=== PATIENT | male | born 1945 | race Caucasian/White ===

== ENCOUNTER 2016-12-24 11:00 | Outpatient (CLI) | payer MEDICARE, OTHER ==
[~2016-12-24] VITALS: Ht 175.3 cm; Wt 117.9 kg
[~2016-12-24 11:00] MED LIST: ALLO100T PO; AMLO10TA82 PO; AMLO5TAB2 PO; ASP81TEC PO; ATOR80TA PO; CARV20CP PO; CHOL2000 PO; CLOP75TA PO; CYAN100053 IJ; FLUT1DIS26 IH; FURO40TA4 PO; GLIM2TAB PO; HCT25T; LISI40TA; PIOG1TAB PO; PIOG1TAB2 PO; SIMV40TA4; SITA100T PO; VITAMIN 12; [UNRECOGNIZED DRUG - OTHER]
== END 2016-12-24 13:10 ==
LOC: PREOP 11:00
PROVIDERS: ATTEND Internal Medicine
DX: Z01.818 Encounter for other preprocedural examination (principal); Z12.11 Encounter for screening for malignant neoplasm of colon

== ENCOUNTER 2016-12-25 10:00 | Outpatient (RCR) | payer MEDICARE, OTHER | END 2017-01-04 | disposition home or self-care (01) | LOC: PULM 10:00 | PROVIDERS: ATTEND Internal Medicine Critical Care Medicine | DX: G47.33 Obstructive sleep apnea (adult) (pediatric) (principal) | CPT/HCPCS: 99211 ==

== ENCOUNTER 2016-12-26 08:33 | Day surgery (SDC) | payer MEDICARE, OTHER ==
--- NOTE | 2016-12-23 20:28 | HISTORY AND PHYSICAL ---
DATE OF SERVICE: HISTORY OF PRESENT ILLNESS: The patient is a 71-year-old white male referred for screening colonoscopy by Dr. Bauer. He had undergone his first colonoscopy in 2004. It revealed mild diverticular disease, but no evidence for neoplasia. He is not aware of any family history for colon cancer or colon polyps. He denies any bowel habit change and has noted no bright red blood per rectum, melena and denies abdominal pain. He reports that he has been feeling well. He underwent aortic valve replacement in 2008 with a bovine valve. He had an echocardiogram in 2016 that revealed normal valvular function and ejection fraction of 60% and mild LVH. Pulmonary artery pressure was not elevated and no other significant abnormalities were noted. PAST MEDICAL HISTORY: Significant for hypertension and hyperlipidemia. PAST SURGICAL HISTORY: Also, significant for surgery X2 for detached retina in September and December of last year. SOCIAL HISTORY: He is retired with no past smoking history and no significant drinking history. FAMILY HISTORY: As noted in HPI. PHYSICAL EXAMINATION: GENERAL: Reveals white male who appears to be in no acute distress, looking a little younger than his stated age. VITAL SIGNS: Blood pressure 134/50. HEENT: Unremarkable. A Mallampati class 2 oropharyngeal configuration. NECK: Revealed no JVD, adenopathy or bruits. CARDIOVASCULAR: S1 revealed a regular rate and rhythm without significant murmur, S3 or S4. ABDOMEN: Soft, supple without mass, organomegaly or tenderness. Bowel sounds noted in all 4 quadrants. No bruits are appreciated. EXTREMITIES: Reveal no cyanosis, clubbing or edema. MEDICATIONS: Include Januvia 100 mg daily, aspirin 81 mg daily, Coreg CR 20 mg daily, furosemide 40 mg daily, atorvastatin 80 mg daily, glimepiride 2 mg daily, vitamin D3 2000 units daily, Advair one inhalation b.i.d., Actos plus met 15/500 b.i.d., amlodipine 5 mg daily and clopidogrel 75 mg daily. He has had no history of stent placements, but does have known single vessel coronary disease. ASSESSMENT: The patient was set up for screening colonoscopy on 12/27/2016. Prep instructions with split dose Colyte were given. The patient's evaluation and review of her electronic medical record, 45 minutes of care time was spent. I thank you for the referral of this pleasant gentleman. Job ID: [id number] DocumentID: [id number] Dictated Date: 12/23/2016 20:00:28 It Risk Analyst Date: 12/23/2016 20:28:02 Dictated By: NATALY MARTINEZ MD MTDD
[~2016-12-26] VITALS: Ht 175.3 cm; Wt 117.9 kg
--- NOTE | 2016-12-26 08:33 | Pre-Op Note & Conscious Sedat ---
Pre-Operative Progress Note H&P Reviewed The H&P was reviewed, patient examined and no changes noted. Date H&P Reviewed: Dec 26, 2016 Time H&P Reviewed: 07:50 Conscious Sedation Pre-Proced ASA Class: 2 Airway Mallampati Classification: ([place] appropriate class) I. II. III, IV Lungs Heart ASA score ASA 1: a normal healthy patient ASA 2: a patient with a mild systemic disease (mid diabetes, controlled hypertension, obesity ASA 3: a patient with a severe systemic disease that limits activity (angina , COPD, prior Myocardial infarction) ASA 4: a patient with an incapacitating disease that is a constant threat to life (CHF, renal failure) ASA 5: a moribund patient not expected to survive 24 hrs. (ruptured aneurysm) ASA 6: a declared brain patient whose organs are being harvested. For emergent operations, add the letter E after the classification Grade 2 Sedation Plan: Analgesia, Amnesia, Plan communicated to team members, Discussed options with patient/fam, Discussed risks with patient/fam Note The patient is an appropriate candidate to undergo the planned procedure, sedation, and anesthesia. The patient immediately re-assessed prior to indication. NATALY MARTINEZ MD Dec 26, 2016 08:33
[2016-12-26] MEDS ORDERED: 1/2 NS IV SOLUTION 1,000 ML IV PRN (09:10)
[2016-12-26] MEDS ORDERED: MIDAZOLAM 2 MG/2 ML (VERSED) VIAL IVP PRN (09:10)
[2016-12-26] MEDS ORDERED: LIDOCAINE JELLY 2% (XYLOCAINE) 5 ML TUBE MM PRN (09:15)
[2016-12-26] MEDS ORDERED: FLUMAZENIL (ROMAZICON) 0.1 MG/ML 5 ML VIAL INJ PRN (09:15)
[2016-12-26] MEDS ORDERED: NALOXONE 0.4 MG/ML 1 ML (NARCAN) VIAL IVP PRN (09:15)
[2016-12-26] MEDS ORDERED: fentaNYL INJECTION 100 MCG/2 ML AMP ONE (09:33)
[2016-12-26] MEDS ORDERED: LIDOCAINE JELLY 2% (XYLOCAINE) 5 ML TUBE ONE (09:33)
[2016-12-26] MEDS ORDERED: MIDAZOLAM 2 MG/2 ML (VERSED) VIAL ONE (09:33)
[2016-12-26 09:40] VITALS: BP 154/60
[2016-12-26] MEDS: fentaNYL INJECTION 100 MCG/2 ML AMP IVP PRN ×2 (09:57→10:10)
[2016-12-26 10:35] VITALS: BP 122/45
[2016-12-26 11:00] VITALS: BP 133/50
[2016-12-26 11:11] VITALS: BP 133/50
--- NOTE | 2016-12-26 12:27 | OPERATIVE REPORT ---
DATE OF SERVICE: COLONOSCOPY SUMMARY INDICATION FOR THE PROCEDURE: Screening colonoscopy. HISTORY OF PRESENT ILLNESS: The patient was placed in the left lateral decubitus position. Prior to undergoing colonoscopy, digital rectal evaluation was performed. Anal sphincter tone was normal and the perianal reflex was intact. Prostate was mildly enlarged, nontender and anodular on digital inspection. No abnormalities were noted on additional inspection of the distal rectal vault. The colonoscope was then inserted into the rectum and under direct visualization, advanced to the cecum. The cecum was identified by identification of the ileocecal valve and the cecal strap. Photographic documentation was obtained. Careful inspection was made as the colonoscope was withdrawn. FINDINGS: There is no evidence for internal or external hemorrhoids. The rectum was unremarkable. Several small sigmoid diverticulum were present without evidence for diverticulitis. No other sigmoid colonic abnormalities were appreciated. The descending colon, transverse colon and ascending colon were unremarkable. On the colonic wall across from the ileocecal valve was a 3 x 5 mm blush area compatible with an area of angiodysplasia. No blood was noted in the colon. There was no evidence for hematocystic spots or findings to suggest increase bleeding risk. The remainder of the cecum was unremarkable. ASSESSMENTS: 1. No neoplasia was identified on today's procedure. Considering this patient's age and medical comorbidities, would not recommend future screening colonoscopy, as this is his second of 2 colonoscopies with no evidence for neoplasia. 2. Mild diverticular disease confined to the sigmoid colon. 3. Small diverticulum being noted today without evidence for diverticulitis. 4. One small angiodysplastic appearing lesion on the opposite colonic wall in the cecum from the ileocecal valve measuring 3.5 mm without bleeding or stigmata to suggest increased bleeding risk was noted on the wall opposite the ileocecal valve and the cecum. I discussed the small possibility of gastrointestinal bleed that would likely manifest as dark red blood, but I advised the patient resume aspirin and Plavix today. I thank you for the referral of this pleasant gentleman. Job ID: [id number] DocumentID: [id number] Dictated Date: 12/26/2016 11:42:55 Construction Safety Consultant Date: 12/26/2016 12:26:57 Dictated By: NATALY MARTINEZ MD
--- OUTSIDE RECORDS SUMMARY | 2016-12-31 12:15 | XMS REPORT | Continuity of Care Document ---
Author Author [facility] Organization [facility] Address Unknown Phone Unavailable Allergies Active Description Code Type Severity Reaction Onset Reported/Identified Relationship to Patient Clinical Status Yes No Known Drug Allergies [id number] Drug Allergy Mild N/A 07/11/2009 Medications Problems Date Dx Coded Attending Type Code Diagnosis Diagnosed By 01/31/2009 Ot V43.3 01/31/2009 Ot V45.81 01/31/2009 Ot V57.89 10/17/2009 Ot 250.00 10/17/2009 Ot 401.9 10/17/2009 Ot 719.41 10/17/2009 Ot V43.3 10/17/2009 Ot V57.1 10/17/2009 Ot V58.49 11/23/2009 Ot 250.00 11/23/2009 Ot 401.9 11/23/2009 Ot 719.41 11/23/2009 Ot V43.3 11/23/2009 Ot V57.1 11/23/2009 Ot V58.49 05/23/2014 MARIELOS MERRITT FACC, DIEGO FACP CCDS Ot 250.00 DIAB CORONA WO COMPL, TYPE II OR UNSPEC TY 05/23/2014 MARIELOS MERRITT FACC, DIEGO FACP CCDS Ot 272.4 HYPERLIPIDEMIA NEC/NOS 05/23/2014 MARIELOS MERRITT FACC, DIEGO FACP CCDS Ot 401.9 HYPERTENSION NOS 05/23/2014 DIEGO ARCEO MD, FACC FACP CCDS Ot 414.01 CORONARY ATHEROSCLEROSIS OF [place] CORON 05/23/2014 DIEGO ARCEO MD, FACC FACP CCDS Ot 433.10 CAROTID ARTERY OCCLUSION W O CEREBRAL IN 05/23/2014 DIEGO ARCEO MD, FACC FACP CCDS Ot 786.09 RESPIRATORY ABNORM NEC 05/23/2014 DIEGO ARCEO MD, FACC FACP CCDS Ot V15.82 HISTORY OF TOBACCO USE 05/23/2014 MARIELOS MERRITT FACC, DIEGO FACP CCDS Ot V43.3 HEART VALVE REPLAC NEC 05/23/2014 DIEGO ARCEO MD, FACC FACP CCDS Ot V45.81 AORTOCORONARY BYPASS 05/23/2014 MARIELOS MERRITT FACC, ALI FACP CCDS Ot V58.69 OT MED,LT,CURRENT USE 10/09/2014 Ot 727.61 10/09/2014 Ot V72.83 10/09/2014 Ot V74.8 10/09/2014 Ot 789.09 10/09/2014 Ot 726.0 10/09/2014 Ot V72.63 10/09/2014 Ot V74.8 10/09/2014 Ot 414.01 10/09/2014 Ot 786.59 10/09/2014 Ot V43.3 10/09/2014 Ot 786.59 10/09/2014 Ot 414.01 10/09/2014 Ot 425.4 10/09/2014 Ot 397.0 10/09/2014 Ot 414.00 10/09/2014 Ot 424.0 10/09/2014 Ot 429.3 10/09/2014 Ot V43.3 10/09/2014 Ot 780.4 10/09/2014 Ot 429.3 10/09/2014 Ot V43.3 10/09/2014 Ot V67.00 10/09/2014 BAIMA, GERARDO L REEL MAN Ot 414.01 10/09/2014 BAIMA GERARDO L REEL MAN Ot 447.9 10/09/2014 BAIMA, GERARDO L REEL MAN Ot V43.3 04/17/2015 Ot 414.01 04/17/2015 Ot 786.59 04/17/2015 Ot V43.3 04/17/2015 Ot 786.59 04/17/2015 Ot 414.01 04/17/2015 Ot 425.4 04/17/2015 Ot 397.0 04/17/2015 Ot 414.00 04/17/2015 Ot 424.0 04/17/2015 Ot 429.3 04/17/2015 Ot V43.3 04/17/2015 Ot 780.4 04/17/2015 Ot 429.3 04/17/2015 Ot V43.3 04/17/2015 Ot V67.00 04/17/2015 BAIMA, GERARDO L REEL MAN Ot 414.01 04/17/2015 BAIMA, GERARDO L REEL MAN Ot 447.9 04/17/2015 BAIMA, GERARDO L REEL MAN Ot V43.3 05/23/2015 BAIMA, GERARDO L REEL MAN Ot I25.10 05/23/2015 BAIMA, GERARDO L REEL MAN Ot R07.89 06/14/2015 BAIMA, GERARDO L REEL MAN Ot I25.10 06/14/2015 BAIMA, GERARDO L REEL MAN Ot R07.89 01/06/2016 AUGUSTA MERRITT, NATALY Gan Ot H53.8 OTHER VISUAL DISTURBANCES 01/07/2016 NATALY DERAS MD Ot H53.8 OTHER VISUAL DISTURBANCES 02/20/2016 Ot 397.0 TRICUSPID VALVE DISEASE 02/20/2016 Ot 414.00 CORON ATHEROSCLER NOS TYPE VESSEL, NATIV 02/20/2016 Ot 424.0 MITRAL VALVE DISORDER 02/20/2016 Ot 429.3 CARDIOMEGALY 02/20/2016 Ot V43.3 HEART VALVE REPLAC NEC 02/20/2016 Ot 780.4 DIZZINESS AND GIDDINESS 02/20/2016 Ot 429.3 CARDIOMEGALY 02/20/2016 Ot V43.3 HEART VALVE REPLAC NEC 02/20/2016 Ot V67.00 UNSPEC SURGERY FOLLOW-UP EXAM 02/20/2016 MILES GERARDO L REEL MAN Ot 414.01 CORONARY ATHEROSCLEROSIS OF [place] CORON 02/20/2016 BAIMA, GERARDO L REEL MAN Ot 447.9 ARTERIAL DISEASE NOS 02/20/2016 BAIMA, GERARDO L REEL MAN Ot V43.3 HEART VALVE REPLAC NEC 02/20/2016 BAIMA, GERARDO L REEL MAN Ot I25.10 ATHSCL HEART DISEASE OF [place] CORONARY 02/20/2016 BAIMA, GERARDO L REEL MAN Ot R07.89 OTHER CHEST PAIN 04/22/2016 Ot 397.0 TRICUSPID VALVE DISEASE 04/22/2016 Ot 414.00 CORON ATHEROSCLER NOS TYPE VESSEL, NATIV 04/22/2016 Ot 424.0 MITRAL VALVE DISORDER 04/22/2016 Ot 429.3 CARDIOMEGALY 04/22/2016 Ot V43.3 HEART VALVE REPLAC NEC 04/22/2016 Ot 780.4 DIZZINESS AND GIDDINESS 04/22/2016 Ot 429.3 CARDIOMEGALY 04/22/2016 Ot V43.3 HEART VALVE REPLAC NEC 04/22/2016 Ot V67.00 UNSPEC SURGERY FOLLOW-UP EXAM 04/22/2016 MILES GERARDO L REEL MAN Ot 414.01 CORONARY ATHEROSCLEROSIS OF [place] CORON 04/22/2016 BAIMA, GERARDO L REEL MAN Ot 447.9 ARTERIAL DISEASE NOS 04/22/2016 BAIMA GERARDO L REEL MAN Ot V43.3 HEART VALVE REPLAC NEC 04/22/2016 BAIMA, GERARDO L REEL MAN Ot I25.10 ATHSCL HEART DISEASE OF [place] CORONARY 04/22/2016 BAIMA GERARDO L REEL MAN Ot R07.89 OTHER CHEST PAIN 04/23/2016 BAIMA, GERARDO L REEL MAN Ot E78.4 OTHER HYPERLIPIDEMIA 04/23/2016 BAIMA, GERARDO L REEL MAN Ot I25.10 ATHSCL HEART DISEASE OF [place] CORONARY 04/23/2016 BAIMA, GERARDO L REEL MAN Ot I65.23 OCCLUSION AND STENOSIS OF BILATERAL BOUCHER 04/23/2016 BAIMA, GERARDO L REEL MAN Ot I97.3 POSTPROCEDURAL HYPERTENSION 04/23/2016 BAIMA, GERARDO L REEL MAN Ot R06.09 OTHER FORMS OF DYSPNEA 04/23/2016 BAIMA, GERARDO L REEL MAN Ot 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 04/23/2016 BAIMA, GERARDO L REEL MAN Ot E78.4 OTHER HYPERLIPIDEMIA 04/23/2016 BAIMA, GERARDO L REEL MAN Ot I25.10 ATHSCL HEART DISEASE OF [place] CORONARY 04/23/2016 BAIMA, GERARDO L REEL MAN Ot I65.23 OCCLUSION AND STENOSIS OF BILATERAL [place]OUCHER 04/23/2016 BAIMA, GERARDO L REEL MAN Ot I97.3 POSTPROCEDURAL HYPERTENSION 04/23/2016 BAIMA, GERARDO L REEL MAN Ot R06.09 OTHER FORMS OF DYSPNEA 04/23/2016 BAIMA, GERARDO L REEL MAN Ot 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 04/24/2016 BAIMA, GERARDO L REEL MAN Ot E78.4 OTHER HYPERLIPIDEMIA 04/24/2016 BAIMA, GERARDO L REEL MAN Ot I25.10 ATHSCL HEART DISEASE OF [place] CORONARY 04/24/2016 BAIMA, GERARDO L REEL MAN Ot I65.23 OCCLUSION AND STENOSIS OF BILATERAL [place]CHER 04/24/2016 BAIMA, GERARDO L REEL MAN Ot I97.3 POSTPROCEDURAL HYPERTENSION 04/24/2016 BAIMA, GERARDO L REEL MAN Ot R06.09 OTHER FORMS OF DYSPNEA 04/24/2016 BAIMA, GERARDO L REEL MAN Ot 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 05/13/2016 GERARDO AQUINO REEL MAN Ot E78.4 OTHER HYPERLIPIDEMIA 05/13/2016 GERARDO AQUINO REEL MAN Ot I25.10 ATHSCL HEART DISEASE OF [place] CORONARY 05/13/2016 GERARDO AQUINO REEL MAN Ot I65.23 OCCLUSION AND STENOSIS OF BILATERAL [place]CHER 05/13/2016 GERARDO AQUINO REEL MAN Ot I97.3 POSTPROCEDURAL HYPERTENSION 05/13/2016 GERARDO AQUINO REEL MAN Ot R06.09 OTHER FORMS OF DYSPNEA 05/13/2016 GERARDO AQUINO REEL MAN Ot 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 05/22/2016 JIMI LEIGH DO Ot I65.23 OCCLUSION AND STENOSIS OF BILATERAL [place]CHER 05/22/2016 JIMI LEIGH DO Ot R06.02 SHORTNESS OF BREATH 05/22/2016 JIIM LEIGH DO Ot R79.89 OTHER SPECIFIED ABNORMAL FINDINGS OF BLO 05/22/2016 JIMI LEIGH DO Ot 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 05/26/2016 JIMI LEIGH DO Ot G47.33 OBSTRUCTIVE SLEEP APNEA (ADULT) (PEDIATR 05/26/2016 JIMI LEIGH DO Ot G47.33 OBSTRUCTIVE SLEEP APNEA (ADULT) (PEDIATR 05/27/2016 Ot 397.0 TRICUSPID VALVE DISEASE 05/27/2016 Ot 414.00 CORON ATHEROSCLER NOS TYPE VESSEL, NATIV 05/27/2016 Ot 424.0 MITRAL VALVE DISORDER 05/27/2016 Ot 429.3 CARDIOMEGALY 05/27/2016 Ot V43.3 HEART VALVE REPLAC NEC 05/27/2016 Ot 780.4 DIZZINESS AND GIDDINESS 05/27/2016 Ot 429.3 CARDIOMEGALY 05/27/2016 Ot V43.3 HEART VALVE REPLAC NEC 05/27/2016 Ot V67.00 UNSPEC SURGERY FOLLOW-UP EXAM 05/27/2016 GERARDO AQUINO REEL MAN Ot 414.01 CORONARY ATHEROSCLEROSIS OF [place] CORON 05/27/2016 GERARDO AQUINO REEL MAN Ot 447.9 ARTERIAL DISEASE NOS 05/27/2016 GERARDO AQUINO REEL MAN Ot V43.3 HEART VALVE REPLAC NEC 05/27/2016 GERARDO AQUINO REEL MAN Ot I25.10 ATHSCL HEART DISEASE OF [place] CORONARY 05/27/2016 KIMBERLYN AQUINOHER L REEL MAN Ot R07.89 OTHER CHEST PAIN 05/27/2016 BAIMA, GERARDO L REEL MAN Ot E78.4 OTHER HYPERLIPIDEMIA 05/27/2016 BAIMA, GERARDO L REEL MAN Ot I25.10 ATHSCL HEART DISEASE OF [place] CORONARY 05/27/2016 BAIMA GERARDO L REEL MAN Ot I65.23 OCCLUSION AND STENOSIS OF B[place]ATER[place] 05/27/2016 BAIMA, GERARDO L REEL MAN Ot I97.3 POSTPROCEDURAL HYPERTENSION 05/27/2016 BAIMA, GERARDO L REEL MAN Ot R06.09 OTHER FORMS OF DYSPNEA 05/27/2016 BAIMA, GERARDO L REEL MAN Ot 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 05/27/2016 JIMI LEIGH DO Ot I65.23 OCCLUSION AND STENOSIS OF [place]ATER[place] 05/27/2016 JIMI LEIGH DO Ot R06.02 SHORTNESS OF BREATH 05/27/2016 JIMI LEIGH DO Ot R79.89 OTHER SPECIFIED ABNORMAL FINDINGS OF BLO 05/27/2016 JIMI LEIGH DO Ot 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 05/27/2016 BAIMAKIMBERLYNGERARDO L REEL MAN Ot E78.4 OTHER HYPERLIPIDEMIA 05/27/2016 BAIMA, GERARDO L REEL MAN Ot I25.10 ATHSCL HEART DISEASE OF [place] CORONARY 05/27/2016 BAIMAKIMBERLYNGERARDO L REEL MAN Ot I65.23 OCCLUSION AND STENOSIS OF BILATERAL [place] 05/27/2016 BAIMAKIMBERLYNGERARDO L REEL MAN Ot I97.3 POSTPROCEDURAL HYPERTENSION 05/27/2016 SHEBAMA GERARDO L REEL MAN Ot R06.09 OTHER FORMS OF DYSPNEA 05/27/2016 MILES GERARDO L REEL MAN Ot 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 05/27/2016 JIMI LEIGH DO Ot G47.33 OBSTRUCTIVE SLEEP APNEA (ADULT) (PEDIATR 05/29/2016 JIMI LEIGH DO Ot E29.1 TESTICULAR HYPOFUNCTION 05/29/2016 JIMI LEIGH DO Ot I65.23 OCCLUSION AND STENOSIS OF BILATERAL [place] 05/29/2016 JIMI LEIGH DO Ot R06.02 SHORTNESS OF BREATH 05/29/2016 JIMI LEIGH DO Ot 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 06/12/2016 LU DUGGAN JIMI Goff Ot I65.23 OCCLUSION AND STENOSIS OF BILATERAL [place] 06/12/2016 LU DUGGAN JIMI M Ot R06.02 SHORTNESS OF BREATH 06/12/2016 LU DUGGAN JIMI M Ot R79.89 OTHER SPECIFIED ABNORMAL FINDINGS OF BLO 06/12/2016 LU DUGGAN JIMI M Ot 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 06/18/2016 JIMI LEIGH DO Ot E29.1 TESTICULAR HYPOFUNCTION 06/18/2016 LU DUGGAN JIMI M Ot I65.23 OCCLUSION AND STENOSIS OF [place] 06/18/2016 JIMI LEIGH DO Ot R06.02 SHORTNESS OF BREATH 06/18/2016 JIMI LEIGH DO Ot 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 07/08/2016 JIMI LEIGH DO Ot I65.23 OCCLUSION AND STENOSIS OF [place] 07/08/2016 JIMI LEIGH DO Ot R06.02 SHORTNESS OF BREATH 07/08/2016 JIMI LEIGH DO Ot R79.89 OTHER SPECIFIED ABNORMAL FINDINGS OF BLO 07/08/2016 JIMI LEIGH DO Ot 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 07/08/2016 JIMI LEIGH DO Ot E29.1 TESTICULAR HYPOFUNCTION 07/08/2016 LU DUGGAN JIMI M Ot I65.23 OCCLUSION AND STENOSIS OF [place] 07/08/2016 JIMI LEIGH DO Ot R06.02 SHORTNESS OF BREATH 07/08/2016 JIMI LEIGH DO Ot 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 10/06/2016 Ot 780.4 DIZZINESS AND GIDDINESS 10/06/2016 Ot 429.3 CARDIOMEGALY 10/06/2016 Ot V43.3 HEART VALVE REPLAC NEC 10/06/2016 Ot V67.00 UNSPEC SURGERY FOLLOW-UP EXAM 10/06/2016 GERARDO AQUINO Ot 414.01 CORONARY ATHEROSCLEROSIS OF [place] CORON 10/06/2016 GERARDO AQUINO REEL MAN Ot 447.9 ARTERIAL DISEASE NOS 10/06/2016 GERARDO AQUINO Ot V43.3 HEART VALVE REPLAC NEC 10/06/2016 BAIMA, GERARDO L REEL MAN Ot I25.10 ATHSCL HEART DISEASE OF [place] CORONARY 10/06/2016 GERARDO AQUINO REEL MAN Ot R07.89 OTHER CHEST PAIN 10/06/2016 GERARDO AQUINO REEL MAN Ot E78.4 OTHER HYPERLIPIDEMIA 10/06/2016 GERARDO AQUINO REEL MAN Ot I25.10 ATHSCL HEART DISEASE OF [place] CORONARY 10/06/2016 GERARDO AQUINO REEL MAN Ot I65.23 OCCLUSION AND STENOSIS OF BILATERAL [place] 10/06/2016 SHEBAKAY GERARDO Burns REEL MAN Ot I97.3 POSTPROCEDURAL HYPERTENSION 10/06/2016 GERARDO AQUINO REEL MAN Ot R06.09 OTHER FORMS OF DYSPNEA 10/06/2016 MILES GERARDO Burns REEL MAN Ot 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 10/06/2016 JIMI LEIGH DO Ot I65.23 OCCLUSION AND STENOSIS OF BILATERAL [place] 10/06/2016 JIMI LEIGH DO Ot R06.02 SHORTNESS OF BREATH 10/06/2016 JIMI LEIGH DO Ot R79.89 OTHER SPECIFIED ABNORMAL FINDINGS OF BLO 10/06/2016 JIMI LEIGH DO Ot 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 10/06/2016 JIMI LEIGH DO Ot E29.1 TESTICULAR HYPOFUNCTION 10/06/2016 JIMI LEIGH DO Ot I65.23 OCCLUSION AND STENOSIS OF BILATERAL [place] 10/06/2016 JIMI LEIGH DO Ot R06.02 SHORTNESS OF BREATH 10/06/2016 JIMI LEIGH DO Ot 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 10/07/2016 JIMI LEIGH DO Ot G47.33 OBSTRUCTIVE SLEEP APNEA (ADULT) (PEDIATR 11/03/2016 JIMI LEIGH DO Ot G47.33 OBSTRUCTIVE SLEEP APNEA (ADULT) (PEDIATR 12/16/2016 JIMI LEIGH DO Ot G47.33 OBSTRUCTIVE SLEEP APNEA (ADULT) (PEDIATR Procedures Results Test Result Range Capillary blood glucose measurement by glucometer (mass/volume) - 12/26/16 09: 39 Capillary blood glucose measurement by glucometer (mass/volume) 120 mg/dL 70-110 Encounters ACCT No. Visit Date/Time Discharge Status Pt. Type Provider Facility Loc./Unit Complaint [id number] 12/26/2016 08:33:00 2016 11:12:00 DIS Outpatient NATALY MARTINEZ MD [facility] ENDO SCREENING [id number] 12/24/2016 11:00:00 2016 13:10:00 DIS Outpatient NATALY MARTINEZ MD [facility] PREOP SCREENING [id number] 05/26/2016 09:57:00 2015 10:15:00 DIS Outpatient JIMI LEIGH DO [facility] SLEEP OBSERVED APNEA, SNORING, eds [id number] 01/06/2016 09:08:00 2015 10:35:00 DIS Emergency NATALY DERAS MD [facility] ER R EYE CLOUDY VISION [id number] 04/17/2015 07:59:00 2014 23:59:59 CLS Outpatient GERARDO AQUINO L REEL MAN [facility] CARD CAD, CHEST PRESSURE [id number] 05/23/2014 06:57:00 2013 13:46:00 DIS Outpatient MARIELOS MERRITT FACC, DIEGO FACP CCDS [facility] CATH CAD,FATIGUE,SOB [id number] 04/14/2014 07:48:00 2013 23:59:59 CLS Outpatient GERARDO AQUINO L REEL MAN [facility] CARD AORTIC VALVE REPLACEMENT [id number] 04/14/2013 08:11:00 2012 23:59:59 CLS Outpatient KIMBERLYN AQUINOHER L REEL MAN [facility] RAD CAD [id number] 12/25/2016 10:00:00 ACT Outpatient JIMI LEIGH DO [facility] PULM MICHELLE [id number] 05/28/2016 18:19:00 ACT Outpatient JIMI LEIGH DO [facility] RT SHORTNESS OF BREATH,CAROTID ARTERIA DISEASE [id number] 05/22/2016 15:05:00 ACT Outpatient JIMI LEIGH DO [facility] RAD SOB,CAD,LOW TESTOSTERONE [id number] 04/22/2016 07:35:00 ACT Outpatient GERARDO AQUINO [facility] CARD SUÁREZ,CAD,S/P AVR,HTN,HLP [id number] 10/09/2014 15:30:00 Document Registration [id number] 10/09/2014 15:30:00 Document Registration [id number] 10/09/2014 15:30:00 Document Registration [id number] 10/09/2014 15:30:00 Document Registration [id number] 10/09/2014 15:30:00 Document Registration [id number] 10/09/2014 15:30:00 Document Registration [id number] 04/23/2012 07:32:00 Document Registration [id number] 10/23/2011 08:41:00 Document Registration [id number] 04/22/2010 11:18:00 Document Registration [id number] 01/31/2010 09:18:00 Document Registration [id number] 01/10/2010 08:13:00 Document Registration [id number] 11/23/2009 07:53:00 Document Registration [id number] 07/11/2009 09:00:00 Document Registration [id number] 01/31/2009 10:00:00 Document Registration
== END 2016-12-26 11:12 | disposition home or self-care (01) ==
LOC: ENDO 08:33
PROVIDERS: ATTEND Internal Medicine
DX: Z12.11 Encounter for screening for malignant neoplasm of colon (principal); K57.30 Diverticulosis of large intestine without perforation or abscess without bleeding; K55.20 Angiodysplasia of colon without hemorrhage; I10 Essential (primary) hypertension; E78.5 Hyperlipidemia, unspecified; Z95.2 Presence of prosthetic heart valve
CPT/HCPCS: 82962

== ENCOUNTER → 2017-01-21 | Outpatient (CLI) | payer MEDICARE, OTHER ==
[~2017-01-21] MED LIST changes: +CATHETER FLUSH 10 ML SYR IV PRN; +IOHEXOL 350 MG/ML 150 ML (OMNIPAQUE 350) VIAL IV ONE; +NS 100 ML (IVPB) BAG IV ONE
--- NOTE | 2017-01-21 13:39 | Diagnostic Imaging Report ---
CT angiogram of the abdomen, pelvis and bilateral lower extremity runoff. INDICATION: Peripheral vascular disease. Coronal reconstructions with MIP algorithm is performed in addition to the thin section axial images. 150 mL of Omnipaque 350 is administered intravenously. FINDINGS: Soft tissue findings include no significant abnormality in the lung bases. The liver, the gallbladder, the spleen, the adrenals, and the pancreas appear grossly unremarkable. The kidneys have symmetric enhancement and excretion. There is a 2.9 cm exophytic upper pole right kidney low-attenuation lesion, probably a cyst. Other smaller cyst in the mid left kidney is seen. There is no fluid collection or free fluid in the abdomen or pelvis. There is a tiny fat-containing umbilical hernia. The abdominal aorta is normal in caliber. There is significant atherosclerotic plaque seen in the aortoiliac segments and their main branches. The SMA and the celiac trunk demonstrate no significant stenosis. The renal arteries demonstrate calcified plaque with blooming artifacts preventing accurate assessment of underlying degree of stenosis with probable moderate stenosis within the proximal right renal artery. The LAURENT origin is not well evaluated due to adjacent dense calcification with most of this vessel length appears to be patent. There is ectasia of the distal abdominal aorta with no significant aneurysmal dilatation and no high-grade stenosis. There is a dissection flap suggested within the proximal left common iliac artery which is probably chronic. In the mid right common iliac artery, there is also a chronic dissection or ulcerated plaque with luminal stenosis of about 60%. The right external iliac artery demonstrates prominent calcified plaque with no high-grade stenosis. The right internal iliac artery is patent. The left internal iliac artery demonstrates prominent calcified plaque. The vessel is patent, however. The left external iliac artery is patent. Right lower extremity runoff: The DETACHER demonstrates mild disease. The profunda femoris is patent. The SFA demonstrates multifocal mild disease in the proximal and mid distal and moderate foci of stenosis distally. The popliteal artery demonstrates no significant disease. The anterior tibial artery is patent to the foot. The tibioperoneal trunk demonstrates a distal calcified plaque with no significant stenosis. This plaque, however, extends to the ostium of the posterior tibial artery and appears to result in moderate ostial stenosis. The rest of the posterior tibial artery is patent to the foot. The peroneal artery is patent to the distal leg. Left lower extremity runoff: There is mild disease in the DETACHER. The profunda femoris is patent. The SFA demonstrates multifocal moderate disease. The popliteal artery is patent. The anterior tibial artery demonstrates mild plaque proximally, but otherwise appears to be patent to the foot. The tibioperoneal trunk demonstrates mild disease. The posterior tibial artery is patent to the foot and the peroneal artery is patent to the distal leg. IMPRESSION: 1. There is moderate focal stenosis in the mid right common iliac artery. 2. 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 Degree of potential flow limitation by this flap would be difficult to estimate based on CT scan and would be better assessed with an angiogram. The distal artery is well opacified. 3. There is moderate disease in the SFA bilaterally, worse on the left side. 4. Relatively mild disease in the infrapopliteal segments. Dictated by: Dictated on workstation # [id number]
== END ==
LOC: RAD 10:50
PROVIDERS: ATTEND Internal Medicine
DX: I77.1 Stricture of artery (principal)
CPT/HCPCS: 75635

== ENCOUNTER 2017-02-17 06:50 | Day surgery (SDC) | payer MEDICARE, OTHER ==
[~2017-02-17] VITALS: Ht 175.3 cm; Wt 117.9 kg
[2017-02-17] VITALS (11 sets, daily range): BP systolic 120–163; BP diastolic 55–66
[~2017-02-17 06:50] MED LIST changes: -CATHETER FLUSH 10 ML SYR IV PRN; -IOHEXOL 350 MG/ML 150 ML (OMNIPAQUE 350) VIAL IV ONE; -NS 100 ML (IVPB) BAG IV ONE
[2017-02-17] MEDS ORDERED: HEParin (CATH LAB) 2,000 ML IV ONE (06:51)
[2017-02-17] MEDS ORDERED: NS IV 1000 ML 1,000 ML ONE (06:51)
[2017-02-17 07:27] LABS: MEAN PLATELET VOLUME 10.3 FL (7.4-10.4); RED BLOOD COUNT 4.08 10^6/uL (4.35-5.85); RED CELL DISTRIBUTION WIDTH 14.9 % (10.0-14.5); WHITE BLOOD COUNT 8.1 10^3/uL (4.3-11.0)
[2017-02-17 07:40] LABS: INR 1.1 (0.8-1.4); PROTHROMBIN TIME PATIENT 13.4 SEC (12.2-14.7)
[2017-02-17] MEDS ORDERED: diphenhydrAMINE 50 MG/ML INJ (BENADRYL) ONE (07:42)
[2017-02-17] MEDS ORDERED: fentaNYL INJECTION 100 MCG/2 ML AMP ONE (07:42)
[2017-02-17] MEDS ORDERED: MIDAZOLAM 5 MG/5 ML (VERSED) VIAL ONE (07:42)
[2017-02-17] MEDS ORDERED: NS IV 1000 ML 1,000 ML IV SCH ×3 (07:45→12:27)
[2017-02-17 07:48] LABS: ALBUMIN 3.9 GM/DL (3.2-4.5); BILIRUBIN,TOTAL 0.8 MG/DL (0.1-1.0); CALCIUM 9.3 MG/DL (8.5-10.1); CREATININE SERUM 1.22 MG/DL (0.60-1.30); POTASSIUM 3.6 MMOL/L (3.6-5.0); TOTAL PROTEIN 6.9 GM/DL (6.4-8.2)
--- NOTE | 2017-02-17 08:46 | Cardiac Procedure Note-CS/ASA ---
Pre-Procedure Note Pre-Op Procedure Note H&P Reviewed The H&P was reviewed, patient examined and no changes noted. Date H&P Reviewed: Feb 17, 2017 Time H&P Reviewed: 08:45 Conscious Sedation Pre-Proced Time Reviewed: 08:45 ASA Class: 2 Airway Mallampati Classification: (new [place] appropriate class) I. II. III, IV Lungs Heart ASA score ASA 1: a normal healthy patient ASA 2: a patient with a mild systemic disease (mid diabetes, controlled hypertension, obesity ASA 3: a patient with a severe systemic disease that limits activity (angina , COPD, prior Myocardial infarction) ASA 4: a patient with an incapacitating disease that is a constant threat to life (CHF, renal failure) ASA 5: a moribund patient not expected to survive 24 hrs. (ruptured aneurysm) ASA 6: a declared brain patient whose organs are being harvested. For emergent operations, add the letter E after the classification Grade 2 Sedation Plan: Analgesia, Amnesia, Plan communicated to team members, Discussed options with patient/fam, Discussed risks with patient/fam Note The patient is an appropriate candidate to undergo the planned procedure, sedation, and anesthesia. The patient immediately re-assessed prior to indication. DIEGO ARCEO MD FACP [facility] Feb 17, 2017 08:46
--- NOTE | 2017-02-17 09:43 | Discharge Inst-Post CATH ---
Discharge Inst-CATH Post Cardiac Cath D/C Inst Follow Up/Plan F/u with Dr Valderrama in 2-3 weeks CARDIAC CATH DISCHARGE INSTRUCTIONS *Hold Metformin for 48 hours post heart cath. ACTIVITY * Go Home directly and rest. * Limit activity of the leg (or wrist if it was used) for 7 days including aerobics, swimming, jogging, bicycling, etc. * Restrict stair-climbing for 7 days if possible, if not, climb up with your non -cath leg, then bring together on the same step. * Avoid lifting, pushing, pulling or excessive movement of the affected extremity for 7 days. * Customary sexual activity may be resumed after 2 days-use caution not to use a position that strains or causes pain to the affected extremity. * No driving for 24 hours. * NO SMOKING. * Avoid straining for bowel movements for 7 days. * Gentle walking on level ground is allowed. * Returning to work will depend on the type of procedure and the results. Your doctor will discuss this with you. CALL YOUR DOCTOR FOR ANY OF THE FOLLOWING: *If bleeding from the puncture site occurs- Apply gentle pressure to site with clean cloth and call your doctor or EMS. * If a knot or lump forms under the skin, increases in size, or causes pain. * If bruising appears to be worsening or moving further down your leg instead of disappearing. * Temperature above 101 F. CARE OF YOUR GROIN INCISION; * Bruising or purple discoloration of the skin near the puncture site is common. * You may shower only, no bathtub bathing for 5 days. Be careful to avoid slipping as your leg may feel stiff. * If a closure device was used on your femoral artery, please see the attached guide regarding care of the device and your leg. * REMOVE the dressing from your groin the next day after your procedure in the shower. CARE OF YOUR WRIST INCISION; * Bruising or purple discoloration of the skin near the puncture site is common. * You may shower. * DO NOT submerge wrist. * Remove dressing in 24 hours. DIEGO VALDERRAMA MD [facility]S Feb 17, 2017 09:43
--- NOTE | 2017-02-17 09:44 | Discharge Inst-Cardiology ---
Discharge Inst-Cardiac Discharge Medications Continued Medications: Allopurinol (Allopurinol) 100 Mg Tablet 100 MG PO DAILY, TAB Amlodipine Besylate (Amlodipine Besylate) 5 Mg Tablet 5 MG PO DAILY Aspirin (Aspirin Ec 81 Mg) 81 Mg Tabec 81 MG PO DAILY Atorvastatin Calcium (Lipitor 80MG) 80 Mg Tablet 80 MG PO HS Carvedilol Phosphate (Coreg Cr) 20 Mg Cpmp.24hr 20 MG PO DAILY Cholecalciferol (Vitamin D) 2,000 Unit Capsule 2000 UNIT PO DAILY Clopidogrel Bisulfate (Plavix 75 Mg) 75 Mg Tablet 75 MG PO Q48H every other day Cyanocobalamin (Cyanocobalamin) 1,000 Mcg/Ml Vial 1000 MCG IJ 1ST TUE EACH MONTH Fluticasone/Salmeterol (Advair 250-50 Diskus) 1 Each Blst.w.dev 1 EACH IH BID Furosemide (Furosemide) 40 Mg Tablet 40 MG PO DAILY Glimepiride (Glimepiride) 2 Mg Tablet 2 MG PO HS Pioglitazone HCl/Metformin HCl (Pioglitazone-Metformin 15-500) 1 Each Tablet 1 EACH PO BID, TAB Sitagliptin Phosphate (Januvia) 100 Mg Tablet 100 MG PO DAILY Patient Instructions Patient Instructions: HOLD pioglitazone-metformin until the eveinign of 02/19/17, then resume previous home dose DIEGO ARCEO MD FACP [facility]S Feb 17, 2017 09:44
[2017-02-17] MEDS ORDERED: PATIENT MAY USE OWN MEDS, ALL PO SCH ×2 (09:45→12:30)
--- NOTE | 2017-02-17 09:52 | CARDIAC CATHETERIZATION ---
DATE OF SERVICE: 02/17/2017 PERIPHERAL ANGIOGRAPHY Ryan Dsouza is a 71-year-old gentleman who has a history of peripheral arterial disease and has, in the past, had nonhealing wounds. A CT angiogram of the abdominal aorta with a runoff on 01/21/2017 was abnormal and a noted moderate focal stenosis in the mid right common iliac and chronic appearing dissection flap in the proximal left common iliac and the radiologist was not to conclude whether the flap in the left common iliac was flow limiting or not. Peripheral angiography was carried out today after having obtained an informed consent. DESCRIPTION OF PROCEDURE: He was brought to the cardiac catheterization laboratory in a fasting state. Right groin was prepared and draped in the usual sterile fashion. One percent lidocaine for local anesthesia. Modified Seldinger technique was used to advance a 5-Yakut sheath into the right femoral artery. We used a 5-Yakut pigtail catheter to carry out abdominal aortic angiography. The pigtail catheter was then pulled back to just above the level of the aortoiliac bifurcation and bilateral angiography was performed with a runoff down to the level of the ankles. We then proceeded with selective angiography of the left common iliac artery. For this purpose, we used a 5-Yakut crossover catheter which was placed at the ostium of the left common iliac artery and then, a runoff was performed down to the level of the foot. This catheter was removed and replaced with a straight catheter, the tip of which was placed at the ostium of the right common iliac artery and a runoff was performed. Thus, we also performed selective angiography of the right common iliac artery. The catheter was removed. Angiography of the right femoral artery was carried out through the sheath. The site of sheath deployment did not appear suitable for device closure. He was transferred to the holding area for main wound sheath removal. He tolerated the procedure well. ABDOMINAL AORTIC ANGIOGRAPHY: Abdominal aortic angiography did not indicate any significant abdominal aortic aneurysm or dissection. Renal arteries are identified and do not exhibit significant disease. On this view, inferior mesenteric is seen which appears intact. Superior mesenteric and the celiac axis are not visualized on this study. The aortoiliac junction appears intact. There does appear to be some calcification and atherosclerosis at the aortoiliac junction. SELECTIVE ANGIOGRAPHY OF THE LEFT COMMON ILIAC ARTERY: Selective angiography of the left common iliac artery indicates a chronic dissection flap in the mid portion of the left common iliac artery. This is a non-flow limiting flap. Flow throughout the vessel is normal and brisk. The internal and external iliac arteries are identified. They have mild to moderate disease. The external iliac artery continues as the common femoral and is patent. The superficial and deep femoral arteries are patent and exhibit only mild plaque and atherosclerosis. The popliteal artery and its trifurcation is intact and there is 3-vessel runoff down to the level of the foot. SELECTIVE ANGIOGRAPHY OF THE RIGHT COMMON ILIAC ARTERY: Selective angiography of the right common iliac artery indicates approximately 40% proximal to mid-vessel stenosis of the right common iliac artery. The right external and internal iliac arteries are patent and exhibit mild plaque. We also visualized the distal arterial system of the right leg at the time of injection to the pigtail catheter in the distal abdominal aorta. The right common femoral, right superficial femoral, right deep femoral and right popliteal arteries are intact and exhibit mild plaques. The right popliteal artery has an intact trifurcation and there is a three vessel runoff in the leg. CONCLUSIONS: Peripheral arterial disease, mild to moderate. On the right side, there is approximately 40% proximal to mid-vessel stenosis of the right common iliac. On the left side, there is a non-flow limiting chronic dissection flap in the mid left iliac artery which constitutes a stenosis of approximately 40%. The distal peripheral circulation is intact and exhibits only mild atherosclerotic disease. CONCLUSIONS: Based on the results of this study, it appears appropriate to continue a conservative approach and risk factor modification. Job ID: [id number] DocumentID: [id number] Dictated Date: 02/17/2017 09:24:04 Medical Care Evaluation Specialist Date: 02/17/2017 09:51:34 Dictated By: DIEGO ARCEO MD, MA, FACP, FACC,
== END 2017-02-17 14:15 | disposition home or self-care (01) ==
LOC: CATH 06:50 → SURG 10:04 → ENPENDDIS 13:00 → CATH 14:15
PROVIDERS: ATTEND Internal Medicine Cardiovascular Disease
DX: I70.203 Unspecified atherosclerosis of native arteries of extremities, bilateral legs (principal); I25.10 Atherosclerotic heart disease of native coronary artery without angina pectoris; E11.9 Type 2 diabetes mellitus without complications; E78.5 Hyperlipidemia, unspecified; G47.30 Sleep apnea, unspecified; J43.9 Emphysema, unspecified; Z95.2 Presence of prosthetic heart valve; M10.9 Gout, unspecified; Z79.84 Long term (current) use of oral hypoglycemic drugs; Z87.891 Personal history of nicotine dependence; Z79.899 Other long term (current) drug therapy; Z95.1 Presence of aortocoronary bypass graft
CPT/HCPCS: 36245; 36415; 75625; 75716; 75774; 80053; 80061; 85027; 85610; 85730; 87081; 93005

== ENCOUNTER → 2018-09-01 | Outpatient (CLI) | payer MEDICARE, OTHER ==
[~2018-09-01] MED LIST changes: +RT-ALBUTEROL SULF 2.5 MG/3 ML PRE-MIX VIAL INH ONE
== END ==
LOC: RT 13:52
PROVIDERS: ATTEND Nurse Practitioner Family
DX: J44.9 Chronic obstructive pulmonary disease, unspecified (principal); J30.9 Allergic rhinitis, unspecified; G47.33 Obstructive sleep apnea (adult) (pediatric)
CPT/HCPCS: 94060; 94726; 94729

== ENCOUNTER 2019-07-14 05:29 | Outpatient (CLI) | payer MEDICARE, OTHER ==
[~2019-07-14] VITALS: Ht 177.8 cm; Wt 122.7 kg
[~2019-07-14 05:29] MED LIST changes: -PIOG1TAB PO; +PIOG1TAB29 PO; -RT-ALBUTEROL SULF 2.5 MG/3 ML PRE-MIX VIAL INH ONE
[2019-07-14] MEDS ORDERED: CNC1KV IM (10:25)
[2019-07-14] MEDS ORDERED: CETI10TA20 PO (10:25)
[2019-07-14] MEDS ORDERED: LISI10TA2 PO (10:25)
[2019-07-14] MEDS ORDERED: SITA100T12 PO (10:25)
[2019-07-14] MEDS ORDERED: FURO40TA4 PO (10:25)
[2019-07-14] MEDS ORDERED: ATOR80TA76 PO (10:25)
[2019-07-14] MEDS ORDERED: CHOL200059 PO (10:25)
[2019-07-14] MEDS ORDERED: CLOP75TA28 PO (10:25)
[2019-07-14] MEDS ORDERED: ASPI-983 PO (10:25)
[2019-07-14] MEDS ORDERED: CARV20CP PO (10:25)
[2019-07-14] MEDS ORDERED: GLIM2TAB PO (10:25)
== END 2019-07-14 11:08 | disposition home or self-care (01) ==
LOC: PREOP 05:29
PROVIDERS: ATTEND Surgery
DX: Z01.818 Encounter for other preprocedural examination (principal)

== ENCOUNTER 2019-07-30 23:28 | Emergency (ER) | payer MEDICARE, OTHER ==
[~2019-07-30] VITALS: Ht 177 cm; Wt 122.7 kg
[~2019-07-30 23:28] MED LIST changes: +ACHD5005 PO; +ASPI-983 PO; +ATOR80TA76 PO; +CETI10TA20 PO; +CHOL200059 PO; +CLOP75TA28 PO; +CNC1KV IM; +GLIM2TAB2 PO; +LISI10TA2 PO; +SITA100T12 PO
--- NOTE | 2019-07-31 00:13 | NUR ---
DR. CABRERA REMOVED OLD DRESSING AND CLEANSED WOUND SITE THEN APPLIED NEW DRESSING TO CONTROLL BLEEDING. PT TOLERATED PROCEDURE WELL, BLEEDING IS CONTROLLED.
--- NOTE | 2019-07-31 00:28 | ED General ---
General Chief Complaint: Post OP Complications/Pain Stated Complaint: LOWER BACK BLEED-POST OP Nursing Triage Note: PT PRESENTS TO THE ED AMBULATORY C/O BLEEDING FROM A SURGICAL SITE ON HIS LOWER BACK, PT STATES THAT HE HAD A CASE OF SHINGLES AND MALIGNANT MELANOMA WAS FOUND AND SURGICALLY EXCISED. PT UNABLE TO CONTROL BLEEDING AT HOME, CAME TO THE ED. Nursing Sepsis Screen: No Definite Risk Source of Information: Patient Exam Limitations: No Limitations History of Present Illness Date Seen by Provider: Jul 31, 2019 Time Seen by Provider: 00:02 Initial Comments Here with report of bleeding from the surgical site from his back after he had melanoma excised. Had sutures removed a few days ago and wound has subsequently opened up and he has bleeding. He is on Plavix and aspirin. They did cover it with a dressing but wound continued to ooze. Here for evaluation. No report of fever, foul-smelling drainage or other infection. Timing/Duration: 12 Hours Severity: Moderate Associated Systoms: No Fever/Chills Allergies and Home Medications Allergies Coded Allergies: No Known Drug Allergies (Unverified , 07/11/09) Home Medications Allopurinol 100 Mg Tablet, 100 MG PO DAILY, (Reported) Atorvastatin Calcium 80 Mg Tablet, 80 MG PO HS, (Reported) Carvedilol Phosphate 20 Mg Cpmp.24hr, 20 MG PO DAILY, (Reported) Cetirizine HCl 10 Mg Tablet, 10 MG PO DAILY, (Reported) Cholecalciferol (Vitamin D3) 2,000 Unit Tablet, 2,000 UNIT PO DAILY, (Reported) Cyanocobalamin 1,000 Mcg/Ml Inj, 1,000 MCG IM monthly, (Reported) Fluticasone/Salmeterol 1 Each Blst.w.dev, 1 EACH IH BID, (Reported) Furosemide 40 Mg Tablet, 40 MG PO DAILY, (Reported) Glimepiride 2 Mg Tablet, 2 MG PO HS, (Reported) Hydrocodone Bit/Acetaminophen 1 Tab Tab, 1 TAB PO Q6H PRN for PAIN-MODERATE Prescribed by: MILIND LEMON on 07/20/19 1226 Lisinopril 10 Mg Tablet, 10 MG PO DAILY, (Reported) Pioglitazone HCl/Metformin HCl 1 Each Tablet, 1 EACH PO BID, (Reported) Sitagliptin Phosphate 100 Mg Tablet, 100 MG PO DAILY, (Reported) Patient Home Medication List Home Medication List Reviewed: Yes Review of Systems Review of Systems Constitutional: see HPI; No chills, No fever Respiratory: no symptoms reported Cardiovascular: no symptoms reported Skin: see HPI; No change in color; lesions Past Copkodv-Prbytx-Tswghn Hx Past Med/Social Hx: Reviewed Nursing Past Med/Soc Hx Patient Social History Alcohol Use: Denies Use Recreational Drug Use: No Smoking Status: Former Smoker Type Used: Cigarettes Former Smoker, Quit: Dec 25, 1992 Recent Foreign Travel: No Contact w/Someone Who Travel: No Recent Infectious Disease Expo: No Recent Hopitalizations: No Immunizations Up To Date Date of Pneumonia Vaccine: Feb 17, 2015 Date of Influenza Vaccine: May 16, 2019 Seasonal Allergies Seasonal Allergies: Yes Past Medical History Surgeries: Yes (detached retina in bilat eye, clavicle fx, bilat shoulder sx, ) Cardiac, CABG, Tonsillectomy, Valve Replacement Respiratory: Yes Sleep Apnea, Emphysema Currently Using CPAP: Yes Cardiac: Yes (CABG, aortic valve replaced) Coronary Artery Disease, High Cholesterol, Hypertension, Valvular Heart Disease Neurological: No Reproductive Disorders: No Sexually Transmitted Disease: No Genitourinary: Yes Kidney Stones Gastrointestinal: No Musculoskeletal: Yes Arthritis Endocrine: Yes Diabetes, Non-Insulin dep HEENT: Yes (detached retina sx) Cancer: Yes Skin What Type of Treatment Did You: Surgical Intervention Psychosocial: No Integumentary: Yes Blood Disorders: No Family Medical History Reviewed Nursing Family Hx Physical Exam Vital Signs Vital Signs - First Documented 07/31/19 00:02 Temp 36.4 Pulse 77 Resp 20 B/P (MAP) 186/65 (105) Pulse Ox 95 O2 Delivery Room Air Capillary Refill : Less Than 3 Seconds Height, Weight, BMI Height: 5'9.00" Weight: 260lbs. 0.0oz. 117.428165ma; 39.00 BMI Method:Stated General Appearance: No Apparent Distress, WD/WN Respiratory: Lungs Clear, Normal Breath Sounds Cardiovascular: Regular Rate, Rhythm, No Murmur Skin: Warm/Dry, Other (surgical wound to the upper back left of midline has dehisced. Blood clots noted in the wound but not active significant bleeding.) Progress/Results/Core Measures Suspected Sepsis Recent Fever Within 48 Hours: No Infection Criteria Present: None New/Unexplained Altered Menta: No Sepsis Screen: No Definite Risk SIRS Temperature: Pulse: 77 Respiratory Rate: 20 Blood Pressure 186 /65 Mean: 105 Results/Orders Vital Signs/I&O 07/31/19 00:02 Temp 36.4 Pulse 77 Resp 20 B/P (MAP) 186/65 (105) Pulse Ox 95 O2 Delivery Room Air Capillary Refill : Less Than 3 Seconds Blood Pressure Mean: 105 Progress Note : Progress Note Seen and evaluated. Dressing taken down. Wound evaluated. Blood clots noted in wound. These were cleaned with sterile gauze and sterile saline. Wound was packed with wet-to-dry dressing with sterile saline and gauze and secured with bulky gauze over the top and tape. No active bleeding noted after dressing change. I did discuss with the patient and family regarding daily dressing changes. He has follow-up with Dr. Lemon on Thursday. We will continue wet-to-dry dressing changes daily until follow-up. Discharged home with return precautions. Patient and family verbalize understanding of instructions and agreement with plan. Departure Impression Primary Impression: Surgical wound dehiscence Qualified Codes: T81.31XA - Disruption of external operation (surgical) wo und, not elsewhere classified, initial encounter Disposition: HOME, SELF-CARE Condition: Improved Departure-Patient Inst. Decision time for Depature: 00:28 Referrals: MILIND LEMON WILLIAM J DO (PCP/Family) Primary Care Physician Patient Instructions: Wound Dehiscence (DC) Add. Discharge Instructions: Perform daily dressing changes and gentle wound cleaning with fresh water and mild soap. You may repack the wound with the sterile saline and gauze and then cover with bulky gauze dressing and secured with tape daily. Follow-up with Dr. Lemon as scheduled on Thursday. Return if you have any problems or concerns with the wound, for fever, foul-smelling drainage, increasing redness or other concerns as needed. Copy Copies To 1: MILIND LEMON TIMOTHY D MD Jul 31, 2019 00:28
[2019-07-31 00:35] VITALS: BP 150/50
== END 2019-07-31 00:36 | disposition home or self-care (01) ==
LOC: EDUNIT# 23:28 → ER 23:29
DX: T81.31XA Disruption of external operation (surgical) wound, not elsewhere classified, initial encounter (principal); J43.9 Emphysema, unspecified; I25.10 Atherosclerotic heart disease of native coronary artery without angina pectoris; E78.00 Pure hypercholesterolemia, unspecified; I10 Essential (primary) hypertension; E11.9 Type 2 diabetes mellitus without complications; Z87.442 Personal history of urinary calculi; Z79.51 Long term (current) use of inhaled steroids; Z79.84 Long term (current) use of oral hypoglycemic drugs; Z87.891 Personal history of nicotine dependence; Z90.89 Acquired absence of other organs; Z85.828 Personal history of other malignant neoplasm of skin; Z95.1 Presence of aortocoronary bypass graft
CPT/HCPCS: 99282

== ENCOUNTER 2019-08-01 22:41 | Emergency (ER) | payer MEDICARE, OTHER ==
[~2019-08-01] VITALS: Ht 182 cm; Wt 122.7 kg
--- NOTE | 2019-08-01 22:55 | ED Integumentary General ---
General Chief Complaint: Post OP Complications/Pain Stated Complaint: INCISION OPENED/BLEEDING Source: patient, spouse Exam Limitations: no limitations History of Present Illness Date Seen by Provider: Aug 01, 2019 Time Seen by Provider: 22:44 Initial Comments Patient resents to ER by private conveyance from home with his spouse and chief complaint that he is having some more bleeding from his back. He was here yesterday for bleeding from site of recent melanoma excision that opened up after the sutures were removed. The initial melanoma resection was done by Dr. Lemon on 07/20/19. Change the dressing 3 times today and it continues to ooze. He's been using wet-to-dry dressings per instructions. He's not had any fevers or chills. 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 He denies chest pain, shortness of breath, feeling near syncopal or lightheaded. Allergies and Home Medications Allergies Coded Allergies: No Known Drug Allergies (Unverified , 07/11/09) Home Medications Allopurinol 100 Mg Tablet, 100 MG PO DAILY, (Reported) Atorvastatin Calcium 80 Mg Tablet, 80 MG PO HS, (Reported) Carvedilol Phosphate 20 Mg Cpmp.24hr, 20 MG PO DAILY, (Reported) Cetirizine HCl 10 Mg Tablet, 10 MG PO DAILY, (Reported) Cholecalciferol (Vitamin D3) 2,000 Unit Tablet, 2,000 UNIT PO DAILY, (Reported) Cyanocobalamin 1,000 Mcg/Ml Inj, 1,000 MCG IM monthly, (Reported) Fluticasone/Salmeterol 1 Each Blst.w.dev, 1 EACH IH BID, (Reported) Furosemide 40 Mg Tablet, 40 MG PO DAILY, (Reported) Glimepiride 2 Mg Tablet, 2 MG PO HS, (Reported) Hydrocodone Bit/Acetaminophen 1 Tab Tab, 1 TAB PO Q6H PRN for PAIN-MODERATE Prescribed by: MILIND LEMON on 07/20/19 1226 Lisinopril 10 Mg Tablet, 10 MG PO DAILY, (Reported) Pioglitazone HCl/Metformin HCl 1 Each Tablet, 1 EACH PO BID, (Reported) Sitagliptin Phosphate 100 Mg Tablet, 100 MG PO DAILY, (Reported) Patient Home Medication List Home Medication List Reviewed: Yes Review of Systems Review of Systems Constitutional: No chills, No diaphoresis EENTM: No ear discharge, No ear pain Respiratory: No cough, No short of breath Cardiovascular: No chest pain, No edema Gastrointestinal: No abdominal pain, No nausea Genitourinary: No discharge, No dysuria Skin: see HPI Psychiatric/Neurological: Denies Anxiety, Denies Depressed Past Slpowxr-Oqwghl-Xgoldx Hx Patient Social History Alcohol Use: Denies Use Recreational Drug Use: No Smoking Status: Former Smoker Type Used: Cigarettes Former Smoker, Quit: Dec 25, 1992 Recent Foreign Travel: No Contact w/Someone Who Travel: No Recent Hopitalizations: No Immunizations Up To Date Date of Pneumonia Vaccine: Feb 17, 2015 Date of Influenza Vaccine: May 16, 2019 Seasonal Allergies Seasonal Allergies: Yes Past Medical History Surgeries: Yes (detached retina in bilat eye, clavicle fx, bilat shoulder sx, ) Cardiac, CABG, Tonsillectomy, Valve Replacement Respiratory: Yes Sleep Apnea, Emphysema Currently Using CPAP: Yes Cardiac: Yes (CABG, aortic valve replaced) Coronary Artery Disease, High Cholesterol, Hypertension, Valvular Heart Disease Neurological: No Reproductive Disorders: No Sexually Transmitted Disease: No Genitourinary: Yes Kidney Stones Gastrointestinal: No Musculoskeletal: Yes Arthritis Endocrine: Yes Diabetes, Non-Insulin dep HEENT: Yes (detached retina sx) Cancer: Yes Skin What Type of Treatment Did You: Surgical Intervention Psychosocial: No Integumentary: Yes Blood Disorders: No Physical Exam Vital Signs Capillary Refill : General Appearance: WD/WN, no apparent distress HEENT: PERRL/EOMI, normal ENT inspection, pharynx normal Neck: full range of motion, normal inspection Cardiovascular: normal peripheral pulses, regular rate, rhythm Respiratory: no respiratory distress, no accessory muscle use Gastrointestinal: non tender, soft Neurologic/Psychiatric: alert, normal mood/affect, oriented x 3 Skin: other (take 10 cm surgical wound on his left posterior thorax that is shallow, open and has one area of slow venous oozing at approximately the 5:00 position. Good beefy red appearance without purulence, erythema or induration surrounding it.) Procedures/Interventions Wound Location: Trunk Other Wound Location Left posterior trunk surgical wound Wound Length (cm): 8 Wound Explored: clean Irrigated w/ Saline (ccs): 200 Anesthesia: Lidocaine w/ Epi Volume Anesthetic (ccs): 3 Wound Debrided: minimal Sterile Dressing Applied?: Yes Progress Patient's wound was gently cleansed with sterile saline. We then applied 3 cc of 2% lidocaine with epinephrine in the general location of the venous bleed. This slowed his bleeding down about 90%. Then we used a chemical cautery sticks, silver nitrate and completely stop the bleeding. Reapplied Xeroform and an abdominal pad. Patient tolerated procedure well. Progress/Results/Core Measures Results/Orders Lab Results Laboratory Tests Test 08/01/19 23:16 Range/Units Hemoglobin 10.8 L 13.3-17.7 G/DL Hematocrit 34 L 40-54 % My Orders Orders - ANDREW MCCARTNEY Lidocaine/Epi 2% 1:100,000 (Xylocaine/Ep (08/01/19 23:00) Hemoglobin And Hematocrit (08/01/19 22:48) Medications Given in ED Current Medications Medications Dose Ordered Sig/Gautam Route Start Time Stop Time Status Last Admin Dose Admin Lidocaine/ Epinephrine 20 ml ONCE ONCE INJ 08/01/19 23:00 08/01/19 23:01 DC 08/01/19 23:05 20 ML Progress Progress Note : Time: 22:56 Progress Note Surgeon doesn't mind what we used to stop the bleeding. Plan to start with some lidocaine with epinephrine and either cautery or suture ligature. Clean the site with sterile saline. Because of the patient's history of anemia we'll check an H&H. Consults : Consulting Physician: MILIND LEMON DO Consults Notes Discussed case with Dr. Lemon and if he would mind we would use Xeroform instead of wet to dry and he is okay with either ligature, cautery or whatever it takes to stop the bleeding. Departure Impression Primary Impression: Delayed surgical wound healing Qualified Codes: T81.89XD - Other complications of procedures, not elsewhere classified, subsequent encounter Additional Impression: Hemorrhage from open wound of left chest wall Qualified Codes: S21.102D - Unspecified open wound of left front wall of thorax without penetration into thoracic cavity, subsequent encounter Disposition: 01 HOME, SELF-CARE Condition: Improved Departure-Patient Inst. Decision time for Depature: 23:30 Referrals: MARIELY ESPAÑA DO (PCP/Family) Primary Care Physician Patient Instructions: Bleeding After Surgery Add. Discharge Instructions: Your hemoglobin is okay at this time. If you soaked through the abdominal pad and then just replace it with another Xeroform gauze and abdominal pad and tape. Sitting up and applying pressure over the wound may also help slow the bleeding. Keep your scheduled appointment in the morning with Dr. Lemon. ANDREW MCCARTNEY Aug 01, 2019 22:55
[2019-08-01] MEDS ORDERED: LIDOCAINE/EPI 2% 1:100,00 (XYLOCAINE) 20 ML VIAL INJ ONE (23:00)
[2019-08-01 23:23] LABS: HEMOGLOBIN 10.8 G/DL (13.3-17.7)
[2019-08-01 23:34] VITALS: BP 161/70
== END 2019-08-01 23:35 | disposition home or self-care (01) ==
LOC: EDUNIT# 22:41 → ER 22:41
DX: T81.89XD Other complications of procedures, not elsewhere classified, subsequent encounter (principal); S21.102D Unspecified open wound of left front wall of thorax without penetration into thoracic cavity, subsequent encounter; D64.9 Anemia, unspecified; J43.9 Emphysema, unspecified; I10 Essential (primary) hypertension; E11.9 Type 2 diabetes mellitus without complications; E78.00 Pure hypercholesterolemia, unspecified; I25.10 Atherosclerotic heart disease of native coronary artery without angina pectoris; G47.30 Sleep apnea, unspecified; Z85.828 Personal history of other malignant neoplasm of skin; Z99.89 Dependence on other enabling machines and devices; Z87.442 Personal history of urinary calculi; Z79.51 Long term (current) use of inhaled steroids; Z79.84 Long term (current) use of oral hypoglycemic drugs; Z87.891 Personal history of nicotine dependence; Z95.1 Presence of aortocoronary bypass graft; Z90.89 Acquired absence of other organs
CPT/HCPCS: 36415; 85014; 85018; 99284

== ENCOUNTER 2019-08-04 05:39 | Outpatient (CLI) | payer MEDICARE, OTHER ==
[~2019-08-04] VITALS: Ht 177 cm; Wt 122.7 kg
== END 2019-08-04 12:25 | disposition home or self-care (01) ==
LOC: PREOP 05:39
PROVIDERS: ATTEND Surgery
DX: Z01.818 Encounter for other preprocedural examination (principal)

== ENCOUNTER → 2019-08-16 | Outpatient (CLI) | payer MEDICARE, OTHER ==
[~2019-08-16] VITALS: Ht 180 cm; Wt 127.0 kg
[~2019-08-16] MED LIST changes: +CLOP75TA69 PO; +GABA-488 PO; +REGADENOSON 0.4 MG/5 ML SYR (LEXISCAN) IV ONE
[2019-08-16] MEDS: CATHETER FLUSH 10 ML SYR IV PRN ×2 (08:02→09:17)
[2019-08-16 09:16] VITALS: BP 170/61
--- NOTE | 2019-08-16 12:44 | STRESS TEST ---
DATE OF SERVICE: 08/16/2019 RESTING AND POST REGADENOSON TECHNETIUM-99M TETROFOSMIN SPECT CT IMAGING ORDERING PHYSICIAN: Dr. Valderrama. PRIMARY PHYSICIAN: Dr. Bauer. CLINICAL DIAGNOSES: Coronary artery disease. Baseline images were carried out after injection of 10.83 mCi of technetium-99m Tetrofosmin. This was followed by 0.4 mg regadenoson and 29.8 mCi of technetium-99m Tetrofosmin for stress imaging. The electrocardiogram showed sinus rhythm with occasional isolated premature atrial contractions. The patient tolerated the procedure well. The electrocardiogram did not change significantly with regadenoson infusion. Review of images at rest and following stress does not indicate any significant perfusion defects consistent with myocardial ischemia or infarction. Gated images show normal global left ventricular systolic function with ejection fraction of 58%. TID is absent (1.05). Left ventricular end diastolic volume is 120 mL. CONCLUSIONS: 1. No evidence of significant myocardial ischemia or infarction on this study. 2. Normal regional wall motion. 3. Normal global left ventricular systolic function with a calculated ejection fraction of 58%. 4. Mild cardiomegaly. Job ID: [id number] DocumentID: [id number] Dictated Date: 08/16/2019 12:32:56 Textile Colorist [place] Date: 08/16/2019 12:44:00 Dictated By: DIEGO VALDERRAMA MD, MA, FACP, FACC,
== END ==
LOC: CARD 07:47
PROVIDERS: ATTEND Internal Medicine Cardiovascular Disease
DX: I25.10 Atherosclerotic heart disease of native coronary artery without angina pectoris (principal); I77.89 Other specified disorders of arteries and arterioles; E11.9 Type 2 diabetes mellitus without complications; E78.5 Hyperlipidemia, unspecified; I11.9 Hypertensive heart disease without heart failure; R06.02 Shortness of breath; Z95.4 Presence of other heart-valve replacement
CPT/HCPCS: 78452; 93017

== ENCOUNTER → 2019-08-18 | Outpatient (CLI) | payer MEDICARE, OTHER ==
[~2019-08-18] MED LIST changes: -REGADENOSON 0.4 MG/5 ML SYR (LEXISCAN) IV ONE
== END ==
LOC: CARD 08:41
PROVIDERS: ATTEND Internal Medicine Cardiovascular Disease
DX: I25.10 Atherosclerotic heart disease of native coronary artery without angina pectoris (principal); I77.89 Other specified disorders of arteries and arterioles; E11.9 Type 2 diabetes mellitus without complications; E78.5 Hyperlipidemia, unspecified; I10 Essential (primary) hypertension; R06.02 Shortness of breath; Z95.4 Presence of other heart-valve replacement; I08.1 Rheumatic disorders of both mitral and tricuspid valves
CPT/HCPCS: 93306

== ENCOUNTER → 2019-08-30 | Outpatient (CLI) | payer MEDICARE, OTHER ==
--- NOTE | 2019-09-01 10:39 | Diagnostic Imaging Report ---
PET/CT. INDICATION: Malignant melanoma. EXAMINATION: After intravenous administration of 13.58 mCi of F18-FDG injected into the right antecubital fossa, a series of overlapping emission and transmission PET images was obtained. In the coronal, transaxial and sagittal planes, the area imaged extended from the skull base through the upper thighs. His height is 5' 11", weight 276 pounds, his blood glucose level was 107. All CT scans use one or more of the following dose optimizing techniques: automated exposure control, MA and/or KvP adjustment based on patient size and exam type or iterative reconstruction. COMPARISON: There are no prior PET/CT exams or recent cross-sectional imaging studies available for comparison. FINDINGS: By history, the patient has a diagnosis of melanoma and has had a resection along the midportion of the back. There is a linear area of slightly hypermetabolic activity in this region. This is best visualized on the sagittal reconstructed images (image 71 of 128). The maximum SUV in this area is along the inferior margin of the resection site. The SUV value in this area is 4.6. I suspect that this is related to the patient's prior resection and not to neoplasm. Even so, clinical follow-up is recommended. There is an area of increased density in the medial aspect of the left lung base measuring approximately 2.5 x 2.7 cm. This has a maximum SUV of 3.6. This finding was not present on the prior CTA aorta exam of 01/21/2017. I suspect this is more likely due to chronic atelectasis/scar formation than to neoplasm. Even so, a short-term (3 month) follow-up CT chest exam should be obtained. There is no other hypermetabolic activity to suggest the presence of malignancy. The lower extremities are also unremarkable for any evidence for neoplastic disease. There is physiologic activity in the kidneys, bowel and bladder. The CT images failed to show any sign of an acute abnormality. There is cardiomegaly and coronary artery disease. IMPRESSION: 1. The linear area of slightly increased hypermetabolic activity in the area of the patient's surgical resection is most likely related to the prior surgery and not to neoplasm. Clinical follow-up is recommended however. 2. The density in the medial aspect of the left lower lobe is more likely secondary to chronic atelectasis/infiltrate than to neoplasm. Recommendations as above. 3. There is no other hypermetabolic activity to suggest presence of neoplasm. 4. These results were discussed with Dr. Larkin. Dictated on workstation # [id number]
== END ==
LOC: RAD 08:28
PROVIDERS: ATTEND Internal Medicine Hematology & Oncology
DX: C43.59 Malignant melanoma of other part of trunk (principal)

== ENCOUNTER 2019-09-01 09:49 | Outpatient (RCR) | payer MEDICARE, OTHER ==
[2019-08-11 15:17] LABS: BASOPHILS # (AUTO) 0.1 10^3/uL (0.0-0.1); BASOPHILS % (AUTO) 1 % (0-10); EOSINOPHILS # (AUTO) 0.3 10^3/uL (0.0-0.3); EOSINOPHILS % (AUTO) 3 % (0-10); HEMATOCRIT 30 % (40-54); HEMOGLOBIN 9.5 G/DL (13.3-17.7); LYMPHOCYTES # (AUTO) 1.1 X 10^3 (1.0-4.0); LYMPHOCYTES % (AUTO) 15 % (12-44); MEAN CORPUSCULAR HEMOGLOBIN 31 PG (25-34); MEAN CORPUSCULAR HGB CONC 31 G/DL (32-36); MEAN CORPUSCULAR VOLUME 100 FL (80-99); MONOCYTES # (AUTO) 1.2 X 10^3 (0.0-1.0); MONOCYTES % (AUTO) 16 % (0-12); NEUTROPHILS # (AUTO) 4.8 X 10^3 (1.8-7.8); NEUTROPHILS % (AUTO) 65 % (42-75); PLATELET COUNT 227 10^3/uL (130-400); RED CELL DISTRIBUTION WIDTH 16.4 % (10.0-14.5); WHITE BLOOD COUNT 7.4 10^3/uL (4.3-11.0)
[2019-08-11 15:40] LABS: ALBUMIN 3.6 GM/DL (3.2-4.5); BILIRUBIN,TOTAL 0.8 MG/DL (0.1-1.0); CALCIUM 8.6 MG/DL (8.5-10.1); CREATININE SERUM 2.14 MG/DL (0.60-1.30); POTASSIUM 5.5 MMOL/L (3.6-5.0); TOTAL PROTEIN 6.7 GM/DL (6.4-8.2)
[2019-08-11 16:04] LABS: ABSOLUTE RETIC # 68 10e9/L (24-90); RETICULOCYTE % 2.18 % (0.50-2.40)
[~2019-09-01 09:49] MED LIST changes: -CETI10TA20 PO; +CETI10TA21 PO; -GLIM2TAB2 PO; +GLIM2TAB4 PO
== END 2019-11-09 | disposition home or self-care (01) ==
LOC: ONC 09:49
PROVIDERS: ATTEND Internal Medicine Hematology & Oncology
DX: C43.9 Malignant melanoma of skin, unspecified (principal)
CPT/HCPCS: 80053; 81210; 83615; 85025; 85045; 99213; 99214

== ENCOUNTER → 2019-11-29 | Outpatient (CLI) | payer MEDICARE, OTHER ==
[~2019-11-29] MED LIST changes: +CATHETER FLUSH 10 ML SYR IV PRN; +HOLD METFORMIN - RECEIVED CONTRAST 20 ML VIAL IV SCH; +IOHEXOL 350 MG/ML 100 ML (OMNIPAQUE 350) VIAL IV ONE; +NS 100 ML (IVPB) BAG IV ONE
--- NOTE | 2019-11-29 12:24 | Diagnostic Imaging Report ---
EXAMINATION: CT Chest with intravenous contrast. TECHNIQUE: Multiple contiguous axial images were obtained through the chest after the uneventful administration of intravenous contrast. All CT scans use one or more of the following dose optimizing techniques: automated exposure control, MA and/or KvP adjustment based on a patient size and exam type, or iterative reconstruction. INDICATION: Melanoma, abnormal lung findings on PET/CT. COMPARISON: PET/CT dated 08/30/2019 FINDINGS: There are small bilateral pleural effusions. No pneumothorax. The abnormality in the medial superior segment of the left lower lobe has resolved and was likely an area of atelectasis or infection. A new nodule is present in the posterior basilar segment of left lower lobe measuring 10 mm (series 3, image 114). There is a new vague area of groundglass in the left upper lobe measuring 8 mm (series 3, image 49). Heart size is normal. There are moderate coronary artery calcifications. No pericardial effusion. There has been an aortic valve replacement. The ascending aorta is normal in caliber. There is no axillary or supraclavicular lymphadenopathy. There is no mediastinal lymphadenopathy. Limited views of the upper abdomen show simple cyst in the right kidney. Simple cyst is also seen in the left kidney. There are no suspicious osseus lesions. IMPRESSION: 1. The left lower lobe abnormality on prior CT has resolved. 2. There is a new left lower lobe nodule measuring 10 mm with a new area of groundglass in the left upper lobe. These are favored to be inflammatory or infectious, but given history of melanoma short-term follow-up is recommended (e.g. three months). 3. Small bilateral pleural effusions. Dictated by: Dictated on workstation # [id number]
== END ==
LOC: RAD 10:41
PROVIDERS: ATTEND Internal Medicine Hematology & Oncology
DX: C43.59 Malignant melanoma of other part of trunk (principal); J90 Pleural effusion, not elsewhere classified; R91.1 Solitary pulmonary nodule; R94.2 Abnormal results of pulmonary function studies
CPT/HCPCS: 71260

== ENCOUNTER 2020-01-21 20:35 | Observation (INO) | payer MEDICARE, OTHER ==
[~2020-01-21] VITALS: Ht 177.8 cm; Wt 127.0 kg
[~2020-01-21 20:35] MED LIST changes: -CATHETER FLUSH 10 ML SYR IV PRN; -HOLD METFORMIN - RECEIVED CONTRAST 20 ML VIAL IV SCH; -IOHEXOL 350 MG/ML 100 ML (OMNIPAQUE 350) VIAL IV ONE; -NS 100 ML (IVPB) BAG IV ONE
[2020-01-21 21:01] LABS: BILIRUBIN,URINE NEGATIVE (NEGATIVE); CLARITY,URINE SL CLOUDY; COLOR,URINE YELLOW; GLUCOSE, URINE (UA) NEGATIVE (NEGATIVE); KETONES,URINE NEGATIVE (NEGATIVE); LEUKOCYTE ESTERASE ,URINE NEGATIVE (NEGATIVE); NITRITE,URINE NEGATIVE (NEGATIVE); PH,URINE 5.5 (5-9); PROTEIN,URINE NEGATIVE (NEGATIVE)
[2020-01-21] MEDS ORDERED: NS IV 1000 ML 1,000 ML IV SCH (21:02)
[2020-01-21 21:10] LABS: BASOPHILS % (AUTO) 0 % (0-10); EOSINOPHILS # (AUTO) 0.1 10^3/uL (0.0-0.3); EOSINOPHILS % (AUTO) 1 % (0-10); HEMATOCRIT 30 % (40-54); HEMOGLOBIN 9.7 G/DL (13.3-17.7); LYMPHOCYTES # (AUTO) 0.8 X 10^3 (1.0-4.0); LYMPHOCYTES % (AUTO) 10 % (12-44); MEAN CORPUSCULAR HEMOGLOBIN 32 PG (25-34); MEAN CORPUSCULAR HGB CONC 32 G/DL (32-36); MEAN CORPUSCULAR VOLUME 100 FL (80-99); MEAN PLATELET VOLUME 11.4 FL (7.4-10.4); MONOCYTES % (AUTO) 13 % (0-12); NEUTROPHILS # (AUTO) 5.5 X 10^3 (1.8-7.8); NEUTROPHILS % (AUTO) 75 % (42-75); PLATELET COUNT 173 10^3/uL (130-400); RED CELL DISTRIBUTION WIDTH 16.1 % (10.0-14.5); WHITE BLOOD COUNT 7.3 10^3/uL (4.3-11.0)
[2020-01-21 21:12] LABS: ALBUMIN 3.9 GM/DL (3.2-4.5); POTASSIUM 4.5 MMOL/L (3.6-5.0)
[2020-01-21 21:15] LABS: TOTAL PROTEIN 7.2 GM/DL (6.4-8.2)
[2020-01-21 21:15] LABS: AMORPHOUS SEDIMENT,UR RARE AMOR URATES /LPF; BACTERIA,URINE TRACE /HPF
[2020-01-21 21:16] LABS: BILIRUBIN,TOTAL 0.6 MG/DL (0.1-1.0)
[2020-01-21 21:18] LABS: CREATININE SERUM 2.85 MG/DL (0.60-1.30)
--- NOTE | 2020-01-21 21:21 | ED Back Pain ---
General Chief Complaint: Back Problems Stated Complaint: GROIN PAIN/KIDNEY PAIN Nursing Triage Note: Pt ambulates to room #5 with c/o R sided flank discomfort radiating to R groin. Pt reports hematuria began on 01/18/20 followed by flank discomfort. Pt reports constipation with LBM 01/14/20. Pt reports hx kidney stones. A&OX4. Nursing Sepsis Screen: No Definite Risk Source of Information: Patient Exam Limitations: No Limitations History of Present Illness Date Seen by Provider: Jan 21, 2020 Time Seen by Provider: 20:38 Initial Comments This 74-year-old gentleman presents to the emergency room with right sided flank and groin pain that was first noticed about 4 days ago along with hematuria. He has noted some constipation as well. He has history of numerous ureteral stones and has required lithotripsy in the past. He passed what he calls a "scab" in his urine yesterday. He is on Plavix but denies use of any anticoagulants. He has had some associated nausea but no fever. He reports being "stage II kidney failure" according to his primary care provider Dr. Bauer. He has had some mild transient nausea. Allergies and Home Medications Allergies Coded Allergies: No Known Drug Allergies (Unverified , 07/11/09) Home Medications Allopurinol 100 Mg Tablet, 100 MG PO DAILY, (Reported) Aspirin 81 Mg Tab.chew, 81 MG PO DAILY, (Reported) Atorvastatin Calcium 80 Mg Tablet, 80 MG PO HS, (Reported) Carvedilol Phosphate 20 Mg Cpmp.24hr, 20 MG PO DAILY, (Reported) Cetirizine HCl 10 Mg Tablet, 10 MG PO DAILY, (Reported) Cholecalciferol (Vitamin D3) 2,000 Unit Tablet, 2,000 UNIT PO DAILY, (Reported) Clopidogrel Bisulfate 75 Mg Tablet, 75 MG PO UD, (Reported) Cyanocobalamin 1,000 Mcg/Ml Inj, 1,000 MCG IM monthly, (Reported) Fluticasone/Salmeterol 1 Each Blst.w.dev, 1 EACH IH BID, (Reported) Furosemide 40 Mg Tablet, 40 MG PO DAILY, (Reported) Gabapentin 300 Mg Capsule, 300 MG PO DAILY, (Reported) Glimepiride 2 Mg Tablet, 2 MG PO HS, (Reported) Hydrocodone Bit/Acetaminophen 1 Tab Tab, 1 TAB PO Q6H PRN for PAIN-MODERATE Prescribed by: MILIND FOX on 08/10/19 1257 Lisinopril 10 Mg Tablet, 10 MG PO DAILY, (Reported) Montelukast Sodium 10 Mg Tablet, 10 MG PO HS, (Reported) Pioglitazone HCl/Metformin HCl 1 Each Tablet, 1 EACH PO BID, (Reported) Sitagliptin Phosphate 100 Mg Tablet, 100 MG PO DAILY, (Reported) Patient Home Medication List Home Medication List Reviewed: Yes Review of Systems Constitutional: no symptoms reported EENTM: no symptoms reported Respiratory: no symptoms reported Cardiovascular: no symptoms reported Gastrointestinal: see HPI Genitourinary: see HPI Musculoskeletal: no symptoms reported Skin: no symptoms reported Psychiatric/Neurological: No Symptoms Reported Past Jtjyzui-Zaeeca-Fdiwis Hx Past Med/Social Hx: Reviewed and Corrections made Patient Social History Alcohol Use: Denies Use Recreational Drug Use: No Smoking Status: Former Smoker Type Used: Cigarettes Former Smoker, Quit: Dec 25, 1992 2nd Hand Smoke Exposure: No Recent Foreign Travel: No Contact w/Someone Who Travel: No Recent Infectious Disease Expo: No Recent Hopitalizations: No Immunizations Up To Date Date of Pneumonia Vaccine: Feb 17, 2015 Date of Influenza Vaccine: May 16, 2019 Seasonal Allergies Seasonal Allergies: Yes Past Medical History Surgeries: Yes (detached retina in bilat eye, clavicle fx, bilat shoulder sx, ) Cardiac, CABG, Renal (lithotripsy), Tonsillectomy, Valve Replacement Respiratory: Yes Sleep Apnea, COPD, Emphysema Currently Using CPAP: Yes Cardiac: Yes (CABG, aortic valve replaced) Coronary Artery Disease, High Cholesterol, Hypertension, Valvular Heart Disease Neurological: No Reproductive Disorders: No Sexually Transmitted Disease: No Genitourinary: Yes Kidney Stones Gastrointestinal: No Musculoskeletal: Yes Arthritis Endocrine: Yes Diabetes, Non-Insulin dep HEENT: Yes (detached retina sx) Cancer: Yes Skin What Type of Treatment Did You: Surgical Intervention Psychosocial: No Integumentary: Yes Blood Disorders: No Physical Exam Vital Signs Vital Signs - First Documented 01/21/20 20:37 Temp 36.7 Pulse 77 Resp 20 B/P (MAP) 137/57 (83) Pulse Ox 96 O2 Delivery Room Air Capillary Refill : Less Than 3 Seconds Height, Weight, BMI Height: 5'9.00" Weight: 260lbs. 0.0oz. 117.056025wx; 38.00 BMI Method:Stated General Appearance: No Apparent Distress, WD/WN, Obese HEENT: Normal ENT Inspection Cardiovascular: Regular Rate, Rhythm, No Edema, No Murmur Respiratory: Lungs Clear, Normal Breath Sounds, No Accessory Muscle Use, No Respiratory Distress, Other (slight increased work of breathing with forced expiration) Gastrointestinal: Normal Bowel Sounds, Soft, Tenderness (minimal on the right side) Extremity: Normal Inspection, No Pedal Edema Neurologic/Psychiatric: Alert, Oriented x3, No Motor/Sensory Deficits, Normal Mood/Affect, legal services professional II-XII Norm as Tested Skin: Normal Color, Warm/Dry Progress/Results/Core Measures Results/Orders Lab Results Laboratory Tests Test 01/21/20 20:48 01/21/20 20:56 Range/Units White Blood Count 7.3 4.3-11.0 10^3/uL Red Blood Count 3.00 L 4.35-5.85 10^6/uL Hemoglobin 9.7 L 13.3-17.7 G/DL Hematocrit 30 L 40-54 % Mean Corpuscular Volume 100 H 80-99 FL Mean Corpuscular Hemoglobin 32 25-34 PG Mean Corpuscular Hemoglobin Concent 32 32-36 G/DL Red Cell Distribution Width 16.1 H 10.0-14.5 % Platelet Count 173 130-400 10^3/uL Mean Platelet Volume 11.4 H 7.4-10.4 FL Neutrophils (%) (Auto) 75 42-75 % Lymphocytes (%) (Auto) 10 L 12-44 % Monocytes (%) (Auto) 13 H 0-12 % Eosinophils (%) (Auto) 1 0-10 % Basophils (%) (Auto) 0 0-10 % Neutrophils # (Auto) 5.5 1.8-7.8 X 10^3 Lymphocytes # (Auto) 0.8 L 1.0-4.0 X 10^3 Monocytes # (Auto) 1.0 0.0-1.0 X 10^3 Eosinophils # (Auto) 0.1 0.0-0.3 10^3/uL Basophils # (Auto) 0.0 0.0-0.1 10^3/uL Sodium Level 140 135-145 MMOL/L Potassium Level 4.5 3.6-5.0 MMOL/L Chloride Level 109 H 98-107 MMOL/L Carbon Dioxide Level 16 L 21-32 MMOL/L Anion Gap 15 H 5-14 MMOL/L Blood Urea Nitrogen 60 H 7-18 MG/DL Creatinine 2.85 H 0.60-1.30 MG/DL Estimat Glomerular Filtration Rate 22 BUN/Creatinine Ratio 21 Glucose Level 173 H 70-105 MG/DL Calcium Level 9.0 8.5-10.1 MG/DL Corrected Calcium 9.1 8.5-10.1 MG/DL Total Bilirubin 0.6 0.1-1.0 MG/DL Aspartate Amino Transf (AST/SGOT) 23 5-34 U/L Alanine Aminotransferase (ALT/SGPT) 16 0-55 U/L Alkaline Phosphatase 457 H 40-136 U/L Total Protein 7.2 6.4-8.2 GM/DL Albumin 3.9 3.2-4.5 GM/DL Urine Color YELLOW Urine Clarity SL CLOUDY Urine pH 5.5 5-9 Urine Specific [place] 1.020 1.016-1.022 Urine Protein NEGATIVE NEGATIVE Urine Glucose (UA) NEGATIVE NEGATIVE Urine Ketones NEGATIVE NEGATIVE Urine Nitrite NEGATIVE NEGATIVE Urine Bilirubin NEGATIVE NEGATIVE Urine Urobilinogen 0.2 < = 1.0 MG/DL Urine Leukocyte Esterase NEGATIVE NEGATIVE Urine RBC (Auto) 3+ H NEGATIVE Urine RBC 10-25 H /HPF Urine WBC 2-5 /HPF Urine Crystals PRESENT H /LPF Urine Amorphous Sediment RARE PA URATES H /LPF Urine Bacteria TRACE /HPF Urine Casts NONE /LPF Urine Mucus NEGATIVE /LPF Urine Culture Indicated NO My Orders Orders - LAZARO CHAN MD Ua Culture If Indicated (01/21/20 20:38) Cbc With Automated Diff (01/21/20 21:02) Comprehensive Metabolic Panel (01/21/20 21:02) Ed Iv/Invasive Line Start (01/21/20 21:02) Ns Iv 1000 Ml (Sodium Chloride 0.9%) (01/21/20 21:02) Fentanyl Injection (Sublimaze Injection (01/21/20 21:30) Ct Abd/Pelvis Wo(Kidney Stone) (01/21/20 21:20) Ns Iv 1000 Ml (Sodium Chloride 0.9%) (01/21/20 21:44) Medications Given in ED Current Medications Medications Dose Ordered Sig/Gautam Route Start Time Stop Time Status Last Admin Dose Admin Fentanyl Citrate 50 mcg ONCE ONCE IVP 01/21/20 21:30 01/21/20 21:32 DC 01/21/20 21:26 50 MCG Sodium Chloride 1,000 ml @ 0 mls/hr Q0M ONCE IV 01/21/20 21:44 01/21/20 21:45 DC 01/21/20 22:30 0 MLS/HR Vital Signs/I&O 01/21/20 20:37 Temp 36.7 Pulse 77 Resp 20 B/P (MAP) 137/57 (83) Pulse Ox 96 O2 Delivery Room Air 01/22/20 00:00 Intake Total 1000 ml Balance 1000 ml Blood Pressure Mean: 83 Progress Progress Note #1: Time: 22:05 Progress Note Patient received fentanyl for pain. Blood was noted in the urine and CT scan offered. CT was obtained. They hyperdense fluid was noted in the right renal collecting system. There is ureteral dilatation but no obstructing stone noted. Patient currently has no established urologist. He is seeing a [facility] primary care clinic. I placed a call to [place] for phone consultation with a urologist. Creatinine has worsened since his last hospital visit. He is receiving a 2 L normal saline bolus. Progress Note #2: Progress Note Case was discussed with Dr. Morillo, neurologist on-call for [facility]. He did not believe urgent consultation with a urologist requiring transfer was necessary. He did however recommended patient be seen by a urologist as soon as possible and that labs be repeated on Thursday. He also suggested the patient be admitted for observation and continued IV hydration versus aggressive hydration in the ER followed by aggressive oral hydration at home. I discussed options with the patient. He feels much more comfortable with admission and see is not confident he can keep up with sufficient hydration orally at home and is concerned about his kidney function. Patient will continue his own home medications. Dr. Morillo did not believe cessation of Plavix was necessary at this time his hemoglobin was stable and there was no gross hematuria in the ER. Diagnostic Imaging Diagonstic Imaging: CT Plain Films/CT/US/NM/MRI: abdomen, pelvis Comments CT abdomen and pelvis viewed by me and report reviewed. See report below: NAME: MARTINA CASTRO MED REC#: [id number] PT STATUS: REG ER : 1945 PHYSICIAN: LAZARO CHAN MD ADMIT DATE: 01/21/20/ER Draft Date of Exam:01/21/20 CT ABD/PELVIS WO(KIDNEY STONE) PROCEDURE: CT urinary tract, rule out kidney stone. TECHNIQUE: Multiple contiguous axial images were obtained through the abdomen and pelvis without the use of intravenous contrast. Auto Exposure Controls were utilized during the CT exam to meet ALARA standards for radiation dose reduction. INDICATION: Right flank pain. FINDINGS: There is cardiomegaly. There is a 1 cm nodule in the left lung base. This was present on the prior examination from November and on the prior PET scan. The liver is normal in size and without focal lesions. Gallbladder is unremarkable. There is no biliary ductal dilatation. Spleen is normal. The pancreas and adrenal glands are unremarkable. There is a cyst in the superior aspect of the right kidney. There is some hyperdense fluid within the right renal collecting system. There also appears to be mild right hydronephrosis and hydroureter although no definite stone is seen within the ureter. This may reflect blood or possibly purulent material. The left kidney is unremarkable. There is atherosclerotic calcification of the aorta which is nonaneurysmal. Bowel gas pattern is nonspecific. There is no free air. There is no ascites. There is no pelvic mass or adenopathy. There are degenerative changes in the spine. IMPRESSION: 1. Mild right hydronephrosis and hydroureter without obstructing stone. There is hyperdense fluid within the collecting system suggesting either blood or possibly pus. Recommend clinical correlation. 2. No other acute abnormality in the abdomen or pelvis. 3. Cardiomegaly. 4. Unchanged 1 cm nodule in the left lung base which has been previously reported as not hypermetabolic on PET scan. Dictated on workstation # [id number] Dict: 01/21/202139 Trans: 01/21/202149 [facility] [id number] Interpreted by: DANIEL ROSENBERG MD Departure Communication (Admissions) Time/Spoke to Admitting Phy: 23:00 Dr. Murillo Impression Primary Impression: Acute renal failure Qualified Codes: N17.9 - Acute kidney failure, unspecified Additional Impressions: Hydroureter, right Hematuria Qualified Codes: R31.9 - Hematuria, unspecified Disposition: ADMITTED INPATIENT Condition: Stable Admissions Decision to Admit Reason: Admit from ER (General) Decision to Admit/Date: Jan 21, 2020 Time/Decision to Admit Time: 22:55 Departure-Patient Inst. Referrals: MARIELY BAUER DO (PCP/Family) Primary Care Physician LAZARO CHAN MD Jan 21, 2020 21:21
[2020-01-21] MEDS ORDERED: fentaNYL INJECTION 100 MCG/2 ML AMP IVP ONE (21:30)
[2020-01-21] MEDS ORDERED: NS IV 1000 ML 1,000 ML IV ONE (21:44)
--- NOTE | 2020-01-21 21:51 | Diagnostic Imaging Report ---
PROCEDURE: CT urinary tract, rule out kidney stone. TECHNIQUE: Multiple contiguous axial images were obtained through the abdomen and pelvis without the use of intravenous contrast. Auto Exposure Controls were utilized during the CT exam to meet ALARA standards for radiation dose reduction. INDICATION: Right flank pain. FINDINGS: There is cardiomegaly. There is a 1 cm nodule in the left lung base. This was present on the prior examination from November and on the prior PET scan. The liver is normal in size and without focal lesions. Gallbladder is unremarkable. There is no biliary ductal dilatation. Spleen is normal. The pancreas and adrenal glands are unremarkable. There is a cyst in the superior aspect of the right kidney. There is some hyperdense fluid within the right renal collecting system. There also appears to be mild right hydronephrosis and hydroureter although no definite stone is seen within the ureter. This may reflect blood or possibly purulent material. The left kidney is unremarkable. There is atherosclerotic calcification of the aorta which is nonaneurysmal. Bowel gas pattern is nonspecific. There is no free air. There is no ascites. There is no pelvic mass or adenopathy. There are degenerative changes in the spine. IMPRESSION: 1. Mild right hydronephrosis and hydroureter without obstructing stone. There is hyperdense fluid within the collecting system suggesting either blood or possibly pus. Recommend clinical correlation. 2. No other acute abnormality in the abdomen or pelvis. 3. Cardiomegaly. 4. Unchanged 1 cm nodule in the left lung base which has been previously reported as not hypermetabolic on PET scan. Dictated by: Dictated on workstation # [id number]
[2020-01-21 23:55] VITALS: BP 184/81
[2020-01-22] VITALS: BP 184/81
[2020-01-22] MEDS ORDERED: NS IV 1000 ML 1,000 ML ONE (00:20)
[2020-01-22] MEDS: NS IV 1000 ML 1,000 ML IV SCH ×4 (00:25→21:39)
--- OUTSIDE RECORDS SUMMARY | 2020-01-22 00:42 | XMS REPORT | Summary of Care ---
Author Author [facility] Organization [facility] Address Unknown Phone Unavailable Care Team Providers Care Red Lead Burner Name Role Phone MARIELY ESPAÑA DO PCP Encounter [facility] FIORELLA Mitchell [id number] Date(s): 03/25/17 - 03/25/[address] [address] Discharge Disposition: Home - 01 Attending Physician: DAVID WILKES MD Admitting Physician: DAVID WILKES MD Referring Physician: DAVID WILKES MD Vital Signs Most recent to 1 oldest [Reference Range]: Vital Signs Pre Procedure Status/Type (03/25/17 2:30 PM) Temperature 97.4 DegF [96.8-99.7 DegF] (03/25/17 2:30 PM) Temp Method Temporal (03/25/17 2:30 PM) Heart Rate 64 bpm (03/25/17 2:30 PM) Respiratory Rate 14 br/min [14-20 br/min] (03/25/17 2:30 PM) Blood Pressure 156/58 mmHg [90-180/50-90 mmHg] (03/25/17 2:30 PM) NIBP MAP Calc 91 (03/25/17 2:30 PM) BP Location Arm, left (03/25/17 2:30 PM) BP Cuff Size Large (03/25/17 2:30 PM) Problem List No data available for this section Allergies, Adverse Reactions, Alerts No Known Allergies Medications Advair Diskus 250 mcg-50 mcg inhalation powder 1 Puff, Inhalation, BID (2 times a day), 0 Refill(s) Start Date: 03/25/17 Status: Ordered allopurinol 100 mg oral tablet 1 TAB, PO, Daily, # 30 TAB, 0 Refill(s) Start Date: 03/25/17 Status: Ordered amLODIPine PO, Daily, 0 Refill(s) Start Date: 03/25/17 Status: Ordered aspirin 81 mg, PO, Daily, 0 Refill(s) Start Date: 03/25/17 Status: Ordered atorvastatin 80 mg oral tablet 1 TAB, PO, Daily, 0 Refill(s) Start Date: 03/25/17 Status: Ordered Coreg CR 20 mg oral capsule, extended release = 1 CAP, PO, QAM (Every morning), # 30 CAP, 0 Refill(s) Start Date: 03/25/17 Status: Ordered Flonase 50 mcg/inh nasal spray 1 [place], Both Nares, QAM (Every morning), 0 Refill(s) Start Date: 03/25/17 Status: Ordered furosemide 40 mg oral tablet 1 TAB, PO, Daily, 0 Refill(s) Start Date: 03/25/17 Status: Ordered glimepiride 2 mg oral tablet 1 TAB, PO, Daily, 0 Refill(s) Start Date: 03/25/17 Status: Ordered Januvia 100 mg oral tablet 1 TAB, PO, Daily, 0 Refill(s) Start Date: 03/25/17 Status: Ordered metformin-pioglitazone 500 mg-15 mg oral tablet 1 TAB, PO, BID (2 times a day), # 30 TAB, 0 Refill(s) Start Date: 03/25/17 Status: Ordered Plavix 75 mg oral tablet 1 TAB, PO, Every other day, 0 Refill(s) Start Date: 03/25/17 Status: Ordered Vitamin B12 Methylcobalamin Sublingual, Daily, 0 Refill(s) Start Date: 03/25/17 Status: Ordered Vitamin D3 2000 intl units oral capsule = 1 CAP, PO, Daily, 0 Refill(s) Start Date: 03/25/17 Status: Ordered ZyrTEC Daily, 0 Refill(s) Start Date: 03/25/17 Status: Ordered Results HEMATOLOGY Most recent to 1 oldest [Reference Range]: Hemoglobin POC 11.9 g/dL 1 [13.5-18.0 g/dL] *LOW* (03/25/17 3:18 PM) Hematocrit POC 35 % [40-52 %] *LOW* (03/25/17 3:18 PM) 1Result Comment: Meter ID: [id number] Spring Assembler Supervisor: [id number] MELINDA HUMPHREYS CHEMISTRY Most recent to 1 oldest [Reference Range]: Sodium POC [137-147 141 mmol/L mmol/L] (03/25/17 3:18 PM) Potassium POC 4.6 mmol/L [3.8-5.2 mmol/L] (03/25/17 3:18 PM) Glucose Level (POC) 115 mg/dL [70-100 mg/dL] *HI* (03/25/17 3:18 PM) Immunizations No data available for this section Procedures Procedure Date Related Diagnosis Body Site Eye Vitrectomy Mini (Left)1 03/25/17 1auto-populated from documented surgical case Social History No data available for this section Functional Status No data available for this section Assessment and Plan No data available for this section Hospital Discharge Instructions No data available for this section
--- OUTSIDE RECORDS SUMMARY | 2020-01-22 00:42 | XMS REPORT | Summary of Care ---
Author Author [facility] Organization [facility] Address Unknown Phone Unavailable Care Team Providers Care Patternmaker Sample Name Role Phone MARIELY ESPAÑA DO PCP Encounter [facility] FIORELLA Mitchell [id number] Date(s): 03/25/17 - 03/25/[address] [address] Final: Retinal detachment with single break, left eye Final: Essential (primary) hypertension Final: Atherosclerotic heart disease of [place] coronary artery without angina pe ctoris Final: Presence of aortocoronary bypass graft Final: Type 2 diabetes mellitus without complications Final: longterm (current) use of oral hypoglycemic drugs Final: Obstructive sleep apnea (adult) (pediatric) Final: Presence of prosthetic heart valve Discharge Disposition: Home - 01 Attending Physician: [...] Ordered Flonase 50 mcg/inh nasal spray 1 [place], Both Nares, QAM (Every morning), 0 Refill(s) [...] (03/25/17 3:18 PM) 1Result Comment: Meter ID: [id number] Tiler'S Assistant: [id number] MELINDA HUMPHREYS CHEMISTRY Most recent to 1 [...]
--- OUTSIDE RECORDS SUMMARY | 2020-01-22 00:43 | XMS REPORT | Continuity of Care Document ---
Author Author [employer] Organization [facility] Address Unknown Phone Unavailable Care Team Providers Care Comb Winder Name Role Phone [facility] Unavailable Unavailable Problems Problem Status Onset Date Classification Date Reported Comments Source RETINAL DETACHMENT WITH SINGLE BREAK, LE Active 03/25/2017 [facility] [place] ESSENTIAL (PRIMARY) HYPERTENSION Active 03/25/2017 [facility] [place] ATHEROSCLEROTIC HEART DISEASE OF [place] Active 03/25/2017 [facility] [place] PRESENCE OF AORTOCORONARY BYPASS GRAFT Active 03/25/2017 [facility] TYPE 2 DIABETES MELLITUS WITHOUT COMPLIC Active 03/25/2017 [facility] INTERMEDIATE (CURRENT) USE OF ORAL HYPOGLYC Active 03/25/2017 [facility] OBSTRUCTIVE SLEEP APNEA (ADULT) (PEDIATR Active 03/25/2017 [facility] PRESENCE OF PROSTHETIC HEART VALVE Active 03/25/2017 [facility] Retinal detachment with single break, left eye Final 04/04 [facility] Essential (primary) hypertension Final 04/04 [facility] Atherosclerotic heart disease of [place] coronary artery without angina pectoris Final 04/04/2017 [facility] Presence of aortocoronary bypass graft Final 04/04 [facility] Type 2 diabetes mellitus without complications Final 04/04 [facility] 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 Final 04/04/2017 [facility] Obstructive sleep apnea (adult) (pediatric) Final 04/04 [facility] Presence of prosthetic heart valve Final 04/04 [facility] Medications Medication Details Route Status Patient Instructions Ordering Provider Order Date Source Fluticasone propionate 0.05 MG/ACTUAT Me tered Dose Nasal [place] [Flonase] 1 [place], Both Nares, QAM (Every morning) , 0 Refill(s) Active 03/25/2017 [facility] Aspirin 81 mg, PO, Daily, 0 Re fill(s) Active 03/25/2017 [facility] Advair Diskus 250 mcg-50 mcg inhalation powder 1 Puff, Inhalation, BID (2 times a day), 0 Refill(s) Active 03/25/2017 [facility] allopurinol 100 mg oral tablet 1 TAB, PO, Daily, # 30 TAB, 0 Refill(s) Active 03/25/2017 [facility] atorvastatin 80 mg oral tablet 1 TAB, PO, Daily, 0 Refill(s) Active 03/25/2017 [facility] Vitamin B12 Methylcobalamin [place] blingual, Daily, 0 Refill(s) Active 03/25/2017 [facility] Vitamin D3 2000 intl units oral capsule = 1 CAP, PO, Daily, 0 Refill(s) Active 03/25/2017 [facility] glimepiride 2 mg oral tablet 1 TAB, PO, Daily, 0 Refill(s) Active 03/25/2017 [facility] furosemide 40 mg oral tablet 1 TAB, PO, Daily, 0 Refill(s) Active 03/25/2017 [facility] 24 HR carvedilol phosphate 20 MG Extende d Release Capsule [Coreg] = 1 CAP, PO, QAM (Every morning), # 30 C AP, 0 Refill(s) Active 03/25/2017 [facility] sitagliptin 100 MG Oral Tablet [Januvia] 1 TAB, PO, Daily, 0 Refill(s) Active 03/25/2017 [facility] Amlodipine PO, Daily, 0 Refill (s) Active 03/25/2017 [facility] clopidogrel 75 MG Oral Tablet [Plavix] 1 TAB, PO, Every other day, 0 Refill(s) Active 03/25/2017 [facility] Metformin hydrochloride 500 MG / pioglit azone 15 MG Oral Tablet 1 TAB, PO, BID (2 times a day), # 30 TAB , 0 Refill(s) Active 03/25/2017 [facility] Zyrtec Daily, 0 Refill(s) Active 03/25/2017 [facility] Allergies, Adverse Reactions, Alerts No Known Medication Allergies Immunizations No Data Provided for This Section Results Order Name Results Value Reference Range Date Interpretation Comments Source CHEMISTRY Glucose Level (POC) 115 mg /dL 70 - 100 03/25/2017 [facility] CHEMISTRY Hemoglobin POC 11.9 g /dL 13.5 - 18.0 03/25/2017 Result Comment: Meter ID: [id number]
Ope rator: [id number] MELINDA HUMPHREYS [facility] CHEMISTRY Hematocrit POC 35 % 40 - 52 03/25/2017 [facility] CHEMISTRY Potassium POC 4.6 mm ol/L 3.8 - 5.2 03/25/2017 [facility] CHEMISTRY Sodium POC 141 mm ol/L 137 - 147 03/25/2017 [facility] ISTAT SMM Glucose Level (POC) 115 mg /dL 70 - 100 03/25/2017 H [facility] IST SMM Sodium POC 141 mm ol/L 137 - 147 03/25/2017 N [facility] IST SMM Potassium POC 4.6 mm ol/L 3.8 - 5.2 03/25/2017 N [facility] IST SMM Hematocrit POC 35 % 40 - 52 03/25/2017 L [facility] S[facility] Hemoglobin POC 11.9 g /dL 13.5 - 18.0 03/25/2017 L Meter ID: [id number]
[employer] Principal: [id number] MELINDA HUMPHREYS
[facility] Pathology Reports No Data Provided for This Section Diagnostic Reports No Data Provided for This Section Consultation Notes Results Value Date Source Operative Report SURGEON: DAVID WILKES MD PREOPERATIVE DIAGNOSIS: Inferotemporal retinal detachment, left eye. POSTOPERATIVE DIAGNOSIS: Inferotemporal retinal detachment, left eye. PROCEDURE PERFORMED: 1. 25-gauge transconjunctival pars vi trectomy. 2. Diode green endophotocoagulation w ith 135 spots. 3. Air fluid gas exchange with 18% C3 F8. All were stent to the left eye. ANESTHESIA: MAC. UNANTICIPATED EVENTS/COMPLICATIONS: None. DESCRIPTION OF PROCEDURE: The patient was taken to the operating room, placed on table in the supine position. Appropriate monitors and IVs were started. The patient received IV sedation. Under sedation, retrobulbar injection consisting of 50:50 mixture of lidocaine 2%, Marcaine 0.75% was given to the retrobulbar space of the left eye. After anesthesia had developed, patient's left eye was prepped and draped in usual standard fashion. A wire lid speculum placed in the left eye. 25-gauge transconjunctival trocars were placed 3.5 mm posterior to the limbus at the 2, 4:30, and 10 o'clock position. Infusion cannula was placed into the inferotemporal cannula. The light pipe was placed into the superotemporal cannula. The BIOM was swung into position and focused. A total and complete pars plana vitrectomy was done. There was a retinal tear seen inferotemporally. The retinotomy site was made in the superotemporal posterior pole. Air-fluid exchange was done and subretinal fluid was drained through the retinotomy site. Diode green endophotocoagulation was applied around the retinotomy site and around the retinal tear inferotemporally placing 135 spots using 300 milliwatts of power at 0.6 seconds pulse duration. 55 mL of 18% C3F8 was lavaged into the infusion cannula out through the supranasal cannula. All 3 cannulas were removed and felt to be self sealing. Lid speculum was removed and TobraDex ointment was injected into the superior fornix. The eye was tight patched. The patient was taken to the recovery room in stable condition. There were no perioperative complications to the surgery. SONG/[id number] /[id number] 03/25/2017 [facility] Discharge Summaries No Data Provided for This Section History and Physicals No Data Provided for This Section Vital Signs Vital Sign Value Date Comments Source NIBP MAP Calc 91 03/25/2017 [facility] Vital Signs Status/Type Pre Pr ocedure (03/25/17 2:30 PM) 03/25/2017 [facility] Inet NIBP Systolic 156 mm[Hg] 03/25/2017 [facility] Inet NIBP Diastolic 58 mm[Hg] 03/25/2017 [facility] Respiratory Rate 14 br/min 03/25/2017 [facility] Heart Rate 64 bpm 03/25/2017 [facility] Temp Method Temporal (03/25/17 2:30 PM) 03/25/2017 [facility] Temperature 97.4 [degF] 03/25/2017 [facility] BP Location Arm, left (03/25/17 2:30 PM) 03/25/2017 [facility] BP Cuff Size Large (03/25/17 2: 30 PM) 03/25/2017 [facility] Encounters Location Location Details Encounter Type Encounter Number Reason For Visit Attending Provider ADM Date DC Date Status Source [facility] Outpatient Day Surgery [id number] DAVID WILKES MD 03/25/2017 03/25/2017 [facility] Procedures Procedure Code Date Perfomer Comments Source Eye Vitrectomy Mini (Left)<sup>1</sup> 03/25/2017 auto- populated from documented surgical case [facility] Plan of Care No Data Provided for This Section Social History No Data Provided for This Section Assessment and Plan No Data Provided for This Section Family History No Data Provided for This Section Advance Directives No Data Provided for This Section Functional Status No Data Provided for This Section
--- OUTSIDE RECORDS SUMMARY | 2020-01-22 00:43 | XMS REPORT | Summary of Care ---
Author Author [facility] Organization [facility] Address Unknown Phone Unavailable Care Team Providers Care Tax Staff Accountant Name Role Phone MARIELY ESPAÑA DO PCP Encounter [facility] FIORELLA Mitchell [id number] Date(s): 03/25/17 - 03/25/[address] [address] Final: Retinal detachment with single break, left eye Final: Essential (primary) hypertension Final: Atherosclerotic heart disease of [place] coronary artery without angina pe ctoris Final: Presence of aortocoronary bypass graft Final: Type 2 diabetes mellitus without complications Final: [facility] (current) use of oral hypoglycemic drugs Final: [...] Ordered Flonase 50 mcg/inh nasal spray 1 [place], Both Nares, QAM (Every morning), 0 Refill(s) [...] (03/25/17 3:18 PM) 1Result Comment: Meter ID: [id number] Roll Setter: [id number] MELINDA HUMPHREYS CHEMISTRY Most recent to 1 [...]
--- OUTSIDE RECORDS SUMMARY | 2020-01-22 00:43 | XMS REPORT | Summary of Care ---
Author Author [facility] Organization [facility] Address Unknown Phone Unavailable Care Team Providers Care Semiconductor Assembler Name Role Phone MARIELY ESPAÑA DO PCP Encounter [facility] FIORELLA Mitchell [id number] Date(s): 03/25/17 - 03/25/[address] [address] Final: Retinal detachment with single break, left eye Final: Essential (primary) hypertension Final: Atherosclerotic heart disease of [place] coronary artery without angina pe ctoris Final: Presence of aortocoronary bypass graft Final: Type 2 diabetes mellitus without complications Final: [facility] (current) use of oral hypoglycemic drugs Final: [...] Ordered Flonase 50 mcg/inh nasal spray 1 [place], Both Nares, QAM (Every morning), 0 Refill(s) [...] (03/25/17 3:18 PM) 1Result Comment: Meter ID: [id number] Scaffolder: [id number] MELINDA HUMPHREYS CHEMISTRY Most recent to 1 [...]
--- OUTSIDE RECORDS SUMMARY | 2020-01-22 00:43 | XMS REPORT | Summary of Care ---
Author Author [facility] Organization [facility] Address Unknown Phone Unavailable Care Team Providers Care Diesel Pile Driver Operator Name Role Phone MARIELY ESPAÑA DO PCP Encounter [facility] FIORELLA Mitchell [id number] Date(s): 03/25/17 - 03/25/[address] [address] Final: Retinal detachment with single break, left eye Final: Essential (primary) hypertension Final: Atherosclerotic heart disease of [place] coronary artery without angina pe ctoris Final: [...] Ordered Flonase 50 mcg/inh nasal spray 1 [place], Both Nares, QAM (Every morning), 0 Refill(s) [...] (03/25/17 3:18 PM) 1Result Comment: Meter ID: [id number] Singer Back Tender: [id number] MELINDA HUMPHREYS CHEMISTRY Most recent to 1 [...]
--- OUTSIDE RECORDS SUMMARY | 2020-01-22 00:43 | XMS REPORT | Summary of Care ---
Author Author [facility] Organization [facility] Address Unknown Phone Unavailable Care Team Providers Care Qa Test Analyst Name Role Phone MARIELY ESPAÑA DO PCP Encounter [facility] FIORELLA Mitchell [id number] Date(s): 03/25/17 - 03/25/[address] [address] Final: Retinal detachment with single break, left eye Final: Essential (primary) hypertension Final: Atherosclerotic heart disease of [place] coronary artery without angina pe ctoris Final: Presence of aortocoronary bypass graft Final: Type 2 diabetes mellitus without complications Final: assisted (current) use of oral hypoglycemic drugs Final: [...] Ordered Flonase 50 mcg/inh nasal spray 1 [place], Both Nares, QAM (Every morning), 0 Refill(s) [...] (03/25/17 3:18 PM) 1Result Comment: Meter ID: [id number] Rehabilitation Team Lead: [id number] MELINDA HUMPHREYS CHEMISTRY Most recent to 1 [...]
--- OUTSIDE RECORDS SUMMARY | 2020-01-22 00:43 | XMS REPORT | Summary of Care ---
Author Author [facility] er Organization [facility] er Address Unknown Phone Unavailable Care Team Providers Care Director Multimedia Name Role Phone MARIELY ESPAÑA DO PCP Encounter [facility] FIORELLA Mitchell [id number] Date(s): 03/25/17 - 03/25/[address] [address] Final: Retinal detachment with single break, left eye Final: Essential (primary) hypertension Final: Atherosclerotic heart disease of [place] coronary artery without angina pe ctoris Final: Presence of aortocoronary bypass graft Final: Type 2 diabetes mellitus without complications Final: prison (current) use of oral hypoglycemic drugs Final: [...] Ordered Flonase 50 mcg/inh nasal spray 1 [place], Both Nares, QAM (Every morning), 0 Refill(s) [...] (03/25/17 3:18 PM) 1Result Comment: Meter ID: [id number] Engine Oiler: [id number] MELINDA HUMPHREYS CHEMISTRY Most recent to 1 [...]
--- OUTSIDE RECORDS SUMMARY | 2020-01-22 00:43 | XMS REPORT | Summary of Care ---
Author Author [facility] er Organization [facility] er Address Unknown Phone Unavailable Care Team Providers Care Vegetable Tester Name Role Phone MARIELY ESPAÑA DO PCP Encounter [facility] FIORELLA Mitchell [id number] Date(s): 03/25/17 - 03/25/[address] [address] Final: Retinal detachment with single break, left eye Final: Essential (primary) hypertension Final: Atherosclerotic heart disease of [place] coronary artery without angina pe ctoris Final: Presence of aortocoronary bypass graft Final: Type 2 diabetes mellitus without complications 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
--- OUTSIDE RECORDS SUMMARY | 2020-01-22 00:43 | XMS REPORT | Summary of Care ---
Author Author [facility] er Organization [facility] er Address Unknown Phone Unavailable Care Team Providers Care Unloader Operator Name Role Phone MARIELY ESPAÑA DO PCP Encounter [facility] FIORELLA Mitchell [id number] Date(s): 03/25/17 - 03/25/[address] [address] Final: Retinal detachment with single break, left eye Final: Essential (primary) hypertension Final: Atherosclerotic heart disease of [place] coronary artery without angina pe ctoris Final: Presence of aortocoronary bypass graft Final: Type 2 diabetes mellitus without complications Final: correction (current) use of oral hypoglycemic drugs Final: [...] Ordered Flonase 50 mcg/inh nasal spray 1 [place], Both Nares, QAM (Every morning), 0 Refill(s) [...] (03/25/17 3:18 PM) 1Result Comment: Meter ID: [id number] Ammunition Specialist: [id number] MELINDA HUMPHREYS CHEMISTRY Most recent to 1 [...]
--- OUTSIDE RECORDS SUMMARY | 2020-01-22 00:43 | XMS REPORT | Summary of Care ---
Author Author [facility] er Organization [facility] er Address Unknown Phone Unavailable Care Team Providers Care Retail And Restaurant Associate Name Role Phone MARIELY ESPAÑA DO PCP Encounter [facility] FIORELLA Mitchell [id number] Date(s): 03/25/17 - 03/25/[address] [address] Final: Retinal detachment with single break, left eye Final: Essential (primary) hypertension Final: Atherosclerotic heart disease of [place] coronary artery without angina pe ctoris Final: Presence of aortocoronary bypass graft Final: Type 2 diabetes mellitus without complications Final: retirement (current) use of oral hypoglycemic drugs Final: [...] Ordered Flonase 50 mcg/inh nasal spray 1 [place], Both Nares, QAM (Every morning), 0 Refill(s) [...] (03/25/17 3:18 PM) 1Result Comment: Meter ID: [id number] Piano Regulator: [id number] MELINDA HUMPHREYS CHEMISTRY Most recent to 1 [...]
--- OUTSIDE RECORDS SUMMARY | 2020-01-22 00:43 | XMS REPORT | Summary of Care ---
Author Author [facility] er Organization [facility] er Address Unknown Phone Unavailable Care Team Providers Care Fur Operator Name Role Phone MARIELY ESPAÑA DO PCP Encounter [facility] FIORELLA Mitchell [phone] Date(s): 03/25/17 - 03/25/[address] [address] Final: Retinal detachment with single break, left eye Final: Essential (primary) hypertension Final: Atherosclerotic heart disease of [place] coronary artery without angina pe ctoris Final: Presence of aortocoronary bypass graft Final: Type 2 diabetes mellitus without complications Final: intermediate (current) use of oral hypoglycemic drugs Final: [...] Ordered Flonase 50 mcg/inh nasal spray 1 [place], Both Nares, QAM (Every morning), 0 Refill(s) [...] (03/25/17 3:18 PM) 1Result Comment: Meter ID: [id number] Diamond Merchant: [id number] MELINDA HUMPHREYS CHEMISTRY Most recent to 1 [...]
--- OUTSIDE RECORDS SUMMARY | 2020-01-22 00:44 | XMS REPORT | Continuity of Care Document ---
Author Organization Unknown Address Unknown Phone Unavailable Allergies Active Description Code Type Severity Reaction Onset Reported/Identified Relationship to Patient Clinical Status Yes No Known Drug Allergies [id number] Drug Allergy Mild N/A 07/11/2009 Medications There is no data. 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 05/23/2014 DIEGO ARCEO MD, FACC FACP CCDS Ot V45.81 AORTOCORONARY BYPASS 05/23/2014 MARIELOS MERRITT FACC, DIEGO FACP CCDS Ot V58.69 OT MED,LT,CURRENT USE [...] 10/09/2014 Ot V67.00 10/09/2014 BAIMA, GERARDO L VIDEO JOURNALIST Ot 414.01 10/09/2014 BAIMA, GERARDO L VIDEO JOURNALIST Ot 447.9 10/09/2014 BAIMA, GERARDO L VIDEO JOURNALIST Ot V43.3 04/17/2015 Ot 414.01 04/17/2015 Ot 786.59 04/17/2015 Ot V43.3 04/17/2015 Ot 786.59 04/17/2015 Ot 414.01 04/17/2015 Ot 425.4 04/17/2015 Ot 397.0 04/17/2015 Ot 414.00 04/17/2015 Ot 424.0 04/17/2015 Ot 429.3 04/17/2015 Ot V43.3 04/17/2015 Ot 780.4 04/17/2015 Ot 429.3 04/17/2015 Ot V43.3 04/17/2015 Ot V67.00 04/17/2015 BAIMA, GERARDO L VIDEO JOURNALIST Ot 414.01 04/17/2015 BAIMA, GERARDO L VIDEO JOURNALIST Ot 447.9 04/17/2015 BAIMA, GERARDO L VIDEO JOURNALIST Ot V43.3 05/23/2015 BAIMA, GEARRDO L VIDEO JOURNALIST Ot I25.10 05/23/2015 SHEBAKIMBERLYN VILLANUEVAHER L VIDEO JOURNALIST Ot R07.89 06/14/2015 SHEBAKIMBERLYN VILLANUEVAHER L VIDEO JOURNALIST Ot I25.10 06/14/2015 SHEBAKAY GERARDO L VIDEO JOURNALIST Ot R07.89 01/06/2016 AUGUSTA MERRITT, NATALY Gan Ot H53. 8 OTHER VISUAL DISTURBANCES 01/07/2016 AUGUSTA MERRITT, NATALY Gan Ot H53. 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 02/20/2016 Ot V67.00 UNS PEC SURGERY FOLLOW-UP EXAM 02/20/2016 SHEBAGERARDO VILLANUEVA L VIDEO JOURNALIST Ot 414.01 CORONARY ATHEROSCLEROSIS OF [place] CORON 02/20/2016 SHEBAGERARDO VILLANUEVA L VIDEO JOURNALIST Ot 447.9 ARTERIAL DISEASE NOS 02/20/2016 SHEBAKAY GERARDO L VIDEO JOURNALIST Ot 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 VALVE REPLAC NEC 02/20/2016 GERARDO AQUINO L VIDEO JOURNALIST Ot I25.10 ATHSCL HEART DISEASE OF [place] CORONARY 02/20/2016 GERARDO AQUINO L VIDEO JOURNALIST Ot R07.89 OTHER CHEST PAIN 04/22/2016 Ot 397.0 TRIC USPID VALVE DISEASE 04/22/2016 Ot 414.00 COR ON ATHEROSCLER NOS TYPE VESSEL, NATIV 04/22/2016 Ot 424.0 MITR AL VALVE DISORDER 04/22/2016 Ot 429.3 CARD IOMEGALY 04/22/2016 Ot 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 04/22/2016 Ot 780.4 DIZZ INESS AND GIDDINESS 04/22/2016 Ot 429.3 CARD IOMEGALY 04/22/2016 Ot 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 04/22/2016 Ot V67.00 UNS PEC SURGERY FOLLOW-UP EXAM 04/22/2016 KIMBERLYN AQUINOHER L VIDEO JOURNALIST Ot 414.01 CORONARY ATHEROSCLEROSIS OF [place] CORON 04/22/2016 SHEBAKAY GERARDO L VIDEO JOURNALIST Ot 447.9 ARTERIAL DISEASE NOS 04/22/2016 BAIMA, GERARDO L VIDEO JOURNALIST Ot 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 VALVE REPLAC NEC 04/22/2016 BAIMA, GERARDO L VIDEO JOURNALIST Ot I25.10 ATHSCL HEART DISEASE OF [place] CORONARY 04/22/2016 BAIMA, GERARDO L VIDEO JOURNALIST Ot R07.89 OTHER CHEST PAIN 04/23/2016 BAIMA, GERARDO L VIDEO JOURNALIST Ot E78.4 OTHER HYPERLIPIDEMIA 04/23/2016 BAIMA, GERARDO L VIDEO JOURNALIST Ot I25.10 ATHSCL HEART DISEASE OF [place] CORONARY 04/23/2016 BAIMA, GERARDO L VIDEO JOURNALIST Ot I65.23 OCCLUSION AND STENOSIS OF [place]ATER[place] 04/23/2016 BAIMA, GERARDO L VIDEO JOURNALIST Ot I97.3 POSTPROCEDURAL HYPERTENSION 04/23/2016 BAIMA, GERARDO L VIDEO JOURNALIST Ot R06.09 OTHER FORMS OF DYSPNEA 04/23/2016 BAIMA, GERARDO L VIDEO JOURNALIST Ot 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 04/23/2016 BAIMA, GERARDO L VIDEO JOURNALIST Ot E78.4 OTHER HYPERLIPIDEMIA 04/23/2016 BAIMA, GERARDO L VIDEO JOURNALIST Ot I25.10 ATHSCL HEART DISEASE OF [place] CORONARY 04/23/2016 BAIMA, GERARDO L VIDEO JOURNALIST Ot I65.23 OCCLUSION AND STENOSIS OF [place] 04/23/2016 BAIMA, GERARDO L VIDEO JOURNALIST Ot I97.3 POSTPROCEDURAL HYPERTENSION 04/23/2016 BAIMA, GERARDO L VIDEO JOURNALIST Ot R06.09 OTHER FORMS OF DYSPNEA 04/23/2016 BAIMA, GERARDO L VIDEO JOURNALIST Ot 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 04/24/2016 BAIMA, GERARDO L VIDEO JOURNALIST Ot E78.4 OTHER HYPERLIPIDEMIA 04/24/2016 BAIMA, GERARDO L VIDEO JOURNALIST Ot I25.10 ATHSCL HEART DISEASE OF [place] CORONARY 04/24/2016 BAIMA, GERARDO L VIDEO JOURNALIST Ot I65.23 OCCLUSION AND STENOSIS OF [place] 04/24/2016 BAIMA, GERARDO L VIDEO JOURNALIST Ot I97.3 POSTPROCEDURAL HYPERTENSION 04/24/2016 BAIMA, GERARDO L VIDEO JOURNALIST Ot R06.09 OTHER FORMS OF DYSPNEA 04/24/2016 BAIMA, GERARDO L VIDEO JOURNALIST Ot 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 05/13/2016 GERARDO AQUINOP Ot E78.4 OTHER HYPERLIPIDEMIA 05/13/2016 GERARDO AQUINO VIDEO JOURNALIST Ot I25.10 ATHSCL HEART DISEASE OF [place] CORONARY 05/13/2016 GERARDO AQUINO VIDEO JOURNALIST Ot I65.23 OCCLUSION AND STENOSIS OF [place] 05/13/2016 GERARDO AQUINOP Ot I97.3 POSTPROCEDURAL HYPERTENSION 05/13/2016 GERARDO AQUINOP Ot R06.09 OTHER FORMS OF DYSPNEA 05/13/2016 GERARDO AQUINOP Ot 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 05/22/2016 JIMI LEIGH DO Ot I65. 23 OCCLUSION AND STENOSIS OF [place] 05/22/2016 JIMI LEIGH DO Ot R06. 02 SHORTNESS OF BREATH 05/22/2016 JIMI LEIGH DO Ot R79. 89 OTHER SPECIFIED ABNORMAL FINDINGS OF BLO 05/22/2016 JIMI LEIGH DO Ot Z95. 4 PRESENCE OF OTHER HEART-VALVE REPLACEMEN 05/26/2016 JIMI LEIGH DO Ot G47. 33 OBSTRUCTIVE SLEEP APNEA (ADULT) (PEDIATR 05/26/2016 JIMI LEIGH DO Ot G47. 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 05/27/2016 Ot V67.00 UNS PEC SURGERY FOLLOW-UP EXAM 05/27/2016 GEARRDO AQUINOP Ot 414.01 CORONARY ATHEROSCLEROSIS OF [place] CORON 05/27/2016 GERARDO AQUINO VIDEO JOURNALIST Ot 447.9 ARTERIAL DISEASE NOS 05/27/2016 GERARDO AQUINOP Ot V43.3 HEART VALVE REPLAC NEC 05/27/2016 BAIGERARDO VILLANUEVA L VIDEO JOURNALIST Ot I25.10 ATHSCL HEART DISEASE OF [place] CORONARY 05/27/2016 BAIMA GERARDO L VIDEO JOURNALIST Ot R07.89 OTHER CHEST PAIN 05/27/2016 SHEBAMA GERARDO L VIDEO JOURNALIST Ot E78.4 OTHER HYPERLIPIDEMIA 05/27/2016 BAIMA GERARDO L VIDEO JOURNALIST Ot I25.10 ATHSCL HEART DISEASE OF [place] CORONARY 05/27/2016 MILES GERARDO L VIDEO JOURNALIST Ot I65.23 OCCLUSION AND STENOSIS OF [place] 05/27/2016 SHEBAMA GERARDO L VIDEO JOURNALIST Ot I97.3 POSTPROCEDURAL HYPERTENSION 05/27/2016 BAIMA GERARDO L VIDEO JOURNALIST Ot R06.09 OTHER FORMS OF DYSPNEA 05/27/2016 MILES GERARDO L VIDEO JOURNALIST Ot 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 05/27/2016 JIMI LEIGH DO Ot I65. 23 OCCLUSION AND STENOSIS OF [place] 05/27/2016 JIMI LEIGH DO Ot R06. 02 SHORTNESS OF BREATH 05/27/2016 JIMI LEIGH DO Ot R79. 89 OTHER SPECIFIED ABNORMAL FINDINGS OF BLO 05/27/2016 JIMI LEIGH DO Ot Z95. 4 PRESENCE OF OTHER HEART-VALVE REPLACEMEN 05/27/2016 MILES GERARDO L VIDEO JOURNALIST Ot E78.4 OTHER HYPERLIPIDEMIA 05/27/2016 SHEBAKAY GERARDO L VIDEO JOURNALIST Ot I25.10 ATHSCL HEART DISEASE OF [place] CORONARY 05/27/2016 KIMBERLYN AQUINOHER L VIDEO JOURNALIST Ot I65.23 OCCLUSION AND STENOSIS OF [place] 05/27/2016 GERARDO AQUINO L VIDEO JOURNALIST Ot I97.3 POSTPROCEDURAL HYPERTENSION 05/27/2016 MILES GERARDO L VIDEO JOURNALIST Ot R06.09 OTHER FORMS OF DYSPNEA 05/27/2016 MILES GERARDO L VIDEO JOURNALIST Ot 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 05/27/2016 JIMI LEIGH DO Ot G47. 33 OBSTRUCTIVE SLEEP APNEA (ADULT) (PEDIATR 05/29/2016 JIMI LEIGH DO Ot E29. 1 TESTICULAR HYPOFUNCTION 05/29/2016 JIMI LEIGH DO Ot I65. 23 OCCLUSION AND STENOSIS OF [place] 05/29/2016 JIMI LEIGH DO Ot R06. 02 SHORTNESS OF BREATH 05/29/2016 JIMI LEIGH DO M Ot Z95. 4 PRESENCE OF OTHER HEART-VALVE REPLACEMEN 06/12/2016 JIMI LEIGH DO Ot I65. 23 OCCLUSION AND STENOSIS OF [place] 06/12/2016 JIMI LEIGH DO Ot R06. 02 SHORTNESS OF BREATH 06/12/2016 LU DUGGAN JIMI [place] Ot R79. 89 OTHER SPECIFIED ABNORMAL FINDINGS OF BLO 06/12/2016 JIMI LEIGH DO M Ot Z95. 4 PRESENCE OF OTHER HEART-VALVE REPLACEMEN 06/18/2016 JIMI LEIGH DO Ot E29. 1 TESTICULAR HYPOFUNCTION 06/18/2016 JIMI LEIGH DO Ot I65. 23 OCCLUSION AND STENOSIS OF [place] 06/18/2016 JIMI LEIGH DO Ot R06. 02 SHORTNESS OF BREATH 06/18/2016 JIMI LEIGH DO M Ot Z95. 4 PRESENCE OF OTHER HEART-VALVE REPLACEMEN 07/08/2016 JIMI LEIGH DO Ot I65. 23 OCCLUSION AND STENOSIS OF [place] 07/08/2016 JIMI LEIGH DO Ot R06. 02 SHORTNESS OF BREATH 07/08/2016 LU DUGGAN JIMI M Ot R79. 89 OTHER SPECIFIED ABNORMAL FINDINGS OF BLO 07/08/2016 JIMI LEIGH DO M Ot Z95. 4 PRESENCE OF OTHER HEART-VALVE REPLACEMEN 07/08/2016 JIMI LEIGH DO M Ot E29. 1 TESTICULAR HYPOFUNCTION 07/08/2016 JIMI LEIGH DO Ot I65. 23 OCCLUSION AND STENOSIS OF [place] 07/08/2016 JIMI LEIGH DO Ot R06. 02 SHORTNESS OF BREATH 07/08/2016 JIMI LEIGH DO Ot Z95. 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 VALVE REPLAC NEC 10/06/2016 SHEBAGERARDO VILLANUEVA VIDEO JOURNALIST Ot I25.10 ATHSCL HEART DISEASE OF [place] CORONARY 10/06/2016 MILES GERARDO Burns VIDEO JOURNALIST Ot R07.89 OTHER CHEST PAIN 10/06/2016 SHEBAKAY GERARDO Burns VIDEO JOURNALIST Ot E78.4 OTHER HYPERLIPIDEMIA 10/06/2016 SHEBAGERARDO VILLANUEVA L VIDEO JOURNALIST Ot I25.10 ATHSCL HEART DISEASE OF [place] CORONARY 10/06/2016 MILES GERARDO Katy VIDEO JOURNALIST Ot I65.23 OCCLUSION AND STENOSIS OF [place] 10/06/2016 MILES GERARDO Burns VIDEO JOURNALIST Ot I97.3 POSTPROCEDURAL HYPERTENSION 10/06/2016 MILES GERARDO Katy VIDEO JOURNALIST Ot R06.09 OTHER FORMS OF DYSPNEA 10/06/2016 GERARDO AQUINO VIDEO JOURNALIST Ot 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 10/06/2016 JIMI LEIGH DO Ot I65. 23 OCCLUSION AND STENOSIS OF [place] 10/06/2016 JIMI LEIGH DO Ot R06. 02 SHORTNESS OF BREATH 10/06/2016 JIMI LEIGH DO Ot R79. 89 OTHER SPECIFIED ABNORMAL FINDINGS OF BLO 10/06/2016 JIMI LEIGH DO Ot Z95. 4 PRESENCE OF OTHER HEART-VALVE REPLACEMEN 10/06/2016 JIMI LEIGH DO Ot E29. 1 TESTICULAR HYPOFUNCTION 10/06/2016 JIMI LEIGH DO Ot I65. 23 OCCLUSION AND STENOSIS OF [place] 10/06/2016 JIMI LEIGH DO Ot R06. 02 SHORTNESS OF BREATH 10/06/2016 JIMI LEIGH DO Ot Z95. 4 PRESENCE OF OTHER HEART-VALVE REPLACEMEN 10/07/2016 JIMI LEIGH DO Ot G47. 33 OBSTRUCTIVE SLEEP APNEA (ADULT) (PEDIATR 11/03/2016 JIMI LEIGH DO Ot G47. 33 OBSTRUCTIVE SLEEP APNEA (ADULT) (PEDIATR 12/16/2016 JIMI LEIGH DO Ot G47. 33 OBSTRUCTIVE SLEEP APNEA (ADULT) (PEDIATR 12/24/2016 NATALY MARTINEZ MD Ot Z01.818 ENCOUNTER FOR OTHER PREPROCEDURAL EXAMIN 12/24/2016 NATALY MARTINEZ MD, Ot Z12. 11 ENCOUNTER FOR SCREENING FOR MALIGNANT NE 12/26/2016 NATALY MARTINEZ MD Ot E78. 5 HYPERLIPIDEMIA, UNSPECIFIED 12/26/2016 NATALY MARTINEZ MD Ot I10 ESSENTIAL (PRIMARY) HYPERTENSION 12/26/2016 NATALY MARTINEZ MD Ot K55. 20 ANGIODYSPLASIA OF COLON WITHOUT HEMORRHA 12/26/2016 NATALY MARTINEZ MD, Ot K57. 30 DVRTCLOS OF LG INT W/O PERFORATION OR AB 12/26/2016 NATALY MARTINEZ MD Ot Z12. 11 ENCOUNTER FOR SCREENING FOR MALIGNANT NE 12/26/2016 NATALY MARTINEZ MD Ot Z95. 2 PRESENCE OF PROSTHETIC HEART VALVE 01/04/2017 JIMI LEIGH DO Ot G47. 33 OBSTRUCTIVE SLEEP APNEA (ADULT) (PEDIATR 01/05/2017 JIMI LEIGH DO, Ot G47. 33 OBSTRUCTIVE SLEEP APNEA (ADULT) (PEDIATR 01/22/2017 ESPAÑAMARIELY BARON DO Ot I77.1 STRICTURE OF ARTERY 02/02/2017 MARIELY ESPAÑA DO Ot I77.1 STRICTURE OF ARTERY 02/02/2017 MARIELY ESPAÑA DO Ot I77.1 STRICTURE OF ARTERY 02/02/2017 MARIELY ESPAÑA DO Ot I77.1 STRICTURE OF ARTERY 02/04/2017 MARIELY ESPAÑA DO Ot I77.1 STRICTURE OF ARTERY 02/04/2017 MARIELY ESPAÑA DO Ot I77.1 STRICTURE OF ARTERY 02/11/2017 MARIELY ESPAÑA DO Ot I77.1 STRICTURE OF ARTERY 02/17/2017 MARIELOS MERRITT FACC, DIEGO EUBANKSP CCDS Ot E11.9 TYPE 2 DIABETES MELLITUS WITHOUT COMPLIC 02/17/2017 MARIELOS MERRITT FACC, DIEGO EUBANKSP CCDS Ot E78.5 HYPERLIPIDEMIA, UNSPECIFIED 02/17/2017 MARIELOS MERRITT FACC, DIEGO EUBANKSP CCDS Ot G47.30 SLEEP APNEA, UNSPECIFIED 02/17/2017 DIEGO ARCEO MD, FACCP CCDS Ot I25.10 ATHSCL HEART DISEASE OF [place] CORONARY 02/17/2017 DIEGO ARCEO MD, FACCP CCDS Ot I70.203 UNSP ATHSCL [place] ARTERIES OF EXTREMITI 02/17/2017 MARIELOS MERRITT FACC, DIEGO EUBANKSP CCDS Ot J43.9 EMPHYSEMA, UNSPECIFIED 02/17/2017 MARIELOS MERRITT FACC, ALI FACP CCDS Ot M10.9 GOUT, UNSPECIFIED 02/17/2017 MARIELOS MERRITT FACC, ALI FACP CCDS Ot 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 02/17/2017 MARIELOS MERRITT FACC, ALI FACP CCDS Ot Z79.899 OTHER SNF (CURRENT) DRUG THERAPY 02/17/2017 MARIELOS MERRITT FACC, ALI FACP CCDS Ot Z87.891 PERSONAL HISTORY OF NICOTINE DEPENDENCE 02/17/2017 MARIELOS MERRITT FACC, ALI FACP CCDS Ot Z95.1 PRESENCE OF AORTOCORONARY BYPASS GRAFT 02/17/2017 MARIELOS MERRITT FACC, ALI FACP CCDS Ot Z95.2 PRESENCE OF PROSTHETIC HEART VALVE 02/24/2017 MARIELOS MERRITT FACC, ALI FACP CCDS Ot E11.9 TYPE 2 DIABETES MELLITUS WITHOUT COMPLIC 02/24/2017 MARIELOS MERRITT FACC, ALI FACP CCDS Ot E78.5 HYPERLIPIDEMIA, UNSPECIFIED 02/24/2017 MARIELOS MERRITT FACC, ALI FACP CCDS Ot G47.30 SLEEP APNEA, UNSPECIFIED 02/24/2017 MARIELOS MERRITT FACC, ALI FACP CCDS Ot I25.10 ATHSCL HEART DISEASE OF [place] CORONARY 02/24/2017 MARIELOS MERRITT FACC, ALI FACP CCDS Ot I70.203 UNSP ATHSCL [place] ARTERIES OF EXTREMITI 02/24/2017 MARIELOS MERRITT FACC, ALI FACP CCDS Ot J43.9 EMPHYSEMA, UNSPECIFIED 02/24/2017 MARIELOS MERRITT FACC, ALI FACP CCDS Ot M10.9 GOUT, UNSPECIFIED 02/24/2017 MARIELOS MERRITT FACC, ALI FACP CCDS Ot Z79.84 SNF (CURRENT) USE OF ORAL HYPOGLYC 02/24/2017 MARIELOS MERRITT FACC, ALI FACP CCDS Ot Z79.899 OTHER SNF (CURRENT) DRUG THERAPY 02/24/2017 MARIELOS MERRITT FACC, ALI FACP CCDS Ot Z87.891 PERSONAL HISTORY OF NICOTINE DEPENDENCE 02/24/2017 MARIELOS MERRITT FACC, ALI FACP CCDS Ot Z95.1 PRESENCE OF AORTOCORONARY BYPASS GRAFT 02/24/2017 MARIELOS MERRITT FACC, ALI FACP CCDS Ot Z95.2 PRESENCE OF PROSTHETIC HEART VALVE 02/26/2017 MARIELOS MERRITT FACC, ALI FACP CCDS Ot E11.9 TYPE 2 DIABETES MELLITUS WITHOUT COMPLIC 02/26/2017 MARIELOS MERRITT FACC, ALI FACP CCDS Ot E78.5 HYPERLIPIDEMIA, UNSPECIFIED 02/26/2017 MARIELOS MERRITT FACC, ALI FACP CCDS Ot G47.30 SLEEP APNEA, UNSPECIFIED 02/26/2017 MARIELOS MERRITT FACC, ALI FACP CCDS Ot I25.10 ATHSCL HEART DISEASE OF [place] CORONARY 02/26/2017 MARIELOS MERRITT FACC, ALI FACP CCDS Ot I70.203 UNSP ATHSCL [place] ARTERIES OF EXTREMITI 02/26/2017 MARIELOS MERRITT FACC, ALI FACP CCDS Ot J43.9 EMPHYSEMA, UNSPECIFIED 02/26/2017 MARIELOS MERRITT FACC, ALI FACP CCDS Ot M10.9 GOUT, UNSPECIFIED 02/26/2017 MARIELOS MERRITT FACC, ALI FACP CCDS Ot 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 02/26/2017 MARIELOS MERRITT FACC, ALI FACP CCDS Ot Z79.899 OTHER PROJECT TECHNICIAN (CURRENT) DRUG THERAPY 02/26/2017 MARIELOS MERRITT FACC, ALI FACP CCDS Ot Z87.891 PERSONAL HISTORY OF NICOTINE DEPENDENCE 02/26/2017 MARIELOS MERRITT FACC, ALI FACP CCDS Ot Z95.1 PRESENCE OF AORTOCORONARY BYPASS GRAFT 02/26/2017 MARIELOS MERRITT FACC, ALI FACP CCDS Ot Z95.2 PRESENCE OF PROSTHETIC HEART VALVE 03/09/2017 MARIELY ESPAÑA DO Ot I77.1 STRICTURE OF ARTERY 07/20/2017 Ot 429.3 CARD IOMEGALY 07/20/2017 Ot 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 07/20/2017 Ot V67.00 UNS PEC SURGERY FOLLOW-UP EXAM 07/20/2017 GERARDO AQUINO VIDEO JOURNALIST Ot 414.01 CORONARY ATHEROSCLEROSIS OF [place] CORON 07/20/2017 GERARDO AQUINO VIDEO JOURNALIST Ot 447.9 ARTERIAL DISEASE NOS 07/20/2017 GERARDO AQUINO VIDEO JOURNALIST Ot V43.3 HEART VALVE REPLAC NEC 07/20/2017 GERARDO AQUINO VIDEO JOURNALIST Ot I25.10 ATHSCL HEART DISEASE OF [place] CORONARY 07/20/2017 GERARDO AQUINO VIDEO JOURNALIST Ot R07.89 OTHER CHEST PAIN 07/20/2017 GERARDO AQUINO L VIDEO JOURNALIST Ot E78.4 OTHER HYPERLIPIDEMIA 07/20/2017 GERARDO AQUINO L VIDEO JOURNALIST Ot I25.10 ATHSCL HEART DISEASE OF [place] CORONARY 07/20/2017 GERARDO AQUINO L VIDEO JOURNALIST Ot I65.23 OCCLUSION AND STENOSIS OF BILATERAL [place]CH[place] 07/20/2017 GERARDO AQUINO VIDEO JOURNALIST Ot I97.3 POSTPROCEDURAL HYPERTENSION 07/20/2017 GERARDO AQUINO L VIDEO JOURNALIST Ot R06.09 OTHER FORMS OF DYSPNEA 07/20/2017 GERARDO AQUINO L VIDEO JOURNALIST Ot 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 07/20/2017 JIMI LEIGH DO Ot I65. 23 OCCLUSION AND STENOSIS OF BILATERAL [place] 07/20/2017 JIMI LEIGH DO Ot R06. 02 SHORTNESS OF BREATH 07/20/2017 JIMI LEIGH DO Ot R79. 89 OTHER SPECIFIED ABNORMAL FINDINGS OF BLO 07/20/2017 JIMI LEIGH DO Ot Z95. 4 PRESENCE OF OTHER HEART-VALVE REPLACEMEN 07/20/2017 JIMI LEIGH DO Ot E29. 1 TESTICULAR HYPOFUNCTION 07/20/2017 JIMI LEIGH DO Ot I65. 23 OCCLUSION AND STENOSIS OF [place] 07/20/2017 JIMI LEIGH DO Ot R06. 02 SHORTNESS OF BREATH 07/20/2017 JIMI LEIGH DO Ot Z95. 4 PRESENCE OF OTHER HEART-VALVE REPLACEMEN 07/20/2017 JIMI LEIGH DO Ot G47. 33 OBSTRUCTIVE SLEEP APNEA (ADULT) (PEDIATR 07/20/2017 ESPAÑAMARIELY RENE DO Ot I77.1 STRICTURE OF ARTERY 09/01/2018 GERARDO AQUINO VIDEO JOURNALIST Ot 414.01 CORONARY ATHEROSCLEROSIS OF [place] CORON 09/01/2018 GERARDO AQUINO VIDEO JOURNALIST Ot 447.9 ARTERIAL DISEASE NOS 09/01/2018 GERARDO AQUINO VIDEO JOURNALIST Ot V43.3 HEART VALVE REPLAC NEC 09/01/2018 GERARDO AQUINO L VIDEO JOURNALIST Ot I25.10 ATHSCL HEART DISEASE OF [place] CORONARY 09/01/2018 GERARDO AQUINO VIDEO JOURNALIST Ot R07.89 OTHER CHEST PAIN 09/01/2018 GERARDO AQUINO VIDEO JOURNALIST Ot E78.4 OTHER HYPERLIPIDEMIA 09/01/2018 GERARDO AQUINO VIDEO JOURNALIST Ot I25.10 ATHSCL HEART DISEASE OF [place] CORONARY 09/01/2018 GERARDO AQUINO VIDEO JOURNALIST Ot I65.23 OCCLUSION AND STENOSIS OF BILATERAL [place]CH[place] 09/01/2018 GERARDO AQUINO VIDEO JOURNALIST Ot I97.3 POSTPROCEDURAL HYPERTENSION 09/01/2018 GERARDO AQUINO VIDEO JOURNALIST Ot R06.09 OTHER FORMS OF DYSPNEA 09/01/2018 MILESGERARDO VIDEO JOURNALIST Ot 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 09/01/2018 JIMI LEIGH DO Ot I65. 23 OCCLUSION AND STENOSIS OF BILATERAL [place]CH[place] 09/01/2018 JIMI LEIGH DO Ot R06. 02 SHORTNESS OF BREATH 09/01/2018 JIMI LEIGH DO Ot R79. 89 OTHER SPECIFIED ABNORMAL FINDINGS OF BLO 09/01/2018 JIMI LEIGH DO Ot Z95. 4 PRESENCE OF OTHER HEART-VALVE REPLACEMEN 09/01/2018 JIMI LEIGH DO Ot E29. 1 TESTICULAR HYPOFUNCTION 09/01/2018 JIMI LEIGH DO Ot I65. 23 OCCLUSION AND STENOSIS OF BILATERAL [place]CH[place] 09/01/2018 JIMI LEIGH DO Ot R06. 02 SHORTNESS OF BREATH 09/01/2018 JIMI LEIGH DO Ot Z95. 4 PRESENCE OF OTHER HEART-VALVE REPLACEMEN 09/01/2018 JIMI LEIGH DO Ot G47. 33 OBSTRUCTIVE SLEEP APNEA (ADULT) (PEDIATR 09/01/2018 MARIELY ESPAÑA DO Ot I77.1 STRICTURE OF ARTERY 09/02/2018 LISA ROGER APRN Ot G47.33 OBSTRUCTIVE SLEEP APNEA (ADULT) (PEDIATR 09/02/2018 LISA ROGER APRN Ot J30.9 ALLERGIC RHINITIS, UNSPECIFIED 09/02/2018 LISA ROGER APRN Ot J44.9 CHRONIC OBSTRUCTIVE PULMONARY DISEASE, U 09/24/2018 LISA ROGER APRN Ot G47.33 OBSTRUCTIVE SLEEP APNEA (ADULT) (PEDIATR 09/24/2018 LISA ROGER APRN Ot J30.9 ALLERGIC RHINITIS, UNSPECIFIED 09/24/2018 LISA ROGER APRN Ot J44.9 CHRONIC OBSTRUCTIVE PULMONARY DISEASE, U 10/06/2018 LISA ROGER APRN Ot G47.33 OBSTRUCTIVE SLEEP APNEA (ADULT) (PEDIATR 10/06/2018 LISA ROGER APRN Ot J30.9 ALLERGIC RHINITIS, UNSPECIFIED 10/06/2018 LISA ROGER APRN Ot J44.9 CHRONIC OBSTRUCTIVE PULMONARY DISEASE, U 07/14/2019 RUDDY DO, MILIND B Ot Z01.8 18 ENCOUNTER FOR OTHER PREPROCEDURAL EXAMIN 07/15/2019 MORAIMAKATHE DO, MILIND B Ot Z01.8 18 ENCOUNTER FOR OTHER PREPROCEDURAL EXAMIN 07/29/2019 RUDDY DO, MILIND B Ot C43.5 9 MALIGNANT MELANOMA OF OTHER PART OF TRUN 07/29/2019 RUDDY DUGGAN, MILIND B Ot E11.9 TYPE 2 DIABETES MELLITUS WITHOUT COMPLIC 07/29/2019 MORAIMAKATHE DO, MILIND B Ot E66.9 OBESITY, UNSPECIFIED 07/29/2019 MORAIMAKATHE DO, MILIND B Ot E78.5 HYPERLIPIDEMIA, UNSPECIFIED 07/29/2019 MORAIMAKATHE DO, MILIND B Ot G47.3 3 OBSTRUCTIVE SLEEP APNEA (ADULT) (PEDIATR 07/29/2019 RUDDY DO, MILIND B Ot I10 ESSENTIAL (PRIMARY) HYPERTENSION 07/29/2019 MORAIMAKATHE , MILIND B Ot I25.1 0 ATHSCL HEART DISEASE OF [place] CORONARY 07/29/2019 MORAIMAKATHE , MILIND B Ot I65.2 9 OCCLUSION AND STENOSIS OF UNSPECIFIED CA 07/29/2019 MORAIMAKATHE , MILIND B Ot J30.9 ALLERGIC RHINITIS, UNSPECIFIED 07/29/2019 MORAIMAKATHE , MILIND B Ot J44.9 CHRONIC OBSTRUCTIVE PULMONARY DISEASE, U 07/29/2019 MORAIMAKATHE DO, MILIND B Ot Z68.3 8 BODY MASS INDEX (BMI) 38.0-38.9, ADULT 07/29/2019 MORAIMAKATHE , MILIND B Ot Z79.0 2 PROJECT TECHNICIAN (CURRENT) USE OF ANTITHROMBOTI 07/29/2019 MORAIMAKATHE , MILIND B Ot Z79.5 1 SNF (CURRENT) USE OF INHALED STERO 07/29/2019 MORAIMAKATHE , MILIND B Ot Z79.8 2 PROJECT TECHNICIAN (CURRENT) USE OF ASPIRIN 07/29/2019 RUDDY DUGGAN, MILIND B Ot Z79.8 4 PROJECT TECHNICIAN (CURRENT) USE OF ORAL HYPOGLYC 07/29/2019 RUDDY DUGGANJOSEIC B Ot Z79.8 99 OTHER PROJECT TECHNICIAN (CURRENT) DRUG THERAPY 07/29/2019 RUDDY DUGGANJOSEIC B Ot Z80.4 1 FAMILY HISTORY OF MALIGNANT NEOPLASM OF 07/29/2019 RUDDY DUGGANMILIND B Ot Z82.4 9 FAMILY HX OF ISCHEM HEART DIS AND OTH DI 07/29/2019 RUDDY DUGGANMILIND Ot Z87.8 91 PERSONAL HISTORY OF NICOTINE DEPENDENCE 07/29/2019 RUDDY DUGGANMILIND Ot Z95.1 PRESENCE OF AORTOCORONARY BYPASS GRAFT 07/29/2019 RUDDY DUGGANMILIND Ot Z95.2 PRESENCE OF PROSTHETIC HEART VALVE 07/31/2019 BOY CABRERA MD Ot E11.9 TYPE 2 DIABETES MELLITUS WITHOUT COMPLIC 07/31/2019 BOY CABRERA MD Ot E78.00 PURE HYPERCHOLESTEROLEMIA, UNSPECIFIED 07/31/2019 BOY CABRERA MD Ot I10 ESSENTIAL (PRIMARY) HYPERTENSION 07/31/2019 BOY CABRERA MD Ot I25.10 ATHSCL HEART DISEASE OF [place] CORONARY 07/31/2019 BOY CABRERA MD Ot J43.9 EMPHYSEMA, UNSPECIFIED 07/31/2019 BOY CABRERA MD Ot T81.31XA DISRUPTION OF EXTERNAL OPERATION (SURGIC 07/31/2019 BOY CABRERA MD Ot Z79.51 PROJECT TECHNICIAN (CURRENT) USE OF INHALED STERO 07/31/2019 BOY CABRERA MD Ot Z79.84 SNF (CURRENT) USE OF ORAL HYPOGLYC 07/31/2019 BOY CABRERA MD Ot Z85.828 PERSONAL HISTORY OF OTHER MALIGNANT NEOP 07/31/2019 BOY CABRERA MD Ot Z87.442 PERSONAL HISTORY OF URINARY CALCULI 07/31/2019 BOY CABRERA MD Ot Z87.891 PERSONAL HISTORY OF NICOTINE DEPENDENCE 07/31/2019 BOY CABRERA MD Ot Z90.89 ACQUIRED ABSENCE OF OTHER ORGANS 07/31/2019 BOY CABRERA MD Ot Z95.1 PRESENCE OF AORTOCORONARY BYPASS GRAFT 08/01/2019 GERARDO AQUINO Ot 447.9 ARTERIAL DISEASE NOS 08/01/2019 KIMBERLYN AQUINOHER L VIDEO JOURNALIST Ot V43.3 HEART VALVE REPLAC NEC 08/01/2019 BAIMA, GERARDO Burns VIDEO JOURNALIST Ot I25.10 ATHSCL HEART DISEASE OF [place] CORONARY 08/01/2019 BAIMA, GERARDO Burns VIDEO JOURNALIST Ot R07.89 OTHER CHEST PAIN 08/01/2019 BAIKAY, GERARDO Burns VIDEO JOURNALIST Ot E78.4 OTHER HYPERLIPIDEMIA 08/01/2019 BAIMA, GERARDO L VIDEO JOURNALIST Ot I25.10 ATHSCL HEART DISEASE OF [place] CORONARY 08/01/2019 BAIMA, GERARDO L VIDEO JOURNALIST Ot I65.23 OCCLUSION AND STENOSIS OF BILATERAL [place] 08/01/2019 BAIMA, GERARDO Burns VIDEO JOURNALIST Ot I97.3 POSTPROCEDURAL HYPERTENSION 08/01/2019 BAIMA, GERARDO Burns VIDEO JOURNALIST Ot R06.09 OTHER FORMS OF DYSPNEA 08/01/2019 MILES GERARDO L VIDEO JOURNALIST Ot 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 08/01/2019 LU DOJIMI Ot I65. 23 OCCLUSION AND STENOSIS OF BILATERAL [place] 08/01/2019 LU DO, JIMI Goff Ot R06. 02 SHORTNESS OF BREATH 08/01/2019 LU DO, JIMI Goff Ot R79. 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 1 TESTICULAR HYPOFUNCTION 08/01/2019 LU DOJIMI Ot I65. 23 OCCLUSION AND STENOSIS OF BILATERAL [place] 08/01/2019 LU DOJIMI Ot R06. 02 SHORTNESS OF BREATH 08/01/2019 LU DOJIMI Ot Z95. 4 PRESENCE OF OTHER HEART-VALVE REPLACEMEN 08/01/2019 LU DOJIMI Ot G47. 33 OBSTRUCTIVE SLEEP APNEA (ADULT) (PEDIATR 08/01/2019 MARIELY [place] DO Ot I77.1 STRICTURE OF ARTERY 08/01/2019 LISA ROGER APRN Ot G47.33 OBSTRUCTIVE SLEEP APNEA (ADULT) (PEDIATR 08/01/2019 LISA ROGER APRN Ot J30.9 ALLERGIC RHINITIS, UNSPECIFIED 08/01/2019 LISA ROGER APRN Ot J44.9 CHRONIC OBSTRUCTIVE PULMONARY DISEASE, U 08/01/2019 RUDDY DUGGAN MILIND B Ot C43.5 9 MALIGNANT MELANOMA OF OTHER PART OF TRUN 08/01/2019 RUDDY DUGGAN MILIND B Ot E11.9 TYPE 2 DIABETES MELLITUS WITHOUT COMPLIC 08/01/2019 RUDDY DUGGAN MILIND B Ot E66.9 OBESITY, UNSPECIFIED 08/01/2019 RUDDY DUGGAN MILIND B Ot E78.5 HYPERLIPIDEMIA, UNSPECIFIED 08/01/2019 RUDDY DUGGAN MILIND B Ot G47.3 3 OBSTRUCTIVE SLEEP APNEA (ADULT) (PEDIATR 08/01/2019 RUDDY DUGGAN MILIND B Ot I10 ESSENTIAL (PRIMARY) HYPERTENSION 08/01/2019 RUDDY DUGGAN MILIND B Ot I25.1 0 ATHSCL HEART DISEASE OF [place] CORONARY 08/01/2019 RUDDY DUGGAN MILIND B Ot I65.2 9 OCCLUSION AND STENOSIS OF UNSPECIFIED CA 08/01/2019 RUDDY DUGGAN MILIND B Ot J30.9 ALLERGIC RHINITIS, UNSPECIFIED 08/01/2019 RUDDY DUGGAN MILIND B Ot J44.9 CHRONIC OBSTRUCTIVE PULMONARY DISEASE, U 08/01/2019 RUDDY DUGGAN MILIND B Ot Z68.3 8 BODY MASS INDEX (BMI) 38.0-38.9, ADULT 08/01/2019 RUDDY DUGGAN MILIND B Ot Z79.0 2 SNF (CURRENT) USE OF ANTITHROMBOTI 08/01/2019 RUDDY DUGGAN MILIND B Ot Z79.5 1 PROJECT TECHNICIAN (CURRENT) USE OF INHALED STERO 08/01/2019 RUDDY DUGGANJOSEIC B Ot Z79.8 2 PROJECT TECHNICIAN (CURRENT) USE OF ASPIRIN 08/01/2019 RUDDY DUGGANJOSEIC B Ot Z79.8 4 SNF (CURRENT) USE OF ORAL HYPOGLYC 08/01/2019 RUDDY DUGGAN MILIND B Ot Z79.8 99 OTHER PROJECT TECHNICIAN (CURRENT) DRUG THERAPY 08/01/2019 RUDDY DUGGANJOSEIC B Ot Z80.4 1 FAMILY HISTORY OF MALIGNANT NEOPLASM OF 08/01/2019 RUDDY DUGGANJOSEIC B Ot Z82.4 9 FAMILY HX OF ISCHEM HEART DIS AND OTH DI 08/01/2019 RUDDY DUGGAN MILIND B Ot Z87.8 91 PERSONAL HISTORY OF NICOTINE DEPENDENCE 08/01/2019 RUDDY DUGGAN MILIND B Ot Z95.1 PRESENCE OF AORTOCORONARY BYPASS GRAFT 08/01/2019 MILIND FOX DO B Ot Z95.2 PRESENCE OF PROSTHETIC HEART VALVE 08/01/2019 ANDREW MCCARTNEY MD, Ot D64. 9 ANEMIA, UNSPECIFIED 08/01/2019 ANDREW MCCARTNEY MD Ot E11. 9 TYPE 2 DIABETES MELLITUS WITHOUT COMPLIC 08/01/2019 ANDREW MCCARTNEY MD Ot E78. 00 PURE HYPERCHOLESTEROLEMIA, UNSPECIFIED 08/01/2019 ANDREW MCCARTNEY MD Ot G47. 30 SLEEP APNEA, UNSPECIFIED 08/01/2019 ANDREW MCCARTNEY MD Ot I10 ESSENTIAL (PRIMARY) HYPERTENSION 08/01/2019 ANDREW MCCARTNEY MD, Ot I25. 10 ATHSCL HEART DISEASE OF [place] CORONARY 08/01/2019 ANDREW MCCARTNEY MD, Ot J43. 9 EMPHYSEMA, UNSPECIFIED 08/01/2019 ANDREW MCCARTNEY MD, Ot S21.102D UNSP OPN WND L FRNT WL OF [place]ORAX W/O PEN 08/01/2019 ANDREW MCCARTNEY MD, Ot T81.89XD OTH COMPLICATIONS OF PROCEDURES, NEC, DELAROSA 08/01/2019 ANDREW MCCARTNEY MD, Ot Z79. 51 PROJECT TECHNICIAN (CURRENT) USE OF INHALED STERO 08/01/2019 ANDREW MCCARTNEY MD, Ot Z79. 84 SNF (CURRENT) USE OF ORAL HYPOGLYC 08/01/2019 ANDREW MCCARTNEY MD, Ot Z85.828 PERSONAL HISTORY OF OTHER MALIGNANT NEOP 08/01/2019 ANDREW MCCARTNEY MD, Ot Z87.442 PERSONAL HISTORY OF URINARY CALCULI 08/01/2019 ANDREW MCCARTNEY MD, Ot Z87.891 PERSONAL HISTORY OF NICOTINE DEPENDENCE 08/01/2019 ANDREW MCCARTNEY MD Ot Z90. 89 ACQUIRED ABSENCE OF OTHER ORGANS 08/01/2019 ANDREW MCCARTNEY MD, Ot Z95. 1 PRESENCE OF AORTOCORONARY BYPASS GRAFT 08/01/2019 ANDREW MCCARTNEY MD, Ot Z99. 89 DEPENDENCE ON OTHER ENABLING MACHINES AN 08/03/2019 BOY CABRERA MD Ot E11.9 TYPE 2 DIABETES MELLITUS WITHOUT COMPLIC 08/03/2019 BOY CABRERA MD Ot E78.00 PURE HYPERCHOLESTEROLEMIA, UNSPECIFIED 08/03/2019 BOY CABRERA MD Ot I10 ESSENTIAL (PRIMARY) HYPERTENSION 08/03/2019 BOY CABRERA MD, Ot I25.10 ATHSCL HEART DISEASE OF [place] CORONARY 08/03/2019 BOY CABRERA MD, Ot J43.9 EMPHYSEMA, UNSPECIFIED 08/03/2019 BOY CABRERA MD, Ot T81.31XA DISRUPTION OF EXTERNAL OPERATION (SURGIC 08/03/2019 BOY CABRERA MD, Ot Z79.51 PROJECT TECHNICIAN (CURRENT) USE OF INHALED STERO 08/03/2019 BOY CABRERA MD, Ot 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 08/03/2019 BOY CABRERA MD, Ot Z85.828 PERSONAL HISTORY OF OTHER MALIGNANT NEOP 08/03/2019 BOY CABRERA MD, Ot Z87.442 PERSONAL HISTORY OF URINARY CALCULI 08/03/2019 BOY CABRERA MD, Ot Z87.891 PERSONAL HISTORY OF NICOTINE DEPENDENCE 08/03/2019 BOY CABRERA MD, Ot Z90.89 ACQUIRED ABSENCE OF OTHER ORGANS 08/03/2019 BOY CABRERA MD, Ot Z95.1 PRESENCE OF AORTOCORONARY BYPASS GRAFT 08/04/2019 ANDREW MCCARTNEY MD Ot D64. 9 ANEMIA, UNSPECIFIED 08/04/2019 ANDREW MCCARTNEY MD Ot E11. 9 TYPE 2 DIABETES MELLITUS WITHOUT COMPLIC 08/04/2019 ANDREW MCCARTNEY MD Ot E78. 00 PURE HYPERCHOLESTEROLEMIA, UNSPECIFIED 08/04/2019 ANDREW MCCARTNEY MD Ot G47. 30 SLEEP APNEA, UNSPECIFIED 08/04/2019 ANDREW MCCARTNEY MD Ot I10 ESSENTIAL (PRIMARY) HYPERTENSION 08/04/2019 ANDREW MCCARTNEY MD Ot I25. 10 ATHSCL HEART DISEASE OF [place] CORONARY 08/04/2019 ANDREW MCCARTNEY MD, Ot J43. 9 EMPHYSEMA, UNSPECIFIED 08/04/2019 ANDREW MCCARTNEY MD Ot S21.102D UNSP OPN WND L FRNT WL OF [place] W/O PEN 08/04/2019 ANDREW MCCARTNEY MD Ot T81.89XD OTH COMPLICATIONS OF PROCEDURES, NEC, DELAROSA 08/04/2019 ANDREW MCCARTNEY MD Ot Z79. 51 SNF (CURRENT) USE OF INHALED STERO 08/04/2019 ANDREW MCCARTNEY MD Ot Z79. 84 SNF (CURRENT) USE OF ORAL HYPOGLYC 08/04/2019 ANDREW MCCARTNEY MD Ot Z85.828 PERSONAL HISTORY OF OTHER MALIGNANT NEOP 08/04/2019 ANDREW MCCARTNEY MD Ot Z87.442 PERSONAL HISTORY OF URINARY CALCULI 08/04/2019 ANDREW MCCARTNEY MD Ot Z87.891 PERSONAL HISTORY OF NICOTINE DEPENDENCE 08/04/2019 ANDREW MCCARTNEY MD Ot Z90. 89 ACQUIRED ABSENCE OF OTHER ORGANS 08/04/2019 ANDREW MCCARTNEY MD Ot Z95. 1 PRESENCE OF AORTOCORONARY BYPASS GRAFT 08/04/2019 ANDREW MCCARTNEY MD Ot Z99. 89 DEPENDENCE ON OTHER ENABLING MACHINES AN 08/04/2019 MILIND FOX DO B Ot Z01.8 18 ENCOUNTER FOR OTHER PREPROCEDURAL EXAMIN 08/05/2019 MILIND FOX DO Ot Z01.8 18 ENCOUNTER FOR OTHER PREPROCEDURAL EXAMIN 08/07/2019 ANDREW MCCARTNEY MD Ot D64. 9 ANEMIA, UNSPECIFIED 08/07/2019 ANDREW MCCARTNEY MD Ot E11. 9 TYPE 2 DIABETES MELLITUS WITHOUT COMPLIC 08/07/2019 ANDREW MCCARTNEY MD Ot E78. 00 PURE HYPERCHOLESTEROLEMIA, UNSPECIFIED 08/07/2019 ANDREW MCACRTNEY MD Ot G47. 30 SLEEP APNEA, UNSPECIFIED 08/07/2019 ANDREW MCCARTNEY MD Ot I10 ESSENTIAL (PRIMARY) HYPERTENSION 08/07/2019 ANDREW MCCARTNEY MD Ot I25. 10 ATHSCL HEART DISEASE OF [place] CORONARY 08/07/2019 ANDREW MCCARTNEY MD, Ot J43. 9 EMPHYSEMA, UNSPECIFIED 08/07/2019 ANDREW MCCARTNEY MD Ot S21.102D UNSP OPN WND L FRNT WL OF [place] W/O PEN 08/07/2019 ANDREW MCCARTNEY MD Ot T81.89XD OTH COMPLICATIONS OF PROCEDURES, NEC, DELAROSA 08/07/2019 ANDREW MCCARTNEY MD Ot Z79. 51 SNF (CURRENT) USE OF INHALED STERO 08/07/2019 ANDREW MCCARTNEY MD, Ot Z79. 84 SNF (CURRENT) USE OF ORAL HYPOGLYC 08/07/2019 ANDREW MCCARTNEY MD Ot Z85.828 PERSONAL HISTORY OF OTHER MALIGNANT NEOP 08/07/2019 ANDREW MCCARTNEY MD Ot Z87.442 PERSONAL HISTORY OF URINARY CALCULI 08/07/2019 ANDREW MCCARTNEY MD Ot Z87.891 PERSONAL HISTORY OF NICOTINE DEPENDENCE 08/07/2019 ANDREW MCCARTNEY MD Ot Z90. 89 ACQUIRED ABSENCE OF OTHER ORGANS 08/07/2019 ANDREW MCCARTNEY MD Ot Z95. 1 PRESENCE OF AORTOCORONARY BYPASS GRAFT 08/07/2019 ANDREW MCCARTNEY MD Ot Z99. 89 DEPENDENCE ON OTHER ENABLING MACHINES AN 08/10/2019 JOSE FOX DOIC B Ot C43.5 9 MALIGNANT MELANOMA OF OTHER PART OF TRUN 08/10/2019 JOSE FOX DOIC B Ot E11.9 TYPE 2 DIABETES MELLITUS WITHOUT COMPLIC 08/10/2019 RUDDY DUGGAN MILIND B Ot E66.9 OBESITY, UNSPECIFIED 08/10/2019 RUDDY DUGGAN MILIND B Ot E78.5 HYPERLIPIDEMIA, UNSPECIFIED 08/10/2019 RUDDY DUGGAN MILIND B Ot G47.3 3 OBSTRUCTIVE SLEEP APNEA (ADULT) (PEDIATR 08/10/2019 RUDDY DUGGAN MILIND B Ot I10 ESSENTIAL (PRIMARY) HYPERTENSION 08/10/2019 RUDDY DUGGAN MILIND B Ot I25.1 0 ATHSCL HEART DISEASE OF [place] CORONARY 08/10/2019 RUDDY DUGGAN MILIND B Ot I35.0 NONRHEUMATIC AORTIC (VALVE) STENOSIS 08/10/2019 JOSE FOX DOIC B Ot J44.9 CHRONIC OBSTRUCTIVE PULMONARY DISEASE, U 08/10/2019 JOSE FOX DOIC B Ot R59.9 ENLARGED LYMPH NODES, UNSPECIFIED 08/10/2019 RUDDY DUGGAN MILIND B Ot Z68.3 9 BODY MASS INDEX (BMI) 39.0-39.9, ADULT 08/10/2019 JOSE FOX DOIC B Ot Z79.0 2 PROJECT TECHNICIAN (CURRENT) USE OF ANTITHROMBOTI 08/10/2019 JOSE FOX DOIC B Ot Z79.8 4 SNF (CURRENT) USE OF ORAL HYPOGLYC 08/10/2019 JOSE FOX DOIC B Ot Z79.8 99 OTHER PROJECT TECHNICIAN (CURRENT) DRUG THERAPY 08/10/2019 DELMAN DO, MILIND B Ot Z80.4 1 FAMILY HISTORY OF MALIGNANT NEOPLASM OF 08/10/2019 RUDDY DUGGAN MILIND B Ot Z87.8 91 PERSONAL HISTORY OF NICOTINE DEPENDENCE 08/10/2019 RUDDY DUGGAN MILIND B Ot Z95.1 PRESENCE OF AORTOCORONARY BYPASS GRAFT 08/10/2019 RUDDY DUGGAN MILIND B Ot Z99.8 9 DEPENDENCE ON OTHER ENABLING MACHINES AN 08/12/2019 RUDDY DUGGANJOSEIC B Ot C43.5 9 MALIGNANT MELANOMA OF OTHER PART OF TRUN 08/12/2019 RUDDY DUGGAN MILIND B Ot E11.9 TYPE 2 DIABETES MELLITUS WITHOUT COMPLIC 08/12/2019 RUDDY DUGGAN MILIND B Ot E66.9 OBESITY, UNSPECIFIED 08/12/2019 RUDDY UDGGAN MILIND B Ot E78.5 HYPERLIPIDEMIA, UNSPECIFIED 08/12/2019 RUDDY DUGGAN MILIND B Ot G47.3 3 OBSTRUCTIVE SLEEP APNEA (ADULT) (PEDIATR 08/12/2019 MORAIMAKATHE DUGGAN MILIND B Ot I10 ESSENTIAL (PRIMARY) HYPERTENSION 08/12/2019 RUDDY DUGGAN MILIND B Ot I25.1 0 ATHSCL HEART DISEASE OF [place] CORONARY 08/12/2019 RUDDY DUGGAN MILIND B Ot I65.2 9 OCCLUSION AND STENOSIS OF UNSPECIFIED CA 08/12/2019 RUDDY DUGGAN MILIND B Ot J30.9 ALLERGIC RHINITIS, UNSPECIFIED 08/12/2019 RUDDY DUGGAN MILIND B Ot J44.9 CHRONIC OBSTRUCTIVE PULMONARY DISEASE, U 08/12/2019 RUDDY DUGGAN MILIND B Ot Z68.3 8 BODY MASS INDEX (BMI) 38.0-38.9, ADULT 08/12/2019 RUDDY DUGGANJOSEIC B Ot Z79.0 2 PROJECT TECHNICIAN (CURRENT) USE OF ANTITHROMBOTI 08/12/2019 RUDDY DUGGANJOSEIC B Ot Z79.5 1 PROJECT TECHNICIAN (CURRENT) USE OF INHALED STERO 08/12/2019 MORAIMAKATHE DUGGANJOSEIC B Ot Z79.8 2 SNF (CURRENT) USE OF ASPIRIN 08/12/2019 MORAIMAKATHE DUGGAN MILIND B Ot Z79.8 4 PROJECT TECHNICIAN (CURRENT) USE OF ORAL HYPOGLYC 08/12/2019 MORAIMAKATHE DUGGANJOSEIC B Ot Z79.8 99 OTHER PROJECT TECHNICIAN (CURRENT) DRUG THERAPY 08/12/2019 RUDDY DUGGAN, MILIND B Ot Z80.4 1 FAMILY HISTORY OF MALIGNANT NEOPLASM OF 08/12/2019 RUDDY DUGGANJOSEIC B Ot Z82.4 9 FAMILY HX OF ISCHEM HEART DIS AND OTH DI 08/12/2019 MORAIMAKATHE DUGGANJOSEIC B Ot Z87.8 91 PERSONAL HISTORY OF NICOTINE DEPENDENCE 08/12/2019 RUDDY DUGGAN MILIND B Ot Z95.1 PRESENCE OF AORTOCORONARY BYPASS GRAFT 08/12/2019 MORAIMAKATHE DUGGANJOSEIC B Ot Z95.2 PRESENCE OF PROSTHETIC HEART VALVE 08/16/2019 MORAIMAKATHE DUGGAN MILIND B Ot C43.9 MALIGNANT MELANOMA OF SKIN, UNSPECIFIED 08/17/2019 MORAIMAKATHE DUGGAN MILIND B Ot C43.9 MALIGNANT MELANOMA OF SKIN, UNSPECIFIED 08/17/2019 MARIELOS MERRITT FACC, ALI FACP CCDS Ot E11.9 TYPE 2 DIABETES MELLITUS WITHOUT COMPLIC 08/17/2019 MARIELOS MERRITT FACC, ALI FACP CCDS Ot E78.5 HYPERLIPIDEMIA, UNSPECIFIED 08/17/2019 MARIELOS MERRITT FACC, ALI FACP CCDS Ot I11.9 HYPERTENSIVE HEART DISEASE WITHOUT HEART 08/17/2019 MARIELOS MERRITT FACC, ALI FACP CCDS Ot I25.10 ATHSCL HEART DISEASE OF [place] CORONARY 08/17/2019 MARIELOS MERRITT FACC, ALI FACP CCDS Ot I77.89 OTHER SPECIFIED DISORDERS OF ARTERIES AN 08/17/2019 MARIELOS MERRITT FACC, ALI FACP CCDS Ot R06.02 SHORTNESS OF BREATH 08/17/2019 MARIELOS MERRITT FACC, ALI FACP CCDS Ot 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 08/19/2019 MORAIMAKATHE JOSE DUGGANIC B Ot C43.5 9 MALIGNANT MELANOMA OF OTHER PART OF TRUN 08/19/2019 MORAIMAKATHE DUGGANJOSEIC B Ot E11.9 TYPE 2 DIABETES MELLITUS WITHOUT COMPLIC 08/19/2019 MORAIMAKATHE DUGGANJOSEIC B Ot E66.9 OBESITY, UNSPECIFIED 08/19/2019 MORAIMAKATHE DUGGANJOSEIC B Ot E78.5 HYPERLIPIDEMIA, UNSPECIFIED 08/19/2019 MORAIMAKATHE DUGGAN MILIND B Ot G47.3 3 OBSTRUCTIVE SLEEP APNEA (ADULT) (PEDIATR 08/19/2019 MORAIMAKATHE DO MILIND B Ot I10 ESSENTIAL (PRIMARY) HYPERTENSION 08/19/2019 MORAIMAKATHE DUGGAN MILIND B Ot I25.1 0 ATHSCL HEART DISEASE OF [place] CORONARY 08/19/2019 RUDDY DUGGAN, MILIND B Ot I35.0 NONRHEUMATIC AORTIC (VALVE) STENOSIS 08/19/2019 RUDDY DUGGAN MILIND B Ot J44.9 CHRONIC OBSTRUCTIVE PULMONARY DISEASE, U 08/19/2019 RUDDY DUGGAN MILIND B Ot R59.9 ENLARGED LYMPH NODES, UNSPECIFIED 08/19/2019 RUDDY DUGGAN MILIND B Ot Z68.3 9 BODY MASS INDEX (BMI) 39.0-39.9, ADULT 08/19/2019 RUDDY DUGGAN MILIND B Ot Z79.0 2 PROJECT TECHNICIAN (CURRENT) USE OF ANTITHROMBOTI 08/19/2019 [place]AIMAHOT [place] MILIND B Ot Z79.8 4 SNF (CURRENT) USE OF ORAL HYPOGLYC 08/19/2019 [place]AIMAHOT [place] MILIND B Ot Z79.8 99 OTHER SNF (CURRENT) DRUG THERAPY 08/19/2019 [place]AIMAHOT [place] MILIND B Ot Z80.4 1 FAMILY HISTORY OF MALIGNANT NEOPLASM OF 08/19/2019 RUDDY DUGGAN MILIND B Ot Z87.8 91 PERSONAL HISTORY OF NICOTINE DEPENDENCE 08/19/2019 [place]AIMAHOT [place] MILIND B Ot Z95.1 PRESENCE OF AORTOCORONARY BYPASS GRAFT 08/19/2019 RUDDY DUGGAN MILIND B Ot Z99.8 9 DEPENDENCE ON OTHER ENABLING MACHINES AN 08/19/2019 MARIELOS MERRITT FACC, DIEGO FACP CCDS Ot E11.9 TYPE 2 DIABETES MELLITUS WITHOUT COMPLIC 08/19/2019 MARIELOS MERRITT FACC, ALI FACP CCDS Ot E78.5 HYPERLIPIDEMIA, UNSPECIFIED 08/19/2019 MARIELOS MERRITT FACC, ALI FACP CCDS Ot I08.1 RHEUMATIC DISORDERS OF BOTH MITRAL AND T 08/19/2019 MARIELOS MERRITT FACC, ALI FACP CCDS Ot I10 ESSENTIAL (PRIMARY) HYPERTENSION 08/19/2019 MARIELOS MERRITT FACC, ALI FACP CCDS Ot I25.10 ATHSCL HEART DISEASE OF [place] CORONARY 08/19/2019 MARIELOS MERRITT FACC, ALI FACP CCDS Ot I77.89 OTHER SPECIFIED DISORDERS OF ARTERIES AN 08/19/2019 MARIELOS MERRITT FACC, ALI FACP CCDS Ot R06.02 SHORTNESS OF BREATH 08/19/2019 MARIELOS MERRITT FACC, ALI FACP CCDS Ot 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 08/31/2019 JACKELYN BRAMBILA Ot 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 09/05/2019 MILIND FOX DO Ot C43.9 MALIGNANT MELANOMA OF SKIN, UNSPECIFIED 09/06/2019 JACKELYN BRAMBILA Ot C43.9 MALIGNANT MELANOMA OF SKIN, UNSPECIFIED 09/06/2019 MARIELOS MD FACC, ALI FACP CCDS Ot E11.9 TYPE 2 DIABETES MELLITUS WITHOUT COMPLIC 09/06/2019 MARIELOS FACC, ALI FACP CCDS Ot E78.5 HYPERLIPIDEMIA, UNSPECIFIED 09/06/2019 MARIELOS FACC, ALI FACP CCDS Ot I11.9 HYPERTENSIVE HEART DISEASE WITHOUT HEART 09/06/2019 MARIELOS FACC, ALI FACP CCDS Ot I25.10 ATHSCL HEART DISEASE OF [place] CORONARY 09/06/2019 MARIELOS MERRITT FACC, ALI FACP CCDS Ot I77.89 OTHER SPECIFIED DISORDERS OF ARTERIES AN 09/06/2019 MARIELOS MERRITT FACC, ALI FACP CCDS Ot R06.02 SHORTNESS OF BREATH 09/06/2019 MARIELOS MD FACC, ALI FACP CCDS Ot 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 09/21/2019 JACKELYN BRAMBILA Ot 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 09/28/2019 BAIMA, GERARDO L VIDEO JOURNALIST Ot 447.9 ARTERIAL DISEASE NOS 09/28/2019 BAIMA, GERARDO L VIDEO JOURNALIST Ot V43.3 HEART VALVE REPLAC NEC 09/28/2019 BAIMA, GERARDO L VIDEO JOURNALIST Ot I25.10 ATHSCL HEART DISEASE OF [place] CORONARY 09/28/2019 BAIMA, GERARDO L VIDEO JOURNALIST Ot R07.89 OTHER CHEST PAIN 09/28/2019 BAIMA, GERARDO L VIDEO JOURNALIST Ot E78.4 OTHER HYPERLIPIDEMIA 09/28/2019 BAIMA, GERARDO L VIDEO JOURNALIST Ot I25.10 ATHSCL HEART DISEASE OF [place] CORONARY 09/28/2019 BAIMA, GERARDO L VIDEO JOURNALIST Ot I65.23 OCCLUSION AND STENOSIS OF BILATERAL BOUCHER 09/28/2019 BAIMA, GERARDO L VIDEO JOURNALIST Ot I97.3 POSTPROCEDURAL HYPERTENSION 09/28/2019 BAIMA, GERARDO L VIDEO JOURNALIST Ot R06.09 OTHER FORMS OF DYSPNEA 09/28/2019 BAIMA, GERARDO Burns PAMELLA Ot 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 09/28/2019 LU DO, JIMI Goff Ot I65. 23 OCCLUSION AND STENOSIS OF BILATERAL BOUCHER 09/28/2019 LU DO, JIMI Goff Ot R06. 02 SHORTNESS OF BREATH 09/28/2019 LU DO, JIMI Goff Ot R79. 89 OTHER SPECIFIED ABNORMAL FINDINGS OF BLO 09/28/2019 LU DO, JIMI Goff Ot Z95. 4 PRESENCE OF OTHER HEART-VALVE REPLACEMEN 09/28/2019 LU DO, JIMI Goff Ot E29. 1 TESTICULAR HYPOFUNCTION 09/28/2019 LU DO, JIMI Goff Ot I65. 23 OCCLUSION AND STENOSIS OF BILATERAL BOUCHER 09/28/2019 LU DO, JIMI Goff Ot R06. 02 SHORTNESS OF BREATH 09/28/2019 LU DO, JIMI Goff Ot Z95. 4 PRESENCE OF OTHER HEART-VALVE REPLACEMEN 09/28/2019 LU DO, JIMI Goff Ot G47. 33 OBSTRUCTIVE SLEEP APNEA (ADULT) (PEDIATR 09/28/2019 MARIELY [place] DO Ot I77.1 STRICTURE OF ARTERY 09/28/2019 LISA ROGER APRN Ot G47.33 OBSTRUCTIVE SLEEP APNEA (ADULT) (PEDIATR 09/28/2019 LSIA ORGER APRN Ot J30.9 ALLERGIC RHINITIS, UNSPECIFIED 09/28/2019 LISA ROGER APRN Ot J44.9 CHRONIC OBSTRUCTIVE PULMONARY DISEASE, U 09/28/2019 JOSE FOX DOIC B Ot C43.5 9 MALIGNANT MELANOMA OF OTHER PART OF TRUN 09/28/2019 JOSE FOX DOIC B Ot E11.9 TYPE 2 DIABETES MELLITUS WITHOUT COMPLIC 09/28/2019 JOSE FOX DOIC B Ot E66.9 OBESITY, UNSPECIFIED 09/28/2019 JOSE FOX DOIC B Ot E78.5 HYPERLIPIDEMIA, UNSPECIFIED 09/28/2019 JOSE FOX DOIC B Ot G47.3 3 OBSTRUCTIVE SLEEP APNEA (ADULT) (PEDIATR 09/28/2019 JOSE FOX DOIC B Ot I10 ESSENTIAL (PRIMARY) HYPERTENSION 09/28/2019 JOSE FOX DOIC B Ot I25.1 0 ATHSCL HEART DISEASE OF [place] CORONARY 09/28/2019 JOSE FOX DOIC B Ot I65.2 9 OCCLUSION AND STENOSIS OF UNSPECIFIED CA 09/28/2019 RUDDY DUGGANJOSEIC B Ot J30.9 ALLERGIC RHINITIS, UNSPECIFIED 09/28/2019 RUDDY DUGGANJOSEIC B Ot J44.9 CHRONIC OBSTRUCTIVE PULMONARY DISEASE, U 09/28/2019 RUDDY DUGGAN MILIND B Ot Z68.3 8 BODY MASS INDEX (BMI) 38.0-38.9, ADULT 09/28/2019 RUDDY DUGGANJOSEIC B Ot Z79.0 2 PROJECT TECHNICIAN (CURRENT) USE OF ANTITHROMBOTI 09/28/2019 RUDDY DUGGANJOSEIC B Ot Z79.5 1 SNF (CURRENT) USE OF INHALED STERO 09/28/2019 RUDDY DUGGANMILIND B Ot Z79.8 2 PROJECT TECHNICIAN (CURRENT) USE OF ASPIRIN 09/28/2019 RUDDY DUGGANJOSEIC B Ot Z79.8 4 PROJECT TECHNICIAN (CURRENT) USE OF ORAL HYPOGLYC 09/28/2019 RUDDY DUGGANJOSEIC B Ot Z79.8 99 OTHER SNF (CURRENT) DRUG THERAPY 09/28/2019 RUDDY DUGGANMILIND B Ot Z80.4 1 FAMILY HISTORY OF MALIGNANT NEOPLASM OF 09/28/2019 RUDDY DUGGANJOSEIC B Ot Z82.4 9 FAMILY HX OF ISCHEM HEART DIS AND OTH DI 09/28/2019 RUDDY DUGGANMILIND B Ot Z87.8 91 PERSONAL HISTORY OF NICOTINE DEPENDENCE 09/28/2019 RUDDY DUGGANJOSEIC B Ot Z95.1 PRESENCE OF AORTOCORONARY BYPASS GRAFT 09/28/2019 RUDDY DUGGANJOSEIC B Ot Z95.2 PRESENCE OF PROSTHETIC HEART VALVE 09/28/2019 MARIELOS MERRITT FACC, ALI FACP CCDS Ot E11.9 TYPE 2 DIABETES MELLITUS WITHOUT COMPLIC 09/28/2019 MARIELOS MERRITT FACC, ALI FACP CCDS Ot E78.5 HYPERLIPIDEMIA, UNSPECIFIED 09/28/2019 MARIELOS MERRITT FACC, ALI FACP CCDS Ot I08.1 RHEUMATIC DISORDERS OF BOTH MITRAL AND T 09/28/2019 MARIELOS MERRITT FACC, ALI FACP CCDS Ot I10 ESSENTIAL (PRIMARY) HYPERTENSION 09/28/2019 MARIELOS MERRITT FACC, ALI FACP CCDS Ot I25.10 ATHSCL HEART DISEASE OF [place] CORONARY 09/28/2019 MARIELOS MERRITT FACC, ALI FACP CCDS Ot I77.89 OTHER SPECIFIED DISORDERS OF ARTERIES AN 09/28/2019 MARIELOS MERRITT FAC, ALI FACP CCDS Ot R06.02 SHORTNESS OF BREATH 09/28/2019 MARIELOS MD FAC, ALI FACP CCDS Ot 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 09/28/2019 DELMAN DO, MILIND B Ot C43.9 MALIGNANT MELANOMA OF SKIN, UNSPECIFIED 09/28/2019 JACKELYN BRAMBILA Ot C43.9 MALIGNANT MELANOMA OF SKIN, UNSPECIFIED 09/28/2019 JACKELYN BRAMBILA Ot 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 09/28/2019 MARIELOS MD FACC, ALI FACP CCDS Ot E11.9 TYPE 2 DIABETES MELLITUS WITHOUT COMPLIC 09/28/2019 MARIELOS MD FACC, ALI FACP CCDS Ot E78.5 HYPERLIPIDEMIA, UNSPECIFIED 09/28/2019 MARIELOS MD FACC, ALI FACP CCDS Ot I11.9 HYPERTENSIVE HEART DISEASE WITHOUT HEART 09/28/2019 MARIELOS MD FACC, ALI FACP CCDS Ot I25.10 ATHSCL HEART DISEASE OF [place] CORONARY 09/28/2019 MARIELOS MERRITT [facility], ALI FACP CCDS Ot I77.89 OTHER SPECIFIED DISORDERS OF ARTERIES AN 09/28/2019 MARIELOS MERRITT [facility], ALI FACP CCDS Ot R06.02 SHORTNESS OF BREATH 09/28/2019 MARIELOS MERRITT [facility], ALI FACP CCDS Ot 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 10/06/2019 DELMAN DO, MILIDN B Ot C43.9 MALIGNANT MELANOMA OF SKIN, UNSPECIFIED 10/06/2019 DELMAN DO, MILIND B Ot C43.9 MALIGNANT MELANOMA OF SKIN, UNSPECIFIED 11/09/2019 JACKELYN BRAMBILA N Ot C43.9 MALIGNANT MELANOMA OF SKIN, UNSPECIFIED 11/11/2019 JACKELYN BRAMBILA N Ot C43.9 MALIGNANT MELANOMA OF SKIN, UNSPECIFIED 11/15/2019 JACKELYN BRAMBILA N Ot C43.9 MALIGNANT MELANOMA OF SKIN, UNSPECIFIED 12/01/2019 JACKELYN BRAMBILA N Ot 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 12/01/2019 JACKELYN BRAMBILA Ot J90 PLEURAL EFFUSION, NOT ELSEWHERE CLASSIFI 12/01/2019 JACKELYN BRAMBILA Ot R91.1 SOLITARY PULMONARY NODULE 12/01/2019 PATTY, MALATHIAN N Ot R94.2 ABNORMAL RESULTS OF PULMONARY FUNCTION S 12/01/2019 PATTY, MALATHIAN N Ot 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 12/01/2019 PATTY, BOBAN N Ot E11.9 TYPE 2 DIABETES MELLITUS WITHOUT COMPLIC 12/01/2019 PATTY, BOBAN N Ot E78.5 HYPERLIPIDEMIA, UNSPECIFIED 12/01/2019 PATTY, BOBAN N Ot I10 ESSENTIAL (PRIMARY) HYPERTENSION 12/01/2019 PATTY, BOBAN N Ot I25.10 ATHSCL HEART DISEASE OF [place] CORONARY 12/01/2019 PATTY, BOBAN N Ot J44.9 CHRONIC OBSTRUCTIVE PULMONARY DISEASE, U 12/01/2019 PATTY, BOBAN N Ot Z51.11 ENCOUNTER FOR ANTINEOPLASTIC CHEMOTHERAP 12/08/2019 PATTY, BOBAN N Ot 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 12/08/2019 PATTY, BOBAN N Ot E11.9 TYPE 2 DIABETES MELLITUS WITHOUT COMPLIC 12/08/2019 PATTY BOBAN N Ot E78.5 HYPERLIPIDEMIA, UNSPECIFIED 12/08/2019 PATTY, BOBAN N Ot I10 ESSENTIAL (PRIMARY) HYPERTENSION 12/08/2019 PATTY, BOBAN N Ot I25.10 ATHSCL HEART DISEASE OF [place] CORONARY 12/08/2019 PATTY, MALATHIAN N Ot J44.9 CHRONIC OBSTRUCTIVE PULMONARY DISEASE, U 12/08/2019 PATTY, BOBAN N Ot Z51.11 ENCOUNTER FOR ANTINEOPLASTIC CHEMOTHERAP 12/23/2019 PATTYMALATHIAN N Ot 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 12/23/2019 PATTY BOBAN N Ot J90 PLEURAL EFFUSION, NOT ELSEWHERE CLASSIFI 12/23/2019 PATTY BOBAN N Ot R91.1 SOLITARY PULMONARY NODULE 12/23/2019 PATTYMALATHIAN N Ot R94.2 ABNORMAL RESULTS OF PULMONARY FUNCTION S 01/06/2020 PATTY BOBAN N Ot 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 Results Test Result Range Capillary blood glucose measurement by g lucometer (mass/volume) - 12/26/16 09:39 Capillary blood glucose measurement by glucometer (mas s/volume) 120 mg/dL 70-110 Automated blood complete blood count (he mogram) panel - 02/17/17 07:18 Blood leukocytes automated count (number/volume) 8.1 10*3/uL 4.3-11.0 Blood erythrocytes automated count (number/volume) 4.08 10*6/uL 4.35-5.85 Venous blood hemoglobin measurement (mass/volume) 12.3 g/dL 13.3-17.7 Blood hematocrit (volume fraction) 38 % 40-54 Automated erythrocyte mean corpuscular volume 93 [ foz_us] 80-99 Automated erythrocyte mean corpuscular h emoglobin (mass per erythrocyte) 30 pg 25-34 Automated erythrocyte mean corpuscular h emoglobin concentration measurement (mass/volume) 32 g/dL 32-36 Automated erythrocyte distribution width ratio 14. 9 % 10.0- 14.5 Automated blood platelet count (count/volume) 226 10*3/uL 130-400 Automated blood platelet mean volume measurement 10.3 [foz_us] 7.4-10.4 PT panel in platelet poor plasma by coag ulation assay - 02/17/17 07:18 Prothrombin time (PT) in platelet poor plasma by coagu lation assay 13.4 s 12.2-14.7 INR in platelet poor plasma or blood by coagulation as say 1.1 0.8-1.4 Activated partial thromboplastin time (a PTT) in platelet poor plasma bycoagulation assay - 02/17/17 07:18 Activated partial thromboplastin time (a PTT) in platelet poor plasma bycoagulation assay 32 s 24-35 Comprehensive metabolic panel - 02/17/17 07:18 Serum or plasma sodium measurement (moles/volume) 141 mmol/L 135-145 Serum or plasma potassium measurement (moles/volume) 3.6 mmol/L 3.6-5.0 Serum or plasma chloride measurement (moles/volume) 107 mmol/L 98-107 Carbon dioxide 22 mmol/L 21-32 Serum or plasma anion gap determination (moles/volume) 12 mmol/L 5-14 Serum or plasma urea nitrogen measurement (mass/volume ) 28 mg/dL 7-18 Serum or plasma creatinine measurement (mass/volume) 1.22 mg/dL 0.60-1.30 Serum or plasma urea nitrogen/creatinine mass ratio 23 NRG Serum or plasma creatinine measurement w ith calculation of estimated glomerular filtration rate 59 NRG Serum or plasma glucose measurement (mass/volume) 126 mg/dL 70-105 Serum or plasma calcium measurement (mass/volume) 9.3 mg/dL 8.5-10.1 Serum or plasma total bilirubin measurement (mass/volu me) 0.8 mg/dL 0.1-1.0 Serum or plasma alkaline phosphatase shavon surement (enzymatic activity/volume) 176 U/L 40-136 Serum or plasma aspartate aminotransfera se measurement (enzymatic activity/volume) 16 U/L 5-34 Serum or plasma alanine aminotransferase measurement (enzymatic activity/volume) 13 U/L 0-55 Serum or plasma protein measurement (mass/volume) 6.9 g/dL 6.4-8.2 Serum or plasma albumin measurement (mass/volume) 3.9 g/dL 3.2-4.5 Lipid 1996 panel - 02/17/17 07:18 Serum or plasma triglyceride measurement (mass/volume) 88 mg/dL <150 Serum or plasma cholesterol measurement (mass/volume) 134 mg/dL < 200 Serum or plasma cholesterol in HDL measurement (mass/v olume) 45 mg/dL 40-60 Cholesterol in LDL [mass/volume] in serum or plasma by direct assay 69 mg/dL 1-129 Serum or plasma cholesterol in VLDL measurement (mass/ volume) 18 mg/dL 5-40 Methicillin resistant Staphylococcus aur eus (MRSA) screening culture - 07/20/19 09:52 Methicillin resistant Staphylococcus aureus (MRSA) scr eening culture NEG NRG Capillary blood glucose measurement by g lucometer (mass/volume) - 07/20/19 10:05 Capillary blood glucose measurement by glucometer (mas s/volume) 124 mg/dL 70-110 Capillary blood glucose measurement by g lucometer (mass/volume) - 07/20/19 12:36 Capillary blood glucose measurement by glucometer (mas s/volume) 117 mg/dL 70-110 Whole blood hemoglobin and hematocrit pa verito - 08/01/19 23:16 Venous blood hemoglobin measurement (mass/volume) 10.8 g/dL 13.3-17.7 Blood hematocrit (volume fraction) 34 % 40-54 Methicillin resistant Staphylococcus aur eus (MRSA) screening culture - 08/10/19 06:20 Methicillin resistant Staphylococcus aureus (MRSA) scr eening culture NEG NRG Capillary blood glucose measurement by g lucometer (mass/volume) - 08/10/19 06:28 Capillary blood glucose measurement by glucometer (mas s/volume) 124 mg/dL 70-110 Comprehensive metabolic panel - 01/21/20 20:48 Serum or plasma sodium measurement (moles/volume) 140 mmol/L 135-145 Serum or plasma potassium measurement (moles/volume) 4.5 mmol/L 3.6-5.0 Serum or plasma chloride measurement (moles/volume) 109 mmol/L 98-107 Carbon dioxide 16 mmol/L 21-32 Serum or plasma anion gap determination (moles/volume) 15 mmol/L 5-14 Serum or plasma urea nitrogen measurement (mass/volume ) 60 mg/dL 7-18 Serum or plasma creatinine measurement (mass/volume) 2.85 mg/dL 0.60-1.30 Serum or plasma urea nitrogen/creatinine mass ratio 21 NRG Serum or plasma creatinine measurement w ith calculation of estimated glomerular filtration rate 22 NRG Serum or plasma glucose measurement (mass/volume) 173 mg/dL 70-105 Serum or plasma calcium measurement (mass/volume) 9.0 mg/dL 8.5-10.1 Serum or plasma total bilirubin measurement (mass/volu me) 0.6 mg/dL 0.1-1.0 Serum or plasma alkaline phosphatase shavon surement (enzymatic activity/volume) 457 U/L 40-136 Serum or plasma aspartate aminotransfera se measurement (enzymatic activity/volume) 23 U/L 5-34 Serum or plasma alanine aminotransferase measurement (enzymatic activity/volume) 16 U/L 0-55 Serum or plasma protein measurement (mass/volume) 7.2 g/dL 6.4-8.2 Serum or plasma albumin measurement (mass/volume) 3.9 g/dL 3.2-4.5 CALCIUM CORRECTED 9.1 mg/dL 8.5-10.1 Complete blood count (CBC) with automate d white blood cell (WBC) differential - 01/21/20 20:48 Blood leukocytes automated count (number/volume) 7.3 10*3/uL 4.3-11.0 Blood erythrocytes automated count (number/volume) 3.00 10*6/uL 4.35-5.85 Venous blood hemoglobin measurement (mass/volume) 9.7 g/dL 13.3-17.7 Blood hematocrit (volume fraction) 30 % 40-54 Automated erythrocyte mean corpuscular volume 100 [foz_us] 80-99 Automated erythrocyte mean corpuscular h emoglobin (mass per erythrocyte) 32 pg 25-34 Automated erythrocyte mean corpuscular h emoglobin concentration measurement (mass/volume) 32 g/dL 32-36 Automated erythrocyte distribution width ratio 16. 1 % 10.0- 14.5 Automated blood platelet count (count/volume) 173 10*3/uL 130-400 Automated blood platelet mean volume measurement 11.4 [foz_us] 7.4-10.4 Automated blood neutrophils/100 leukocytes 75 % 42-75 Automated blood lymphocytes/100 leukocytes 10 % 12-44 Blood monocytes/100 leukocytes 13 % 0-12 Automated blood eosinophils/100 leukocytes 1 % 0-10 Automated blood basophils/100 leukocytes 0 % 0-10 Blood neutrophils automated count (number/volume) 5.5 10*3 1.8-7.8 Blood lymphocytes automated count (number/volume) 0.8 10*3 1.0-4.0 Blood monocytes automated count (number/volume) 1. 0 10*3 0.0-1.0 Automated eosinophil count 0.1 10*3/uL 0 .0-0.3 Automated blood basophil count (count/volume) 0.0 10*3/uL 0.0-0.1 Complete urinalysis with reflex to cultu re - 01/21/20 20:56 Urine color determination YELLOW NRG Urine clarity determination SL CLOUDY N RG Urine pH measurement by test strip 5.5 5-9 Specific gravity of urine by test strip 1.020 1.016-1.022 Urine protein assay by test strip, semi-quantitative NEGATIVE NEGATIVE Urine glucose detection by automated test strip NE GATIVE NEGATIVE Erythrocytes detection in urine sediment by light micr oscopy 3+ NEGATIVE Urine ketones detection by automated test strip NE GATIVE NEGATIVE Urine nitrite detection by test strip NEGATIVE NEGATIVE Urine total bilirubin detection by test strip NEGA TIVE NEGATIVE Urine urobilinogen measurement by automated test strip (mass/volume) 0.2 mg/dL < = 1.0 Urine leukocyte esterase detection by dipstick NEG ATIVE NEGATIVE Automated urine sediment erythrocyte cou nt by microscopy (number/high power field) [HPF] NRG Automated urine sediment leukocyte count by microscopy (number/high power field) [HPF] NRG Bacteria detection in urine sediment by light microsco py TRACE NRG Crystals detection in urine sediment by light microsco py PRESENT NRG Casts detection in urine sediment by light microscopy NONE NRG Mucus detection in urine sediment by light microscopy NEGATIVE NRG Complete urinalysis with reflex to culture NO NRG Amorphous sediment detection in urine sediment by ligh t microscopy RARE PA URATES NRG Encounters ACCT No. Visit Date/Time Discharge Status Pt. Type Provider Facility Loc./Unit Complaint [id number] 12/01/2019 10:23:00 23:59:59 CLS Outpatient JACKELYN BRAMBILA V [facility] ONC [id number] 11/29/2019 10:41:00 23:59:59 CLS Outpatient JACKELYN BRAMBILA V [facility] RAD ABNORMAL PET SCAN,LUNG [id number] 09/01/2019 09:49:00 00:01:00 DIS Outpatient JACKELYN BRAMBILA [facility] ONC [id number] 08/30/2019 08:28:00 23:59:59 CLS Outpatient JACKELYN BRAMBILA V [facility] RAD MALIGNANT MELANOMA OF O THER PART OF TRUNK [id number] 08/18/2019 08:41:00 23:59:59 CLS Outpatient MARIELOS MERRITT FACC, DIEGO ROMANO CC DS [facility] CARD CAD [id number] 08/16/2019 07:47:00 23:59:59 CLS Outpatient DIEGO ARCEO MD, FACC, FACP CC DS [facility] CARD CAD [id number] 08/10/2019 05:49:00 23:59:59 C[facility] [id number] 08/10/2019 05:51:00 15:00:00 DIS Outpatient [facility]UD[facility] [id number] 08/04/2019 05:39:00 12:25:00 DIS Outpatient RUDDY DO MILIND B [facility] PREOP MELANOMA BACK [id number] 08/03/2019 07:30:00 23:59:59 CLS Preadmit MARIELOS MERRITT FACC, DIEGO ROMANO CCDS [facility] CARD HTN [id number] 08/01/2019 22:41:00 23:35:00 DIS Emergency BIB MERRITT, ANDREW J [facility] ER INCISION OPENED/BLEEDIN G [id number] 07/30/2019 23:29:00 00:36:00 DIS Emergency DEBORAH MERRTIT, BOY Banks [facility] ER LOWER BACK BLEE D-POST OP [id number] 07/20/2019 09:23:00 23:59:59 CLS Outpatient RUDDY DO MILIND B [facility] SDC LESION ON BACK [id number] 07/14/2019 05:29:00 11:08:00 DIS Outpatient RUDDY DO MILIND B [facility] PREOP LESION ON BACK [id number] 09/01/2018 13:52:00 019 23:59:59 CLS Outpatient LISA ROGER APRN [facility] RT MICHELLE, ALLERGIC R HINITIS, COPD [id number] 02/17/2017 06:50:00 017 14:15:00 DIS Outpatient MARIELOS MERRITT FACKarin, DIEGO ROMANO CC DS [facility] CATH LEG DISCOMFORT,CLAUDICATION [id number] 01/21/2017 10:50:00 07/12/2 017 23:59:59 CLS Outpatient TACO MARIELY [facility] RAD PERIPHERAL VASC ULAR DISEASE [id number] 01/05/2017 10:15:00 23:59:59 CLS Preadmit JIMI LEIGH DO [facility] PULM MICHELLE [id number] 12/25/2016 10:00:00 00:01:00 DIS Outpatient JIMI LEIGH DO [facility] PULM MICHELLE [id number] 12/26/2016 08:33:00 11:12:00 DIS Outpatient NATALY MARTINEZ MD [facility] ENDO SCREENING [id number] 12/24/2016 11:00:00 13:10:00 DIS Outpatient NATALY MARTINEZ MD [facility] PREOP SCREENING [id number] 05/28/2016 18:19:00 23:59:59 CLS Outpatient JIMI LEIGH DO [facility] RT SHORTNESS OF BREATH,CAR OTID ARTERIA DISEASE [id number] 05/26/2016 09:57:00 10:15:00 DIS Outpatient JIMI LEIGH DO [facility] SLEEP OBSERVED APNEA, SNORING , eds [id number] 05/22/2016 15:05:00 23:59:59 CLS Outpatient JIMI LEIGH DO [facility] RAD SOB,CAD,LOW TESTOSTERON E [id number] 04/22/2016 07:35:00 23:59:59 CLS Outpatient GERARDO AQUINO [facility] CARD SUÁREZ,CAD,S/P AVR ,HTN,HLP [id number] 01/06/2016 09:08:00 10:35:00 DIS Emergency NATALY DERAS MD [facility] ER R EYE CLOUDY VISION [id number] 04/17/2015 07:59:00 10/06/2 015 23:59:59 CLS Outpatient BAIMA GERARDO L VIDEO J[employer]LIST [facility] CARD CAD, CHEST PRES SURE [id number] 05/23/2014 06:57:00 014 13:46:00 DIS Outpatient MARIELOS MERRITT FACC, DIEGO ROMANO CC DS [facility] CAD,FATIGUE ,SOB [id number] 04/14/2014 07:48:00 014 23:59:59 CLS Outpatient BAIGERARDO VILLANUEVA [employer] [facility] CARD AORTIC VALVE RE PLACEMENT [id number] 04/14/2013 08:11:00 013 23:59:59 CLS Outpatient BAIMAGERARDO L [employer]IDEO J[employer]LIST [facility] RAD CAD [id number] 02/27/2020 11:00:00 P EN Preadmit JACKELYN BRAMBILA N [facility] MALIGNANT MELANOMA [id number] 01/21/2020 21:12:00 Document Registration [id number] 10/09/2014 15:30:00 Document Registration [id number] 10/09/2014 15:30:00 Document Registration [id number] 10/09/2014 15:30:00 Document Registration [id number] 10/09/2014 15:30:00 Document Registration [id number] 10/09/2014 15:30:00 Document Registration [id number] 10/09/2014 15:30:00 Document Registration [id number] 04/23/2012 07:32:00 Document Registration [id number] 10/23/2011 08:41:00 Document Registration [id number] 04/22/2010 11:18:00 Document Registration [id number] 01/31/2010 09:18:00 Document Registration [id number] 01/10/2010 08:13:00 Document Registration [id number] 11/23/2009 07:53:00 Document Registration [id number] 07/11/2009 09:00:00 Document Registration [id number] 01/31/2009 10:00:00 Document Registration
--- OUTSIDE RECORDS SUMMARY | 2020-01-22 00:44 | XMS REPORT ---
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 (Calculated Grams) 783002.017 gm Weight (Calculated Kilograms) 117.93 4017 kilograms Calculated BMI 37.30 Vital Response Date/Time Height (Feet) 5 feet 10:36am Height (Inches) 9.00 inches 12/24/2016 10:36am Height (Calculated Centimeters) 175. 793990 cm 12/24/2016 10:36am Weight (Pounds) 260 pounds 12/24/2016 10:36am Weight (Ounces) 0.0 oz 0 12/24/2016 10:36am Weight (Calculated Grams) 907343.02 gm 12/24/2016 10:36am Weight (Calculated Kilograms) 117.93 4017 kilograms 12/24/2016 10:36am Calculated BMI 38.4 12/11 10:36am Vital Response Date/Time Temperature (Fahrenheit) 97.0 degree s F (97.6 - 99.5) 12/26/2016 11:11am Temperature (Calculated Celsius) 36. 60934 degrees C (36.4 - 37.5) 12/26/2016 11:11am Temperature Source Tympanic 12/26/2016 11:11am Pulse Rate (adult) 59 bpm (60 - 90) 12/26/2016 11:11am Respiratory Rate 18 bpm (12 - 24) 12/26/2016 11:11am O2 Sat by Pulse Oximetry 95 % (88 - 100) 12/26/2016 11:11am Blood Pressure 133/50 mm Hg 12/26/2016 11:11am Blood Pressure Mean 91 mm Hg 12/26/2016 9:40am Pain Numeric Pain Scale 0-No Pain 12/26/2016 11:11am Pain Intensity 0 2016 11:00am Height (Feet) 5 feet 8:35am Height (Inches) 9.00 inches 12/26/2016 8:35am Height (Calculated Centimeters) 175. 163425 cm 12/26/2016 8:35am Weight (Pounds) 260 pounds 12/26/2016 8:35am Weight (Ounces) 0.0 oz 0 12/26/2016 8:35am Weight (Calculated Grams) 240061.02 gm 12/26/2016 8:35am Weight (Calculated Kilograms) 117.93 4017 kilograms 12/26/2016 8:35am Calculated BMI 38.4 12/11 8:35am Vital Response Date/Time Temperature (Fahrenheit) 97.0 degree s F (97.6 - 99.5) 02/17/2017 2:15pm Temperature (Calculated Celsius) 36. 99416 degrees C (36.4 - 37.5) 02/17/2017 2:00pm Temperature Source Temporal 02/17/2017 2:15pm Pulse Rate (adult) 63 bpm (60 - 90) 02/17/2017 2:15pm Respiratory Rate 18 bpm (12 - 24) 02/17/2017 2:15pm O2 Sat by Pulse Oximetry 96 % (88 - 100) 02/17/2017 2:15pm Blood Pressure 134/65 mm Hg 02/17/2017 2:15pm Blood Pressure Mean 88 mm Hg 02/17/2017 2:00pm Pain Numeric Pain Scale 0-No Pain 02/17/2017 2:15pm Height (Feet) 5 feet 02/2017 7:05am Height (Inches) 9.00 inches 02/17/2017 7:05am Height (Calculated Centimeters) 175. 049034 cm 02/17/2017 7:05am Weight (Pounds) 260 pounds 02/17/2017 7:05am Weight (Ounces) 0.0 oz 0 02/17/2017 7:05am Weight (Calculated Grams) 341665.02 gm 02/17/2017 7:05am Weight (Calculated Kilograms) 117.93 4017 kilograms 02/17/2017 7:05am Calculated BMI 38.4 02/2017 7:05am Capillary Refill Capillary Refill Less Than 3 Seconds 02/17/2017 2:00pm Vital Response Date/Time Temperature (Fahrenheit) 97.0 degree s F (97.6 - 99.5) 02/17/2017 2:15pm Temperature (Calculated Celsius) 36. 51056 degrees C (36.4 - 37.5) 02/17/2017 2:00pm Temperature Source Temporal 02/17/2017 2:15pm Pulse Rate (adult) 63 bpm (60 - 90) 02/17/2017 2:15pm Respiratory Rate 18 bpm (12 - 24) 02/17/2017 2:15pm O2 Sat by Pulse Oximetry 96 % (88 - 100) 02/17/2017 2:15pm Blood Pressure 134/65 mm Hg 02/17/2017 2:15pm Blood Pressure Mean 88 mm Hg 02/17/2017 2:00pm Pain Numeric Pain Scale 0-No Pain 02/17/2017 2:15pm Height (Feet) 5 feet 02/2017 7:05am Height (Inches) 9.00 inches 02/17/2017 7:05am Height (Calculated Centimeters) 175. 661539 cm 02/17/2017 7:05am Weight (Pounds) 260 pounds 02/17/2017 7:05am Weight (Ounces) 0.0 oz 0 02/17/2017 7:05am Weight (Calculated Grams) 264639.02 gm 02/17/2017 7:05am Weight (Calculated Kilograms) 117.93 4017 kilograms 02/17/2017 7:05am Calculated BMI 38.4 02/2017 7:05am Capillary Refill Capillary Refill Less Than 3 Seconds 02/17/2017 2:00pm Functional Status The data below is from unstructured sources Query Response Date William rded Patient Orientation Person Place Time Situation May 23, 2014 2:51pm No functional status information available. Mental Status No Information Advance Directives Directive Response Recor ded Date/Time Advance Directives Yes 0 01/06/16 9:30am Health Care Power of Anthropometrist No 01/06/16 9:30am Organ Donor No 01/06/16 9:30am Directive Response Recor ded Date/Time Advance Directives Yes 0 01/06/16 9:30am Health Care Power of Anthropometrist No 01/06/16 9:30am Organ Donor No 01/06/16 9:30am Resuscitation Status Full Code 01/06/16 9:30am Directive Response Recor ded Date/Time Advance Directives Yes 1 07/23/13 7:13am Health Care Power of Anthropometrist No 05/23/14 7:13am Organ Donor No 05/23/14 7:13am Resuscitation Status Full Code 05/23/14 7:13am Directive Response Recor ded Date/Time Advance Directives Yes 0 01/06/16 9:30am Health Care Power of Anthropometrist No 01/06/16 9:30am Organ Donor No 01/06/16 9:30am Resuscitation Status Full Code 12/24/16 10:36am Directive Response Recor ded Date/Time Advance Directives No 9:45am Health Care Power of Anthropometrist No 12/26/16 9:45am Organ Donor No 12/26/16 9:45am Resuscitation Status Full Code 12/26/16 9:45am Directive Response Recor ded Date/Time Advance Directives No 7:06am Health Care Power of Anthropometrist No 02/17/17 7:06am Organ Donor No 02/17/17 7:06am Resuscitation Status Full Code 02/17/17 7:06am Discharge Instructions No hospital discharge instructions.No hospital discharge instructions.No hospital discharge instructions.No hospital discharge instruction information available.No hospital discharge instruction information available. Patient Instructions Physician Instructions Follow Up/Plan F/u with Dr Valderrama in 2-3 weeks CARDIAC CATH DISCHARGE INSTRUCTIONS *Hold Metformin for 48 hours post heart cath. ACTIVITY * Go Home directly and rest. * Limit activity of the leg (or wrist if it was used) for 7 days including aerobics, swimming, jogging, bicycling, etc. * Restrict stair-climbing for 7 days if possible, if not, climb up with your non-cath leg, then bring together on the same step. * Avoid lifting, pushing, pulling or excessive movement of the affected extremity for 7 days. * Customary sexual activity may be resumed after 2 days-use caution not to use a position that strains or causes pain to the affected extremity. * No driving for 24 hours. * NO SMOKING. * Avoid straining for bowel movements for 7 days. * Gentle walking on level ground is allowed. * Returning to work will depend on the type of procedure and the results. Your doctor will discuss this with you. CALL YOUR DOCTOR FOR ANY OF THE FOLLOWING: *If bleeding from the puncture site occurs- Apply gentle pressure to site with clean cloth and call your doctor or EMS. * If a knot or lump forms under the skin, increases in size, or causes pain. * If bruising appears to be worsening or moving further down your leg instead of disappearing. * Temperature above 101 F. CARE OF YOUR GROIN INCISION; * Bruising or purple discoloration of the skin near the puncture site is common. * You may shower only, no bathtub bathing for 5 days. Be careful to avoid slipping as your leg may feel stiff. * If a closure device was used on your femoral artery, please see the attached guide regarding care of the device and your leg. * REMOVE the dressing from your groin the next day after your procedure in the shower. CARE OF YOUR WRIST INCISION; * Bruising or purple discoloration of the skin near the puncture site is common. * You may shower. * DO NOT submerge wrist. * Remove dressing in 24 hours. Patient Instructions: HOLD pioglitazone-metformin until the eveinign of 02/19/17, then resume previous home dose Care Plan Patient Instructions:: HOLD pioglitazone-metformin until the eveinign of 02/19/17, then resumeprevious home dose Additional Source Comments This clinical document has been generated using [employer] software that has been certified by the Office of the National Coordinator for Health Information Technology (ONC 15.99.04.3023.Diam.31.00.0.427594) and the National Committee for Heel Gummer (NCQA, as an eMeasure certified technology). FOR RECORDS PERTAINING TO PATIENTS WHO ARE OR HAVE BEEN ENROLLED IN A CHEMICAL D EPENDENCY/SUBSTANCE ABUSE PROGRAM, SOME INFORMATION MAY BE OMITTED. This clinica l summary was aggregated from multiple sources. Caution should be exercised in using it in the provision of clinical care. This summary normalizes information from multiple sources, and as a consequence, information in this document may ma terially change the coding, format and clinical context of patient data. In elsy tion, data may be omitted in some cases. CLINICAL DECISIONS SHOULD BE BASED ON T HE PRIMARY CLINICAL RECORDS. [employer] [facility]. provides no warranty or guara ntee of the accuracy or completeness of information in this document.The followi information is based on time limited clinical information
[2020-01-22] MEDS ORDERED: ONDANSETRON 4 MG/2 ML (SDV) Z0FRAN IV PRN (00:45)
[2020-01-22] MEDS ORDERED: MONT10TA26 PO (02:22)
[2020-01-22] MEDS ORDERED: ASPI-999 PO (02:22)
[2020-01-22 04:00] VITALS: BP 138/56
[2020-01-22 07:04] LABS: BASOPHILS % (AUTO) 0 % (0-10); EOSINOPHILS # (AUTO) 0.1 10^3/uL (0.0-0.3); EOSINOPHILS % (AUTO) 1 % (0-10); HEMATOCRIT 28 % (40-54); HEMOGLOBIN 8.7 G/DL (13.3-17.7); LYMPHOCYTES # (AUTO) 0.6 X 10^3 (1.0-4.0); LYMPHOCYTES % (AUTO) 9 % (12-44); MEAN CORPUSCULAR HEMOGLOBIN 31 PG (25-34); MEAN CORPUSCULAR HGB CONC 31 G/DL (32-36); MEAN CORPUSCULAR VOLUME 100 FL (80-99); MEAN PLATELET VOLUME 11.4 FL (7.4-10.4); MONOCYTES # (AUTO) 1.1 X 10^3 (0.0-1.0); MONOCYTES % (AUTO) 16 % (0-12); NEUTROPHILS # (AUTO) 4.9 X 10^3 (1.8-7.8); NEUTROPHILS % (AUTO) 73 % (42-75); PLATELET COUNT 151 10^3/uL (130-400); RED CELL DISTRIBUTION WIDTH 15.9 % (10.0-14.5); WHITE BLOOD COUNT 6.8 10^3/uL (4.3-11.0)
[2020-01-22 07:19] LABS: POTASSIUM 4.4 MMOL/L (3.6-5.0)
[2020-01-22 07:20] LABS: CALCIUM 8.3 MG/DL (8.5-10.1)
[2020-01-22 07:25] LABS: CREATININE SERUM 2.54 MG/DL (0.60-1.30)
[2020-01-22 07:40] VITALS: BP 171/51
[2020-01-22] MEDS ORDERED: PATIENT MAY USE OWN MEDS, ALL MC SCH (08:15)
[2020-01-22] MEDS: CARVEDILOL 20 MG PO SCH (08:36)
[2020-01-22] MEDS: fentaNYL INJECTION 100 MCG/2 ML AMP IV PRN ×2 (08:46→23:19)
[2020-01-22] MEDS ORDERED: CARVEDILOL 6.25 MG (COREG) TAB PO SCH (09:00)
[2020-01-22] MEDS ORDERED: lisINopril 10 MG (PRINIVIL) TABLET PO SCH (09:00)
[2020-01-22] MEDS ORDERED: CARVEDILOL PHOSPHATE 20 MG PO SCH (09:00)
[2020-01-22 11:36] VITALS: BP 151/62
--- NOTE | 2020-01-22 12:03 | History & Physical-Hospitalist ---
History of Present Illness HPI/Chief Complaint Ryan Dsouza is a 74-year-old male with past medical history of hypertension, hyperlipidemia, diabetes, coronary artery disease, peripheral artery disease, CKD, who presented with flank pain. He reports that the pain has been present for a few days and started on Thursday. He had gross hematuria at that time. He has continued to have hematuria. He reports having bloody urine this morning. He thought it was a kidney stone as he has had these many times prior. The flank pain wraps around his abdomen and into his groin on the right. He reports having nausea and dry heaves on Thursday. He denies any fevers or chills. He denies any dysuria. He denies any shortness of breath or cough. He denies any chest pain. He denies any diarrhea. He has been constipated. Source: patient Exam Limitations: no limitations Date Seen 01/22/20 Time Seen by a Provider: 09:25 Attending Physician Jorden Najera MD PCP Natanael Bauer DO Referring Physician Date of Admission Jan 21, 2020 at 23:04 Home Medications & Allergies Home Medications Reviewed patient Home Medication Reconciliation performed by pharmacy medication reconciliations thin film technician and/or nursing. Patients Allergies have been reviewed. Allergies Allergies Coded Allergies No Known Drug Allergies ([id number]/09) Past Lebpyiu-Xbckch-Kilojd Hx Past Med/Social Hx: Reviewed Nursing Past Med/Soc Hx Patient Social History Alcohol Use: Denies Use Recreational Drug Use: No Smoking Status: Former Smoker Former Smoker, Quit: Dec 25, 1992 Type Used: Cigarettes 2nd Hand Smoke Exposure: No Recent Foreign Travel: No Contact w/other who traveled: No Recent Hopitalizations: No Recent Infectious Disease Expo: No Immunizations Up To Date Date of Pneumonia Vaccine: December 08, 2019 Date of Influenza Vaccine: May 16, 2019 Seasonal Allergies Seasonal Allergies: Yes Past Medical History Surgeries: Cardiac, CABG, Renal (lithotripsy), Tonsillectomy, Valve Replacement Currently Using CPAP: Yes Cardiac: Coronary Artery Disease, High Cholesterol, Hypertension, Valvular Heart Disease Reproductive: No Sexually Transmitted Disease: No Genitourinary: Kidney Stones Musculoskeletal: Arthritis Endocrine: Diabetes, Non-Insulin dep Cancer: Skin What Type of Treatment Did You: Surgical Intervention History of Blood Disorders: No Review of Systems Constitutional: no symptoms reported EENTM: no symptoms reported Respiratory: no symptoms reported Cardiovascular: no symptoms reported Gastrointestinal: abdominal pain, constipation, nausea Genitourinary: hematuria Musculoskeletal: back pain Skin: no symptoms reported Psychiatric/Neurological: No Symptoms Reported Physical Exam Physical Exam Vital Signs Vital Signs - First Documented 01/21/20 20:37 Temp 36.7 Pulse 77 Resp 20 B/P (MAP) 137/57 (83) Pulse Ox 96 O2 Delivery Room Air Capillary Refill : Less Than 3 Seconds Height, Weight, BMI Height: 5'9.00" Weight: 260lbs. 0.0oz. 117.066238px; 38.33 BMI Method:Stated General Appearance: No Apparent Distress, Obese HEENT: PERRL/EOMI, Pharynx Normal Neck: Normal Inspection, Supple Respiratory: Lungs Clear, Normal Breath Sounds, No Respiratory Distress Cardiovascular: Regular Rate, Rhythm, No Murmur Gastrointestinal: Normal Bowel Sounds, Non Tender, Soft Extremity: Normal Inspection, Non Tender, Pedal Edema Neurologic/Psychiatric: Alert, Oriented x3, No Motor/Sensory Deficits, Normal Mood/Affect Skin: Normal Color, Warm/Dry Lymphatic: No Adenopathy Results Results/Procedures Labs Laboratory Tests 01/21/20 20:48 01/22/20 05:35 Patient resulted labs reviewed. Imaging: Reviewed Imaging Report Assessment/Plan Admission Diagnosis Acute kidney injury superimposed on chronic kidney disease Admission Status: Observation Assessment and Plan Acute kidney injury superimposed on chronic kidney disease Gross hematuria Hydronephrosis Hydroureter UA with 10-25 RBC, 2-5 WBC Hemoglobin 8.7, down slightly from prior Creatinine 2.85 on arrival, baseline appears to be around 1.6 Consult urology, appreciate assistance Continue IV fluids Hold aspirin and Plavix Anemia Hemoglobin 8.7, trending down slowly over recent months Obtain iron studies, B12, folate DVT prophylaxis: Held due to major active bleeding Diagnosis/Problems Diagnosis/Problems (1) Acute kidney injury superimposed on chronic kidney disease Status: Acute (2) Hydroureter, right Status: Acute (3) Hydronephrosis Status: Acute (4) Hematuria Status: Acute Qualifiers: Hematuria type: unspecified type Qualified Codes: R31.9 - Hematuria, unspecified Clinical Quality Measures DVT/VTE Risk/Contraindication: Risk Factor Score Per Nursin RFS Level Per Nursing on Admit: 4+=Very High JORDEN NAJERA MD Jan 22, 2020 12:03
[2020-01-22 16:00] VITALS: BP 146/54
[2020-01-22] MEDS: polyethylene glycoL POWDER 17 GM (MIRALAX) PACK PO SCH ×2 (16:10→21:00)
[2020-01-22] MEDS ORDERED: cefTRIAXone FOR IV USE 1,000 MG in WATER (STERILE) FOR INJECTION 10 ML IV SCH (17:45)
[2020-01-22 20:42] VITALS: BP 144/64
[2020-01-23] VITALS: BP 163/71
[2020-01-23] MEDS: fentaNYL INJECTION 100 MCG/2 ML AMP IV PRN (02:28)
[2020-01-23 04:00] VITALS: BP 166/79
[2020-01-23] MEDS: NS IV 1000 ML 1,000 ML IV SCH (04:40)
[2020-01-23 05:42] LABS: BASOPHILS % (AUTO) 0 % (0-10); EOSINOPHILS # (AUTO) 0.1 10^3/uL (0.0-0.3); EOSINOPHILS % (AUTO) 1 % (0-10); HEMATOCRIT 27 % (40-54); HEMOGLOBIN 8.5 G/DL (13.3-17.7); LYMPHOCYTES # (AUTO) 0.6 X 10^3 (1.0-4.0); LYMPHOCYTES % (AUTO) 8 % (12-44); MEAN CORPUSCULAR HEMOGLOBIN 31 PG (25-34); MEAN CORPUSCULAR HGB CONC 31 G/DL (32-36); MEAN CORPUSCULAR VOLUME 101 FL (80-99); MEAN PLATELET VOLUME 11.1 FL (7.4-10.4); MONOCYTES % (AUTO) 13 % (0-12); NEUTROPHILS # (AUTO) 6.2 X 10^3 (1.8-7.8); NEUTROPHILS % (AUTO) 78 % (42-75); PLATELET COUNT 161 10^3/uL (130-400); RED CELL DISTRIBUTION WIDTH 16.3 % (10.0-14.5); WHITE BLOOD COUNT 7.9 10^3/uL (4.3-11.0)
[2020-01-23 06:00] LABS: CALCIUM 8.4 MG/DL (8.5-10.1)
[2020-01-23] MEDS ORDERED: inSUlin ASPART (NovoLOG) 1 UNIT/0.01 ML (CHARGE PER UNIT) SC SCH (06:00)
[2020-01-23 06:01] LABS: INR 1.2 (0.8-1.4); PROTHROMBIN TIME PATIENT 15.5 SEC (12.2-14.7)
[2020-01-23 06:04] LABS: CREATININE SERUM 2.33 MG/DL (0.60-1.30)
--- NOTE | 2020-01-23 06:42 | Progress Note - Urology ---
Progress Note-Urology Progress Notes/Assess & Plan Progress/Assessment & Plan VOIDING WELL, URINE CLEARING WELL. DISCUSSED PLAN WITH PATIENT 1. OK TO DISCHARGE [facility] ON SOME IRON SUPPLEMENT AND ABX 2. KEEP OFF ASA AND PLAVIX 3. SEE ME IN OFFICE THURSDAY FOR PROSTATE EVALUATION AND CYSTOSCOPY TO COMPLETE BOOTHE ALL FULLY EXPLAINED TO PATIENT Final Diagnosis GROSS HEMATURIA POSSIBLE STONE (PASSED) WITH ACUTE RENAL FAILURE VIKKI SIFUENTES MD Jan 23, 2020 06:42
[2020-01-23] MEDS: polyethylene glycoL POWDER 17 GM (MIRALAX) PACK PO SCH (08:06)
[2020-01-23] MEDS: CARVEDILOL 20 MG PO SCH (08:06)
[2020-01-23 08:42] VITALS: BP 157/65
--- NOTE | 2020-01-23 09:54 | NUR ---
FOLLOW UP APPOINTMENT MADE WITH DR SIFUENTES ON THURSDAY @ 3:00PM
[2020-01-23] MEDS ORDERED: FERR325T18 PO (09:57)
[2020-01-23] MEDS ORDERED: CEPH-507 PO (09:57)
--- NOTE | 2020-01-23 10:04 | Discharge Inst-Simple/Standard ---
Discharge Inst-Standard Patient Instructions/Follow Up Plan of Care/Instructions/FU: Please continue to take your medications as written. Please follow up with your primary care doctor within the next week to follow up this hospital stay and with Dr Underwood on as scheduled. Activity as Tolerated: Yes Discharge Diet: No Restrictions Return to The Hospital For: Decreased urine output, worsening pain, fever, inability to urinate, if you feel you are getting worse. MUNIR TRAN MD Jan 23, 2020 10:04
--- NOTE | 2020-01-23 10:05 | Discharge Summary ---
Diagnosis/Chief Complaint Date of Admission Jan 21, 2020 at 23:04 Date of Discharge Discharge Date: Jan 23, 2020 Admission Diagnosis Acute kidney injury superimposed on chronic kidney disease Primary Care Natanael Bauer DO Discharge Diagnosis (1) Acute kidney injury superimposed on chronic kidney disease Status: Acute (2) Hydroureter, right Status: Acute (3) Hydronephrosis Status: Acute (4) Hematuria Status: Acute Discharge Summary Discharge Physical Exam Allergies: Coded Allergies: No Known Drug Allergies (Unverified , 07/11/09) Vitals & I&Os Vital Signs Date Time Temp Pulse Resp B/P (MAP) Pulse Ox O2 Delivery O2 Flow Rate FiO2 01/23/20 08:42 37.1 82 20 157/65 (95) 91 Room Air Hospital Course Labs (last 24 hrs) Laboratory Tests 01/23/20 05:25: White Blood Count 7.9, Red Blood Count 2.72L, Hemoglobin 8.5L, Hematocrit 27L, Mean Corpuscular Volume 101H, Mean Corpuscular Hemoglobin 31, Mean Corpuscular Hemoglobin Concent 31L, Red Cell Distribution Width 16.3H, Platelet Count 161, Mean Platelet Volume 11.1H, Neutrophils (%) (Auto) 78H, Lymphocytes (%) (Auto) 8L, Monocytes (%) (Auto) 13H, Eosinophils (%) (Auto) 1, Basophils (%) (Auto) 0, Neutrophils # (Auto) 6.2, Lymphocytes # (Auto) 0.6L, Monocytes # (Auto) 1.0, Eosinophils # (Auto) 0.1, Basophils # (Auto) 0.0, Prothrombin Time 15.5H, INR Comment 1.2, Sodium Level 143, Potassium Level 5.0, Chloride Level 118H, Carbon Dioxide Level 14L, Anion Gap 11, Blood Urea Nitrogen 49H, Creatinine 2.33H, Estimat Glomerular Filtration Rate 28, BUN/Creatinine Ratio 21, Glucose Level 101, Calcium Level 8.4L Patient resulted labs reviewed. Pending Labs Laboratory Tests 01/23/20 05:25: White Blood Count 7.9, Red Blood Count 2.72, Hemoglobin 8.5, Hematocrit 27, Mean Corpuscular Volume 101, Mean Corpuscular Hemoglobin 31, Mean Corpuscular Hemoglobin Concent 31, Red Cell Distribution Width 16.3, Platelet Count 161, Mean Platelet Volume 11.1, Neutrophils (%) (Auto) 78, Lymphocytes (%) (Auto) 8, Monocytes (%) (Auto) 13, Eosinophils (%) (Auto) 1, Basophils (%) (Auto) 0, Neutrophils # (Auto) 6.2, Lymphocytes # (Auto) 0.6, Monocytes # (Auto) 1.0, Eosinophils # (Auto) 0.1, Basophils # (Auto) 0.0, Prothrombin Time 15.5, INR Comment 1.2, Sodium Level 143, Potassium Level 5.0, Chloride Level 118, Carbon Dioxide Level 14, Anion Gap 11, Blood Urea Nitrogen 49, Creatinine 2.33, Estimat Glomerular Filtration Rate 28, BUN/Creatinine Ratio 21, Glucose Level 101, Calcium Level 8.4 Imaging: Reviewed Imaging Report Discharge Home Medications: Active Scripts Active Ferrous Sulfate 325 Mg Tablet 325 Mg PO DAILY Keflex (Cephalexin) 500 Mg Capsule 500 Mg PO BID Lortab 5 Mg Tablet (Acetaminophen/Hydrocodone Bitart) 1 Tab Tab 1 Tab PO Q6H PRN MDD 10 Reported Aspirin 81 Mg Tab.chew 81 Mg PO DAILY Montelukast Sodium 10 Mg Tablet 10 Mg PO HS Gabapentin 300 Mg Capsule 300 Mg PO DAILY Plavix (Clopidogrel Bisulfate) 75 Mg Tablet 75 Mg PO UD Zyrtec (Cetirizine HCl) 10 Mg Tablet 10 Mg PO DAILY Lisinopril 10 Mg Tablet 10 Mg PO DAILY Cyanocobalamin Injection (Cyanocobalamin) 1,000 Mcg/Ml Inj 1,000 Mcg IM MONTHLY Atorvastatin Calcium 80 Mg Tablet 80 Mg PO HS Furosemide 40 Mg Tablet 40 Mg PO DAILY Vitamin D-3 (Cholecalciferol (Vitamin D3)) 2,000 Unit Tablet 2,000 Unit PO DAILY Glimepiride 2 Mg Tablet 2 Mg PO HS Coreg Cr (Carvedilol Phosphate) 20 Mg Cpmp.24hr 20 Mg PO DAILY Januvia (Sitagliptin Phosphate) 100 Mg Tablet 100 Mg PO DAILY Advair 250-50 Diskus (Fluticasone/Salmeterol) 1 Each Blst.w.dev 1 Each IH BID Allopurinol 100 Mg Tablet 100 Mg PO DAILY Pioglitazone-Metformin 15-500 (Pioglitazone HCl/Metformin HCl) 1 Each Tablet 1 Each PO BID Instructions to patient/family Please see electronic discharge instructions given to patient. Clinical Quality Measures DVT/VTE Risk/Contraindication: Risk Factor Score Per Nursin RFS Level Per Nursing on Admit: 4+=Very High Problem Qualifiers (1) Hematuria: Hematuria type: unspecified type Qualified Codes: R31.9 - Hematuria, unspecified MUNIR TRAN MD Jan 23, 2020 10:05
[2020-01-23 10:35] VITALS: BP 157/65
--- NOTE | 2020-01-24 16:08 | CONSULTATION REPORT ---
DATE OF SERVICE: 01/22/2020 ATTENDING PHYSICIAN: Dr. Murillo. SUMMARY: After reviewing the patient's record, x-ray, interviewing him and examining him, this is a 74-year-old white man with history of urolithiasis, who about 3 days ago started having some flank pain with nausea and dry heaves, little dysuria and gross hematuria. He felt like he is going to be passing a stone and pain led up yesterday and the hematuria is less red more of an old type blood. He said he passed something that he thought there was a stone, but it was wrapped and some blood clot, so it was hard for him to make sure that that was a stone. A noncontrast CT scan revealed mild right hydronephrosis, hydroureter without evidence of any stone and some blood in the collecting system. The patient is on aspirin and Plavix that was held on his admission. As of the prostate, he has not had any prostate check or PSA for many years. ALLERGIES: He has no known drug allergies. SOCIAL HISTORY: No smoking, no alcohol, no drugs. Some seasonal allergies. MEDICAL PROBLEMS: Coronary artery disease, hypercholesterolemia, hypertension; valvular heart disease, aortic; osteoarthritis, non-insulin dependent diabetes and history of stones. SURGERY MCQUEEN: He had CABG, lithotripsy on the right side, tonsillectomy, aortic valve replacement and he is on CPAP for obstructive sleep apnea. REVIEW OF SYSTEMS: Otherwise, negative. PHYSICAL EXAMINATION: GENERAL: Well-nourished, well-developed, in no acute distress at the time of my examination. HEAD: Normocephalic. ENT: Unremarkable. NECK: Supple, no bruits. CHEST: Clear, nontender. HEART: Regular rate and rhythm, no murmur. ABDOMEN: Soft, no CVA tenderness. EXTREMITIES: Lower extremity, no edema or cyanosis. NEUROLOGIC: Grossly intact. Oriented x3. SKIN: Warm and dry. EXTERNAL GENITALIA: Deferred at this point. RECTAL: Deferred at this point. MEDICATION MCQUEEN: Coreg 6.25 b.i.d., lisinopril 10 mg daily, aspirin and Plavix that are held, allopurinol 100 mg daily, Zyrtec 10 mg daily, Lasix 40 mg daily, Neurontin 300 mg daily, glimepiride 2 mg at bedtime, montelukast 10 mg daily, pioglitazone and metformin combination 100 mg daily and supplemental vitamins. LABORATORY DATA: H and H today is 8.7 and 28. His white count is 6.8. His creatinine is 2.54 down from 2.85 yesterday. BUN is down to 56 from 60 yesterday. IMPRESSION: 1. Right flank pain with gross hematuria, possible passed stone with history of urolithiasis, on anticoagulant. 2. Medical illnesses per history. PLAN: 1. We are going to observe at this point. Continue hydration, IV antibiotics. Later on, he will need a rectal exam and a PSA. Keep holding the aspirin and the Plavix until hematuria clears up and ____ no need for any surgical intervention. 2. SCDs. Job ID: [id number] DocumentID: [id number] Dictated Date: 01/22/2020 17:41:54 Passenger Brakeman Date: 01/23/2020 01:01:15 Dictated By: VIKKI SIFUENTES MD
[2020-01-24] MEDS ORDERED: diphenhydrAMINE 50 MG/ML INJ (BENADRYL) ONE (21:32)
== END 2020-01-23 11:03 | disposition home or self-care (01) ==
LOC: EDUNIT# 20:35 → ER 20:36 → 4TH 23:04
PROVIDERS: ADMIT Internal Medicine; ATTEND Internal Medicine
DX: N17.9 Acute kidney failure, unspecified (principal); R31.9 Hematuria, unspecified; N13.30 Unspecified hydronephrosis; N13.4 Hydroureter; I12.9 Hypertensive chronic kidney disease with stage 1 through stage 4 chronic kidney disease, or unspecified chronic kidney disease; E11.22 Type 2 diabetes mellitus with diabetic chronic kidney disease; N18.2 Chronic kidney disease, stage 2 (mild); J43.9 Emphysema, unspecified; I25.10 Atherosclerotic heart disease of native coronary artery without angina pectoris; E78.00 Pure hypercholesterolemia, unspecified; I38 Endocarditis, valve unspecified; E78.5 Hyperlipidemia, unspecified; E11.51 Type 2 diabetes mellitus with diabetic peripheral angiopathy without gangrene; M19.90 Unspecified osteoarthritis, unspecified site; Z79.84 Long term (current) use of oral hypoglycemic drugs; Z79.51 Long term (current) use of inhaled steroids; Z79.82 Long term (current) use of aspirin; Z79.899 Other long term (current) drug therapy; Z87.442 Personal history of urinary calculi; Z85.828 Personal history of other malignant neoplasm of skin; Z87.891 Personal history of nicotine dependence
CPT/HCPCS: 74176; 80048 ×2; 80053; 81000; 82607; 82728; 82746; 83540; 85025 ×3; 85610; 93005; 96361; 96374; 99284; G0378; 36415

== ENCOUNTER 2020-01-27 05:39 | Outpatient (RCR) | payer MEDICARE, OTHER ==
[~2020-01-27] VITALS: Ht 177.8 cm; Wt 127.0 kg
[~2020-01-27 05:39] MED LIST changes: +ASPI-999 PO; +CEPH-507 PO; +FERR325T18 PO; +MONT10TA26 PO
[2020-01-27] MEDS ORDERED: GABA300C PO (09:59)
[2020-01-27] MEDS ORDERED: CHOL200014 PO (09:59)
[2020-02-01] MEDS ORDERED: HYOS0.1281 PO (10:43)
== END 2020-01-27 10:10 | disposition home or self-care (01) ==
LOC: PREOP 05:39
PROVIDERS: ATTEND Urology
DX: Z01.818 Encounter for other preprocedural examination (principal)

== ENCOUNTER 2020-01-31 07:24 | Day surgery (SDC) | payer MEDICARE, OTHER ==
[2020-01-31] VITALS (10 sets, daily range): BP systolic 101–175; BP diastolic 47–64
[~2020-01-31] VITALS: Ht 177.8 cm; Wt 127.0 kg
[~2020-01-31 07:24] MED LIST changes: +CHOL200014 PO; +GABA300C PO
[2020-01-31] MEDS ORDERED: LACTATED RINGERS 1,000 ML IV PRN (07:32)
[2020-01-31] MEDS ORDERED: cefTRIAXone FOR IV USE 1,000 MG in WATER (STERILE) FOR INJECTION 10 ML IV ONE (07:45)
--- NOTE | 2020-01-31 07:57 | Progress Note-Pre Operative ---
Pre-Operative Progress Note H&P Reviewed The H&P was reviewed, patient examined and no changes noted. Date Seen by Provider: Jan 31, 2020 Time Seen by Provider: 07:57 Date H&P Reviewed: Jan 31, 2020 Time H&P Reviewed: 07:57 Pre-Operative Diagnosis: BLADDER TUMOR VIKKI SIFUENTES MD Jan 31, 2020 07:57
[2020-01-31] MEDS ORDERED: proPOfol 200 MG/20 ML (DIPRIVAN) VIAL IV ONE (08:16)
[2020-01-31] MEDS ORDERED: fentaNYL INJECTION 100 MCG/2 ML AMP ONE (08:16)
[2020-01-31] MEDS ORDERED: LIDOCAINE PF 2% 5 ML (XYLOCAINE) VIAL ONE ×2 (08:16→09:21)
[2020-01-31] MEDS ORDERED: ROCURONIUM 10 MG/ML 5 ML SYRINGE IV ONE ×2 (08:16→10:06)
[2020-01-31] MEDS ORDERED: SEVOFLURANE (ULTANE) 15 ML INHAL SOLN ONE ×2 (08:16→09:21)
[2020-01-31] MEDS ORDERED: ONDANSETRON 4 MG/2 ML (SDV) Z0FRAN ONE ×2 (08:16→10:05)
[2020-01-31] MEDS ORDERED: ASPI-999 PO (08:20)
[2020-01-31] MEDS ORDERED: RT-ALBUINH INH (08:20)
[2020-01-31] MEDS ORDERED: CLOP75TA69 PO (08:20)
[2020-01-31] MEDS ORDERED: PROPOFOL INJECTION 50 ML IV ONE (09:21)
[2020-01-31] MEDS ORDERED: SULF1TAB35 PO ×2 (09:23→10:23)
[2020-01-31] MEDS ORDERED: HYOS0.1281 PO (09:23)
[2020-01-31] MEDS ORDERED: PHEN-640 PO (09:23)
--- NOTE | 2020-01-31 09:29 | Progress Note-Post Operative ---
Post-Operative Progess Note Surgeon (s)/Supervisor [employer]ension Warehouse (s) Surgeon VIKKI SIFUENTES MD Supervisor [employer]ension Warehouse: NONE Pre-Operative Diagnosis BLADDER TUMOR (MEDIUM) Post-Operative Diagnosis SAME Procedure & Operative Findings Date of Procedure 01/31/20 Procedure Performed/Findings TURBT Anesthesia Type GENERAL Estimated Blood Loss Estimated blood loss (mL): NEGLIGIBLE Specimens/Packing Specimens Removed BLADDER TUMOR AND BASE Packing: NONE VIKKI SIFUENTES MD Jan 31, 2020 09:29
--- NOTE | 2020-01-31 09:30 | Discharge Inst-Urology ---
Discharge Inst-Urology Reconcile Patient Problems Problems Reviewed?: Yes Final Diagnosis BLADDER TUMOR Patient Instructions/Follow Up Plan/Assessment/Instructions Please make appointment to been seen in office in 2 weeks. In 48 hours, if no bleeding, may resume ASA and Plavix Keep bowels soft and moving Increase oral fluids for 48 hours and then as needed. Diet and Activity as tolerated. If questions or concerns contact your physician Or seek help at emergency department. VIKKI SIFUENTES MD Jan 31, 2020 09:30
[2020-01-31] MEDS ORDERED: GLYCOPYRROLATE 0.2 MG/ML (ROBINUL) 2 ML VIAL ONE (10:05)
[2020-01-31] MEDS ORDERED: NEOSTIGMINE 3 MG/3 ML VIAL ONE (10:05)
[2020-01-31] MEDS ORDERED: morphine INJ 10 MG/ML 1ML (SYR OR VIAL) IVP ONE (10:15)
[2020-01-31] MEDS ORDERED: morphine INJ 10 MG/ML 1ML (SYR OR VIAL) ONE (10:27)
--- NOTE | 2020-01-31 10:38 | Anesthesia-General Post-Op ---
General Patient Condition Mental Status/LOC: Same as Preop Cardiovascular: Satisfactory Nausea/Vomiting: Absent Respiratory: Satisfactory Pain: Controlled Complications: Absent Post Op Complications Complications None Follow Up Care/Instructions Patient Instructions None needed. Anesthesia/Patient Condition Patient Condition Patient is doing well, no complaints, stable vital signs, no apparent adverse anesthesia problems. SHAWN DAO DO Jan 31, 2020 10:38
[2020-01-31] MEDS: ONDANSETRON 4 MG/2 ML (SDV) Z0FRAN IVP PRN ×2 (11:00→12:31)
--- NOTE | 2020-01-31 11:00 | NUR ---
TO AMB SURG FROM PAR PER CART. ALERT, RATES PELVIC/MEATAL DISCOMFORT 2. NO BLEEDING FROM MEATUS. PO FLUIDS PROVIDED.
--- NOTE | 2020-01-31 11:30 | NUR ---
SAO2 89-90% ON ROOM AIR. O2 STARTED AT 2L PER NC.
--- NOTE | 2020-01-31 12:50 | NUR ---
NO CHANGE IN PAIN/SITE ASSESSMENTS. TAKING PO FLUIDS WITHOUT PROBLEM. DENIES BLADDER PRESSURE OR PAIN. DESCRIBES "MORE LIKE A LITTLE BURNING KIND OF DISCOMFORT". ALERT, STATES HE IS READY FOR DISMISSAL. PRESCRIPTIONS CALLED TO [facility], [place], [place], PER PT REQUEST.
--- NOTE | 2020-01-31 12:59 | OPERATIVE REPORT ---
DATE OF SERVICE: 01/31/2020 PREOPERATIVE DIAGNOSIS: Bladder tumor "medium". POSTOPERATIVE DIAGNOSIS: Bladder tumor "medium". OPERATION PERFORMED: Transurethral resection of bladder tumor. SURGEON: Vikki Sifuentes MD. ANESTHESIA: General. COMPLICATIONS: None. DESCRIPTION OF PROCEDURE: Under satisfactory general anesthesia and the patient in lithotomy position, genitalia were prepped and draped in the usual sterile fashion. Urethra was dilated with Blessing sound to accommodate 28-Portuguese Marroquin resectoscope. I visualized again the medium sized bladder tumor superficially looking in the left upper lateral wall. No other tumors were visualized. There was also a high riding median bar. I went ahead and resected the tumor and cauterized all the abnormal or suspicious areas. Hemostasis was complete. There was no reason for catheter. Bladder was evacuated. The bladder tumor and the bases were sent separately. The patient tolerated the procedure and anesthesia well and was sent to the recovery room in a stable condition. ESTIMATED BLOOD LOSS: Negligible. Job ID: [id number] DocumentID: [id number] Dictated Date: 01/31/2020 10:10:35 Culinary Intern Date: 01/31/2020 12:58:08 Dictated By: VIKKI SIFUENTES MD
[2020-02-01] MEDS ORDERED: HYOS0.1281 PO (10:43)
== END 2020-01-31 12:50 | disposition home or self-care (01) ==
LOC: SDC 07:24
PROVIDERS: ATTEND Urology
DX: C67.2 Malignant neoplasm of lateral wall of bladder (principal); Z11.2 Encounter for screening for other bacterial diseases; N40.0 Benign prostatic hyperplasia without lower urinary tract symptoms; R31.9 Hematuria, unspecified; I25.10 Atherosclerotic heart disease of native coronary artery without angina pectoris; E78.00 Pure hypercholesterolemia, unspecified; I10 Essential (primary) hypertension; E11.9 Type 2 diabetes mellitus without complications; E78.5 Hyperlipidemia, unspecified; J43.9 Emphysema, unspecified; M19.90 Unspecified osteoarthritis, unspecified site; M06.9 Rheumatoid arthritis, unspecified; G47.33 Obstructive sleep apnea (adult) (pediatric); Z95.1 Presence of aortocoronary bypass graft; Z95.4 Presence of other heart-valve replacement; Z87.442 Personal history of urinary calculi; Z79.82 Long term (current) use of aspirin; Z79.899 Other long term (current) drug therapy; Z79.02 Long term (current) use of antithrombotics/antiplatelets; Z79.84 Long term (current) use of oral hypoglycemic drugs; Z85.828 Personal history of other malignant neoplasm of skin; Z87.891 Personal history of nicotine dependence; Z20.828 Contact with and (suspected) exposure to other viral communicable diseases
CPT/HCPCS: 52235; 82962; 87081; U0002; 87635

== ENCOUNTER → 2020-02-27 | Outpatient (CLI) | payer MEDICARE, OTHER ==
[~2020-02-27] MED LIST changes: +HOLD METFORMIN - RECEIVED CONTRAST 20 ML VIAL IV SCH; +HYOS0.1281 PO; +IOHEXOL 350 MG/ML 100 ML (OMNIPAQUE 350) VIAL IV ONE; +NS 100 ML (IVPB) BAG IV ONE; +PHEN-640 PO; +RT-ALBUINH INH; +SULF1TAB35 PO
[2020-02-27] MEDS: CATHETER FLUSH 10 ML SYR IV PRN ×2 (10:50→11:02)
--- NOTE | 2020-02-27 13:11 | Diagnostic Imaging Report ---
PROCEDURE: CT chest with contrast, CT abdomen with and without contrast. TECHNIQUE: Precontrast acquisitions were acquired through the abdomen. Multiple contiguous axial images were obtained through the chest and abdomen after administration of intravenous contrast. Auto Exposure Controls were utilized during the CT exam to meet ALARA standards for radiation dose reduction. INDICATION: Malignant melanoma. COMPARISON: CT chest from 11/29/[address] abdomen from 01/21/2020. FINDINGS: CT CHEST: No axillary lymphadenopathy is detected. No mediastinal or hilar lymphadenopathy is detected. There are changes of median sternotomy and CABG. No pericardial or pleural fluid is detected. A groundglass nodule in the left upper lobe is again noted and appears stable at 9 mm. A left lower lobe nodule is stable at 11 mm. No new mass is detected. IMPRESSION: Stable left upper and left lower lobe pulmonary nodules when compared to the exam from 11/29/2019. Continued followup with repeat study in approximately [address] ABDOMEN: No discrete liver mass is detected. The gallbladder is unremarkable. No biliary ductal dilatation is seen. The pancreas and spleen are unremarkable. No adrenal mass is identified. A cystic lesion in the upper pole of the right kidney is stable. The aorta is calcified but nonaneurysmal. No central retroperitoneal or mesenteric lymphadenopathy is detected. The small and large bowel loops are of normal caliber. There is no ascites. The bony structures are nonacute. IMPRESSION: Stable CT abdomen since the exam from 01/21/2020. Dictated by: Dictated on workstation # [id number]
--- NOTE | 2020-02-27 15:34 | Diagnostic Imaging Report ---
INDICATION: Malignant melanoma. TECHNIQUE: The patient was administered 26.1 mCi of technetium 99m MDP intravenously and whole-body imaging was performed after a 3 hour delay. COMPARISON: No prior bone scans are available for comparison. FINDINGS: There is normal uptake of activity by the axial and appendicular skeleton. There is uptake by the kidneys with excretion into the urinary bladder. No suspicious foci of tracer accumulation is seen to suggest osseous metastatic disease. IMPRESSION: No scintigraphic evidence of osseous metastatic disease. Dictated by: Dictated on workstation # [id number]
== END ==
LOC: CARD 10:07
PROVIDERS: ATTEND Internal Medicine Hematology & Oncology
DX: C43.59 Malignant melanoma of other part of trunk (principal); R93.89 Abnormal findings on diagnostic imaging of other specified body structures; Z20.828 Contact with and (suspected) exposure to other viral communicable diseases
CPT/HCPCS: 71260; 74170; 78306; A9503

== ENCOUNTER 2020-03-05 14:47 | Outpatient (RCR) | payer MEDICARE, OTHER ==
[~2020-03-05 14:47] MED LIST changes: +ASPI-1238 PO; -ASPI-983 PO; -CETI10TA21 PO; +CETI10TA49 PO; -HOLD METFORMIN - RECEIVED CONTRAST 20 ML VIAL IV SCH; -IOHEXOL 350 MG/ML 100 ML (OMNIPAQUE 350) VIAL IV ONE; -NS 100 ML (IVPB) BAG IV ONE
== END 2020-06-03 | disposition home or self-care (01) ==
LOC: ONC 14:47
PROVIDERS: ATTEND Internal Medicine Hematology & Oncology
DX: C43.59 Malignant melanoma of other part of trunk (principal); C67.9 Malignant neoplasm of bladder, unspecified; I25.10 Atherosclerotic heart disease of native coronary artery without angina pectoris; J44.9 Chronic obstructive pulmonary disease, unspecified; E11.9 Type 2 diabetes mellitus without complications; I10 Essential (primary) hypertension; E78.5 Hyperlipidemia, unspecified; R91.1 Solitary pulmonary nodule; Z98.890 Other specified postprocedural states; Z90.79 Acquired absence of other genital organ(s)
CPT/HCPCS: 99213

== ENCOUNTER → 2020-03-29 | Outpatient (CLI) | payer MEDICARE, OTHER | LOC: CARD 12:00 | PROVIDERS: ATTEND Nurse Practitioner Family | DX: I48.91 Unspecified atrial fibrillation (principal); I25.10 Atherosclerotic heart disease of native coronary artery without angina pectoris; I65.29 Occlusion and stenosis of unspecified carotid artery; E78.5 Hyperlipidemia, unspecified; I10 Essential (primary) hypertension; Z20.828 Contact with and (suspected) exposure to other viral communicable diseases | CPT/HCPCS: 93225; 93226 ==

== ENCOUNTER 2020-06-22 12:58 | Outpatient (RCR) | payer MEDICARE, OTHER ==
[~2020-06-22 12:58] MED LIST changes: -LISI10TA2 PO; +LISI10TA25 PO; -MONT10TA26 PO; +MONT10TA32 PO
[2020-06-22 13:16] LABS: BASOPHILS # (AUTO) 0.1 10^3/uL (0.0-0.1); BASOPHILS % (AUTO) 1 % (0-10); EOSINOPHILS # (AUTO) 0.1 10^3/uL (0.0-0.3); EOSINOPHILS % (AUTO) 1 % (0-10); HEMATOCRIT 35 % (40-54); HEMOGLOBIN 11.1 g/dL (13.3-17.7); LYMPHOCYTES # (AUTO) 1.3 10^3/uL (1.0-4.0); LYMPHOCYTES % (AUTO) 13 % (12-44); MEAN CORPUSCULAR HEMOGLOBIN 30 pg (25-34); MEAN CORPUSCULAR HGB CONC 32 g/dL (32-36); MEAN CORPUSCULAR VOLUME 94 fL (80-99); MEAN PLATELET VOLUME 10.7 fL (9.0-12.2); MONOCYTES % (AUTO) 10 % (0-12); NEUTROPHILS % (AUTO) 74 % (42-75); PLATELET COUNT 241 10^3/uL (130-400); WHITE BLOOD COUNT 9.5 10^3/uL (4.3-11.0)
[2020-06-22 13:23] LABS: ALBUMIN 3.8 GM/DL (3.2-4.5); BILIRUBIN,TOTAL 0.8 MG/DL (0.1-1.0); CALCIUM 8.9 MG/DL (8.5-10.1); CREATININE SERUM 1.77 MG/DL (0.60-1.30); POTASSIUM 4.2 MMOL/L (3.6-5.0); TOTAL PROTEIN 7.2 GM/DL (6.4-8.2)
== END 2020-09-06 07:55 | disposition home or self-care (01) ==
LOC: ONC 12:58
PROVIDERS: ATTEND Internal Medicine Hematology & Oncology
DX: C43.59 Malignant melanoma of other part of trunk (principal); C67.9 Malignant neoplasm of bladder, unspecified; R91.8 Other nonspecific abnormal finding of lung field
CPT/HCPCS: 80053; 83615; 85025; G0463; 99213

== ENCOUNTER → 2020-09-13 | Outpatient (CLI) | payer MEDICARE, OTHER ==
[~2020-09-13] MED LIST changes: +CATHETER FLUSH 10 ML SYR IV PRN; +HOLD METFORMIN - RECEIVED CONTRAST 20 ML VIAL IV SCH; +IOHEXOL 350 MG/ML 100 ML (OMNIPAQUE 350) VIAL IV ONE; +NS 100 ML (IVPB) BAG IV ONE
--- NOTE | 2020-09-13 12:27 | Diagnostic Imaging Report ---
EXAMINATION: CT Chest with intravenous contrast. TECHNIQUE: Multiple contiguous axial images were obtained through the chest after the uneventful administration of intravenous contrast. All CT scans use one or more of the following dose optimizing techniques: automated exposure control, MA and/or KvP adjustment based on a patient size and exam type, or iterative reconstruction. HISTORY: Melanoma. COMPARISON: 02/27/2020. FINDINGS: There is no edema or pneumonia. No pleural effusion. No pneumothorax. The left lower lobe nodule has mostly resolved with a small area of irregular scarring measuring approximately 3 mm. Left upper lobe nodule is resolved. No new nodules are seen. There is no axillary or supraclavicular lymphadenopathy. There is no mediastinal lymphadenopathy. There has been coronary artery bypass grafting. There is prosthetic aortic valve. Heart size is normal. There are severe coronary artery calcifications. No pericardial effusion. Aorta is normal in caliber. Limited views of the upper abdomen show stable right renal cyst. There are no suspicious osseous lesions. IMPRESSION: 1. Left upper lobe nodule is resolved. Left lower lobe nodule has now a small area of scarring. No new nodules are seen. Dictated by: Dictated on workstation # [id number]
== END ==
LOC: RAD 11:45
PROVIDERS: ATTEND Internal Medicine Hematology & Oncology
DX: C43.59 Malignant melanoma of other part of trunk (principal); R91.1 Solitary pulmonary nodule
CPT/HCPCS: 71260

== ENCOUNTER 2020-09-20 13:15 | Outpatient (RCR) | payer MEDICARE, OTHER ==
[~2020-09-20 13:15] MED LIST changes: -CATHETER FLUSH 10 ML SYR IV PRN; -HOLD METFORMIN - RECEIVED CONTRAST 20 ML VIAL IV SCH; -IOHEXOL 350 MG/ML 100 ML (OMNIPAQUE 350) VIAL IV ONE; -NS 100 ML (IVPB) BAG IV ONE
[2020-09-25] MEDS ORDERED: APIX5TAB PO (08:54)
[2020-09-25] MEDS ORDERED: METF-397 PO (08:54)
[2020-09-25] MEDS ORDERED: FLUT15.845 NS (08:54)
[2020-09-25] MEDS ORDERED: CLOP75TA69 PO (08:54)
== END 2020-12-19 | disposition home or self-care (01) ==
LOC: ONC 13:15
PROVIDERS: ATTEND Internal Medicine Hematology & Oncology
DX: C43.59 Malignant melanoma of other part of trunk (principal); C67.9 Malignant neoplasm of bladder, unspecified; I10 Essential (primary) hypertension; I25.10 Atherosclerotic heart disease of native coronary artery without angina pectoris; I48.91 Unspecified atrial fibrillation; J43.9 Emphysema, unspecified; E78.5 Hyperlipidemia, unspecified; R91.8 Other nonspecific abnormal finding of lung field; Z98.890 Other specified postprocedural states
CPT/HCPCS: 80053; 83615; 85025; 99213

== ENCOUNTER → 2020-09-25 | Day surgery (SDC) | payer MEDICARE, OTHER ==
[2020-09-25] VITALS (10 sets, daily range): BP systolic 111–147; BP diastolic 51–85
[~2020-09-25] VITALS: Ht 177.8 cm; Wt 104.5 kg
[~2020-09-25] MED LIST changes: +APIX5TAB PO; +FLUT15.845 NS; +LIDOCAINE 2% VISCOUS 15 ML UDC PO ONE; +METF-397 PO; +NS IV 1000 ML 1,000 ML IV ONE; +NS IV 1000 ML 1,000 ML ONE; +proPOfol 200 MG/20 ML (DIPRIVAN) VIAL IV ONE
[2020-09-25 08:34] LABS: HEMOGLOBIN 12.1 g/dL (13.3-17.7); MEAN PLATELET VOLUME 10.5 fL (9.0-12.2); WHITE BLOOD COUNT 10.7 10^3/uL (4.3-11.0)
[2020-09-25 08:47] LABS: INR 1.2 (0.8-1.4); PROTHROMBIN TIME PATIENT 15.3 SEC (12.2-14.7)
[2020-09-25 08:53] LABS: ALBUMIN 3.8 GM/DL (3.2-4.5); CALCIUM 8.7 MG/DL (8.5-10.1); CREATININE SERUM 1.58 MG/DL (0.60-1.30); POTASSIUM 4.2 MMOL/L (3.6-5.0); TOTAL PROTEIN 7.1 GM/DL (6.4-8.2)
--- NOTE | 2020-09-25 09:54 | Anesthesia-General Post-Op ---
MAC Patient Condition Mental Status/LOC: Same as Preop Cardiovascular: Satisfactory Nausea/Vomiting: Absent Respiratory: Satisfactory Pain: Controlled Complications: Absent Post Op Complications Complications None Follow Up Care/Instructions Patient Instructions None needed. Anesthesiology Discharge Order Discharge Order Patient is doing well, no complaints, stable vital signs, no apparent adverse anesthesia problems. No complications reported per nursing. MARILU MONIQUE CRNA Sep 25, 2020 09:54
--- NOTE | 2020-09-25 11:41 | OPERATIVE REPORT ---
DATE OF SERVICE: 09/25/2020 EXTERNAL ELECTROCARDIOVERSION REPORT PREOPERATIVE DIAGNOSIS: Atrial fibrillation. POSTOPERATIVE DIAGNOSIS: Sinus rhythm with premature atrial contractions. PROCEDURE PERFORMED: External electrical cardioversion. PROCEDURE: The patient is a 75-year-old gentleman with atrial fibrillation for which he underwent electrical cardioversion today after providing an informed consent. He has been on uninterrupted oral anticoagulation for several months. Short-acting anesthesia was provided by the nurse ferry terminal agent. A 120 joules of biphasic shock was given through external pads that converted atrial fibrillation to sinus rhythm with premature atrial contractions. He tolerated the procedure well. Job ID: [id number] DocumentID: [id number] Dictated Date: 09/25/2020 09:14:42 Senior Account Executive Date: 09/25/2020 11:41:05 Dictated By: DIEGO ARCEO MD, MA, FACP, FACC,
== END ==
LOC: CATH 10:00
PROVIDERS: ATTEND Internal Medicine Cardiovascular Disease
DX: I48.19 Other persistent atrial fibrillation (principal); I49.1 Atrial premature depolarization; R04.0 Epistaxis; J43.9 Emphysema, unspecified; E11.620 Type 2 diabetes mellitus with diabetic dermatitis; E11.319 Type 2 diabetes mellitus with unspecified diabetic retinopathy without macular edema; H35.63 Retinal hemorrhage, bilateral; I25.10 Atherosclerotic heart disease of native coronary artery without angina pectoris; I65.23 Occlusion and stenosis of bilateral carotid arteries; I10 Essential (primary) hypertension; M10.9 Gout, unspecified; G47.33 Obstructive sleep apnea (adult) (pediatric); R74.8 Abnormal levels of other serum enzymes; E78.5 Hyperlipidemia, unspecified; Z87.442 Personal history of urinary calculi; Z87.891 Personal history of nicotine dependence; Z95.1 Presence of aortocoronary bypass graft; Z95.4 Presence of other heart-valve replacement; Z95.2 Presence of prosthetic heart valve; Z79.01 Long term (current) use of anticoagulants; Z79.51 Long term (current) use of inhaled steroids; Z79.02 Long term (current) use of antithrombotics/antiplatelets; Z79.899 Other long term (current) drug therapy; Z79.84 Long term (current) use of oral hypoglycemic drugs; Z98.890 Other specified postprocedural states
CPT/HCPCS: 36415; 80053; 80061; 85027; 85610; 85730; 87081; 92960; 93005

== ENCOUNTER 2021-03-19 11:39 | Outpatient (CLI) | payer MEDICARE, OTHER ==
[~2021-03-19] VITALS: Ht 177 cm; Wt 104.0 kg
[~2021-03-19 11:39] MED LIST changes: -LIDOCAINE 2% VISCOUS 15 ML UDC PO ONE; -NS IV 1000 ML 1,000 ML IV ONE; -NS IV 1000 ML 1,000 ML ONE; -SULF1TAB35 PO; +SULF1TAB38 PO; -proPOfol 200 MG/20 ML (DIPRIVAN) VIAL IV ONE
[2021-03-19 11:42] VITALS: BP 140/52
[2021-03-19] MEDS ORDERED: ACETAMINOPHEN 500 MG TAB (TYLENOL) PO PRN (12:00)
[2021-03-19] MEDS ORDERED: EPINEPHrine INJECTION 1 MG/ML AMP IM PRN (12:00)
[2021-03-19] MEDS ORDERED: diphenhydrAMINE 50 MG/ML INJ (BENADRYL) IV PRN (12:00)
[2021-03-19] MEDS ORDERED: ONDANSETRON 4 MG/2 ML (SDV) Z0FRAN IV PRN (12:00)
[2021-03-19] MEDS ORDERED: CASIRIVIMAB/IMDEVIMAB 1,200 MG in NS (IVPB) 250 ML IV ONE (12:00)
[2021-03-19 13:17] VITALS: BP 122/57
== END 2021-03-19 13:45 | disposition home or self-care (01) ==
LOC: INFUSION 11:39
PROVIDERS: ATTEND Physician Assistant
DX: Z23 Encounter for immunization (principal); U07.1 COVID-19

== ENCOUNTER → 2021-03-27 | Outpatient (RCR) | payer MEDICARE, OTHER ==
[2020-12-27 12:58] LABS: BASOPHILS # (AUTO) 0.1 10^3/uL (0.0-0.1); BASOPHILS % (AUTO) 1 % (0-10); EOSINOPHILS # (AUTO) 0.1 10^3/uL (0.0-0.3); EOSINOPHILS % (AUTO) 1 % (0-10); HEMATOCRIT 39 % (40-54); HEMOGLOBIN 12.8 g/dL (13.3-17.7); LYMPHOCYTES # (AUTO) 1.1 10^3/uL (1.0-4.0); LYMPHOCYTES % (AUTO) 9 % (12-44); MEAN CORPUSCULAR HEMOGLOBIN 30 pg (25-34); MEAN CORPUSCULAR HGB CONC 33 g/dL (32-36); MEAN CORPUSCULAR VOLUME 91 fL (80-99); MEAN PLATELET VOLUME 10.7 fL (9.0-12.2); MONOCYTES # (AUTO) 0.8 10^3/uL (0.0-1.0); MONOCYTES % (AUTO) 7 % (0-12); NEUTROPHILS # (AUTO) 9.4 10^3/uL (1.8-7.8); NEUTROPHILS % (AUTO) 81 % (42-75); PLATELET COUNT 248 10^3/uL (130-400); WHITE BLOOD COUNT 11.6 10^3/uL (4.3-11.0)
[2020-12-27 13:22] LABS: ALBUMIN 3.7 GM/DL (3.2-4.5); BILIRUBIN,TOTAL 0.9 MG/DL (0.1-1.0); CALCIUM 9.3 MG/DL (8.5-10.1); CREATININE SERUM 1.37 MG/DL (0.60-1.30); POTASSIUM 4.1 MMOL/L (3.6-5.0)
[2021-03-27 09:00] LABS: BASOPHILS # (AUTO) 0.1 10^3/uL (0.0-0.1); BASOPHILS % (AUTO) 1 % (0-10); EOSINOPHILS # (AUTO) 0.2 10^3/uL (0.0-0.3); EOSINOPHILS % (AUTO) 2 % (0-10); HEMATOCRIT 37 % (40-54); HEMOGLOBIN 11.9 g/dL (13.3-17.7); LYMPHOCYTES # (AUTO) 1.4 10^3/uL (1.0-4.0); LYMPHOCYTES % (AUTO) 12 % (12-44); MEAN CORPUSCULAR HEMOGLOBIN 30 pg (25-34); MEAN CORPUSCULAR HGB CONC 32 g/dL (32-36); MEAN CORPUSCULAR VOLUME 94 fL (80-99); MEAN PLATELET VOLUME 9.9 fL (9.0-12.2); MONOCYTES % (AUTO) 9 % (0-12); NEUTROPHILS # (AUTO) 8.8 10^3/uL (1.8-7.8); NEUTROPHILS % (AUTO) 76 % (42-75); PLATELET COUNT 343 10^3/uL (130-400); WHITE BLOOD COUNT 11.7 10^3/uL (4.3-11.0)
[2021-03-27 09:24] LABS: ALBUMIN 3.4 GM/DL (3.2-4.5); BILIRUBIN,TOTAL 0.5 MG/DL (0.1-1.0); CALCIUM 9.3 MG/DL (8.5-10.1); CREATININE SERUM 1.22 MG/DL (0.60-1.30); POTASSIUM 3.7 MMOL/L (3.6-5.0); TOTAL PROTEIN 6.9 GM/DL (6.4-8.2)
== END | disposition home or self-care (01) ==
LOC: ONC 12-27 12:47
PROVIDERS: ATTEND Internal Medicine Hematology & Oncology
DX: C43.59 Malignant melanoma of other part of trunk (principal); C67.9 Malignant neoplasm of bladder, unspecified; I10 Essential (primary) hypertension; I25.10 Atherosclerotic heart disease of native coronary artery without angina pectoris; E11.9 Type 2 diabetes mellitus without complications; E78.5 Hyperlipidemia, unspecified; J44.9 Chronic obstructive pulmonary disease, unspecified; R91.8 Other nonspecific abnormal finding of lung field; Z98.890 Other specified postprocedural states; Z85.51 Personal history of malignant neoplasm of bladder; I48.91 Unspecified atrial fibrillation; Z79.01 Long term (current) use of anticoagulants; Z79.84 Long term (current) use of oral hypoglycemic drugs; Z87.891 Personal history of nicotine dependence
CPT/HCPCS: 80053; 83615; 85025; G0463; 99213

== ENCOUNTER → 2021-03-27 | Outpatient (CLI) | payer MEDICARE, OTHER ==
[~2021-03-27] MED LIST changes: +BARIUM SUSPENSION 2.1% (VANILLA SILQ) 450 ML PO ONE; +CATHETER FLUSH 10 ML SYR IV PRN; +HOLD METFORMIN - RECEIVED CONTRAST 20 ML VIAL IV SCH; +IOHEXOL 350 MG/ML 100 ML (OMNIPAQUE 350) VIAL IV ONE; +NS 100 ML (IVPB) BAG IV ONE
--- NOTE | 2021-03-27 12:31 | Diagnostic Imaging Report ---
PROCEDURE: CT chest with contrast, CT abdomen and pelvis with and without contrast. TECHNIQUE: Pre and post intravenous contrast axial imaging of the abdomen and pelvis and post contrast axial imaging of the chest were performed. Auto Exposure Controls were utilized during the CT exam to meet ALARA standards for radiation dose reduction. INDICATION: Melanoma. CT CHEST: Correlation is made with prior CT chest from 09/13/2020. No axillary lymphadenopathy is detected. No definite mediastinal or hilar lymphadenopathy is detected. There is no pericardial or pleural fluid. No pulmonary infiltrates, nodules, or masses are detected. Bony structures are unremarkable. IMPRESSION: Unremarkable CT of the chest. There is no evidence of thoracic lymphadenopathy or pulmonary metastatic disease. CT ABDOMEN AND PELVIS: Correlation is made with prior CT abdomen and pelvis study from 01/21/2020. No discrete liver mass is identified. The gallbladder is unremarkable. There is no biliary ductal dilatation. The pancreas and spleen are unremarkable. No adrenal mass is detected. Cortical low-attenuation lesions are noted, largest in the upper pole of the right kidney measuring 2.6 cm consistent with a cyst. This compares with 3.2 cm on prior exam. Aorta is heavily calcified but nonaneurysmal. No central retroperitoneal or mesenteric lymphadenopathy is detected. The small and large bowel loops are normal in caliber. There is no ascites. No fluid collection is identified. No pelvic lymphadenopathy is identified. The bladder is unremarkable. Prostate is unremarkable. Bony structures are nonacute. IMPRESSION: 1. Bilateral renal cysts. 2. No evidence of abdominal or pelvic lymphadenopathy or metastatic disease. Dictated by: Dictated on workstation # [id number]
== END ==
LOC: RAD 09:00
PROVIDERS: ATTEND Internal Medicine Hematology & Oncology
DX: C43.59 Malignant melanoma of other part of trunk (principal); N28.1 Cyst of kidney, acquired; R91.8 Other nonspecific abnormal finding of lung field
CPT/HCPCS: 71260; 74178

== ENCOUNTER 2021-06-24 13:19 | Outpatient (RCR) | payer MEDICARE, OTHER ==
[2021-06-21 09:57] LABS: BASOPHILS # (AUTO) 0.1 10^3/uL (0.0-0.1); BASOPHILS % (AUTO) 1 % (0-10); EOSINOPHILS # (AUTO) 0.1 10^3/uL (0.0-0.3); EOSINOPHILS % (AUTO) 1 % (0-10); HEMATOCRIT 39 % (40-54); HEMOGLOBIN 12.8 g/dL (13.3-17.7); LYMPHOCYTES # (AUTO) 1.1 10^3/uL (1.0-4.0); LYMPHOCYTES % (AUTO) 10 % (12-44); MEAN CORPUSCULAR HEMOGLOBIN 30 pg (25-34); MEAN CORPUSCULAR HGB CONC 33 g/dL (32-36); MEAN CORPUSCULAR VOLUME 93 fL (80-99); MEAN PLATELET VOLUME 10.8 fL (9.0-12.2); MONOCYTES # (AUTO) 0.8 10^3/uL (0.0-1.0); MONOCYTES % (AUTO) 8 % (0-12); NEUTROPHILS # (AUTO) 8.6 10^3/uL (1.8-7.8); NEUTROPHILS % (AUTO) 80 % (42-75); PLATELET COUNT 253 10^3/uL (130-400); WHITE BLOOD COUNT 10.7 10^3/uL (4.3-11.0)
[2021-06-21 10:20] LABS: ALBUMIN 3.6 GM/DL (3.2-4.5); BILIRUBIN,TOTAL 0.7 MG/DL (0.1-1.0); CALCIUM 9.1 MG/DL (8.5-10.1); CREATININE SERUM 1.38 MG/DL (0.60-1.30); TOTAL PROTEIN 7.2 GM/DL (6.4-8.2)
[~2021-06-24 13:19] MED LIST changes: -BARIUM SUSPENSION 2.1% (VANILLA SILQ) 450 ML PO ONE; -CATHETER FLUSH 10 ML SYR IV PRN; -HOLD METFORMIN - RECEIVED CONTRAST 20 ML VIAL IV SCH; -IOHEXOL 350 MG/ML 100 ML (OMNIPAQUE 350) VIAL IV ONE; +MONT-40 PO; -MONT10TA32 PO; -NS 100 ML (IVPB) BAG IV ONE; +PIOG1TAB21 PO; -PIOG1TAB29 PO
== END 2021-06-30 | disposition home or self-care (01) ==
LOC: ONC 13:19
PROVIDERS: ATTEND Internal Medicine Hematology & Oncology
DX: C43.59 Malignant melanoma of other part of trunk (principal); C67.9 Malignant neoplasm of bladder, unspecified; I10 Essential (primary) hypertension; I25.10 Atherosclerotic heart disease of native coronary artery without angina pectoris; E11.9 Type 2 diabetes mellitus without complications; E78.5 Hyperlipidemia, unspecified; J44.9 Chronic obstructive pulmonary disease, unspecified; R91.8 Other nonspecific abnormal finding of lung field; Z98.890 Other specified postprocedural states
CPT/HCPCS: 80053; 83615; 85025; 99213

== ENCOUNTER → 2021-08-09 | Outpatient (CLI) | payer MEDICARE, OTHER ==
--- NOTE | 2021-08-09 12:00 | Diagnostic Imaging Report ---
PROCEDURE: US Renal Bilateral. TECHNIQUE: Multiple real-time grayscale images were obtained over the kidneys in various projections bilaterally. INDICATION: Decreased renal function. FINDINGS: Right kidney measures 10.3 x 4.6 x 6.4 cm, and the left kidney measures 10.4 x 6.1 x 6.1 cm. Cortical thickness and echogenicity are normal. There is a cyst in the upper pole of the right kidney, approximately 2.5 cm in size. No calculi or hydronephrosis is seen. Partially filled urinary bladder is unremarkable. IMPRESSION: Right renal cyst. The study is otherwise unremarkable. No hydronephrosis is detected. Dictated by: Dictated on workstation # [id number]
== END ==
LOC: RAD 09:00
PROVIDERS: ATTEND Urology
DX: N28.1 Cyst of kidney, acquired (principal)
CPT/HCPCS: 76770

== ENCOUNTER → 2021-10-22 | Outpatient (CLI) | payer MEDICARE, OTHER ==
[~2021-10-22] VITALS: Ht 177 cm; Wt 101.0 kg
[~2021-10-22] MED LIST changes: +CATHETER FLUSH 10 ML SYR IVP PRN; +REGADENOSON 0.4 MG/5 ML SYR (LEXISCAN) IV ONE
[2021-10-22 13:10] VITALS: BP 184/80
--- NOTE | 2021-10-23 11:25 | STRESS TEST ---
DATE OF SERVICE: 10/22/2021 RESTING AND POST REGADENOSON TECHNETIUM-99M TETROFOSMIN SPECT CT IMAGING ORDERING PHYSICIAN: Annelise Meyer APRN PRIMARY PHYSICIAN: [facility]. CLINICAL DIAGNOSIS: Coronary artery disease. Baseline images were carried out after injection of mCi of technetium-99m Tetrofosmin. This was followed by 0.4 mg Regadenoson and 30.7 mCi of technetium-99m Tetrofosmin for stress imaging. The electrocardiogram showed sinus rhythm at baseline. It did not change significantly with the Regadenoson infusion. The patient tolerated the procedure well. Review of images at rest and following stress does not indicate any significant perfusion defects consistent with myocardial ischemia or infarction. Gated images show normal global left ventricular systolic function with normal regional wall motion. Left ventricular ejection fraction is calculated to be 63%. CONCLUSIONS: 1. No evidence of any significant myocardial ischemia or infarction on this study. 2. Normal regional wall motion. 3. Normal global left ventricular systolic function with a calculated ejection fraction of 63%. Job ID: [id number] DocumentID: [id number] Dictated Date: 10/23/2021 09:41:53 Newspaper Delivery Counselor Date: 10/23/2021 11:24:40 Dictated By: DIEGO ARCEO MD, MA, FACP, FACC,
== END ==
LOC: CARD 11:00
PROVIDERS: ATTEND Nurse Practitioner Family
DX: I25.10 Atherosclerotic heart disease of native coronary artery without angina pectoris (principal); Z95.4 Presence of other heart-valve replacement
CPT/HCPCS: 78452; 93017; 93306; A9502

== ENCOUNTER → 2022-04-14 | Outpatient (CLI) | payer MEDICARE, OTHER ==
[~2022-04-14] MED LIST changes: -CATHETER FLUSH 10 ML SYR IVP PRN; -CHOL200014 PO; +CHOL200052 PO; -REGADENOSON 0.4 MG/5 ML SYR (LEXISCAN) IV ONE
--- NOTE | 2022-04-14 15:47 | Diagnostic Imaging Report ---
INDICATION: N18.4 - 76-year-old male, chronic renal disease, stage IV. TECHNIQUE: Multiple real-time grayscale sonographic images were obtained of the kidneys. CORRELATION: 08/09/2021. FINDINGS: RIGHT KIDNEY: 9.4 x 4.4 x 5.9 cm. LEFT KIDNEY: 10.7 x 5.8 x 6.3 cm. Relative simple appearing cysts of both kidneys. Superior pole right kidney, 2.5 x 2.3 x 2.2 cm. Mid aspect left kidney, 2.2 x 2.1 x 1.6 cm. Renal parenchyma is slightly thin and echogenic of both kidneys. No hydronephrosis. URINARY BLADDER: The partially distended bladder has an unremarkable appearance. Bilateral ureteral jets are not visualized. Bladder volume 140 mL. IMPRESSION: 1. Bilateral renal cysts. Slight echogenicity and thinning of the renal parenchyma consistent with chronic medical renal disease. No hydronephrosis. Dictated by: Dictated on workstation # [id number]
== END ==
LOC: RAD 12:30
PROVIDERS: ATTEND Internal Medicine Nephrology
DX: N28.1 Cyst of kidney, acquired (principal); I12.9 Hypertensive chronic kidney disease with stage 1 through stage 4 chronic kidney disease, or unspecified chronic kidney disease; N18.4 Chronic kidney disease, stage 4 (severe); N25.81 Secondary hyperparathyroidism of renal origin; D63.1 Anemia in chronic kidney disease
CPT/HCPCS: 76770

== ENCOUNTER 2022-05-01 17:31 | Inpatient (IN) | payer MEDICARE, OTHER ==
[~2022-05-01] VITALS: Ht 177 cm; Wt 101.7 kg
--- NOTE | 2022-05-01 17:51 | ED General ---
General Chief Complaint: Glucose Problems Stated Complaint: N/V,WEAK,HIGH BLOOD SUGAR "OVER 500" Nursing Triage Note: PT CO OF ELEVATED BS, WEAKNESS, HAS RENAL FAILURE, NAUSEA, PT STATES HAS HX OF MELANOMA. History of Present Illness Date Seen by Provider: May 01, 2022 Time Seen by Provider: 17:51 Initial Comments Patient reports that he hasn't fell good for about 10-14 days. Has been tested twice for COVID and has been negative both times. Denies recent sick contacts that he is aware of. Reports that his blood sugar has been high today also. Does not typically check his blood sugar. Denies fever or dysuria. Timing/Duration: Changing Over Time, Constant, Getting Worse Severity: Mild Modifying Factors: improves with Rest Associated Systoms: No Chest Pain, No Cough, No Fever/Chills, No Headaches; Loss of Appetite, Malaise; No Nausea/Vomiting, No Rash, No Shortness of Air, No Syncope; Weakness (generalized) Allergies and Home Medications Allergies Coded Allergies: No Known Drug Allergies (Unverified , 07/11/09) Patient Home Medication List Home Medication List Reviewed: Yes Albuterol Sulfate (Ventolin Hfa) 1 Puff Puff, INH Q4H, (Reported) Entered as Reported by: FUNMI NERI on 01/31/20 0820 Allopurinol (Allopurinol) 100 Mg Tablet, 100 MG PO DAILY, (Reported) Entered as Reported by: SHERIE GODDARD on 12/24/16 1036 Apixaban (Eliquis) 5 Mg Tablet, 5 MG PO BID, (Reported) Entered as Reported by: APRYL KU on 09/25/20 0854 Atorvastatin Calcium (Atorvastatin Calcium) 80 Mg Tablet, 80 MG PO HS, (Reported) Entered as Reported by: SHERIE GODDARD on 07/14/19 1025 Carvedilol Phosphate (Coreg Cr) 20 Mg Cpmp.24hr, 20 MG PO DAILY, (Reported) Entered as Reported by: SHERIE GODDARD on 07/14/19 1025 Cetirizine HCl (Zyrtec) 10 Mg Tablet, 10 MG PO DAILY, (Reported) Entered as Reported by: SHERIE GODDARD on 07/14/19 1025 Cholecalciferol (Vitamin D3) (Vitamin D3) 50 Mcg Tablet, 50 MCG PO DAILY, (Reported) Entered as Reported by: SHERIE GODDARD on 01/27/20 0959 Clopidogrel Bisulfate (Plavix) 75 Mg Tablet, 75 MG PO every other day, (Reported) Entered as Reported by: APRYL KU on 09/25/20 0854 Cyanocobalamin (Cyanocobalamin Injection) 1,000 Mcg/Ml Inj, 1,000 MCG IM monthly, (Reported) Entered as Reported by: SHERIE GODDARD on 07/14/19 1025 Fluticasone Propionate (Fluticasone Propionate) 15.8 Ml [place].susp, 15.8 ML NS for allergies, (Reported) Entered as Reported by: APRYL KU on 09/25/20 0854 Fluticasone/Salmeterol (Advair 250-50 Diskus) 1 Each Blst.w.dev, 1 EACH IH BID, (Reported) Entered as Reported by: SHERIE GODDARD on 12/24/16 1036 Furosemide (Furosemide) 40 Mg Tablet, 40 MG PO DAILY, (Reported) Entered as Reported by: SHERIE GODDARD on 07/14/19 1025 Glimepiride (Glimepiride) 2 Mg Tablet, 2 MG PO HS, (Reported) Entered as Reported by: SHERIE GODDARD on 07/14/19 1025 Lisinopril (Lisinopril) 10 Mg Tablet, 10 MG PO DAILY, (Reported) Entered as Reported by: SHERIE GODDARD on 07/14/19 1025 Metformin HCl (Metformin HCl) 500 Mg Tablet, 500 MG PO BID, (Reported) Entered as Reported by: APRYL KU on 09/25/20 0854 Montelukast Sodium (Montelukast Sodium) 10 Mg Tablet, 10 MG PO HS, (Reported) Entered as Reported by: YOGESH TAI on 01/22/20 0222 Sitagliptin Phosphate (Januvia) 100 Mg Tablet, 100 MG PO DAILY, (Reported) Entered as Reported by: SHERIE GODDARD on 07/14/19 1025 Review of Systems Review of Systems Constitutional: No chills, No diaphoresis, No dizziness, No fever; malaise, weakness EENTM: No ear pain, No nose congestion, No throat pain Respiratory: No cough, No dyspnea on exertion, No short of breath, No stridor, No wheezing Cardiovascular: No chest pain, No palpitations Gastrointestinal: No constipation, No diarrhea, No nausea, No vomiting Genitourinary: no symptoms reported Musculoskeletal: muscle pain Skin: no symptoms reported All Other Systems Reviewed Negative Unless Noted: Yes Past Lahirhj-Igvbxq-Fuqsur Hx Seasonal Allergies Seasonal Allergies: Yes Past Medical History Surgeries: Yes (detached retina in bilat eye, clavicle fx, bilat shoulder sx, ) Bladder Surgery, Cardiac, CABG, Renal, Tonsillectomy, Valve Replacement Respiratory: Yes Sleep Apnea, COPD, Emphysema Currently Using CPAP: Yes Currently Using BIPAP: No Cardiac: Yes (CABG, aortic valve replaced) Atrial Fibrillation, Coronary Artery Disease, High Cholesterol, Hypertension, Valvular Heart Disease Neurological: No Reproductive Disorders: No Sexually Transmitted Disease: No Genitourinary: Yes (bladder tumors) Kidney Stones Gastrointestinal: No Musculoskeletal: Yes Arthritis Endocrine: Yes Diabetes, Non-Insulin dep HEENT: Yes (detached retina sx) Cancer: Yes (had a malignant mole removed with lymphnode removed as well) Bladder, Skin Did You Recieve Any Treatments: Yes What Type of Treatment Did You: Surgical Intervention Psychosocial: No Integumentary: Yes Blood Disorders: Yes (anemia) Adverse Reaction/Blood Tranf: No Family Medical History Reviewed Nursing Family Hx Physical Exam Vital Signs Vital Signs - First Documented 05/01/22 17:40 Temp 36.5 Pulse 80 Resp 20 B/P (MAP) 136/66 (89) Pulse Ox 95 Capillary Refill : Less Than 3 Seconds Height, Weight, BMI Height: 5'9.00" Weight: 260lbs. 0.0oz. [id number]; 30.00 BMI Method:Stated General Appearance: No Apparent Distress, WD/WN Neck: Full Range of Motion, Normal Inspection, Non Tender, Supple Respiratory: Chest Non Tender, Lungs Clear, Normal Breath Sounds, No Accessory Muscle Use, No Respiratory Distress Cardiovascular: Regular Rate, Rhythm, No Edema Gastrointestinal: Normal Bowel Sounds, No Organomegaly, No Pulsatile Mass, Non Tender, Soft Back: Normal Inspection, No CVA Tenderness Extremity: Normal Capillary Refill, Normal Inspection, Normal Range of Motion, Non Tender, No Calf Tenderness Neurologic/Psychiatric: Alert, Oriented x3, No Motor/Sensory Deficits Skin: Normal Color, Warm/Dry Progress/Results/Core Measures Suspected Sepsis SIRS Temperature: Pulse: 80 Respiratory Rate: 20 Laboratory Tests 05/01/22 17:59: White Blood Count 16.5H Blood Pressure 136 /66 Mean: 89 Laboratory Tests 05/01/22 17:59: Creatinine 3.63H, Platelet Count 279, Total Bilirubin 0.4 Results/Orders Lab Results Laboratory Tests Test 05/01/22 17:44 05/01/22 17:59 05/01/22 18:10 05/01/22 18:12 Range/Units Glucometer 461 *H 70-110 MG/DL White Blood Count 16.5 H 4.3-11.0 10^3/uL Red Blood Count 3.01 L 4.30-5.52 10^6/uL Hemoglobin 9.0 L 13.3-17.7 g/dL Hematocrit 28 L 40-54 % Mean Corpuscular Volume 93 80-99 fL Mean Corpuscular Hemoglobin 30 25-34 pg Mean Corpuscular Hemoglobin Concent 32 32-36 g/dL Red Cell Distribution Width 14.2 10.0-14.5 % Platelet Count 279 130-400 10^3/uL Mean Platelet Volume 11.3 9.0-12.2 fL Immature Granulocyte % (Auto) 1 % Neutrophils (%) (Auto) 85 H 42-75 % Lymphocytes (%) (Auto) 5 L 12-44 % Monocytes (%) (Auto) 8 0-12 % Eosinophils (%) (Auto) 1 0-10 % Basophils (%) (Auto) 0 0-10 % Neutrophils # (Auto) 14.0 H 1.8-7.8 10^3/uL Lymphocytes # (Auto) 0.8 L 1.0-4.0 10^3/uL Monocytes # (Auto) 1.4 H 0.0-1.0 10^3/uL Eosinophils # (Auto) 0.1 0.0-0.3 10^3/uL Basophils # (Auto) 0.1 0.0-0.1 10^3/uL Immature Granulocyte # (Auto) 0.2 H 0.0-0.1 10^3/uL Neutrophils % (Manual) 90 % Lymphocytes % (Manual) 3 % Monocytes % (Manual) 6 % Eosinophils % (Manual) 1 % Basophils % (Manual) 0 % Band Neutrophils 0 % Blood Morphology Comment NORMAL Sodium Level 129 L 135-145 MMOL/L Potassium Level 5.6 H 3.6-5.0 MMOL/L Chloride Level 106 98-107 MMOL/L Carbon Dioxide Level 13 L 21-32 MMOL/L Anion Gap 10 5-14 MMOL/L Blood Urea Nitrogen 87 H 7-18 MG/DL Creatinine 3.63 H 0.60-1.30 MG/DL Estimat Glomerular Filtration Rate 17 BUN/Creatinine Ratio 24 Glucose Level 542 *H 70-105 MG/DL Calcium Level 9.0 8.5-10.1 MG/DL Corrected Calcium 10.1 8.5-10.1 MG/DL Total Bilirubin 0.4 0.1-1.0 MG/DL Aspartate Amino Transf (AST/SGOT) 32 5-34 U/L Alanine Aminotransferase (ALT/SGPT) 40 0-55 U/L Alkaline Phosphatase 592 H 40-136 U/L Troponin I < 0.028 <0.028 NG/ML Total Protein 6.6 6.4-8.2 GM/DL Albumin 2.6 L 3.2-4.5 GM/DL Beta-Hydroxybutyrate (Chem panel) 0.08 0.00-0.27 MMOL/L Blood Gas Puncture Site RIGHT WRIST Blood Gas Patient Temperature 36.2 Arterial Blood pH 7.33 *L 7.37-7.43 Arterial Blood Partial Pressure CO2 26 L 35-45 MMHG Arterial Blood Partial Pressure O2 79 79-93 MMHG Arterial Blood HCO3 14 *L 23-27 MMOL/L Arterial Blood Total CO2 14.5 L 21.0-31.0 MMOL/L Arterial Blood Oxygen Saturation 97 94-100 % Arterial Blood Base Excess -11.3 L -2.5-2.5 MMOL/L Andry Test NA Blood Gas Ventilator Setting NO Blood Gas Inspired Oxygen UNK Influenza Type A (RT-PCR) Not Detected Not Detecte Influenza Type B (RT-PCR) Not Detected Not Detecte SARS-CoV-2 RNA (RT-PCR) Not Detected Not Detecte Test 05/01/22 18:20 Range/Units Urine Color YELLOW Urine Clarity CLEAR Urine pH 5.0 5-9 Urine Specific Sullivan 1.015 L 1.016-1.022 Urine Protein NEGATIVE NEGATIVE Urine Glucose (UA) 2+ H NEGATIVE Urine Ketones NEGATIVE NEGATIVE Urine Nitrite NEGATIVE NEGATIVE Urine Bilirubin NEGATIVE NEGATIVE Urine Urobilinogen 0.2 < = 1.0 MG/DL Urine Leukocyte Esterase NEGATIVE NEGATIVE Urine RBC (Auto) NEGATIVE NEGATIVE Urine RBC NONE /HPF Urine WBC NONE /HPF Urine Squamous Epithelial Cells NONE /HPF Urine Crystals NONE /LPF Urine Bacteria NEGATIVE /HPF Urine Casts NONE /LPF Urine Mucus NEGATIVE /LPF Urine Culture Indicated NO My Orders Orders - NANCY LARA APRN Cbc With Automated Diff (05/01/22 17:54) Comprehensive Metabolic Panel (05/01/22 17:54) Arterial Blood Gas (05/01/22 17:54) Ua Culture If Indicated (05/01/22 17:54) Covid 19 Inhouse Test (05/01/22 17:54) Chest 1 View, Ap/Pa Only (05/01/22 17:54) Influenza A And B By Pcr (05/01/22 17:54) Isolation Central Supply Req (05/01/22 17:54) Troponin I Phillip (05/01/22 17:54) Ed Iv/Invasive Line Start (05/01/22 17:57) Ekg Tracing (05/01/22 17:57) Manual Differential (05/01/22 17:59) Medications Given in ED Vital Signs/I&O 05/01/22 17:40 Temp 36.5 Pulse 80 Resp 20 B/P (MAP) 136/66 (89) Pulse Ox 95 Capillary Refill : Less Than 3 Seconds Blood Pressure Mean: 89 Progress Note : Progress Note Patient presented to the emergency room with high blood sugar and generalized weakness. Will obtain labs and determine treatment based on that. 191: I spoke to Dr. Do and he agreed for inpatient admission. Patient is aware of plan of care and verbalized understanding. Departure Communication (Admissions) Time/Spoke to Admitting Phy: 19:[address] Do in regards to patient and he accepted patient for admission. Impression Primary Impression: Hyperglycemia Additional Impression: Dehydration Disposition: ADMITTED INPATIENT Condition: Stable Admissions Decision to Admit Reason: Admit from ER (General) Decision to Admit/Date: May 01, 2022 Time/Decision to Admit Time: 19:17 Departure-Patient Inst. Referrals: MARIELY ESPAÑA DO (PCP/Family) Primary Care Physician NANCY LARA APRN May 01, 2022 17:51
[2022-05-01 18:21] LABS: ABG BASE EXCESS -11.3 MMOL/L (-2.5-2.5); ABG OXYGEN SATURATION 97 % (94-100); ABG PCO2 26 MMHG (35-45); ABG PO2 79 MMHG (79-93); ABG TCO2 14.5 MMOL/L (21.0-31.0)
[2022-05-01 18:21] LABS: BASOPHILS # (AUTO) 0.1 10^3/uL (0.0-0.1); BASOPHILS % (AUTO) 0 % (0-10); EOSINOPHILS # (AUTO) 0.1 10^3/uL (0.0-0.3); EOSINOPHILS % (AUTO) 1 % (0-10); HEMATOCRIT 28 % (40-54); LYMPHOCYTES # (AUTO) 0.8 10^3/uL (1.0-4.0); LYMPHOCYTES % (AUTO) 5 % (12-44); MEAN CORPUSCULAR HEMOGLOBIN 30 pg (25-34); MEAN CORPUSCULAR HGB CONC 32 g/dL (32-36); MEAN CORPUSCULAR VOLUME 93 fL (80-99); MEAN PLATELET VOLUME 11.3 fL (9.0-12.2); MONOCYTES # (AUTO) 1.4 10^3/uL (0.0-1.0); MONOCYTES % (AUTO) 8 % (0-12); NEUTROPHILS % (AUTO) 85 % (42-75); PLATELET COUNT 279 10^3/uL (130-400); WHITE BLOOD COUNT 16.5 10^3/uL (4.3-11.0)
[2022-05-01 18:31] LABS: BILIRUBIN,URINE NEGATIVE (NEGATIVE); CLARITY,URINE CLEAR; COLOR,URINE YELLOW; GLUCOSE, URINE (UA) 2+ (NEGATIVE); KETONES,URINE NEGATIVE (NEGATIVE); LEUKOCYTE ESTERASE ,URINE NEGATIVE (NEGATIVE); NITRITE,URINE NEGATIVE (NEGATIVE); PROTEIN,URINE NEGATIVE (NEGATIVE)
[2022-05-01 18:34] LABS: ABG PH 7.33 (7.37-7.43)
[2022-05-01 18:35] LABS: PATIENT TEMP 36.2; VENTILATOR NO
[2022-05-01 18:35] LABS: ALBUMIN 2.6 GM/DL (3.2-4.5); CHLORIDE 106 MMOL/L (98-107); POTASSIUM 5.6 MMOL/L (3.6-5.0); SODIUM 129 MMOL/L (135-145)
[2022-05-01 18:38] LABS: TOTAL PROTEIN 6.6 GM/DL (6.4-8.2)
[2022-05-01 18:39] LABS: BILIRUBIN,TOTAL 0.4 MG/DL (0.1-1.0); CARBON DIOXIDE 13 MMOL/L (21-32)
[2022-05-01 18:41] LABS: ALKALINE PHOSPHATASE 592 U/L (40-136); CREATININE SERUM 3.63 MG/DL (0.60-1.30); GFR ESTIMATED 17
[2022-05-01 18:42] LABS: BUN/CREATININE RATIO 24
[2022-05-01 18:44] LABS: ALANINE AMINOTRANSFERASE 40 U/L (0-55)
[2022-05-01 18:49] LABS: BAND NEUTROPHILS 0 %; BASOPHILS % (MANUAL) 0 %; EOSINOPHILS % (MANUAL) 1 %; GLUCOSE 542 MG/DL (70-105); LYMPHOCYTES % (MANUAL) 3 %; MONOCYTES % (MANUAL) 6 %; NEUTROPHILS % (MANUAL) 90 %
[2022-05-01 18:50] LABS: RBC MORPH NORMAL
--- NOTE | 2022-05-01 18:52 | Diagnostic Imaging Report ---
CLINICAL INDICATIONS: Patient complains of elevated blood sugar and weakness and has renal failure. Patient has cough and congestion. EXAM: Portable chest x-ray upright view. COMPARISON: None. FINDINGS: Lungs/pleura: There is subtle patchy airspace opacity involving the right lung base which may represent atelectasis versus infiltrates. The remainder of lungs are clear. There is no pneumothorax. There is no pleural effusion. Mediastinum: Unremarkable. Pulmonary vasculature: Unremarkable. Heart: Mild cardiomegaly is seen. There are postop change to the chest with sternotomy wires related to CABG.. Bones/extrathoracic soft tissue: There are degenerative spurs involving the thoracic spine. IMPRESSION: 1: There is subtle right lung base atelectasis versus infiltrate. 2: There is cardiomegaly with no significant pulmonary vascular congestion. Dictated by: Dictated on workstation # [id number]
[2022-05-01 18:53] LABS: BACTERIA,URINE NEGATIVE /HPF
[2022-05-01] MEDS ORDERED: inSUlin ASPART (NovoLOG) 1 UNIT/0.01 ML (CHARGE PER UNIT) IV ONE (19:30)
[2022-05-01] MEDS: NS IV 1000 ML 1,000 ML IV SCH ×3 (21:20→23:28)
[2022-05-01] MEDS ORDERED: NS IV 1000 ML 1,000 ML ONE (21:21)
[2022-05-01 21:49] VITALS: BP 127/60
[2022-05-01] MEDS: APIXABAN 5 MG (ELIQUIS) TABLET PO SCH (22:28)
[2022-05-02] VITALS (7 sets, daily range): BP systolic 113–165; BP diastolic 56–98
[2022-05-02] MEDS: inSUlin ASPART (NovoLOG) 1 UNIT/0.01 ML (CHARGE PER UNIT) SC SCH ×4 (06:19→20:59)
[2022-05-02 08:45] LABS: HEMATOCRIT 25 % (40-54); HEMOGLOBIN 8.1 g/dL (13.3-17.7); MEAN CORPUSCULAR HEMOGLOBIN 30 pg (25-34); MEAN CORPUSCULAR HGB CONC 32 g/dL (32-36); MEAN CORPUSCULAR VOLUME 93 fL (80-99); MEAN PLATELET VOLUME 11.1 fL (9.0-12.2); PLATELET COUNT 269 10^3/uL (130-400); WHITE BLOOD COUNT 16.5 10^3/uL (4.3-11.0)
[2022-05-02] MEDS: APIXABAN 5 MG (ELIQUIS) TABLET PO SCH ×2 (08:49→20:14)
[2022-05-02] MEDS ORDERED: APIXABAN 5 MG (ELIQUIS) TABLET PO SCH (09:00)
[2022-05-02 09:25] LABS: POTASSIUM 5.1 MMOL/L (3.6-5.0)
[2022-05-02 09:26] LABS: CALCIUM 8.4 MG/DL (8.5-10.1)
[2022-05-02] MEDS: NS IV 1000 ML 1,000 ML IV SCH ×2 (09:28→19:58)
[2022-05-02 09:30] LABS: CREATININE SERUM 3.06 MG/DL (0.60-1.30)
--- NOTE | 2022-05-02 09:41 | Diagnostic Imaging Report ---
INDICATION: Follow-up infiltrate. COMPARISON: 05/01/2022. TECHNIQUE: Single radiograph of the chest dated 05/02/2022 FINDINGS: Postsurgical changes of a CABG. The cardiac silhouette is enlarged, though stable. Mild central pulmonary vascular congestion. Low lung volumes without focal pulmonary opacity given positioning. No significant pleural effusion. No pneumothorax. No acute osseous abnormality. IMPRESSION: Cardiomegaly with slightly increased mild central pulmonary vascular congestion. Low lung volumes without focal pulmonary opacity. Dictated by: Dictated on workstation # [id number]
--- NOTE | 2022-05-02 09:48 | History & Physical ---
ADOLFO MONTEZ 05/02/22 0948: History of Present Illness History of Present Illness Reason for visit/HPI Reason for visit: Hyperglycemia and weakness HPI: Ryan is a 76yo M with a past medical history of diabetes mellitus type 2 insulin dependent, CAD with CABG, htn, hld, atrial fibrillation, CKD stage 4, COPD, MICHELLE, and bladder cancer with full remission. He presented to the emergency room with a chief complaint of high blood sugar and generalized weakness. For the past two weeks he has been feeling nauseous and has been vomiting. He has been eating crackers and drinking boost protein shakes, water, and cranberry juice. He says he has not had a good appetite and that he is trying to avoid food with high Na because of his kidney disease. The patient has also had a cough the past few weeks and tested negative for COVID twice. Yesterday his nausea worsened and when he checked his blood sugars they were high so he decided to come to the ER. In the emergency room the patient's WBC was 16.5, Hgb 9, blood glucose was 542, Na was 129, potassium 5.6, creatinine 3.63, and GFR 17. UA was positive for glucose. Chest X-ray showed cardiomegaly but no vascular congestion. He was given 15units of insulin and sodium chloride in the ER and then admitted for hyperglycemia and weakness. The patient was laying in bed watching television at the start of the interview. He reports feeling fatigued and weak. He is still having some nausea but was able to eat breakfast this morning without vomiting. Date of Admission May 01, 2022 at 19:17 Date Seen by a Provider: May 02, 2022 Time Seen by a Provider: 09:30 I consulted on this patient on 05/02/22 09:40 Attending Physician Natanael Bauer DO Admitting Physician Admitting Physician: Harpreet Do MD Attending Physician: Harpreet Do MD Consult Allergies and Home Medications Allergies Coded Allergies: No Known Drug Allergies (Unverified , 07/11/09) Patient Home Medication List Albuterol Sulfate (Proair Hfa) 90 Mcg Hfa.aer.ad, 2 PUFF INH Q6H PRN for SHORTNESS OF BREATH, (Reported) Entered as Reported by: MAUREEN MEDINA on 05/02/22 4011 Last Action: Reviewed Allopurinol (Allopurinol) 100 Mg Tablet, 100 MG PO DAILY, (Reported) Entered as Reported by: SHERIE GODDARD on 12/24/16 1036 Last Action: Held Amlodipine Besylate (Amlodipine Besylate) 5 Mg Tablet, 5 MG PO HS, (Reported) Entered as Reported by: MAUREEN MEDINA on 05/02/221248 Last Action: Continued Apixaban (Eliquis) 2.5 Mg Tablet, 2.5 MG PO BID, (Reported) Entered as Reported by: MAUREEN MEDINA on 05/02/22 124 Last Action: Held Atorvastatin Calcium (Atorvastatin Calcium) 80 Mg Tablet, 80 MG PO HS, (Reported) Entered as Reported by: SHERIE GODDARD on 07/14/19 1025 Last Action: Continued Azithromycin (Azithromycin) 250 Mg Tablet, 250 MG PO DAILY Prescribed by: MUNIR SANDERS on 05/04/22 1122 Carboxymethylcellulose Sodium (Refresh Tears) 0.5 % Drops, 1-2 DROPS OU UD, (Reported) Entered as Reported by: MAUREEN MEDINA on 05/02/221248 Last Action: Converted Carvedilol Phosphate (Carvedilol ER) 20 Mg Cpmp.24hr, 20 MG PO DAILY, (Reported) Entered as Reported by: MAUREEN MEDINA on 05/02/221248 Last Action: Held Cephalexin (Cephalexin) 500 Mg Tablet, 500 MG PO BID Prescribed by: MUNIR SANDERS on 05/04/22 112 Cetirizine HCl (Cetirizine HCl) 10 Mg Tablet, 10 MG PO DAILY, (Reported) Entered as Reported by: MAUREEN MEDINA on 05/02/22 124 Last Action: Continued Cholecalciferol (Vitamin D3) (Vitamin D3) 50 Mcg Tablet, 50 MCG PO DAILY, (Reported) Entered as Reported by: SHERIE GODDARD on 01/27/20 0959 Last Action: Held Clopidogrel Bisulfate (Clopidogrel) 75 Mg Tablet, 75 MG PO Q48H, (Reported) Entered as Reported by: MAUREEN MEDINA on 05/02/221248 Last Action: Continued Fluticasone Propionate (Fluticasone Propionate) 50 Mcg/Actuation [place].susp, 1 SPRAY NSEACH BID PRN for CONGESTION, (Reported) Entered as Reported by: MAUREEN MEDINA on 05/02/221248 Last Action: Continued Furosemide (Furosemide) 40 Mg Tablet, 40 MG PO DAILY, (Reported) Entered as Reported by: SHERIE GODDARD on 07/14/19 1025 Last Action: Held Guaifenesin (Mucinex) 600 Mg Tab.er.12h, 600 MG PO BID Prescribed by: MUNIR SANDERS on 05/04/22 1122 Insulin Aspart (Niacinamide) (Fiasp 100 Unit/ml Flextouch) 100 Unit/Ml (3 Ml) Insuln.pen, 15 UNIT SQ AC, (Reported) Entered as Reported by: MAUREEN MEDINA on 05/02/221248 Last Action: Held Insulin Glargine,Hum.rec.anlog (Lantus Solostar) 100 Unit/Ml (3 Ml) Insuln.pen, 20 UNITS SC HS, (Reported) Entered as Reported by: MAUREEN MEDINA on 05/02/221248 Last Action: Converted Lactobacillus Acidophilus/Pect (Acidophilus-Pectin Capsule) 75 Million Cell-100 Mg Capsule, 2 EACH PO TIDWM Prescribed by: MUNIR SANDERS on 05/04/22 1122 Semaglutide (Rybelsus) 3 Mg Tablet, 3 MG PO HS, (Reported) Entered as Reported by: MAUREEN MEDINA on 05/02/221248 Last Action: Converted Discontinued Medications Albuterol Sulfate (Ventolin Hfa) 1 Puff Puff, INH Q4H, (Reported) Discontinued Reason: Duplicate Order Entered as Reported by: FUNMI NERI on 01/31/20 0820 Last Action: Discontinued Apixaban (Eliquis) 5 Mg Tablet, 2.5 MG PO BID, (Reported) Discontinued Reason: Duplicate Order Entered as Reported by: APRYL KU on 09/25/20 0854 Last Action: Discontinued Carvedilol Phosphate (Coreg Cr) 20 Mg Cpmp.24hr, 20 MG PO DAILY, (Reported) Discontinued Reason: Duplicate Order Entered as Reported by: SHERIE GODDARD on 07/14/19 1025 Last Action: Discontinued Cetirizine HCl (Zyrtec) 10 Mg Tablet, 10 MG PO DAILY, (Reported) Discontinued Reason: Duplicate Order Entered as Reported by: SHERIE GODDARD on 07/14/19 1025 Last Action: Discontinued Clopidogrel Bisulfate (Plavix) 75 Mg Tablet, 75 MG PO every other day, (Reported) Discontinued Reason: Duplicate Order Entered as Reported by: APRYL KU on 09/25/20 0854 Last Action: Discontinued Cyanocobalamin (Cyanocobalamin Injection) 1,000 Mcg/Ml Inj, 1,000 MCG IM monthly, (Reported) Discontinued Reason: No Longer Taking Entered as Reported by: SHERIE GODDARD on 07/14/19 1025 Last Action: Discontinued Fluticasone Propionate (Fluticasone Propionate) 15.8 Ml [place].susp, 15.8 ML NS for allergies, (Reported) Discontinued Reason: Duplicate Order Entered as Reported by: APRYL KU on 09/25/2054 Last Action: Discontinued Fluticasone/Salmeterol (Advair 250-50 Diskus) 1 Each Blst.w.dev, 1 EACH IH BID, (Reported) Discontinued Reason: No Longer Taking Entered as Reported by: SHERIE GODDARD on 12/24/16 1036 Last Action: Discontinued Glimepiride (Glimepiride) 2 Mg Tablet, 2 MG PO HS, (Reported) Discontinued Reason: No Longer Taking Entered as Reported by: SHERIE GODDARD on 07/14/19 1025 Last Action: Discontinued Lisinopril (Lisinopril) 10 Mg Tablet, 10 MG PO DAILY, (Reported) Discontinued Reason: No Longer Taking Entered as Reported by: SHERIE GODDARD on 07/14/19 1025 Last Action: Discontinued Metformin HCl (Metformin HCl) 500 Mg Tablet, 500 MG PO BID, (Reported) Discontinued Reason: No Longer Taking Entered as Reported by: APRYL KU on 09/25/20 0854 Last Action: Discontinued Montelukast Sodium (Montelukast Sodium) 10 Mg Tablet, 10 MG PO HS, (Reported) Discontinued Reason: No Longer Taking Entered as Reported by: YOGESH TAI on 01/22/20 0222 Last Action: Discontinued Sitagliptin Phosphate (Januvia) 100 Mg Tablet, 100 MG PO DAILY, (Reported) Discontinued Reason: No Longer Taking Entered as Reported by: SHERIE GODDARD on 07/14/19 1025 Last Action: Discontinued Past Vrerbzb-Uqpvir-Faatta Hx Patient Social History Marrital Status: Living Status: Lives at home with Tobacco Use?: No Smoking Status: Former Smoker (Quit over 20 years ago) Use of E-Cig and/or Vaping dev: No Substance use?: No Alcohol Use?: Yes Alcohol type: Beer, Wine Alcohol Frequency: Once in a while Pt feels they are or have been: No Immunizations Up To Date Date of Influenza Vaccine: Apr 07, 2022 First/Initial COVID19 Vaccinat: 2019 Second COVID19 Vaccination Carlito: 2019 Tetanus Booster (TDap): Less Than 5 Years Date of Pneumonia Vaccine: December 08, 2019 Seasonal Allergies Seasonal Allergies: Yes Current Status Advance Directives: Yes Advance Directive Location: Family to bring in copy Communicates: Verbally Primary Language: Grenadian Preferred Spoken Language: Grenadian Is interpretation needed?: No Sensory deficits: Vision impairment Implanted or Applied Medical D: Heart mechanical device Past Medical History Surgeries: Bladder Surgery, Cardiac, CABG, Renal, Tonsillectomy, Valve Replacement Sleep Apnea, COPD, Emphysema Currently Using CPAP: Yes Currently Using BIPAP: No Atrial Fibrillation, Coronary Artery Disease, High Cholesterol, Hypertension, Valvular Heart Disease Sexually Transmitted Disease: No Kidney Stones Arthritis Diabetes, Non-Insulin dep Bladder, Skin Did You Recieve Any Treatments: Yes What Type of Treatment Did You: Surgical Intervention Blood Disorders: Yes (anemia) Adverse Reaction/Blood Tranf: No Family Medical History Reviewed Nursing Family Hx Review of Systems Constitutional: No chills, No fever; weakness EENTM: vision loss (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); No hearing loss, No nose congestion, No throat pain Respiratory: cough, phlegm (clear); No short of breath Cardiovascular: No chest pain; edema (chronic); No palpitations, No syncope Gastrointestinal: No abdominal pain, No constipation, No diarrhea; loss of appetite; No melena; nausea; No vomiting Genitourinary: No dysuria, No frequency Musculoskeletal: back pain (chronic) Skin: No change in color, No rash Psychiatric/Neurological: Denies Headache, Denies Numbness, Denies Tingling, Denies Tremors; Weakness Physical Exam Vital Signs Vital Signs - First Documented 05/01/22 05/01/22 17:40 21:04 Temp 36.5 Pulse 80 Resp 20 B/P (MAP) 136/66 (89) Pulse Ox 95 O2 Delivery Room Air Capillary Refill : Less Than 3 Seconds Height, Weight, BMI Height: 5'9.00" Weight: 260lbs. 0.0oz. 117.024766sw; 32.52 BMI Method:Stated General Appearance: No Apparent Distress, Obese HEENT: Pharynx Normal, Moist Mucous Membranes Neck: Full Range of Motion, Normal Inspection, Non Tender, Supple Respiratory: No Accessory Muscle Use, No Respiratory Distress, Crackles (Right lung); No Rhonci; Wheezing (with exhalation) Cardiovascular: Regular Rate, Rhythm, Normal Peripheral Pulses (3+ radial), Systolic Murmur Gastrointestinal: No Organomegaly, No Pulsatile Mass, Non Tender, Soft Back: Normal Inspection, No Vertebral Tenderness Extremity: Normal Capillary Refill, Normal Inspection, Normal Range of Motion, Non Tender, No Calf Tenderness, Pedal Edema (1+ pitting edema in bilateral lower extremities) Neurologic/Psychiatric: Alert, Oriented x3, Normal Mood/Affect Skin: Normal Color, Warm/Dry Assessment/Plan Assessment and Plan 1) Hyperglycemia/ Diabetes mellitus type II insulin dependent - started insulin aspart on a sliding scale - restart home med linagliptin 5mg 1xD - accuchek has been ordered - patient is on a diabetic diet - insulin down to 283 today 2) Leukocytosis - most likely caused by a pneumonia as there was an infiltrate seen on the chest X-ray and the patient has been coughing - pro-calcitonin has been ordered - start PO Amoxicillin 1g 3xD for 5 days and Azithromycin 500mg 1xD for 3 days 3) hyperkalemia - K almost WNL today - has gone down with insulin alone 4) CKD stage 4 - currently receiving IV fluids sodium chloride 1000mls @ 100mls/hr Q10hrs - creatinine improved from yesterday, 3.06 today 5) Anemia - most likely caused by his CKD - will continue to monitor Hgb 6) Atrial fibrillation - restart home medication Eliquis 2.5 BID - restart home medication Carvedilol 20mg 2xD 7) Hyperlipidemia - restart home medication atorvastatin 80mg 1xD 8) Hypertension - restart home medication lisinopril 10mg 1xD 9) Obstructive sleep apnea - order CPAP machine 10) Weakness - PT and OT have been ordered 11) Synthetic aortic valve Admission Diagnosis Admission Status: Observation Reason for Inpatient Admission: Pneumonia and generalized weakness MUNIR SANDERS MD 05/02/22 1610: Allergies and Home Medications Allergies Coded Allergies: No Known Drug Allergies (Unverified , 07/11/09) Patient Home Medication List Home Medication List Reviewed: Yes Albuterol Sulfate (Proair Hfa) 90 Mcg Hfa.aer.ad, 2 PUFF INH Q6H PRN for SHORTNESS OF BREATH, (Reported) Entered as Reported by: MAUREEN MEDINA on 05/02/22 1249 Last Action: Reviewed Allopurinol (Allopurinol) 100 Mg Tablet, 100 MG PO DAILY, (Reported) Entered as Reported by: SHERIE GODDARD on 12/24/16 1036 Last Action: Held Amlodipine Besylate (Amlodipine Besylate) 5 Mg Tablet, 5 MG PO HS, (Reported) Entered as Reported by: MAUREEN MEDINA on 05/02/221248 Last Action: Continued Apixaban (Eliquis) 2.5 Mg Tablet, 2.5 MG PO BID, (Reported) Entered as Reported by: MAUREEN MEDINA on 05/02/22 124 Last Action: Held Atorvastatin Calcium (Atorvastatin Calcium) 80 Mg Tablet, 80 MG PO HS, (Reported) Entered as Reported by: SHERIE GODDARD on 07/14/19 1025 Last Action: Continued Azithromycin (Azithromycin) 250 Mg Tablet, 250 MG PO DAILY Prescribed by: MUNIR SANDERS on 05/04/22 1122 Carboxymethylcellulose Sodium (Refresh Tears) 0.5 % Drops, 1-2 DROPS OU UD, (Reported) Entered as Reported by: MAUREEN MEDINA on 05/02/22 124 Last Action: Converted Carvedilol Phosphate (Carvedilol ER) 20 Mg Cpmp.24hr, 20 MG PO DAILY, (Reported) Entered as Reported by: MAUREEN MEDINA on 05/02/221248 Last Action: Held Cephalexin (Cephalexin) 500 Mg Tablet, 500 MG PO BID Prescribed by: MUNIR SANDERS on 05/04/22 1122 Cetirizine HCl (Cetirizine HCl) 10 Mg Tablet, 10 MG PO DAILY, (Reported) Entered as Reported by: MAUREEN MEDNIA on 05/02/22 124 Last Action: Continued Cholecalciferol (Vitamin D3) (Vitamin D3) 50 Mcg Tablet, 50 MCG PO DAILY, (Reported) Entered as Reported by: SHERIE GODDARD on 01/27/20 0959 Last Action: Held Clopidogrel Bisulfate (Clopidogrel) 75 Mg Tablet, 75 MG PO Q48H, (Reported) Entered as Reported by: MAUREEN MEDINA on 05/02/221248 Last Action: Continued Fluticasone Propionate (Fluticasone Propionate) 50 Mcg/Actuation [place].susp, 1 SPRAY NSEACH BID PRN for CONGESTION, (Reported) Entered as Reported by: MAUREEN MEDINA on 05/02/221248 Last Action: Continued Furosemide (Furosemide) 40 Mg Tablet, 40 MG PO DAILY, (Reported) Entered as Reported by: SHERIE GODDARD on 07/14/19 1025 Last Action: Held Guaifenesin (Mucinex) 600 Mg Tab.er.12h, 600 MG PO BID Prescribed by: MUNIR SANDERS on 05/04/22 112 Insulin Aspart (Niacinamide) (Fiasp 100 Unit/ml Flextouch) 100 Unit/Ml (3 Ml) Insuln.pen, 15 UNIT SQ AC, (Reported) Entered as Reported by: MAUREEN MEDINA on 05/02/221248 Last Action: Held Insulin Glargine,Hum.rec.anlog (Lantus Solostar) 100 Unit/Ml (3 Ml) Insuln.pen, 20 UNITS SC HS, (Reported) Entered as Reported by: MAUREEN MEDINA on 05/02/221248 Last Action: Converted Lactobacillus Acidophilus/Pect (Acidophilus-Pectin Capsule) 75 Million Cell-100 Mg Capsule, 2 EACH PO TIDWM Prescribed by: MNUIR SANDERS on 05/04/22 112 Semaglutide (Rybelsus) 3 Mg Tablet, 3 MG PO HS, (Reported) Entered as Reported by: MAUREEN MEDINA on 05/02/221248 Last Action: Converted Discontinued Medications Albuterol Sulfate (Ventolin Hfa) 1 Puff Puff, INH Q4H, (Reported) Discontinued Reason: Duplicate Order Entered as Reported by: FUNMI NERI on 01/31/20 0820 Last Action: Discontinued Apixaban (Eliquis) 5 Mg Tablet, 2.5 MG PO BID, (Reported) Discontinued Reason: Duplicate Order Entered as Reported by: APRYL KU on 09/25/20853 Last Action: Discontinued Carvedilol Phosphate (Coreg Cr) 20 Mg Cpmp.24hr, 20 MG PO DAILY, (Reported) Discontinued Reason: Duplicate Order Entered as Reported by: SHERIE GODDARD on 07/14/19 1025 Last Action: Discontinued Cetirizine HCl (Zyrtec) 10 Mg Tablet, 10 MG PO DAILY, (Reported) Discontinued Reason: Duplicate Order Entered as Reported by: SHERIE GODDARD on 07/14/19 102 Last Action: Discontinued Clopidogrel Bisulfate (Plavix) 75 Mg Tablet, 75 MG PO every other day, (Reported) Discontinued Reason: Duplicate Order Entered as Reported by: APRYL KU on 09/25/20853 Last Action: Discontinued Cyanocobalamin (Cyanocobalamin Injection) 1,000 Mcg/Ml Inj, 1,000 MCG IM monthly, (Reported) Discontinued Reason: No Longer Taking Entered as Reported by: SHERIE GODDARD on 07/14/19 102 Last Action: Discontinued Fluticasone Propionate (Fluticasone Propionate) 15.8 Ml [place].susp, 15.8 ML NS for allergies, (Reported) Discontinued Reason: Duplicate Order Entered as Reported by: APRYL KU on 09/25/20853 Last Action: Discontinued Fluticasone/Salmeterol (Advair 250-50 Diskus) 1 Each Blst.w.dev, 1 EACH IH BID, (Reported) Discontinued Reason: No Longer Taking Entered as Reported by: SHERIE GODDARD on 12/24/16 1036 Last Action: Discontinued Glimepiride (Glimepiride) 2 Mg Tablet, 2 MG PO HS, (Reported) Discontinued Reason: No Longer Taking Entered as Reported by: SHERIE GODDARD on 07/14/19 1025 Last Action: Discontinued Lisinopril (Lisinopril) 10 Mg Tablet, 10 MG PO DAILY, (Reported) Discontinued Reason: No Longer Taking Entered as Reported by: SHERIE GODDARD on 07/14/19 102 Last Action: Discontinued Metformin HCl (Metformin HCl) 500 Mg Tablet, 500 MG PO BID, (Reported) Discontinued Reason: No Longer Taking Entered as Reported by: APRYL KU on 09/25/20853 Last Action: Discontinued Montelukast Sodium (Montelukast Sodium) 10 Mg Tablet, 10 MG PO HS, (Reported) Discontinued Reason: No Longer Taking Entered as Reported by: YOGESH TAI on 01/22/20 0222 Last Action: Discontinued Sitagliptin Phosphate (Januvia) 100 Mg Tablet, 100 MG PO DAILY, (Reported) Discontinued Reason: No Longer Taking Entered as Reported by: SHERIE GODDARD on 07/14/19 1025 Last Action: Discontinued Assessment/Plan Assessment and Plan Patient admitted with like pneumonia and dehydration. Will continue IVF and watch renal function. PT/OT. Antibiotics added due to persistent cough x2 weeks and infiltrate on CXR. Check labs in AM. Supervisory-Addendum Brief Verification & Attestation Participated in pt care: history, MDM, physical Personally performed: exam, history, MDM, supervision of care Care discussed with: Medical Student Procedures: n/a Results interpretation: Verified all documentation Verification and Attestation of Medical Student E/M Service A medical student performed and documented this service in my presence. I reviewed and verified all information documented by the medical student and made modifications to such information, when appropriate. I personally performed the physical exam and medical decision making. Munir Sanders, May 02, 2022,16:06 ADOLFO MONTEZ May 02, 2022 09:48 MUNIR SANDERS MD May 02, 2022 16:10
[2022-05-02] MEDS ORDERED: RT-ALBUTEROL/IPRATROPIUM 3 ML (DUONEB) VIAL INH PRN (12:00)
[2022-05-02] MEDS ORDERED: CLOP75TA28 PO (12:49)
[2022-05-02] MEDS ORDERED: CARV20CP7 PO (12:49)
[2022-05-02] MEDS ORDERED: CARB15DR OU (12:49)
[2022-05-02] MEDS ORDERED: APIX2.5T PO (12:49)
[2022-05-02] MEDS ORDERED: FLUT16SP22 NSEACH (12:49)
[2022-05-02] MEDS ORDERED: ALBU8.5H9 INH (12:49)
[2022-05-02] MEDS ORDERED: INSU100I10 SC (12:49)
[2022-05-02] MEDS ORDERED: CETI10TA17 PO (12:49)
[2022-05-02] MEDS ORDERED: AMLO-250 PO (12:49)
[2022-05-02] MEDS ORDERED: INSU100I40 SQ (12:49)
[2022-05-02] MEDS ORDERED: SEMA3TAB4 PO (12:49)
[2022-05-02] MEDS ORDERED: ONDANSETRON 4 MG (ZOFRAN) ORAL DISSOLVE TAB PO PRN (13:00)
--- NOTE | 2022-05-02 13:41 | Physical Therapy Evaluation ---
PT Evaluation-General Medical Diagnosis Admission Date May 01, 2022 at 19:17 Medical Diagnosis: dehydration Onset Date: May 01, 2022 Therapy Diagnosis Therapy Diagnosis: debility/weakness Height/Weight Height (Feet): 5 Height (Inches): 9.00 Weight (Pounds): 260 Weight (Ounces): 0.0 Precautions Precautions/Isolations: Standard Precautions Referral Physician: Marilyn Reason for Referral: Evaluation/Treatment Medical History Pertinent Medical History: Atrial Fib, CABG, CAD, COPD, DM, HTN Current History ER secondary to elevated blood sugar, weakness, renal failure, nausea for 10-14 days Reviewed History: Yes Social History Home: Single Level Current Living Status: Spouse Prior Prior Level of Function SCALE: Activities may be completed with or without assistive devices. 5-Jypsqkouvd-qdidflv completes the activity by him/herself with no assistance from a helper. 5-Set-up or Clean-up Assistance-helper sets up or cleans up; patient completes activity. [place] assists only prior to or following the activity. 4-Supervision or Touching Assistance-helper provides verbal cues and/or touching/steadying and/or contact guard assistance as patient completes activity. Assistance may be provided throughout the activity or intermittently. 3-Partial/Moderate Assistance-helper does LESS THAN HALF the effort. Red[place] lifts, holds or supports trunk or limbs, but provides less than half the effort. 2-Substantial/Maximal Assistance-helper does MORE THAN HALF the effort. Red[place] lifts or holds trunk or limbs and provides more than half the effort. 4-Pvmoqttcn-vggaby does ALL the effort. Patient does none of the effort to complete the activity. Or, the assistance of 2 or more helpers is required for the patient to complete the activity. If activity was not attempted, code reason: 7-Patient Refused. 9-Not Applicable-not attempted and the patient did not perform the activity before the current illness, exacerbation or injury. 10-Not Attempted due to Environmental Limitations-(lack of equipment, weather restraints, etc.). 88-Not Attempted due to Medical Conditions or Safety Concerns. Bed Mobility: 6 Transfers (B,C,W/C): 6 Gait: 6 Stairs: 6 Indoor Mobility (Ambulation): Independent Stairs: Independent Prior Devices Use: None PT Evaluation-Current Subjective Patient agrees to PT. Objective Patient Orientation: Normal For Age Attachments: IV ROM/Strength ROM Lower Extremities bilateral LE WFL Strength Lower Extremities 4+/5 grossly bilateral LE all planes Integumentary/Posture Bowel Incontinence: No Bladder Incontinence: No Posture WFL Neuromuscular (Tone, Coordination, Reflexes) grossly intact Sensory Vision: Wears Glasses Hearing: Functional Transfers Lying to Sitting/Side of Bed(Q: 6 Sit to Stand (QC): 6 Chair/Xdj-ic-Slfvy Xfer(QC): 6 Gait Mode of Locomotion: Walk Anticipated Mode of Locomotion: Walk Walk 10 feet (QC): 6 Walk 50 ft with 2 Turns(QC): 6 Walk 150 ft (QC): 6 Distance: 500' Gait Assistive Device: None Comments/Gait Description safe and functional with no deviation Balance Sitting Static: Normal Sitting Dynamic: Normal Standing Static: Normal Standing Dynamic: Normal Assessment/Needs Patient is currently at independent [facility] with all gross motor skills safely and does not require skilled PT intervention. Rehab Potential: Fair PT Plan Treatment/Plan Treatment Plan: Discontinue PT, goals met Treatment Duration: May 02, 2022 Frequency: 1 time per week Estimated Hrs Per Day: .25 hour per day Patient and/or Family Agrees t: Yes Time/GCodes Time In: 1310 Time Out: 1324 Total Billed Treatment Time: 14 Total Billed Treatment 1 visit EVMod 14 min MYNOR MATSON PT May 02, 2022 13:41
--- NOTE | 2022-05-02 14:06 | Occ Therapy Progress Note ---
Therapy Progress Note OT orders received and chart reviewed. OT visited with pt who indicates he is at his PLOF with ADLs and functional mobility. He was able to walk with PT, 500' without AD. he is able to toilet, dress and bathe himself without concerns. No skilled OT services indicated at this time, as pt is at his PLOF and independent. D/C from OT at this time. 1, visit IVAN BURTON OT May 02, 2022 14:06
[2022-05-02] MEDS: RT-ALBUTEROL/IPRATROPIUM 3 ML (DUONEB) VIAL INH SCH ×3 (15:07→21:28)
[2022-05-02] MEDS ORDERED: LOPERAMIDE 2 MG (IMODIUM) TABLET PO PRN (16:15)
[2022-05-02] MEDS ORDERED: AZITHROMYCIN 250 MG TAB (ZITHROMAX) PO NR (16:30)
[2022-05-02] MEDS: LACTOBACILLUS ACIDOPHILUS (PROBIOTIC) CAPSULE PO SCH (17:01)
[2022-05-02] MEDS: cefTRIAXone 1 GM PRE-MIX 50 ML IV SCH (17:02)
[2022-05-03] VITALS (7 sets, daily range): BP systolic 117–167; BP diastolic 1–69
[2022-05-03] MEDS: RT-ALBUTEROL/IPRATROPIUM 3 ML (DUONEB) VIAL INH SCH ×6 (02:01→21:47)
[2022-05-03] MEDS: NS IV 1000 ML 1,000 ML IV SCH ×2 (05:52→17:19)
[2022-05-03 05:59] LABS: HEMATOCRIT 25 % (40-54); HEMOGLOBIN 7.9 g/dL (13.3-17.7); MEAN CORPUSCULAR HEMOGLOBIN 30 pg (25-34); MEAN CORPUSCULAR HGB CONC 31 g/dL (32-36); MEAN CORPUSCULAR VOLUME 94 fL (80-99); MEAN PLATELET VOLUME 11.2 fL (9.0-12.2); PLATELET COUNT 263 10^3/uL (130-400); WHITE BLOOD COUNT 16.7 10^3/uL (4.3-11.0)
[2022-05-03 06:06] LABS: POTASSIUM 5.6 MMOL/L (3.6-5.0)
[2022-05-03 06:07] LABS: CALCIUM 8.4 MG/DL (8.5-10.1)
[2022-05-03 06:12] LABS: CREATININE SERUM 2.81 MG/DL (0.60-1.30)
[2022-05-03] MEDS: inSUlin ASPART (NovoLOG) 1 UNIT/0.01 ML (CHARGE PER UNIT) SC SCH ×4 (06:14→21:08)
[2022-05-03] MEDS: LACTOBACILLUS ACIDOPHILUS (PROBIOTIC) CAPSULE PO SCH ×3 (08:50→17:18)
[2022-05-03] MEDS: APIXABAN 2.5 MG (ELIQUIS) TABLET PO SCH ×2 (08:50→21:07)
[2022-05-03] MEDS: AZITHROMYCIN 250 MG TAB (ZITHROMAX) PO SCH (08:50)
--- NOTE | 2022-05-03 10:22 | Progress Note ---
ADOLFO MONTEZ 05/03/22 1022: Subjective Date Seen by a Provider: May 03, 2022 Time Seen by a Provider: 09:30 Subjective/Events-last exam The patient was awake sitting in bed at the beginning of the exam. He reports that he has more energy today than yesterday. The patient worked with PT and OT yesterday and was able to do all ADLs. He has been coughing up a lot of clear mucus since yesterday. He threw up this morning while he was eating breakfast and says he still feels nauseous whenever he is eating. Denies fever and chills. Review of Systems General: No Chills, No Night Sweats, No Fatigue; Appetite HEENT: No Head Aches, No Visual Changes, No Sinus Congestion, No Sore Throat Pulmonary: No Dyspnea; Cough Cardiovascular: No: Chest Pain, Palpitations, Edema Gastrointestinal: Nausea, Vomiting; No: Abdominal Pain, Diarrhea, Constipation Genitourinary: No Dysuria, No Frequency Musculoskeletal: back pain (chronic) Neurological: No: Weakness, Numbness, Incoordination Objective Exam Last Set of Vital Signs Vital Signs Date Time Temp Pulse Resp B/P (MAP) Pulse Ox O2 Delivery O2 Flow Rate FiO2 05/03/22 08:57 Room Air 05/03/22 07:55 36.6 86 18 145/68 (93) 93 05/03/22 02:01 0.00 Capillary Refill : Less Than 3 Seconds I&O Intake and Output 05/03/22 00:00 Intake Total 2435 ml Output Total 1425 ml Balance 1010 ml Intake Oral 1385 ml IV Total 1050 ml Output Urine Total 1425 ml # Bowel Movements 1 General: Alert, Oriented X3, Cooperative, No Acute Distress HEENT: Mucous Memb Moist/[place] Neck: Supple, No JVD, No Thyromegaly Lungs: Other (wheezing with exhalation) Heart: Regular Rate, Other (2+ systolic murmur) Abdomen: Soft, No Tenderness, No Hepatosplenomegaly Extremities: No Clubbing, No Cyanosis, Other (1+ pitting edema bilateral lower extremities) Skin: No Rashes, No Breakdown Neuro: Normal Speech, Normal Tone Psych/Mental Status: Mental Status NL, Mood NL Results Lab Laboratory Tests 05/02/22 11:18: Glucometer 353H 05/02/22 15:20: Glucometer 277H 05/02/22 20:54: Glucometer 289H 05/03/22 05:18: White Blood Count 16.7H, Red Blood Count 2.67L, Hemoglobin 7.9L, Hematocrit 25L, Mean Corpuscular Volume 94, Mean Corpuscular Hemoglobin 30, Mean Corpuscular Hemoglobin Concent 31L, Red Cell Distribution Width 14.3, Platelet Count 263, Mean Platelet Volume 11.2, Sodium Level 138, Potassium Level 5.6H, Chloride Level 117H, Carbon Dioxide Level 12L, Anion Gap 9, Blood Urea Nitrogen 63H, Creatinine 2.81H, Estimat Glomerular Filtration Rate 23, BUN/Creatinine Ratio 22, Glucose Level 230H, Calcium Level 8.4L 05/03/22 05:36: Glucometer 214H Assessment/Plan Assessment/Plan Assess & Plan/Chief Complaint 1) Hyperglycemia/ Diabetes mellitus type II insulin dependent - started insulin aspart on a sliding scale - restart home med linagliptin 5mg 1xD - accuchek has been ordered - patient is on a diabetic diet - insulin down to 214 today 2) Leukocytosis - most likely caused by a pneumonia as there was an infiltrate seen on the chest X-ray and the patient has been coughing - WBC still elevated today most likely because the patient has only received one dose of azithro yesterday evening - will continue to monitor WBC 3) Pneumonia - pro-calcitonin was elevated - received one dose of azithromycin 500mg - Azithromycin 250mg 1xD for 4 days and IV ceftriaxone 50ml@100mls/hr Q24hrs - Guaifenesin 400mg Q4hrs 4) Hyperkalemia - K elevated to 5.6 today - the patient most likely has chronically elevated K due to his CHF - patient is still using insulin which lower K - will continue to monitor K 5) CKD stage 4 - currently receiving IV fluids sodium chloride 1000mls @ 100mls/hr Q10hrs - creatinine improved from yesterday, 2.81 today 6) Anemia - most likely caused by his CKD - will continue to monitor Hgb 7) Atrial fibrillation - restart home medication Eliquis 2.5 BID - restart home medication Carvedilol 20mg 2xD 8) Hyperlipidemia - restart home medication atorvastatin 80mg 1xD 9) Hypertension - continue to monitor 10) Obstructive sleep apnea - order CPAP machine 11) Weakness - PT and OT have been ordered 12) Synthetic aortic valve Clinical Quality Measures Admission Status Admission Dx 1) Hyperglycemia/ Diabetes mellitus type II insulin dependent - started insulin aspart on a sliding scale - restart home med linagliptin 5mg 1xD - accuchek has been ordered - patient is on a diabetic diet - insulin down to 283 today 2) Leukocytosis - most likely caused by a pneumonia as there was an infiltrate seen on the chest X-ray and the patient has been coughing - pro-calcitonin has been ordered - start PO Amoxicillin 1g 3xD for 5 days and Azithromycin 500mg 1xD for 3 days 3) hyperkalemia - K almost WNL today - has gone down with insulin alone 4) CKD stage 4 - currently receiving IV fluids sodium chloride 1000mls @ 100mls/hr Q10hrs - creatinine improved from yesterday, 3.06 today 5) Anemia - most likely caused by his CKD - will continue to monitor Hgb 6) Atrial fibrillation - restart home medication Eliquis 2.5 BID - restart home medication Carvedilol 20mg 2xD 7) Hyperlipidemia - restart home medication atorvastatin 80mg 1xD 8) Hypertension - restart home medication lisinopril 10mg 1xD 9) Obstructive sleep apnea - order CPAP machine 10) Weakness - PT and OT have been ordered 11) Synthetic aortic valve MUNIR TRAN MD 05/03/22 1155: Assessment/Plan Assessment/Plan Assess & Plan/Chief Complaint Pt reports doing much better todya. Still not back to [facility] but improved. K up today and consistent with CKD b ut will trend. WBC remains ~16. Continue IV abx. Hopeful to DC home tomorrow if continues to improve and K trends down. Supervisory-Addendum Brief Verification & Attestation Participated in pt care: history, MDM, physical Personally performed: exam, history, MDM, supervision of care Care discussed with: Medical Student Procedures: n/a Results interpretation: Verified all documentation Verification and Attestation of Medical Student E/M Service A medical student performed and documented this service in my presence. I reviewed and verified all information documented by the medical student and made modifications to such information, when appropriate. I personally performed the physical exam and medical decision making. Munir Tran, May 03, 2022,11:50 ADOLFO MONTEZ May 03, 2022 10:22 MUNIR TRAN MD May 03, 2022 11:55
[2022-05-03] MEDS ORDERED: CLOPIDOGREL 75 MG (PLAVIX) TABLET PO SCH (12:00)
[2022-05-03] MEDS ORDERED: FLUTICASONE NASAL SPRAY (FLONASE) 16 GM BTL NS PRN (12:00)
[2022-05-03] MEDS ORDERED: guaiFENesin (MUCINEX) 600 MG TAB PO NR (12:00)
[2022-05-03] MEDS ORDERED: ARTIFICAL TEARS 0.4 ML UNIT DOSE (REFRESH PLUS) OU PRN (12:15)
[2022-05-03] MEDS: cefTRIAXone 1 GM PRE-MIX 50 ML IV SCH (17:19)
[2022-05-03] MEDS ORDERED: amLODIPine 5 MG (NORVASC) TAB PO SCH (21:00)
[2022-05-03] MEDS ORDERED: SEMAGLUTIDE 3 MG PO SCH (21:00)
[2022-05-03] MEDS: guaiFENesin (MUCINEX) 600 MG TAB PO SCH (21:07)
[2022-05-04] MEDS: NS IV 1000 ML 1,000 ML IV SCH ×2 (01:30→05:27)
[2022-05-04] MEDS: RT-ALBUTEROL/IPRATROPIUM 3 ML (DUONEB) VIAL INH SCH ×3 (02:17→09:27)
[2022-05-04 03:34] VITALS: BP 131/69
[2022-05-04] MEDS: inSUlin ASPART (NovoLOG) 1 UNIT/0.01 ML (CHARGE PER UNIT) SC SCH ×2 (05:25→10:50)
[2022-05-04 05:39] LABS: HEMATOCRIT 24 % (40-54); HEMOGLOBIN 7.7 g/dL (13.3-17.7); MEAN CORPUSCULAR HEMOGLOBIN 30 pg (25-34); MEAN CORPUSCULAR HGB CONC 32 g/dL (32-36); MEAN CORPUSCULAR VOLUME 95 fL (80-99); MEAN PLATELET VOLUME 10.9 fL (9.0-12.2); PLATELET COUNT 249 10^3/uL (130-400); WHITE BLOOD COUNT 14.3 10^3/uL (4.3-11.0)
[2022-05-04 05:54] LABS: POTASSIUM 5.1 MMOL/L (3.6-5.0)
[2022-05-04 05:55] LABS: CALCIUM 8.6 MG/DL (8.5-10.1)
[2022-05-04 06:00] LABS: CREATININE SERUM 2.65 MG/DL (0.60-1.30)
[2022-05-04 07:31] VITALS: BP 125/64
[2022-05-04] MEDS ORDERED: LORATADINE (CLARITIN) 10 MG TAB PO SCH (09:00)
[2022-05-04] MEDS: AZITHROMYCIN 250 MG TAB (ZITHROMAX) PO SCH (09:11)
[2022-05-04] MEDS: LACTOBACILLUS ACIDOPHILUS (PROBIOTIC) CAPSULE PO SCH (09:11)
[2022-05-04] MEDS: guaiFENesin (MUCINEX) 600 MG TAB PO SCH (09:12)
[2022-05-04] MEDS: APIXABAN 2.5 MG (ELIQUIS) TABLET PO SCH (09:12)
[2022-05-04] MEDS ORDERED: GUAI600T43 PO (11:22)
[2022-05-04] MEDS ORDERED: CEPH500T PO (11:22)
[2022-05-04] MEDS ORDERED: LACT1CAP7 PO (11:22)
[2022-05-04] MEDS ORDERED: AZIT250T12 PO (11:22)
[2022-05-04 11:23] VITALS: BP 136/62
--- NOTE | 2022-05-04 11:23 | Discharge Inst-Simple/Standard ---
Discharge Inst-Standard Discharge Medications New, Converted or Re-Newed RX: Transmitted to Pharmacy Patient Instructions/Follow Up Plan of Care/Instructions/FU: Please continue to take your medications as written. Please follow up with your primary care doctor to follow up this hospital stay. Activity as Tolerated: Yes Discharge Diet: Low Sodium Diet Return to The Hospital For: Chest pain, shortness of breath, fever, weakness, if you feel you are getting worse. MUNIR TRAN MD May 04, 2022 11:23
--- NOTE | 2022-05-04 13:47 | Discharge Summary ---
Diagnosis/Chief Complaint Date of Admission May 01, 2022 at 19:17 Date of Discharge May 04, 2022 at 12:01 Discharge Date: May 04, 2022 Admission Diagnosis Dehydration Primary Care Natanael Bauer DO Discharge Diagnosis Dehydration and pneumonia Discharge Summary Discharge Physical Exam Allergies: Coded Allergies: No Known Drug Allergies (Unverified , 07/11/09) Vitals & I&Os Vital Signs Date Time Temp Pulse Resp B/P (MAP) Pulse Ox O2 Delivery O2 Flow Rate FiO2 05/04/22 12:01 05/04/22 11:23 37.1 83 20 93 Room Air 05/03/22 02:01 0.00 General Appearance: No Apparent Distress, WD/WN HEENT: Moist Mucous Membranes Respiratory: Chest Non Tender, Lungs Clear, Normal Breath Sounds, No Accessory Muscle Use, No Respiratory Distress Cardiovascular: Regular Rate, Rhythm, Systolic Murmur (grade 2) Gastrointestinal: No Organomegaly, No Pulsatile Mass, Non Tender, Soft Extremity: Normal Capillary Refill, Normal Range of Motion, Non Tender, No Calf Tenderness, Pedal Edema (1+ bilateral pitting edema) Skin: Normal Color, Warm/Dry Neurologic/Psychiatric: Alert, Oriented x3, Normal Mood/Affect Hospital Course Ryan is a 76yo M with a past medical history of diabetes mellitus type 2 insulin dependent, CAD with CABG, htn, hld, atrial fibrillation, CKD stage 4, COPD, MICHELLE, and bladder cancer with full remission. He presented to the emergency room with a chief complaint of high blood sugar and generalized weakness. For the past two weeks he has been feeling nauseous and has been vomiting. He has been eating crackers and drinking boost protein shakes, water, and cranberry juice. He says he has not had a good appetite and that he is trying to avoid food with high Na because of his kidney disease. The patient has also had a cough the past few weeks and tested negative for COVID twice. His nausea worsened and when he checked his blood sugars they were high so he decided to come to the ER. In the emergency room the patient's WBC was 16.5, Hgb 9, blood glucose was 542, Na was 129, potassium 5.6, creatinine 3.63, and GFR 17. UA was positive for glucose. Chest X-ray showed cardiomegaly an in infiltrate. He was admitted for dehydration. The patient continued to feel nauseous and vomited after eating several times. He was started on IV and oral Abx to treat pneumonia. His nausea lessened and he was able to keep food down. His K was elevated during his stay which is most likely a chronic condition from his CKD. His creatiniine and GFR improved throughout his stay. The patient was laying in bed awake this morning. He reports that he has not thrown up since yesterday morning and has not had any nausea. He says that he is ready to go home. He will be sent with PO Abx to continue to treat his pneumonia. Labs (last 24 hrs) Laboratory Tests 05/03/22 20:08: Glucometer 207H 05/04/22 05:16: White Blood Count 14.3H, Red Blood Count 2.57L, Hemoglobin 7.7L, Hematocrit 24L, Mean Corpuscular Volume 95, Mean Corpuscular Hemoglobin 30, Mean Corpuscular Hemoglobin Concent 32, Red Cell Distribution Width 14.4, Platelet Count 249, Mean Platelet Volume 10.9, Sodium Level 139, Potassium Level 5.1H, Chloride Level 118H, Carbon Dioxide Level 13L, Anion Gap 8, Blood Urea Nitrogen 56H, Creatinine 2.65H, Estimat Glomerular Filtration Rate 24, BUN/Creatinine Ratio 21, Glucose Level 125H, Calcium Level 8.6 05/04/22 05:19: Glucometer 114H 05/04/22 10:43: Glucometer 179H Patient resulted labs reviewed. Pending Labs Laboratory Tests 05/04/22 10:43: Glucometer 179 Discussion & Recommendations Discharge Planning: >30 minutes discharge planning Discharge Home Medications: Active Scripts Active Acidophilus-Pectin Capsule (Lactobacillus Acidophilus/Pect) 75 Million Cell-100 Mg Capsule 2 Each PO TIDWM Cephalexin 500 Mg Tablet 500 Mg PO BID Azithromycin 250 Mg Tablet 250 Mg PO DAILY 3 Days Mucinex (Guaifenesin) 600 Mg Tab.er.12h 600 Mg PO BID Reported Refresh Tears (Carboxymethylcellulose Sodium) 0.5 % Drops 1-2 Drops OU UD Proair Hfa (Albuterol Sulfate) 90 Mcg Hfa.aer.ad 2 Puff INH Q6H PRN Fiasp 100 Unit/ml Flextouch (Insulin Aspart (Niacinamide)) 100 Unit/Ml (3 Ml) Insuln.pen 15 Unit SQ AC Carvedilol ER (Carvedilol Phosphate) 20 Mg Cpmp.24hr 20 Mg PO DAILY Cetirizine HCl 10 Mg Tablet 10 Mg PO DAILY Clopidogrel (Clopidogrel Bisulfate) 75 Mg Tablet 75 Mg PO Q48H Amlodipine Besylate 5 Mg Tablet 5 Mg PO HS Lantus Solostar (Insulin Glargine,Hum.rec.anlog) 100 Unit/Ml (3 Ml) Insuln.pen 20 Units SC HS Eliquis (Apixaban) 2.5 Mg Tablet 2.5 Mg PO BID Rybelsus (Semaglutide) 3 Mg Tablet 3 Mg PO HS Fluticasone Propionate 50 Mcg/Actuation Sawyer.susp 1 Sawyer NSEACH BID PRN Vitamin D3 (Cholecalciferol (Vitamin D3)) 50 Mcg Tablet 50 Mcg PO DAILY Atorvastatin Calcium 80 Mg Tablet 80 Mg PO HS Furosemide 40 Mg Tablet 40 Mg PO DAILY Allopurinol 100 Mg Tablet 100 Mg PO DAILY Instructions to patient/family Please see electronic discharge instructions given to patient. Clinical Quality Measures Admission Status Admission Dx 1) Hyperglycemia/ Diabetes mellitus type II insulin dependent - started insulin aspart on a sliding scale - restart home med linagliptin 5mg 1xD - accuchek has been ordered - patient is on a diabetic diet - insulin down to 173 today 2) Leukocytosis - most likely caused by a pneumonia as there was an infiltrate seen on the chest X-ray and the patient has been coughing - WBC is trending down after starting Abx - patient will go home on PO Amoxicillin 1g 3xD for 3 days and Azithromycin 250mg 1xD for 3 days 3) hyperkalemia - K almost WNL today - has gone down with insulin alone - patient most likely has chronic hyperkalemia from CKD 4) CKD stage 4 - currently receiving IV fluids sodium chloride 1000mls @ 100mls/hr Q10hrs - creatinine improved from yesterday, 2.81 today 5) Anemia - most likely caused by his CKD - will continue to monitor Hgb 6) Atrial fibrillation - restart home medication Eliquis 2.5 BID - restart home medication Carvedilol 20mg 2xD 7) Hyperlipidemia - restart home medication atorvastatin 80mg 1xD 8) Hypertension - restart home medication lisinopril 10mg 1xD 9) Obstructive sleep apnea - order CPAP machine 10) Weakness - PT and OT have been ordered 11) Synthetic aortic valve Admission Status: Inpatient Order (span 2 midnights) Reason for Inpatient Admission: Hyperkalemia and leukocytosis ADOLFO MONTEZ May 04, 2022 13:47
== END 2022-05-04 12:01 | disposition home or self-care (01) | DRG 640 ==
LOC: EDUNIT# 17:31 → ER 17:34 → 4TH 19:17
PROVIDERS: ADMIT Internal Medicine; ATTEND Internal Medicine
PROC: 5A09357 Assistance with Respiratory Ventilation, Less than 24 Consecutive Hours, Continuous Positive Airway Pressure (ICD-10-PCS; principal; 2022-05-03)
DX: E86.0 Dehydration (principal); J18.9 Pneumonia, unspecified organism; N18.4 Chronic kidney disease, stage 4 (severe); E11.22 Type 2 diabetes mellitus with diabetic chronic kidney disease; Z79.4 Long term (current) use of insulin; I25.10 Atherosclerotic heart disease of native coronary artery without angina pectoris; Z95.1 Presence of aortocoronary bypass graft; I12.9 Hypertensive chronic kidney disease with stage 1 through stage 4 chronic kidney disease, or unspecified chronic kidney disease; I48.91 Unspecified atrial fibrillation; G47.33 Obstructive sleep apnea (adult) (pediatric); Z20.822 Contact with and (suspected) exposure to COVID-19; E11.65 Type 2 diabetes mellitus with hyperglycemia; D72.829 Elevated white blood cell count, unspecified; E87.5 Hyperkalemia; D63.1 Anemia in chronic kidney disease; R53.1 Weakness; Z79.84 Long term (current) use of oral hypoglycemic drugs; Z79.899 Other long term (current) drug therapy; Z95.2 Presence of prosthetic heart valve; J43.9 Emphysema, unspecified; E78.00 Pure hypercholesterolemia, unspecified; M19.90 Unspecified osteoarthritis, unspecified site; Z85.828 Personal history of other malignant neoplasm of skin; Z85.51 Personal history of malignant neoplasm of bladder; Z87.891 Personal history of nicotine dependence
CPT/HCPCS: 36415; 71045; 80048; 80053; 81000; 82010; 82805; 82947; 84145; 84484; 85007; 85027; 87636; 93005; 94640; 94664; 94760

== ENCOUNTER 2022-06-02 08:48 | Day surgery (SDC) | payer MEDICARE, OTHER ==
[2022-06-02] VITALS (10 sets, daily range): BP systolic 107–127; BP diastolic 44–54
[~2022-06-02 08:48] MED LIST changes: +ALBU8.5H9 INH; +AMLO-250 PO; +APIX2.5T PO; +AZIT250T12 PO; +CARB15DR OU; +CARV20CP7 PO; +CEPH500T PO; +CETI10TA17 PO; +FLUT16SP22 NSEACH; +GUAI600T43 PO; +INSU100I10 SC; +INSU100I40 SQ; +LACT1CAP7 PO; +SEMA3TAB4 PO
[2022-06-02 09:20] LABS: BASOPHILS # (AUTO) 0.1 10^3/uL (0.0-0.1); BASOPHILS % (AUTO) 1 % (0-10); EOSINOPHILS # (AUTO) 0.2 10^3/uL (0.0-0.3); EOSINOPHILS % (AUTO) 1 % (0-10); HEMATOCRIT 27 % (40-54); HEMOGLOBIN 8.7 g/dL (13.3-17.7); LYMPHOCYTES # (AUTO) 1.1 10^3/uL (1.0-4.0); LYMPHOCYTES % (AUTO) 7 % (12-44); MEAN CORPUSCULAR HEMOGLOBIN 29 pg (25-34); MEAN CORPUSCULAR HGB CONC 32 g/dL (32-36); MEAN CORPUSCULAR VOLUME 91 fL (80-99); MEAN PLATELET VOLUME 11.1 fL (9.0-12.2); MONOCYTES # (AUTO) 1.6 10^3/uL (0.0-1.0); MONOCYTES % (AUTO) 10 % (0-12); NEUTROPHILS # (AUTO) 13.1 10^3/uL (1.8-7.8); NEUTROPHILS % (AUTO) 81 % (42-75); PLATELET COUNT 248 10^3/uL (130-400); WHITE BLOOD COUNT 16.3 10^3/uL (4.3-11.0)
[2022-06-02 10:01] LABS: BAND NEUTROPHILS 1 %; EOSINOPHILS % (MANUAL) 4 %; LYMPHOCYTES % (MANUAL) 5 %; MONOCYTES % (MANUAL) 9 %; NEUTROPHILS % (MANUAL) 81 %; RBC MORPH NORMAL
[2022-06-02] MEDS ORDERED: FERR-84 PO (10:04)
[2022-06-02] MEDS ORDERED: SODI325T PO (10:04)
[2022-06-02] MEDS ORDERED: NS IV 1000 ML 1,000 ML IV STA (10:08)
[2022-06-02 10:09] LABS: INR 1.3 (0.8-1.4); PROTHROMBIN TIME PATIENT 16.6 SEC (12.2-14.7)
[2022-06-02] MEDS ORDERED: fentaNYL INJ 100 MCG/2 ML AMP IVP ONE (10:15)
[2022-06-02] MEDS ORDERED: MIDAZOLAM 2 MG/2 ML (VERSED) VIAL IVP ONE (10:15)
[2022-06-02] MEDS ORDERED: LIDOCAINE 1% INJ 30 ML (XYLOCAINE) VIAL INJ ONE (10:15)
[2022-06-02] MEDS ORDERED: HYDROcodone/APAP 5 MG/325 MG (LORTAB) TAB PO PRN (11:30)
--- NOTE | 2022-06-02 11:30 | Pre-Op Note & Conscious Sedat ---
Pre-Operative Progress Note Date of Available H&P: Jun 02, 2022 Date H&P Reviewed: Jun 02, 2022 Time H&P Reviewed: 10:00 Pre-Op Diagnosis: T10 lesion Conscious Sedation Pre-Proced Time 10:00 ASA Score 2 For ASA 3 and 4: Consider anesthesia and medical clearance. Also, for patients with a history of failed moderate sedation consider anesthesia. Airway Lungs Heart ASA score ASA 1: a normal healthy patient ASA 2: a patient with a mild systemic disease (mid diabetes, controlled hypertension, obesity ASA 3: a patient with a severe systemic disease that limits activity (angina, COPD, prior Myocardial infarction) ASA 4: a patient with an incapacitating disease that is a constant threat to life (CHF, renal failure) ASA 5: a moribund patient not expected to survive 24 hrs. (ruptured aneurysm) ASA 6: a declared brain- patient whose organs are being harvested. For emergent operations, add the letter E after the classification Mallampati Classification Grade 2 Sedation Plan Analgesia, Amnesia, Plan communicated to team members, Discussed options with patient/fam, Discussed risks with patient/fam The patient is an appropriate candidate to undergo the planned procedure, sedation, and anesthesia. The patient immediately re-assessed prior to indication. JAVIER JOHNSON MD Jun 02, 2022 11:30
--- NOTE | 2022-06-02 11:33 | Diagnostic Imaging Report ---
INDICATION: Lytic lesion at T10 spinous process. Patient presents for CT-guided biopsy. Patient brought to the CT suite placed on table in the prone position. Axial imaging through the lower chest was performed to evaluate appropriate entry site. Procedure was performed utilizing conscious sedation with radiology nursing and constant patient monitoring. Patient was given a total of 50 mcg of fentanyl intravenously and 1 mg of Versed intravenously. Total procedural time approximately 9 minutes. Low back was prepped and draped in usual sterile fashion. Small amount of 1% lidocaine was utilized for local anesthesia. Bone marrow needle was advanced place with its tip adjacent to the T10 spinous process containing a lytic lesion. 2 core biopsies were obtained utilizing the bone marrow drill. Needle was removed and hemostasis was obtained. Patient tolerated procedure well and left the department in stable condition. IMPRESSION: Successful CT-guided core biopsy of the lytic lesion of the T10 spinous process, utilizing conscious sedation. Pathology results are currently pending. Dictated by: Dictated on workstation # [id number]
== END 2022-06-02 13:05 | disposition home or self-care (01) ==
LOC: RAD 08:48 → SDC 11:03 → RAD 13:05
PROVIDERS: ATTEND Internal Medicine Hematology & Oncology
DX: C96.9 Malignant neoplasm of lymphoid, hematopoietic and related tissue, unspecified (principal)
CPT/HCPCS: 36415; 38222; 85007; 85027; 85610; 85730; 88307; 88311; 88342; 88344; 99156

== ENCOUNTER 2022-06-30 08:09 | Emergency (ER) | payer MEDICARE, OTHER ==
[~2022-06-30] VITALS: Ht 177 cm; Wt 97.0 kg
[~2022-06-30 08:09] MED LIST changes: +CLOP-31 PO; -CLOP75TA69 PO; +FERR-84 PO; +SODI325T PO
--- NOTE | 2022-06-30 08:18 | ED Chest Pain ---
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 Patient took his insulin last night but did not have anything to eat or drink today morning. Patient states that he cannot adequately explain what he feels but he was concerned. Denies fever, diarrhea, abdominal pain, lightheadedness, dizziness. In the ER patient only has chest discomfort and a feeling of uneasiness. Allergies and Home Medications Allergies Coded Allergies: No Known Drug Allergies (Unverified , 07/11/09) Patient Home Medication List Home Medication List Reviewed: Yes Albuterol Sulfate (Proair Hfa) 90 Mcg Hfa.aer.ad, 2 PUFF INH Q6H PRN for SHORTN ESS OF BREATH, (Reported) Entered as Reported by: MAUREEN MEDINA on 05/02/22 1249 Allopurinol (Allopurinol) 100 Mg Tablet, 100 MG PO DAILY, (Reported) Entered as Reported by: SHERIE GODDARD on 12/24/16 1036 Amlodipine Besylate (Amlodipine Besylate) 5 Mg Tablet, 5 MG PO HS, (Reported) Entered as Reported by: MAUREEN MEDINA on 05/02/22 1249 Apixaban (Eliquis) 2.5 Mg Tablet, 2.5 MG PO BID, (Reported) Entered as Reported by: MAUREEN MEDINA on 05/02/22 1249 Atorvastatin Calcium (Atorvastatin Calcium) 80 Mg Tablet, 80 MG PO HS, (Reported) Entered as Reported by: SHERIE GODDARD on 07/14/19 1025 Carboxymethylcellulose Sodium (Refresh Tears) 0.5 % Drops, 1-2 DROPS OU UD, (Reported) Entered as Reported by: MAUREEN MEDINA on 05/02/22 1249 Carvedilol Phosphate (Carvedilol ER) 20 Mg Cpmp.24hr, 20 MG PO DAILY, (Reported) Entered as Reported by: MAUREEN MEDINA on 05/02/22 1249 Cetirizine HCl (Cetirizine HCl) 10 Mg Tablet, 10 MG PO DAILY, (Reported) Entered as Reported by: MAUREEN MEDINA on 05/02/22 1249 Cholecalciferol (Vitamin D3) (Vitamin D3) 50 Mcg Tablet, 50 MCG PO DAILY, (Reported) Entered as Reported by: SHERIE GODDARD on 01/27/20 0959 Clopidogrel Bisulfate (Clopidogrel) 75 Mg Tablet, 75 MG PO Q48H, (Reported) Entered as Reported by: MAUREEN MEDINA on 05/02/22 1249 Ferrous Sulfate (Iron) 325 Mg (65 Mg Iron) Tablet, 325 MG PO, (Reported) Entered as Reported by: SWATHI COBB on 06/02/22 1004 Fluticasone Propionate (Fluticasone Propionate) 50 Mcg/Actuation [place].susp, 1 SPRAY NSEACH BID PRN for CONGESTION, (Reported) Entered as Reported by: MAUREEN MEDINA on 05/02/22 1249 Furosemide (Furosemide) 40 Mg Tablet, 40 MG PO DAILY, (Reported) Entered as Reported by: SHERIE GODDARD on 07/14/19 1025 Insulin Aspart (Niacinamide) (Fiasp 100 Unit/ml Flextouch) 100 Unit/Ml (3 Ml) Insuln.pen, 15 UNIT SQ AC, (Reported) Entered as Reported by: MAUREEN MEDINA on 05/02/22 1249 Insulin Glargine,Hum.rec.anlog (Lantus Solostar) 100 Unit/Ml (3 Ml) Insuln.pen, 20 UNITS SC HS, (Reported) Entered as Reported by: MAUREEN MEDINA on 05/02/22 1249 Semaglutide (Rybelsus) 3 Mg Tablet, 3 MG PO HS, (Reported) Entered as Reported by: MAUREEN MEDINA on 05/02/22 124 Sodium Bicarbonate (Sodium Bicarbonate) 325 Mg Tablet, 2 MG PO, (Reported) Entered as Reported by: SWATHI COBB on 06/02/22 1004 Review of Systems Review of Systems Constitutional: no symptoms reported EENTM: No Symptoms Reported Respiratory: Shortness of Air (Momentary) Cardiovascular: Edema (Bilateral pedal edema due to his blood pressure medication of amlodipine), Other (Chest discomfort) Gastrointestinal: No Symptoms Reported Genitourinary: No Symptoms Reported Musculoskeletal: no symptoms reported Skin: no symptoms reported Psychiatric/Neurological: No Symptoms Reported Endocrine: No Symptoms Reported Hematologic/Lymphatic: No Symptoms Reported Past Nodggge-Amzuco-Kettri Hx Immunizations Up To Date First/Initial COVID19 Vaccinat: 2020 Second COVID19 Vaccination Carlito: 2019 Seasonal Allergies Seasonal Allergies: Yes Past Medical History Surgery/Hospitalization HX: MELANOMA, DIABETES,B/P CHOLESTEROL Surgeries: Yes (detached retina in bilat eye, clavicle fx, bilat shoulder sx, ) Bladder Surgery, Cardiac, CABG, Renal, Tonsillectomy, Valve Replacement Respiratory: Yes Sleep Apnea, COPD, Emphysema Currently Using CPAP: Yes Currently Using BIPAP: No Cardiac: Yes (CABG, aortic valve replaced) Atrial Fibrillation, Coronary Artery Disease, High Cholesterol, Hypertension, Valvular Heart Disease Neurological: No Reproductive Disorders: No Sexually Transmitted Disease: No Genitourinary: Yes (bladder tumors) Kidney Stones Gastrointestinal: No Musculoskeletal: Yes Arthritis Endocrine: Yes Diabetes, Non-Insulin dep HEENT: Yes (detached retina sx) Cancer: Yes (had a malignant mole removed with lymphnode removed as well) Bladder, Skin Did You Recieve Any Treatments: Yes What Type of Treatment Did You: Surgical Intervention Psychosocial: No Integumentary: Yes Blood Disorders: Yes (anemia) Adverse Reaction/Blood Tranf: No Physical Exam Vital Signs Vital Signs - First Documented 06/30/22 08:20 Temp 35.1 Pulse 60 Resp 18 B/P (MAP) 135/51 (79) Pulse Ox 95 O2 Delivery Room Air Capillary Refill : Height, Weight, BMI Height: 5'9.00" Weight: 260lbs. 0.0oz. [id number]; 32.46 BMI Method:Stated General Appearance: Mild Distress HEENT: Normal ENT Inspection Neck: Full Range of Motion, Normal Inspection, Non Tender Respiratory: Chest Non Tender, Lungs Clear, Normal Breath Sounds, No Accessory Muscle Use, No Respiratory Distress Cardiovascular: Regular Rate, Rhythm, Systolic Murmur, Other (Bilateral pedal edema present, overlying skin glossy. No erythema, not warm to touch.) Gastrointestinal: Normal Bowel Sounds, Non Tender, Soft Extremity: Normal Range of Motion Neurologic/Psychiatric: Alert, Oriented x3, No Motor/Sensory Deficits Skin: Normal Color Progress/Results/Core Measures Results/Orders Lab Results Laboratory Tests Test 06/30/22 08:26 06/30/22 09:03 06/30/22 09:11 Range/Units White Blood Count 10.8 4.3-11.0 10^3/uL Red Blood Count 2.93 L 4.30-5.52 10^6/uL Hemoglobin 8.6 L 13.3-17.7 g/dL Hematocrit 27 L 40-54 % Mean Corpuscular Volume 92 80-99 fL Mean Corpuscular Hemoglobin 29 25-34 pg Mean Corpuscular Hemoglobin Concent 32 32-36 g/dL Red Cell Distribution Width 18.0 H 10.0-14.5 % Platelet Count 264 130-400 10^3/uL Mean Platelet Volume 11.8 9.0-12.2 fL Immature Granulocyte % (Auto) 4 % Neutrophils (%) (Auto) 68 42-75 % Lymphocytes (%) (Auto) 15 12-44 % Monocytes (%) (Auto) 11 0-12 % Eosinophils (%) (Auto) 2 0-10 % Basophils (%) (Auto) 1 0-10 % Neutrophils # (Auto) 7.4 1.8-7.8 10^3/uL Lymphocytes # (Auto) 1.6 1.0-4.0 10^3/uL Monocytes # (Auto) 1.1 H 0.0-1.0 10^3/uL Eosinophils # (Auto) 0.2 0.0-0.3 10^3/uL Basophils # (Auto) 0.1 0.0-0.1 10^3/uL Immature Granulocyte # (Auto) 0.4 H 0.0-0.1 10^3/uL Prothrombin Time 17.5 H 12.2-14.7 SEC INR Comment 1.4 0.8-1.4 Activated Partial Thromboplast Time 48 H 24-35 SEC D-Dimer 10.98 H 0.00-0.49 UG/ML Sodium Level 139 135-145 MMOL/L Potassium Level 5.3 H 3.6-5.0 MMOL/L Chloride Level 102 98-107 MMOL/L Carbon Dioxide Level 24 21-32 MMOL/L Anion Gap 13 5-14 MMOL/L Blood Urea Nitrogen 119 *H 7-18 MG/DL Creatinine 4.55 H 0.60-1.30 MG/DL Estimat Glomerular Filtration Rate 13 BUN/Creatinine Ratio 26 Glucose Level 60 *L 70-105 MG/DL Calcium Level 7.3 L 8.5-10.1 MG/DL Corrected Calcium 8.7 8.5-10.1 MG/DL Magnesium Level 3.3 H 1.6-2.4 MG/DL Total Bilirubin 0.6 0.1-1.0 MG/DL Aspartate Amino Transf (AST/SGOT) 77 H 5-34 U/L Alanine Aminotransferase (ALT/SGPT) 21 0-55 U/L Alkaline Phosphatase 1817 H 40-136 U/L Myoglobin 69.3 10.0-92.0 NG/ML Troponin I < 0.028 <0.028 NG/ML B-Type Natriuretic Peptide 487.6 H <100.0 PG/ML Total Protein 6.1 L 6.4-8.2 GM/DL Albumin 2.3 L 3.2-4.5 GM/DL Urine Color YELLOW Urine Clarity CLEAR Urine pH 7.0 5-9 Urine Specific [place] 1.010 L 1.016-1.022 Urine Protein NEGATIVE NEGATIVE Urine Glucose (UA) NEGATIVE NEGATIVE Urine Ketones NEGATIVE NEGATIVE Urine Nitrite NEGATIVE NEGATIVE Urine Bilirubin NEGATIVE NEGATIVE Urine Urobilinogen 0.2 < = 1.0 MG/DL Urine Leukocyte Esterase NEGATIVE NEGATIVE Urine RBC (Auto) NEGATIVE NEGATIVE Urine RBC NONE /HPF Urine WBC NONE /HPF Urine Squamous Epithelial Cells RARE /HPF Urine Crystals NONE /LPF Urine Bacteria NEGATIVE /HPF Urine Casts NONE /LPF Urine Mucus NEGATIVE /LPF Urine Culture Indicated NO Glucometer 64 L 70-110 MG/DL My Orders Orders - JIA LOPEZ MD Ekg Tracing (06/30/22 08:13) Cbc With Automated Diff (06/30/22 08:18) Magnesium (06/30/22 08:18) Chest 1 View, Ap/Pa Only (06/30/22 08:18) Comprehensive Metabolic Panel (06/30/22 08:18) Myoglobin Serum (06/30/22 08:18) Protime With Inr (06/30/22 08:18) Partial Thromboplastin Time (06/30/22 08:18) O2 (06/30/22 08:18) Monitor-Rhythm Ecg Trace Only (06/30/22 08:18) Ed Iv/Invasive Line Start (06/30/22 08:18) Bnp Ponce (06/30/22 08:18) Fibrin Degradation Products (06/30/22 08:18) Troponin I Ponce (06/30/22 08:18) Aspirin Chewable Tablet (Baby Aspirin Ch (06/30/22 08:30) Ua Culture If Indicated (06/30/22 08:18) D50w (Emergency) Syringe (Dextrose 50% 5 (06/30/22 08:59) Sodium Polystyrene Powder (Kayexalate P (06/30/22 09:30) Us Venous Lower Ext Vonda (06/30/22 10:55) Lung Scan Perfusion (06/30/22 10:55) Medications Given in ED Current Medications Medications Dose Ordered Sig/Gautam Route Start Time Stop Time Status Last Admin Dose Admin Aspirin 324 mg ONCE ONCE PO 06/30/22 08:30 06/30/22 08:31 DC 06/30/22 08:42 324 MG Vital Signs/I&O 06/30/22 08:20 Temp 35.1 Pulse 60 Resp 18 B/P (MAP) 135/51 (79) Pulse Ox 95 O2 Delivery Room Air Progress Progress Note : Progress Note 1. CHEST DISCOMFORT: HYPOGLYCEMIA & CHEMOTHERAPY SIDE EFFECTS: - CXR: - Troponin/ EKG: non-ischemic - CBC: normal WBC , Hb is 8.6 - Alk phos is 1817 likely due to mets to bone/spine - blood sugar initially 60 and patient was then given 50 mg of D50 and then rechecked blood sugar was 154. Patient has not had anything to eat or drink today morning after taking Lantus last night. Patient did not check his blood sugar at home and this may have have contributed to his chest discomfort and his uneasy feeling, in addition to the possible side effects of chemotherapy he started this week. -Advised to check blood glucose levels and he has been feeling unwell and to eat something of the blood sugar is low. Also advised to follow-up with his oncologist within the next 3 to 5 days in regards to his chemotherapy side effect assessment. -The patient was seen in the ED, and treated appropriately to presentation at a specific point in time. Patient is informed that there is a possibility that disease and illness can evolve and change in acuity rapidly or slowly after patient is discharged from the ER. Precautionary advice given to the patient for immediate return to ER if symptoms worsen or do not resolve, and to seek emergency care sooner rather than later. Pt also advised on the importance of PCP follow up and compliance with management and follow up plan with PCP and/or specialist, as this is part of the management plan. Pt verbally expressed understanding. 2. ELEVATED D-DIMER: - D-dimer is 10.98 - VQ SCAN: Took a few hours to obtain the study.Negative for PE -Patient is unable to have a CTA of the chest due to elevated creatinine levels 3. HYPERKALEMIA & HYPERMAGNESEMIA: - s, Mg is 3.3 and s. K is 5.3 - Yany exalate given in ER - FOllow up with PCP for lab recheck in one week 4. CKD: -Serum creatinine is 4.55 and BUN is 119 -Patient is awaiting hemodialysis, but has been assessed for Diagnostic Imaging Diagonstic Imaging: Xray, Nuclear Med, Ultrasound Plain Films/CT/US/NM/MRI: chest, leg Comments [facility] [place] NAME: MARTINA CASTRO [facility] REC#: [id number] PT STATUS: REG ER : 1945 PHYSICIAN: JIA LOPEZ MD ADMIT DATE: 06/30/22/ER Draft Date of Exam:06/30/22 LUNG SCAN PERFUSION INDICATION: Elevated D-dimer. TECHNIQUE: Patient was administered 5.4 mCi technetium-99m MAA intravenously, and imaging over the chest was performed in multiple obliquities. FINDINGS: There is homogeneous perfusion of both lungs. No pleural-based perfusion defects are identified. IMPRESSION: Normal perfusion lung scan. Dictated on workstation # [id number] Dict: 06/30/22 1447 Trans: 06/30/22 1459 [id number] Interpreted by: JAVIER JOHNSON MD Electronically signed by: [facility] [place] NAME: MARTINA CASTRO [facility] REC#: [id number] PT STATUS: REG ER : 1945 PHYSICIAN: JIA LOPEZ MD ADMIT DATE: 06/30/22/ER Signed Date of Exam:06/30/22 CHEST 1 VIEW, AP/PA ONLY IndiCATION: Chest pain COMPARISON: 05/02/2022 TECHNIQUE: Single radiograph chest dated 06/30/2022 FINDINGS: Post surgical changes of a CABG. Additional postsurgical changes are noted overlying the mid right clavicle. The cardiac silhouette is mildly enlarged, though similar to the prior examination. No significant pulmonary vascular congestion. The lungs are clear of focal pulmonary opacity. No pleural effusion. No pneumothorax. No acute osseous abnormality. Prosthetic cardiac valve is present. IMPRESSION: Stable appearing postsurgical changes and mild cardiomegaly without superimposed acute cardiopulmonary abnormality. Dictated by: Dictated on workstation # [id number] Dict: 06/30/22 0848 Trans: 06/30/22 1150 [id number] Interpreted by: LAURY JOHNSON MD Electronically signed by: LAURY JOHNSON MD 06/30/22 1150 [facility] [place] [place] NAME: MARTINA CASTRO [facility] REC#: [id number] PT STATUS: REG ER : 1945 PHYSICIAN: JIA LOPEZ MD ADMIT DATE: 06/30/22/ER Draft Date of Exam:06/30/22 US VENOUS LOWER EXT VONDA PROCEDURE: US Venous Lower Ext Vonda. TECHNIQUE: Multiple real-time grayscale images were obtained over the lower extremities in various projections, bilaterally. Additional duplex Doppler and color Doppler images were also obtained. INDICATION: Elevated D-dimer. FINDINGS: There is no evidence of right or left lower extremity DVT. Both lower extremity deep venous systems demonstrate normal compressibility with normal response to augmentation and Valsalva. No fluid collection or mass is detected. IMPRESSION: No evidence of right or left lower extremity DVT. Dictated on workstation # [id number] Dict: 06/30/22 1246 Trans: 06/30/22 1249 [id number] Interpreted by: JAVIER JOHNSON MD Electronically signed by: Departure Impression Primary Impression: Ruled out for myocardial infarction Additional Impressions: Hypoglycemia Effect of chemotherapy Hypermagnesemia Hyperkalemia CKD (chronic kidney disease) Qualified Codes: N18.9 - Chronic kidney disease, unspecified Disposition: 01 HOME, SELF-CARE Condition: Stable Departure-Patient Inst. Referrals: MARIELY ESPAÑA DO (PCP/Family) Primary Care Physician Patient Instructions: Chest Pain That Is Not Caused by the Heart (DC), Hyperkalemia (DC), Low Blood Sugar, Adult (DC), Low Blood Sugar in People With Diabetes, Kidney Disease Diet (For People Not on Dialysis) Add. Discharge Instructions: -Advised to check blood glucose levels and he has been feeling unwell and to eat something of the blood sugar is low. Also advised to follow-up with his oncologist within the next 3 to 5 days in regards to his chemotherapy side effect assessment. -Follow-up for electrolyte lab recheck with PCP in 1 week -Return to ER if symptoms do not improve or if it continues All discharge instructions reviewed with patient and/or family. Voiced underst anding. JIA LOPEZ MD Jun 30, 2022 08:18
[2022-06-30] MEDS ORDERED: ASPIRIN 81 MG CHEW (CHILDREN'S ASA) PO ONE (08:30)
[2022-06-30 08:35] LABS: BASOPHILS # (AUTO) 0.1 10^3/uL (0.0-0.1); BASOPHILS % (AUTO) 1 % (0-10); EOSINOPHILS # (AUTO) 0.2 10^3/uL (0.0-0.3); EOSINOPHILS % (AUTO) 2 % (0-10); HEMATOCRIT 27 % (40-54); HEMOGLOBIN 8.6 g/dL (13.3-17.7); LYMPHOCYTES # (AUTO) 1.6 10^3/uL (1.0-4.0); LYMPHOCYTES % (AUTO) 15 % (12-44); MEAN CORPUSCULAR HEMOGLOBIN 29 pg (25-34); MEAN CORPUSCULAR HGB CONC 32 g/dL (32-36); MEAN CORPUSCULAR VOLUME 92 fL (80-99); MEAN PLATELET VOLUME 11.8 fL (9.0-12.2); MONOCYTES # (AUTO) 1.1 10^3/uL (0.0-1.0); MONOCYTES % (AUTO) 11 % (0-12); NEUTROPHILS # (AUTO) 7.4 10^3/uL (1.8-7.8); NEUTROPHILS % (AUTO) 68 % (42-75); PLATELET COUNT 264 10^3/uL (130-400); WHITE BLOOD COUNT 10.8 10^3/uL (4.3-11.0)
[2022-06-30 08:47] LABS: ALBUMIN 2.3 GM/DL (3.2-4.5); POTASSIUM 5.3 MMOL/L (3.6-5.0)
[2022-06-30 08:48] LABS: CALCIUM 7.3 MG/DL (8.5-10.1)
[2022-06-30 08:49] LABS: INR 1.4 (0.8-1.4); PROTHROMBIN TIME PATIENT 17.5 SEC (12.2-14.7); TOTAL PROTEIN 6.1 GM/DL (6.4-8.2)
[2022-06-30 08:51] LABS: BILIRUBIN,TOTAL 0.6 MG/DL (0.1-1.0)
[2022-06-30 08:53] LABS: CREATININE SERUM 4.55 MG/DL (0.60-1.30)
[2022-06-30 08:55] LABS: MAGNESIUM 3.3 MG/DL (1.6-2.4)
--- NOTE | 2022-06-30 08:57 | Diagnostic Imaging Report ---
IndiCATION: Chest pain COMPARISON: 05/02/2022 TECHNIQUE: Single radiograph chest dated 06/30/2022 FINDINGS: Post surgical changes of a CABG. Additional postsurgical changes are noted overlying the mid right clavicle. The cardiac silhouette is mildly enlarged, though similar to the prior examination. No significant pulmonary vascular congestion. The lungs are clear of focal pulmonary opacity. No pleural effusion. No pneumothorax. No acute osseous abnormality. Prosthetic cardiac valve is present. IMPRESSION: Stable appearing postsurgical changes and mild cardiomegaly without superimposed acute cardiopulmonary abnormality. Dictated by: Dictated on workstation # [id number]
[2022-06-30] MEDS ORDERED: DEXTROSE 50% 50 ML (IMS) SYR IV STA (08:59)
[2022-06-30 09:14] LABS: BILIRUBIN,URINE NEGATIVE (NEGATIVE); CLARITY,URINE CLEAR; COLOR,URINE YELLOW; GLUCOSE, URINE (UA) NEGATIVE (NEGATIVE); KETONES,URINE NEGATIVE (NEGATIVE); LEUKOCYTE ESTERASE ,URINE NEGATIVE (NEGATIVE); NITRITE,URINE NEGATIVE (NEGATIVE); PROTEIN,URINE NEGATIVE (NEGATIVE)
[2022-06-30] MEDS ORDERED: SODIUM POLYSTYRENE POWDER 15 GM BOTTLE PO ONE (09:30)
[2022-06-30 09:43] LABS: BACTERIA,URINE NEGATIVE /HPF; SQUAMOUS EPITHELIAL CELL,UR RARE /HPF
--- NOTE | 2022-06-30 12:49 | Diagnostic Imaging Report ---
PROCEDURE: US Venous Lower Ext [place]. TECHNIQUE: Multiple real-time grayscale images were obtained over the lower extremities in various projections, bilaterally. Additional duplex Doppler and color Doppler images were also obtained. INDICATION: Elevated D-dimer. FINDINGS: There is no evidence of right or left lower extremity DVT. Both lower extremity deep venous systems demonstrate normal compressibility with normal response to augmentation and Valsalva. No fluid collection or mass is detected. IMPRESSION: No evidence of right or left lower extremity DVT. Dictated by: Dictated on workstation # [id number]
--- NOTE | 2022-06-30 14:59 | Diagnostic Imaging Report ---
INDICATION: Elevated D-dimer. TECHNIQUE: Patient was administered 5.4 mCi technetium-99m MAA intravenously, and imaging over the chest was performed in multiple obliquities. FINDINGS: There is homogeneous perfusion of both lungs. No pleural-based perfusion defects are identified. IMPRESSION: Normal perfusion lung scan. Dictated by: Dictated on workstation # [id number]
[2022-06-30] MEDS ORDERED: SODIUM POLYSTYRENE POWDER 15 GM BOTTLE ONE (15:56)
[2022-06-30 16:10] VITALS: BP 142/56
== END 2022-06-30 16:09 | disposition home or self-care (01) ==
LOC: EDUNIT# 08:09 → ER 08:11
DX: E11.649 Type 2 diabetes mellitus with hypoglycemia without coma (principal); E11.22 Type 2 diabetes mellitus with diabetic chronic kidney disease; I12.9 Hypertensive chronic kidney disease with stage 1 through stage 4 chronic kidney disease, or unspecified chronic kidney disease; N18.9 Chronic kidney disease, unspecified; T45.1X5A Adverse effect of antineoplastic and immunosuppressive drugs, initial encounter; E83.41 Hypermagnesemia; E87.6 Hypokalemia; Z85.820 Personal history of malignant melanoma of skin; Z85.51 Personal history of malignant neoplasm of bladder; Z98.890 Other specified postprocedural states
CPT/HCPCS: 71045; 78580; 80053; 81000; 82947; 83735; 83874; 83880; 84484; 85025; 85379; 85610; 85730; 93005; 93041; 93970; 99284; A9540; 36415

== ENCOUNTER 2022-07-21 05:33 | Outpatient (CLI) | payer MEDICARE, OTHER ==
[~2022-07-21] VITALS: Ht 177.8 cm; Wt 100.7 kg
== END 2022-07-22 09:36 | disposition home or self-care (01) ==
LOC: PREOP 05:33
PROVIDERS: ATTEND Surgery
DX: Z01.818 Encounter for other preprocedural examination (principal)

== ENCOUNTER 2022-07-24 11:04 | Day surgery (SDC) | payer MEDICARE, OTHER ==
[~2022-07-24] VITALS: Ht 177.8 cm; Wt 100.7 kg
[2022-07-24] MEDS ORDERED: LACTATED RINGERS 1,000 ML IV STA (11:12)
[2022-07-24] MEDS ORDERED: HURRICAINE EXT TUBE (BENZOCAINE) XX PRN (11:15)
[2022-07-24 11:45] VITALS: BP 140/46
--- NOTE | 2022-07-24 13:12 | Progress Note-Pre Operative ---
Pre-Operative Progress Note Date of Available H&P: Jul 18, 2022 Date H&P Reviewed: Jul 24, 2022 Time H&P Reviewed: 13:11 History & Physical: H&P Reviewed, Patient Examed, No changes noted Pre-Operative Diagnosis: Iron deficiency anemia and hematochezia ASHER DORMAN DO Jul 24, 2022 13:12
[2022-07-24] MEDS ORDERED: PROPOFOL INJECTION 50 ML IV ONE (13:19)
[2022-07-24 14:14] VITALS: BP 71/39
[2022-07-24] MEDS ORDERED: PANT40TA2 PO (14:18)
[2022-07-24 14:19] VITALS: BP 87/52
[2022-07-24 14:20] VITALS: BP 87/52
--- NOTE | 2022-07-24 14:20 | Discharge Inst-Simple/Standard ---
Discharge Inst-Standard Discharge Medications New, Converted or Re-Newed RX: RX on Chart Patient Instructions/Follow Up Plan of Care/Instructions/FU: 2 weeks Sada Activity as Tolerated: Yes Discharge Diet: Regular Diet ASHER DORMAN DO Jul 24, 2022 14:20
[2022-07-24 14:50] VITALS: BP 123/51
[2022-07-24 15:17] VITALS: BP 123/51
--- NOTE | 2022-07-24 21:42 | OPERATIVE REPORT ---
DATE OF SERVICE: 07/24/2022 PREOPERATIVE DIAGNOSES: Iron deficiency anemia, hematochezia. POSTOPERATIVE DIAGNOSIS: Small hiatal hernia, Schatzki's ring, possible healing ulcer of the antrum and duodenitis, colon polyps. PROCEDURES: EGD with biopsies, colonoscopy with hot biopsy lumpectomy x10. SURGEON: Asher Tomlin DO ANESTHESIA: Per UTILIZATION REVIEWER. ESTIMATED BLOOD LOSS: None. COMPLICATIONS: None. INDICATIONS: The patient is a 77-year-old male with iron deficiency anemia and hematochezia. He understands the risks and benefits of procedure and wished to proceed. Consent was signed and in the chart. DESCRIPTION OF PROCEDURE: The patient was taken to the endoscopy suite, placed in the left lateral recumbent position. A timeout was performed. Scope was inserted in the mouth, down the esophagus, stomach and into the duodenum without difficulty. There were no polyps, masses or ulcerations within the second portion of the duodenum. First portion of duodenum had some inflammatory changes. The scope was slowly retracted back into the stomach, where it was further insufflated. A change of questionable healing ulcer in the antrum. Biopsy of the antrum was obtained. The scope was retroflexed noting a small hiatal hernia. No other pathology. The scope was retracted back into the esophagus where distally, there was a Schatzki's ring with some inflammation. Biopsy of this area was obtained. Scope was slowly retracted back until completely removed. Digital rectal exam was performed. No palpable polyps, masses, ulcerations. Scope was inserted into the rectum and advanced all the way to cecum with minimal difficulty. Prep was adequate. The scope then slowly retracted back. No polyps, mass, ulceration of the cecum, ascending colon and in the transverse colon, 4 polyps were present with hot biopsy polypectomy was performed. Descending colon had 3 small polyps, which hot biopsy polypectomies were performed. Sigmoid colon had 3 polyps, which hot biopsy polypectomy was performed. The scope was continued to retracted back into the rectum where it was also retroflexed noting no other pathology. Scope was returned to its normal position and slowly withdrawn until completely removed. The patient tolerated the procedure well with no complications, taken to recovery room in stable condition. RECOMMENDATIONS: The patient will follow up on biopsy results. We will start him on Protonix 40 mg daily. I feel that likely has bleeding from the upper GI tract at one point. If continues to have any symptoms, he should be reevaluated at that time. Depending upon pathology would depend on when we do colonoscopy again; otherwise, due to his age, would not do any further. Job ID: [id number] DocumentID: [id number] Dictated Date: 07/24/2022 14:26:02 Rail Car Mechanic Date: 07/24/2022 21:40:00 Dictated By: ASHER TOMLIN DO
--- NOTE | 2022-07-25 14:48 | Anesthesia-General Post-Op ---
MAC Patient Condition Mental Status/LOC: Same as Preop Cardiovascular: Satisfactory Nausea/Vomiting: Absent Respiratory: Satisfactory Pain: Controlled Complications: Absent Post Op Complications Complications None Follow Up Care/Instructions Patient Instructions None needed. Anesthesiology Discharge Order Discharge Order Patient is doing well yesterday afternoon after the procedure with no complaints, stable vital signs, no apparent adverse anesthesia problems. No complications reported per nursing. SHAWN DAO DO Jul 25, 2022 14:48
== END 2022-07-24 15:17 | disposition home or self-care (01) ==
LOC: ENDO 11:04
PROVIDERS: ATTEND Surgery
DX: D12.3 Benign neoplasm of transverse colon (principal); K21.00 Gastro-esophageal reflux disease with esophagitis, without bleeding; D12.4 Benign neoplasm of descending colon; D12.5 Benign neoplasm of sigmoid colon; D50.9 Iron deficiency anemia, unspecified; E11.22 Type 2 diabetes mellitus with diabetic chronic kidney disease; I12.9 Hypertensive chronic kidney disease with stage 1 through stage 4 chronic kidney disease, or unspecified chronic kidney disease; N18.4 Chronic kidney disease, stage 4 (severe); K44.9 Diaphragmatic hernia without obstruction or gangrene; K22.2 Esophageal obstruction; K29.80 Duodenitis without bleeding; E66.9 Obesity, unspecified; Z68.31 Body mass index [BMI] 31.0-31.9, adult; Z87.891 Personal history of nicotine dependence; K92.1 Melena; Z79.01 Long term (current) use of anticoagulants; Z79.02 Long term (current) use of antithrombotics/antiplatelets; Z79.4 Long term (current) use of insulin

== ENCOUNTER 2022-08-06 17:44 | Emergency (ER) | payer MEDICARE, OTHER ==
[~2022-08-06] VITALS: Ht 177 cm; Wt 100.0 kg
[~2022-08-06 17:44] MED LIST changes: +PANT40TA2 PO
--- NOTE | 2022-08-06 18:17 | ED General ---
General Chief Complaint: General Problems/Pain Stated Complaint: ABNORMAL LAB NUMBERS, POSSIBLE KIDNEY FAILURE Source of Information: Patient Exam Limitations: No Limitations History of Present Illness Date Seen by Provider: Aug 06, 2022 Time Seen by Provider: 06:17 Initial Comments Patient is a 77-year-old male with a long history of diabetes, history of aortic valve replacement, previous GI bleed, melanoma, stage IV kidney failure. He was at his cancer doctors office yesterday had blood drawn and was called today and told to come to the emergency room for abnormal labs. Patient has been feeling increasing generalized weakness over the last week. He states he hardly has the energy to stand up and move around at home. He is currently not a dialysis patient. He denies fevers, chills. He has had a mild cough. He is complaining of lots of swelling to his extremities. He still makes urine but minimal amounts. He has some chest discomfort low midsternal with cough. Nonproductive. He is not currently on antibiotics. No diarrhea currently. He has had recent in the last month to 6 weeks GI bleed with colonoscopy and endoscopy. Does not use oxygen at home, no history of heart failure or coronary artery disease. Remote history of smoking quit 30 years ago. All other review of systems reviewed and negative except as stated. Timing/Duration: 1 Week Severity: Moderate Associated Systoms: Chest Pain (with cough), Malaise, Weakness Allergies and Home Medications Allergies Coded Allergies: No Known Drug Allergies (Unverified , 07/22/22) Patient Home Medication List Home Medication List Reviewed: Yes Albuterol Sulfate (Proair Hfa) 90 Mcg Hfa.aer.ad, 2 PUFF INH Q6H PRN for SHORTNESS OF BREATH, (Reported) Entered as Reported by: MAUREEN MEDINA on 05/02/22 1249 Allopurinol (Allopurinol) 100 Mg Tablet, 100 MG PO DAILY, (Reported) Entered as Reported by: SHERIE GODDARD on 12/24/16 1036 Apixaban (Eliquis) 2.5 Mg Tablet, 2.5 MG PO BID, (Reported) Entered as Reported by: MAUREEN MEDINA on 05/02/22 1249 Atorvastatin Calcium (Atorvastatin Calcium) 80 Mg Tablet, 80 MG PO HS, (Reported) Entered as Reported by: SHERIE GODDARD on 07/14/19 1025 Carboxymethylcellulose Sodium (Refresh Tears) 0.5 % Drops, 1-2 DROPS OU UD, (Reported) Entered as Reported by: MAUREEN MEDINA on 05/02/22 1249 Carvedilol Phosphate (Carvedilol ER) 20 Mg Cpmp.24hr, 20 MG PO DAILY, (Reported) Entered as Reported by: MAUREEN MEDINA on 05/02/22 1249 Cetirizine HCl (Cetirizine HCl) 10 Mg Tablet, 10 MG PO DAILY, (Reported) Entered as Reported by: MAUREEN MEDINA on 05/02/22 1249 Cholecalciferol (Vitamin D3) (Vitamin D3) 50 Mcg Tablet, 50 MCG PO DAILY, (Reported) Entered as Reported by: SHERIE GODDARD on 01/27/20 0959 Clopidogrel Bisulfate (Clopidogrel) 75 Mg Tablet, 75 MG PO Q48H, (Reported) Entered as Reported by: MAUREEN MEDINA on 05/02/22 1249 Ferrous Sulfate (Iron) 325 Mg (65 Mg Iron) Tablet, 325 MG PO, (Reported) Entered as Reported by: SWATHI COBB on 06/02/22 1004 Fluticasone Propionate (Fluticasone Propionate) 50 Mcg/Actuation [place].susp, 1 SPRAY NSEACH BID PRN for CONGESTION, (Reported) Entered as Reported by: MAUREEN MEDINA on 05/02/22 1249 Furosemide (Furosemide) 40 Mg Tablet, 40 MG PO DAILY, (Reported) Entered as Reported by: SHERIE GODDARD on 07/14/19 1025 Insulin Glargine,Hum.rec.anlog (Lantus Solostar) 100 Unit/Ml (3 Ml) Insuln.pen, 22 UNITS SC HS, (Reported) Entered as Reported by: MAUREEN MEDINA on 05/02/22 1249 Pantoprazole Sodium (Protonix) 40 Mg Tablet.dr, 40 MG PO DAILY Prescribed by: ASHER DORMAN on 07/24/22 1418 Sodium Bicarbonate (Sodium Bicarbonate) 325 Mg Tablet, 2 EA PO BID, (Reported) Entered as Reported by: SWATHI COBB on 06/02/22 1004 Review of Systems Review of Systems Constitutional: malaise, weakness EENTM: no symptoms reported Respiratory: no symptoms reported Cardiovascular: edema (anasarca) Gastrointestinal: no symptoms reported Genitourinary: other (decreased amounts) Musculoskeletal: no symptoms reported Skin: no symptoms reported All Other Systems Reviewed Negative Unless Noted: Yes Past Yittytl-Hoaopl-Ggxmqf Hx Immunizations Up To Date First/Initial COVID19 Vaccinat: 2020 Second COVID19 Vaccination Carlito: 2020 Third COVID19 Vaccination Date: 2020 Seasonal Allergies Seasonal Allergies: Yes Past Medical History Surgery/Hospitalization HX: MELANOMA METS TO BONE, DIABETES, STAGE 4 KIDNEY DISEASE Surgeries: Yes (detached retina in bilat eye, clavicle fx, bilat shoulder sx, ) Adenoidectomy, Bladder Surgery, Cardiac, CABG, Renal, Tonsillectomy, Valve Replacement Respiratory: Yes Sleep Apnea, COPD, Emphysema Currently Using CPAP: Yes Currently Using BIPAP: No Cardiac: Yes (CABG, aortic valve replaced) Atrial Fibrillation, Coronary Artery Disease, High Cholesterol, Hypertension, Valvular Heart Disease Neurological: No Reproductive Disorders: No Sexually Transmitted Disease: No Genitourinary: Yes (bladder tumors, STGE 4 RENAL FAILURE) Kidney Stones, Renal Failure Gastrointestinal: No Musculoskeletal: Yes (3 BULGING DISCS) Arthritis, Fractures Endocrine: Yes Diabetes, Insulin dep HEENT: Yes (detached retina sx, CAT SX) Cataract Cancer: Yes (had a malignant mole removed with lymphnode removed as well) Bladder, Skin Did You Recieve Any Treatments: Yes What Type of Treatment Did You: Surgical Intervention Psychosocial: No Anxiety, PTSD, Depression Integumentary: Yes (HX SKIN CANCER ON BACK) Blood Disorders: Yes (anemia) Adverse Reaction/Blood Tranf: Yes Physical Exam Vital Signs Vital Signs - First Documented 08/06/22 18:10 Pulse 69 Resp 18 B/P (MAP) 103/36 (58) Pulse Ox 96 Capillary Refill : Height, Weight, BMI Height: 5'9.00" Weight: 260lbs. 0.0oz. [phone]; 31.85 BMI Method:Stated General Appearance: No Apparent Distress, WD/WN Progress/Results/Core Measures Suspected Sepsis SIRS Temperature: Pulse: Respiratory Rate: Laboratory Tests 08/06/22 19:05: White Blood Count 10.9 Blood Pressure / Mean: Laboratory Tests 08/06/22 18:42: Creatinine 4.94H, Total Bilirubin 1.2H 08/06/22 19:05: Platelet Count 128L Results/Orders Lab Results Laboratory Tests Test 08/06/22 18:42 08/06/22 19:05 Range/Units Sodium Level 133 L 135-145 MMOL/L Potassium Level 5.9 H 3.6-5.0 MMOL/L Chloride Level 106 98-107 MMOL/L Carbon Dioxide Level 14 L 21-32 MMOL/L Anion Gap 13 5-14 MMOL/L Blood Urea Nitrogen 90 H 7-18 MG/DL Creatinine 4.94 H 0.60-1.30 MG/DL Estimat Glomerular Filtration Rate 11 BUN/Creatinine Ratio 18 Glucose Level 201 H 70-105 MG/DL Calcium Level 7.6 L 8.5-10.1 MG/DL Corrected Calcium 9.4 8.5-10.1 MG/DL Phosphorus Level 5.6 H 2.3-4.7 MG/DL Magnesium Level 2.4 1.6-2.4 MG/DL Total Bilirubin 1.2 H 0.1-1.0 MG/DL Aspartate Amino Transf (AST/SGOT) 57 H 5-34 U/L Alanine Aminotransferase (ALT/SGPT) 30 0-55 U/L Alkaline Phosphatase 2026 H 40-136 U/L Total Protein 5.9 L 6.4-8.2 GM/DL Albumin 1.8 L 3.2-4.5 GM/DL White Blood Count 10.9 4.3-11.0 10^3/uL Red Blood Count 2.92 L 4.30-5.52 10^6/uL Hemoglobin 8.7 L 13.3-17.7 g/dL Hematocrit 27 L 40-54 % Mean Corpuscular Volume 92 80-99 fL Mean Corpuscular Hemoglobin 30 25-34 pg Mean Corpuscular Hemoglobin Concent 33 32-36 g/dL Red Cell Distribution Width 19.0 H 10.0-14.5 % Platelet Count 128 L 130-400 10^3/uL Mean Platelet Volume 11.8 9.0-12.2 fL Immature Granulocyte % (Auto) 4 % Neutrophils (%) (Auto) 69 42-75 % Lymphocytes (%) (Auto) 11 L 12-44 % Monocytes (%) (Auto) 14 H 0-12 % Eosinophils (%) (Auto) 2 0-10 % Basophils (%) (Auto) 1 0-10 % Neutrophils # (Auto) 7.5 1.8-7.8 10^3/uL Lymphocytes # (Auto) 1.2 1.0-4.0 10^3/uL Monocytes # (Auto) 1.5 H 0.0-1.0 10^3/uL Eosinophils # (Auto) 0.2 0.0-0.3 10^3/uL Basophils # (Auto) 0.1 0.0-0.1 10^3/uL Immature Granulocyte # (Auto) 0.4 H 0.0-0.1 10^3/uL Percent Immature Platelet Fraction 4.8 0.0-7.6 % My Orders Orders - ISIDORO MOLINA MD Ed Iv/Invasive Line Start (08/06/22 18:41) Cbc With Automated Diff (08/06/22 18:41) Comprehensive Metabolic Panel (08/06/22 18:41) Chest 1 View, Ap/Pa Only (08/06/22 18:41) Bladder Scan (08/06/22 18:41) Ekg Tracing (08/06/22 18:41) Magnesium (08/06/22 18:41) Phosphorus (08/06/22 18:41) Sodium Polystyrene Powder (Kayexalate P (08/06/22 20:30) Catheter(Urinary) Insert & Ass 03,15 (08/06/22 21:48) Lidocaine 2% (Urojet) (Xylocaine Urojet) (08/06/22 22:00) Vital Signs/I&O 08/06/22 18:10 Pulse 69 Resp 18 B/P (MAP) 103/36 (58) Pulse Ox 96 Capillary Refill : Progress Note : Time: 21:25 Progress Note Patient seen and evaluated by me, 77-year-old male who presents with generalized weakness, diffuse anasarca and "abnormal labs" per his oncologist. Patient evaluation today included physical exam, EKG, CBC, Chem-12. He also was bladder scanned which showed 300 in his bladder. CBC shows chronic anemia with a he moglobin 8.7. He is chemistry is remarkable for elevated potassium at 5.9 increase in his creatinine to 4.9, acidosis with a bicarb of 14. His EKG shows normal sinus rhythm at 86 bpm slightly prolonged OK interval at 225 no T wave abnormalities or widening of QRS. His vital signs have remained stable. Concern for his hyper kalemia in the setting of his chronic kidney disease, I communicated these findings with the patient and advised him that we would be talking with his nephrology team at [facility]. I spoke with Dr. Guo, pharmacy service associate at [facility], he stated with the findings on his laboratory studies he thought it would be beneficial for the patient to come over, be evaluated by nephrology and monitoring of his potassium. We will be discussing with Dr. Gomes hospitalist @ [place]. [id number] Discussed with alison Gomez. Accepts patient for admission. Patient desires to be FULL CODE ECG Initial ECG Impression Date: Aug 06, 2022 Initial ECG Impression Time: 18:49 Initial ECG Rate: 86 Initial ECG Rhythm: Normal Sinus Initial ECG Intervals OK 225 QRS 100 QTc 444 Diagnostic Imaging Diagonstic Imaging: Xray Plain Films/CT/US/NM/MRI: chest Comments [facility]. [place], [place] NAME: MARTINA [facility]STRO [facility] REC#: [id number] PT STATUS: REG ER : 1945 PHYSICIAN: ISIDORO MOLINA MD ADMIT DATE: 08/06/22/ER Draft Date of Exam:08/06/22 CHEST 1 VIEW, AP/PA ONLY INDICATION: Weakness, end-stage renal disease. EXAMINATION: Chest, 08/06/2022. COMPARISON: 06/30/2022. FINDINGS: There is cardiomegaly. Postoperative change is noted. No infiltrate, effusion or pneumothorax. IMPRESSION: No acute cardiopulmonary process. Dictated on workstation # [id number] Dict: 08/06/221909 Trans: 08/06/221913 [facility] [id number] Interpreted by: GALLO SALINAS MD Electronically signed by: Departure Impression Primary Impression: Anasarca associated with disorder of kidney Additional Impressions: Hyperkalemia Chronic anemia Disposition: XF SHT-TRM HOSP Condition: Stable Transfer Transfer Reason: Exceeds level of care Transfer Progress Notes Dr Pratt, Hospitalist; Dr Guo - pharmacy service associate Transfer Facility: [facility] Method of Transfer: EMS Departure-Patient Inst. Referrals: MARIELY ESPAÑA DO (PCP/Family) Primary Care Physician ISIDORO MOLINA MD Aug 06, 2022 18:17
[2022-08-06 19:05] LABS: ALBUMIN 1.8 GM/DL (3.2-4.5); POTASSIUM 5.9 MMOL/L (3.6-5.0)
[2022-08-06 19:06] LABS: CALCIUM 7.6 MG/DL (8.5-10.1)
[2022-08-06 19:08] LABS: TOTAL PROTEIN 5.9 GM/DL (6.4-8.2)
[2022-08-06 19:09] LABS: BILIRUBIN,TOTAL 1.2 MG/DL (0.1-1.0)
[2022-08-06 19:10] LABS: BASOPHILS # (AUTO) 0.1 10^3/uL (0.0-0.1); BASOPHILS % (AUTO) 1 % (0-10); EOSINOPHILS # (AUTO) 0.2 10^3/uL (0.0-0.3); EOSINOPHILS % (AUTO) 2 % (0-10); HEMATOCRIT 27 % (40-54); HEMOGLOBIN 8.7 g/dL (13.3-17.7); LYMPHOCYTES # (AUTO) 1.2 10^3/uL (1.0-4.0); LYMPHOCYTES % (AUTO) 11 % (12-44); MEAN CORPUSCULAR HEMOGLOBIN 30 pg (25-34); MEAN CORPUSCULAR HGB CONC 33 g/dL (32-36); MEAN CORPUSCULAR VOLUME 92 fL (80-99); MEAN PLATELET VOLUME 11.8 fL (9.0-12.2); MONOCYTES # (AUTO) 1.5 10^3/uL (0.0-1.0); MONOCYTES % (AUTO) 14 % (0-12); NEUTROPHILS # (AUTO) 7.5 10^3/uL (1.8-7.8); NEUTROPHILS % (AUTO) 69 % (42-75); PLATELET COUNT 128 10^3/uL (130-400); WHITE BLOOD COUNT 10.9 10^3/uL (4.3-11.0)
[2022-08-06 19:11] LABS: CREATININE SERUM 4.94 MG/DL (0.60-1.30); PHOSPHORUS 5.6 MG/DL (2.3-4.7)
[2022-08-06 19:14] LABS: MAGNESIUM 2.4 MG/DL (1.6-2.4)
--- NOTE | 2022-08-06 19:14 | Diagnostic Imaging Report ---
INDICATION: Weakness, end-stage renal disease. EXAMINATION: Chest, 08/06/2022. COMPARISON: 06/30/2022. FINDINGS: There is cardiomegaly. Postoperative change is noted. No infiltrate, effusion or pneumothorax. IMPRESSION: No acute cardiopulmonary process. Dictated by: Dictated on workstation # [id number]
[2022-08-06] MEDS ORDERED: SODIUM POLYSTYRENE POWDER 15 GM BOTTLE PO ONE (20:30)
[2022-08-06] MEDS ORDERED: LIDOCAINE UROJET 2% GEL 10 ML PKG TOP ONE (22:00)
[2022-08-06] MEDS ORDERED: SODIUM POLYSTYRENE POWDER 15 GM BOTTLE ONE (22:41)
[2022-08-06] MEDS ORDERED: FUROSEMIDE 40 MG/4 ML INJ (LASIX) IVP ONE (22:45)
[2022-08-06 22:59] VITALS: BP 117/48
== END 2022-08-07 00:40 | disposition short-term general hospital (02) ==
LOC: EDUNIT# 17:44 → ER 17:46
DX: N04.9 Nephrotic syndrome with unspecified morphologic changes (principal); N18.4 Chronic kidney disease, stage 4 (severe); E11.22 Type 2 diabetes mellitus with diabetic chronic kidney disease; D63.1 Anemia in chronic kidney disease; G47.30 Sleep apnea, unspecified; E87.5 Hyperkalemia; Z79.4 Long term (current) use of insulin; Z99.89 Dependence on other enabling machines and devices
CPT/HCPCS: 36415; 51702; 71045; 80053; 83735; 84100; 85025; 93005